=== PATIENT | female | born 1945 | race African-American/Black ===

== ENCOUNTER 2016-08-23 12:12 | Inpatient (IN) | payer MEDICARE, MEDICAID ==
[2016-08-23] MEDS ORDERED: IPRATROPIUM/ALBUTEROL 0.5-2.5 MG/3 ML AMPUL NEB ONE ×2 (12:30)
--- NOTE | 2016-08-23 13:07 | ER Document Report ---
ED General - General Stated Complaint: BACK PAIN Mode of Arrival: Medic Information source: Patient, Relative Notes: 71-year-old female who was recently discharged from nursing facility with a history of diabetes and asthma presents with complaints of back pain shortness breath difficulty breathing and high blood sugar. Patient has not been taking her diabetes medication since she's been unable to obtain it. Was found to be satting 75% on room air. Patient is not on oxygen at home. - HPI Onset: Last week Onset/Duration: Persistent Quality of pain: Achy Severity: Mild Pain Level: 1 Associated symptoms: Body/muscle aches, Nonproductive cough, Shortness of breath Exacerbated by: Denies Relieved by: Denies Similar symptoms previously: Yes Recently seen / treated by doctor: Yes - Related Data Allergies/Adverse Reactions: Penicillins Allergy (Verified 08/23/16 14:38) Sulfa (Sulfonamide Antibiotics) Allergy (Verified 08/23/16 14:38) Past Medical History - Social History Smoking Status: Never Smoker Cigarette use (# per day): No Chew tobacco use (# tins/day): No Smoking Education Provided: No Family History: Reviewed & Not Pertinent Review of Systems - Review of Systems Notes: REVIEW OF SYSTEMS: CONSTITUTIONAL : Denies fever, chills, or sweats. Denies recent illness. EENT: Denies eye, ear, throat, or mouth pain or symptoms. Denies nasal or sinus congestion or discharge. Denies throat, tongue, or mouth swelling or difficulty swallowing. CARDIOVASCULAR: Denies chest pain. Denies palpitations or racing or irregular heart beat. Denies ankle edema. RESPIRATORY: Admits shortness breath difficult to breathing GASTROINTESTINAL: Admits nausea GENITOURINARY: Denies difficulty urinating, painful urination, burning, frequency, blood in urine, or discharge. FEMALE GENITOURINARY: Denies vaginal bleeding, heavy or abnormal periods, irregular periods. Denies vaginal discharge or odor. MUSCULOSKELETAL: Denies back or neck pain or stiffness. Denies joint pain or swelling. SKIN: Denies rash, lesions or sores. HEMATOLOGIC : Denies easy bruising or bleeding. LYMPHATIC: Denies swollen, enlarged glands. NEUROLOGICAL: Denies confusion or altered mental status. Denies passing out or loss of consciousness. Denies dizziness or lightheadedness. Denies headache. Denies weakness or paralysis or loss of use of either side. Denies problems with gait or speech. Denies sensory loss, numbness, or tingling. Denies seizures. PSYCHIATRIC: Denies anxiety or stress. Denies depression, suicidal ideation, or homicidal ideation. ALL OTHER SYSTEMS REVIEWED AND NEGATIVE. Dictation was performed using [employer] voice recognition software PHYSICAL EXAMINATION: GENERAL: Chronically ill-appearing female no acute distress HEAD: Atraumatic, normocephalic. EYES: Pupils equal round and reactive to light, extraocular movements intact, conjunctiva are normal. ENT: Nares patent, oropharynx clear without exudates. Moist mucous membranes. NECK: Normal range of motion, supple without lymphadenopathy LUNGS: Intermittent wheezing inspiratory and expiratory with coarse rhonchi. Patient is currently on 4 L nasal cannula satting 100% HEART: Regular rate and rhythm without murmurs ABDOMEN: Soft, nontender, nondistended abdomen. No guarding, no rebound. No masses appreciated. Female : deferred Musculoskeletal: Bilateral AKA NEUROLOGICAL: Cranial nerves grossly intact. Normal speech, normal gait. Normal sensory, motor exams PSYCH: Normal mood, normal affect. SKIN: Warm, Dry, normal turgor, no rashes or lesions noted. Course - Re-evaluation Re-evalutation: 08/23/16 13:06 Patient immediately given 3 duo nebs dyspnea workup ordered 08/23/16 13:06 08/23/16 15:17 X-ray presentations consistent with pneumonia, patient does have an elevated white count. A CT has been ordered given the patient has history of bilateral AKA's, I will place in antecubital IV guided ultrasound for this test. Patient is noted to be hyperglycemic insulin fluids have been ordered as well - Laboratory Result Diagrams: 08/23/16 13:25 08/23/16 13:25 Laboratory results interpreted by me: 08/23/16 08/23/16 13:25 13:25 MCHC 31.6 L RDW 17.1 H Sodium 133.3 L Potassium 5.2 H Chloride 89 L BUN 64 H Creatinine 1.55 H Est GFR ( Amer) 40 L Est GFR (Non-Af Amer) 33 L Glucose 550 H* Total Bilirubin 1.4 H Direct Bilirubin 0.6 H Alkaline Phosphatase 128 H - Diagnostic Test Radiology reviewed: Image reviewed, Reports reviewed Discharge - Discharge Clinical Impression: Hyperglycemia, Hypoxemia Pneumonia Qualifiers: Pneumonia type: due to unspecified organism Laterality: left Lung location: lower lobe of lung Qualified Code(s): J18.1 - Lobar pneumonia, unspecified organism Condition: Stable Disposition: ADMITTED INPATIENT Admitting Provider: Hospitalist Unit Admitted: Telemetry
--- NOTE | 2016-08-23 13:15 | EKG REPORT ---
SEVERITY:- ABNORMAL ECG - SINUS TACHYCARDIA INFERIOR INFARCT, OLD CONSIDER POSTERIOR WALL INVOLVEMENT : Confirmed by: Gretel Ames MD 23-Aug-2016 13:14:20
[2016-08-23 13:49] LABS: ABSOLUTE BASOPHILS # (AUTO) 0.1 10^3/uL (0.0-0.2); ABSOLUTE EOSINOPHILS # (AUTO) 0.1 10^3/uL (0.0-0.6); ABSOLUTE LYMPHOCYTES (AUTO) 3.2 10^3/uL (0.5-4.7); ABSOLUTE NEUT (AUTO) 5.7 10^3/uL (1.7-8.2); BASOPHILS % (AUTO) 0.9 % (0-2); EOSINOPHILS % (AUTO) 0.6 % (0-6); HEMATOCRIT 38.8 % (36.0-47.0); HEMOGLOBIN 12.3 g/dL (12.0-15.5); HGB HCT DIFFERENCE -1.9; LYMPHOCYTES % (AUTO) 31.9 % (13-45); MEAN CORPUSCULAR HEMOGLOBIN 27.9 pg (27.0-33.4); MEAN CORPUSCULAR HGB CONC 31.6 g/dL (32.0-36.0); MEAN CORPUSCULAR VOLUME 88 fl (80-97); RED BLOOD COUNT 4.39 10^6/uL (3.72-5.28); RED CELL DISTRIBUTION WIDTH 17.1 % (11.5-14.0); SEGMENTED NEUTROPHILS % (AUTO) 56.6 % (42-78); WHITE BLOOD COUNT 10.1 10^3/uL (4.0-10.5)
[2016-08-23 13:50] LABS: VENOUS BLOOD BASE EXCESS 2.6 mmol/L; VENOUS BLOOD HCO3 29.9 mmol/L (20-32); VENOUS BLOOD PCO2 59.6 mmHg (35-63); VENOUS BLOOD PH 7.32 (7.30-7.42)
[2016-08-23 13:55] LABS: PROTHROMBIN TIME 13.8 SEC (11.4-15.4)
[2016-08-23 14:05] LABS: ALANINE AMINOTRANSFERASE 27 U/L (9-52); ALBUMIN 3.6 g/dL (3.5-5.0); ALKALINE PHOSPHATASE 128 U/L (38-126); ANION GAP 16 (5-19); ASPARTATE AMINO TRANSFERASE 20 U/L (14-36); BILIRUBIN,DIRECT 0.6 mg/dL (0.0-0.4); BILIRUBIN,TOTAL 1.4 mg/dL (0.2-1.3); BLOOD UREA NITROGEN 64 mg/dL (7-20); CALCIUM 9.5 mg/dL (8.4-10.2); CARBON DIOXIDE 28 mmol/L (22-30); CHLORIDE 89 mmol/L (98-107); CREATININE RESULT 1.55 mg/dL (0.52-1.25); POTASSIUM 5.2 mmol/L (3.6-5.0); SODIUM 133.3 mmol/L (137-145); TOTAL PROTEIN 7.3 g/dL (6.3-8.2)
[2016-08-23 14:28] LABS: GLUCOSE 550 mg/dL (75-110)
[2016-08-23] MEDS ORDERED: INSULIN REG, HUMAN 100 UNIT/ML 3 ML VIAL (PYX) IV ONE (14:32)
[2016-08-23] MEDS ORDERED: NORMAL SALINE 1000 ML 1,000 ML IV ONE (14:32)
[2016-08-23] MEDS ORDERED: LEVOFLOXACIN 750 MG/D5W RTU 150 ML IV ONE (15:07)
[2016-08-23] MEDS ORDERED: RINGERS SOLUTION,LACTATED 1,000 ML IV PRN (16:01)
[2016-08-23] MEDS ORDERED: GLUCAGON,HUMAN RECOMB 1 MG INJ IM PRN (16:07)
[2016-08-23] MEDS ORDERED: DEXTROSE 50%-WATER 25 GM/50 ML DISP.SYRIN IV PRN ×2 (16:07)
[2016-08-23] MEDS ORDERED: DEXTROSE 40% GEL 15 GM TUBE PO PRN ×2 (16:07)
[2016-08-23 16:15] LABS: APPEARANCE,URINE SLIGHTLY-CLOUDY; BILIRUBIN,URINE NEGATIVE (NEGATIVE); GLUCOSE, URINE >=500 mg/dL (NEGATIVE); KETONES,URINE NEGATIVE (NEGATIVE); LEUKOCYTE ESTERASE,URINE NEGATIVE (NEGATIVE); NITRITE,URINE NEGATIVE (NEGATIVE); PROTEIN,URINE NEGATIVE (NEGATIVE); URINE SPECIFIC GRAVITY 1.008; UROBILINOGEN,URINE NEGATIVE mg/dL (<2.0)
[2016-08-23] MEDS ORDERED: VANCOMYCIN HCL 0 MG in DEXTROSE 5%-WATER 250 ML IV NR (16:15)
--- NOTE | 2016-08-23 18:15 | PDOC H&P ---
History of Present Illness Admission Date/PCP: 08/23/16 16:50 AYAN FONG DO Patient complains of: Generalized weakness and pain History of Present Illness: DANYELL ABBASI is a 71 year old -[place] female presents to the emergency department from home with generalized weakness and pain throughout all muscles and joints. The patient is chronically ill, previously treated with primary care and hospital admissions in [place]. She and the family relate annual admissions for pneumonia, frequently admitted to ICU but never intubated on mechanical ventilation for her pneumonia. She has underlying O2 dependent COPD and is relatively immunocompromised due to advanced diabetes resulting in severe peripheral neuropathy and nonhealing wounds and ultimately bilateral [id number] amputations, adrenal hemorrhage resulting in insufficiency requiring cortisone therapy. She also reports a history of MRSA in her sputum on previous admission in [facility]. She reports feeling more short of breath, easily fatigued, cough with green phlegm and subjective fevers. Evaluation in emergency departments suggest right lower lobe pneumonia given her multiple comorbidities we were asked to admit for further treatment and evaluation. According to ER physician she was hypoxic on room air at presentation 75%. Past Medical History Cardiac Medical History: Reports: Hyperlipidema, Hypertension Denies: Congestive Heart Failure, Myocardial Infarction Pulmonary Medical History: Reports: Chronic Obstructive Pulmonary Disease (COPD ) - O2 dependent but no nebulizer Endocrine Medical History: Reports: Diabetes Mellitus Type 2 - Insulin-dependent Renal/ Medical History: Reports: Chronic Kidney Disease - Unknown stage Past Surgical History Past Surgical History: Reports: Cholecystectomy, Orthopedic Surgery - Bilateral AKA Social History Information Source: Patient Lives with: Family - Lives with son now, just moved from [place] Smoking Status: Current Every Day Smoker Cigarettes Packs Per Day: 1 Frequency of Alcohol Use: None Hx Recreational Drug Use: No Hx Prescription Drug Abuse: No - Advance Directive Resuscitation Status: Full Code Family History Family History: Reviewed & Not Pertinent, DM Parental Family History Reviewed: Yes Children Family History Reviewed: Yes Sibling(s) Family History Reviewed.: Yes Medication/Allergy Allergies/Adverse Reactions: Penicillins Allergy (Verified 08/23/16 14:38) Sulfa (Sulfonamide Antibiotics) Allergy (Verified 08/23/16 14:38) Review of Systems Constitutional: PRESENT: chills, fever(s), weakness. ABSENT: headache(s), weight gain, weight loss Eyes: ABSENT: visual disturbances Ears: ABSENT: hearing changes Cardiovascular: PRESENT: dyspnea on exertion. ABSENT: chest pain, edema, orthropnea, palpitations Respiratory: PRESENT: cough, sputum. ABSENT: hemoptysis Gastrointestinal: ABSENT: abdominal pain, constipation, diarrhea, hematemesis, hematochezia, nausea, vomiting Genitourinary: ABSENT: dysuria, hematuria Musculoskeletal: PRESENT: back pain, muscle weakness. ABSENT: joint swelling Integumentary: ABSENT: rash, wounds Neurological: ABSENT: abnormal gait, abnormal speech, confusion, dizziness, focal weakness, syncope Psychiatric: ABSENT: anxiety, depression Endocrine: ABSENT: cold intolerance, heat intolerance, polydipsia, polyuria Hematologic/Lymphatic: ABSENT: easy bleeding, easy bruising Physical Exam Vital Signs: Intake & Output 08/22/16 08/23/16 08/24/16 06:59 06:59 06:59 Weight 61.235 kg PHYSICAL EXAM GENERAL: NAD; well developed, well nourished; moderate obese; alert and oriented to person, place, time, situation HEENT: normocephalic, atraumatic; EOMI, PERRLA, no conjunctival injection, no scleral icterus; oral mucosa moist; neck supple, no LAD, normal ROM RESPIRATORY: no accessory muscle use, no increased WOB, good air entry bilaterally; no wheezes, rales, rhonchi; bibasilar right greater than left inspiratory crackles CARDIO: no JVD; RRR; no systolic murmur; no tachycardia VASCULAR: no carotid bruit; no abdominal bruit; no pallor; 2+ radial; normal capillary refill GI: soft; nondistended; diminished bowel sounds; no rebound, rigidity, guarding; diffuse lower abdominal tenderness to palpation : normal external genitalia; rectal deferred NEURO: normal motor function; no dysarthria; no nystagmus; tongue protrudes midline; normal finger to nose; able to cross midline with finger to ear MSK: 4/5 strength; normal ROM hips; tenderness to palpation of both stumps right greater than left EXTREMITIES: no clubbing, cyanosis, no edema of the stumps or hands PSYCH: normal affect, normal mood SKIN: warm; moist; no petechiae; no telengectasias; no jaundice; no rash Results Laboratory Results: Labs reviewed, CBC shows normal leukocytes at 10,000 with a normal differential ; chemistries show sodium 133, potassium of 5.2 chloride of 89, carbon dioxide 28, BUN is 64, creatinine 1.55; blood sugars 550, lactic acid 1.4, LFTs were relatively unremarkable though bilirubin is mildly elevated 1.4. Impressions: Chest X-Ray 08/23/16 12:30 IMPRESSION: COPD. Atelectasis versus early pneumonia or aspiration right lower lobe. Status: Image reviewed by me - Agree with radiology Assessment & Plan - Diagnosis (1) Pneumonia Qualifiers: Pneumonia type: due to unspecified organism Laterality: unspecified laterality Lung location: lower lobe of lung Qualified Code(s): J18.1 - Lobar pneumonia, unspecified organism Is this a current diagnosis for this admission?: YesPlan: Poorly controlled. Admit for IV antibiotics covering with Levaquin and vancomycin. Follow up on blood and sputum cultures and narrow antibiotics accordingly. (2) Acute on chronic respiratory failure with hypoxia Is this a current diagnosis for this admission?: YesPlan: Secondary to the pneumonia. Stable on 4 L. Continue supplemental O2, aggressive pulmonary toilet. (3) Diabetes Qualifiers: Diabetes mellitus type: type 2 Diabetes mellitus complication status: with circulatory complication Diabetes mellitus complication detail: with other circulatory complications Diabetes mellitus senior care insulin use: with senior care use Qualified Code(s): E11.59 - Type 2 diabetes mellitus with other circulatory complications; Z79.4 - jail (current) use of insulin Is this a current diagnosis for this admission?: YesPlan: He did clarify her home medicines. Will start basal bolus regimen and titrate to effect. Will likely worsen with steroid use and due to the infection. (4) History of MRSA infection Is this a current diagnosis for this admission?: YesPlan: History of MRSA in her sputum so we will cover with vancomycin until cultures are available. (5) COPD (chronic obstructive pulmonary disease) Qualifiers: COPD type: unspecified COPD Qualified Code(s): J44.9 - Chronic obstructive pulmonary disease, unspecified Is this a current diagnosis for this admission?: YesPlan: Poorly controlled. Cover with steroids, supplemental oxygen, scheduled nebulizers for the first 48 hours and as needed nebulizers. (6) Full code status Is this a current diagnosis for this admission?: YesPlan: Patient reports she would wish to be resuscitated but "only once" and then allow her family to decide how to proceed from there. (7) Adrenal insufficiency Is this a current diagnosis for this admission?: YesPlan: Need to clarify her current hydrocortisone dose, in the meantime will cover with Solu-Medrol 40 mg IV twice a day to prevent hemodynamic collapse in the face of stress from acute infection. - Time Time Spent: 50 to 70 Minutes Medications reviewed and adjusted accordingly: Yes Anticipated discharge: Home with Homehealth - Uses [facility] Care - Inpatient Certification Based on my medical assessment, after consideration of the patient's comorbidities, presenting symptoms, or acuity I expect that the services needed warrant INPATIENT care.: Yes I certify that my determination is in accordance with my understanding of Medicare's requirements for reasonable and necessary INPATIENT services [42 CFR 412.3e].: Yes Medical Necessity: Significant Comorbidiites Make Outpatient Treatment Too Risky , Need For IV Fluids, Need for IV Antibiotics, Risk of Complication if Not Cared For in Hospital
[2016-08-23] MEDS: ACETAMINOPHEN 325 MG TABLET PO PRN (19:16)
[2016-08-23] MEDS: METHYLPREDNISOLONE INJ 40 MG/1 ML SDV IV SCH (19:16)
[2016-08-23] MEDS ORDERED: VANCOMYCIN HCL 1,250 MG in DEXTROSE 5%-WATER 250 ML IV ONE (20:00)
[2016-08-23] MEDS: IPRATROPIUM/ALBUTEROL 0.5-2.5 MG/3 ML AMPUL NEB SCH (21:46)
[2016-08-23] MEDS ORDERED: FAMOTIDINE 20 MG TABLET PO SCH (22:00)
[2016-08-23] MEDS ORDERED: INSULIN GLARGINE,HUM.REC.ANLOG 300 UNIT/3 ML INSULN.PEN SUBCUT SCH (22:00)
[2016-08-23] MEDS: FAMOTIDINE 20 MG TABLET PO SCH (22:35)
[2016-08-23] MEDS: INSULIN LISPRO 100 UNIT/ML 3 ML VIAL SUBCUT PRN (22:40)
[2016-08-24] MEDS: ACETAMINOPHEN 325 MG TABLET PO PRN (00:15)
--- NOTE | 2016-08-24 04:03 | OPERATIVE REPORT E ---
Operative Report NAME: DANYELL ABBASI : 1945 AGE: 71Y DATE OF SURGERY: 08/23/2016 ROOM: 406 PREOPERATIVE DIAGNOSES: 1. Poor veins for IV access. 2. Pneumonia. POSTOPERATIVE DIAGNOSES: 1. Poor veins for IV access. 2. Pneumonia. OPERATION: Placement of left internal jugular vein triple-lumen catheter. SURGEON: GILBERT GRACE M.D. ANESTHESIA: Local. INDICATION: This is a 71-year-old female just admitted for pneumonia and needed IV access for medications and fluids. She just has a very small IV in her left thumb with a small gauge needle. DESCRIPTION OF PROCEDURE: The patient was placed in slight Trendelenburg position and the left neck prepped and draped in usual sterile fashion. Local anesthesia infiltrated at the left neck within the clavicular and sternocleidomastoid muscle. A small needle was first used to puncture the vein, and this was followed by a larger needle. The vein was then punctured and a guidewire passed through the larger needle into the superior vena cava. The puncture site was then enlarged with a #11 blade, and subsequently dilated through the guidewire. Next, a triple-lumen catheter was then placed through the guidewire into the area of superior vena cava up to about 15 cm. Following this, all the port sites were then irrigated with saline solution. Blood could easily be aspirated and easily injected with saline. Next, the catheter was anchored to the skin with 3-0 nylon. A BioPatch was then placed at the puncture site, and a sterile transparent dressing was then placed over the catheter and puncture site areas. The patient tolerated the procedure well. Chest x-ray will be done for placement to make sure there is no evidence of pneumothorax. DICTATING PHYSICIAN: GILBERT GRACE M.D. [id number] PHY#: [id number] ID: [id number] JOB#: [id number] ACCT: [id number] cc:GILBERT GRACE M.D. >
[2016-08-24] MEDS: METHYLPREDNISOLONE INJ 40 MG/1 ML SDV IV SCH ×2 (05:10→18:23)
[2016-08-24 06:15] LABS: ABSOLUTE LYMPHOCYTES (AUTO) 1.6 10^3/uL (0.5-4.7); ABSOLUTE MONOCYTES (AUTO) 0.2 10^3/uL (0.1-1.4); ABSOLUTE NEUT (AUTO) 5.9 10^3/uL (1.7-8.2); BASOPHILS % (AUTO) 0.4 % (0-2); HEMATOCRIT 36.2 % (36.0-47.0); HEMOGLOBIN 11.4 g/dL (12.0-15.5); LYMPHOCYTES % (AUTO) 20.3 % (13-45); MEAN CORPUSCULAR HEMOGLOBIN 27.5 pg (27.0-33.4); MEAN CORPUSCULAR HGB CONC 31.5 g/dL (32.0-36.0); MEAN CORPUSCULAR VOLUME 87 fl (80-97); RED BLOOD COUNT 4.15 10^6/uL (3.72-5.28); RED CELL DISTRIBUTION WIDTH 17.1 % (11.5-14.0); SEGMENTED NEUTROPHILS % (AUTO) 77.3 % (42-78); WHITE BLOOD COUNT 7.7 10^3/uL (4.0-10.5)
[2016-08-24 06:25] LABS: ANION GAP 15 (5-19); BLOOD UREA NITROGEN 68 mg/dL (7-20); CARBON DIOXIDE 26 mmol/L (22-30); CHLORIDE 93 mmol/L (98-107); CREATININE RESULT 2.12 mg/dL (0.52-1.25); POTASSIUM 5.6 mmol/L (3.6-5.0); SODIUM 134.4 mmol/L (137-145)
[2016-08-24 06:34] LABS: GLUCOSE 414 mg/dL (75-110)
[2016-08-24] MEDS ORDERED: INSULIN REG, HUMAN 100 UNIT/ML 3 ML VIAL (PYX) IV ONE (07:27)
[2016-08-24] MEDS ORDERED: RINGERS SOLUTION,LACTATED 1,000 ML IV PRN (07:28)
[2016-08-24] MEDS ORDERED: NORMAL SALINE 1000 ML 1,000 ML IV PRN (07:51)
[2016-08-24] MEDS ORDERED: ENOXAPARIN SODIUM INJ 30 MG/0.3 ML DISP.SYRIN SUBCUT SCH (08:00)
[2016-08-24] MEDS: IPRATROPIUM/ALBUTEROL 0.5-2.5 MG/3 ML AMPUL NEB SCH ×3 (08:38→20:46)
[2016-08-24] MEDS ORDERED: LEVOFLOXACIN 500 MG/D5W RTU 100 ML IV SCH (10:00)
[2016-08-24] MEDS: LEVOFLOXACIN 250 MG/D5W RTU 250 MG/50 ML RTUPB IV SCH (10:54)
[2016-08-24] MEDS: FAMOTIDINE 20 MG TABLET PO SCH ×2 (10:54→22:23)
[2016-08-24] MEDS ORDERED: INSULIN LISPRO 100 UNIT/ML 3 ML VIAL SUBCUT ONE (13:30)
--- NOTE | 2016-08-24 14:07 | PDOC PROGRESS REPORT ---
Subjective Progress Note for:: 08/24/16 Subjective:: Reason for follow-up visit: Pneumonia, acute on chronic respiratory failure, diabetes, COPD, adrenal insufficiency Hospital course: DANYELL ABBASI is a 71 year old -[place] female presents to the emergency department from home with generalized weakness and pain throughout all muscles and joints. The patient is chronically ill, previously treated with primary care and hospital admissions in [place]. She and the family relate annual admissions for pneumonia, frequently admitted to ICU but never intubated on mechanical ventilation for her pneumonia. She has underlying O2 dependent COPD and is relatively immunocompromised due to advanced diabetes resulting in severe peripheral neuropathy and nonhealing wounds and ultimately bilateral [id number] amputations, adrenal hemorrhage resulting in insufficiency requiring cortisone therapy. She also reports a history of MRSA in her sputum on previous admission in [facility]. She reports feeling more short of breath, easily fatigued, cough with green phlegm and subjective fevers. Evaluation in emergency departments suggest right lower lobe pneumonia given her multiple comorbidities we were asked to admit for further treatment and evaluation. According to ER physician she was hypoxic on room air at presentation 75%. She reports feeling some better this morning with less work of breathing, less productive sputum changing from green to frothy white. She denies chest pain, palpitations, nausea or vomiting. ROS: per HPI plus a total of 10 systems reviewed, pertinent positives and negatives noted above, remaining systems negative. Physical Exam Vital Signs: Temp Pulse Resp BP Pulse Ox 97.6 F 105 H 18 105/64 100 08/24/16 12:33 08/24/16 12:33 08/24/16 12:33 08/24/16 12:33 08/24/16 12:33 Intake & Output 08/23/16 08/24/16 08/25/16 06:59 06:59 06:59 Intake Total 1300 Output Total 300 Balance 1000 Weight 73.7 kg PHYSICAL EXAM GENERAL: NAD; well developed, well nourished; moderate obese; alert and oriented to person, place, time, situation HEENT: normocephalic, atraumatic; no conjunctival injection, no scleral icterus ; oral mucosa moist; neck supple, no LAD, normal ROM RESPIRATORY: no accessory muscle use, no increased WOB, good air entry bilaterally; no wheezes, rales, rhonchi; bibasilar right greater than left inspiratory crackles CARDIO: no JVD; RRR; no systolic murmur;mild tachycardia VASCULAR: no carotid bruit; no abdominal bruit; no pallor; 2+ radial; normal capillary refill GI: soft; nondistended; diminished bowel sounds; no rebound, rigidity, guarding; nontender NEURO: normal motor function; no dysarthria; no nystagmus; tongue protrudes midline MSK: 4/5 strength; normal ROM hips; no more tenderness to palpation of both stumps right greater than left EXTREMITIES: no clubbing, cyanosis, no edema of the stumps or hands PSYCH: normal affect, normal mood SKIN: warm; moist; no petechiae; no telengectasias; no jaundice; no rash Results Laboratory Results: 08/24/16 06:00 08/24/16 06:00 08/24/16 08/24/16 06:00 06:00 WBC 7.7 RBC 4.15 Hgb 11.4 L Hct 36.2 MCV 87 MCH 27.5 MCHC 31.5 L RDW 17.1 H Plt Count 178 Seg Neutrophils % 77.3 Lymphocytes % 20.3 Monocytes % 2.0 L Eosinophils % 0.0 Basophils % 0.4 Absolute Neutrophils 5.9 Absolute Lymphocytes 1.6 Absolute Monocytes 0.2 Absolute Eosinophils 0.0 Absolute Basophils 0.0 Sodium 134.4 L Potassium 5.6 H Chloride 93 L Carbon Dioxide 26 Anion Gap 15 BUN 68 H Creatinine 2.12 H Est GFR ( Amer) 28 L Est GFR (Non-Af Amer) 23 L Glucose 414 H* Calcium 9.0 Impressions: Chest X-Ray 08/23/16 23:24 IMPRESSION: Venous access catheter via right IJ approach. Tip at the cavoatrial junction. No pneumothorax. Stable appearance of the chest. Status: Image reviewed by me Shine Manley to use central line Assessment & Plan - Diagnosis (1) Pneumonia Qualifiers: Pneumonia type: due to unspecified organism Laterality: unspecified laterality Lung location: lower lobe of lung Qualified Code(s): J18.1 - Lobar pneumonia, unspecified organism Is this a current diagnosis for this admission?: YesPlan: Slightly improved but not back to baseline. Continue IV antibiotics covering with Levaquin and vancomycin. Follow up on blood and sputum cultures and narrow antibiotics accordingly. (2) Acute on chronic respiratory failure with hypoxia Is this a current diagnosis for this admission?: YesPlan: Unchanged. He has Secondary to the pneumonia. Stable on 4 L. Continue supplemental O2, aggressive pulmonary toilet. (3) Diabetes Qualifiers: Diabetes mellitus type: type 2 Diabetes mellitus complication status: with circulatory complication Diabetes mellitus complication detail: with other circulatory complications Diabetes mellitus usp insulin use: with terminal makeup operator use Qualified Code(s): E11.59 - Type 2 diabetes mellitus with other circulatory complications Is this a current diagnosis for this admission?: Yes (4) History of MRSA infection Is this a current diagnosis for this admission?: Yes (5) COPD (chronic obstructive pulmonary disease) Qualifiers: COPD type: unspecified COPD Qualified Code(s): J44.9 - Chronic obstructive pulmonary disease, unspecified Is this a current diagnosis for this admission?: Yes (6) Full code status Is this a current diagnosis for this admission?: Yes (7) Adrenal insufficiency Is this a current diagnosis for this admission?: YesPlan: Need to clarify her current hydrocortisone dose, in the meantime will cover with Solu-Medrol 40 mg IV twice a day to prevent hemodynamic collapse in the face of stress from acute infection. (8) Acute kidney injury Is this a current diagnosis for this admission?: YesPlan: Worse. Unclear etiology, but blood pressures have been on the low side so possibly a component of ATN in the setting of chronic kidney disease. Increase IV fluids. No prior labs for baseline. Try to get records from [place] where she received all of her care previously. Consult Dr. Simmons, nephrology for his input, she will likely need continued outpatient nephrology follow-up as well. - Time Time Spent with patient: 25-34 minutes Medications reviewed and adjusted accordingly: Yes Anticipated discharge: Home with Homehealth Within: within 72 hours - Plan Summary Plan Summary: Prognosis guarded due to worsening renal insufficiency and persistent pneumonia.
[2016-08-24] MEDS: NORMAL SALINE INJ/PF 0.9% 10 ML SDV IV PRN (18:24)
[2016-08-24] MEDS: INSULIN LISPRO 100 UNIT/ML 3 ML VIAL SUBCUT PRN ×2 (18:24→22:23)
--- NOTE | 2016-08-24 22:04 | EKG REPORT ---
SEVERITY:- ABNORMAL ECG - SINUS TACHYCARDIA NONSPECIFIC T ABNORMALITIES, LATERAL LEADS : Confirmed by: Gretel Ames MD 24-Aug-2016 22:03:40
[2016-08-24] MEDS: VANCOMYCIN HCL 500 MG in DEXTROSE 5%-WATER 100 ML IV SCH (22:23)
[2016-08-24] MEDS: INSULIN GLARGINE,HUM.REC.ANLOG 300 UNIT/3 ML INSULN.PEN SUBCUT SCH (22:23)
[2016-08-25] MEDS: METHYLPREDNISOLONE INJ 40 MG/1 ML SDV IV SCH (06:26)
[2016-08-25 06:31] LABS: ABSOLUTE LYMPHOCYTES (AUTO) 0.6 10^3/uL (0.5-4.7); ABSOLUTE MONOCYTES (AUTO) 0.6 10^3/uL (0.1-1.4); ABSOLUTE NEUT (AUTO) 7.4 10^3/uL (1.7-8.2); BASOPHILS % (AUTO) 0.1 % (0-2); HEMATOCRIT 32.5 % (36.0-47.0); HEMOGLOBIN 10.3 g/dL (12.0-15.5); HGB HCT DIFFERENCE -1.6; LYMPHOCYTES % (AUTO) 6.5 % (13-45); MEAN CORPUSCULAR HEMOGLOBIN 27.7 pg (27.0-33.4); MEAN CORPUSCULAR HGB CONC 31.7 g/dL (32.0-36.0); MEAN CORPUSCULAR VOLUME 87 fl (80-97); MONOCYTES % (AUTO) 7.3 % (3-13); RED BLOOD COUNT 3.73 10^6/uL (3.72-5.28); RED CELL DISTRIBUTION WIDTH 16.7 % (11.5-14.0); SEGMENTED NEUTROPHILS % (AUTO) 86.1 % (42-78); WHITE BLOOD COUNT 8.6 10^3/uL (4.0-10.5)
[2016-08-25 06:42] LABS: ANION GAP 11 (5-19); BLOOD UREA NITROGEN 60 mg/dL (7-20); CALCIUM 8.5 mg/dL (8.4-10.2); CARBON DIOXIDE 24 mmol/L (22-30); CHLORIDE 100 mmol/L (98-107); CREATININE RESULT 1.37 mg/dL (0.52-1.25); GLUCOSE 344 mg/dL (75-110); SODIUM 134.6 mmol/L (137-145)
[2016-08-25 06:58] LABS: MAGNESIUM 1.2 mg/dL (1.6-2.3)
[2016-08-25] MEDS: MAGNESIUM SULFATE/D5W 100 ML IV SCH ×5 (08:32→13:19)
[2016-08-25] MEDS: IPRATROPIUM/ALBUTEROL 0.5-2.5 MG/3 ML AMPUL NEB SCH ×2 (09:02→14:14)
[2016-08-25] MEDS ORDERED: NORMAL SALINE 1000 ML 1,000 ML IV PRN (09:28)
[2016-08-25] MEDS: FAMOTIDINE 20 MG TABLET PO SCH ×2 (10:12→22:41)
[2016-08-25] MEDS: LEVOFLOXACIN 250 MG/D5W RTU 250 MG/50 ML RTUPB IV SCH (10:13)
[2016-08-25] MEDS: GABAPENTIN 300 MG CAPSULE PO SCH ×2 (10:13→22:41)
[2016-08-25] MEDS: NORMAL SALINE INJ/PF 0.9% 10 ML SDV IV PRN (13:20)
[2016-08-25] MEDS: INSULIN LISPRO 100 UNIT/ML 3 ML VIAL SUBCUT PRN ×3 (13:21→22:42)
--- NOTE | 2016-08-25 15:32 | PDOC PROGRESS REPORT ---
Subjective Progress Note for:: 08/25/16 Subjective:: Reason for follow-up visit: Pneumonia, acute on chronic respiratory failure, diabetes, COPD, adrenal insufficiency Hospital course: DANYELL ABBASI is a 71 year old -[place] female presents to the emergency department from home with generalized weakness and pain throughout all muscles and joints. The patient is chronically ill, previously treated with primary care and hospital admissions in [place]. She and the family relate annual admissions for pneumonia, frequently admitted to ICU but never intubated on mechanical ventilation for her pneumonia. She has underlying O2 dependent COPD and is relatively immunocompromised due to advanced diabetes resulting in severe peripheral neuropathy and nonhealing wounds and ultimately bilateral [id number] amputations, adrenal hemorrhage resulting in insufficiency requiring cortisone therapy. She also reports a history of MRSA in her sputum on previous admission in [facility]. She reports feeling more short of breath, easily fatigued, cough with green phlegm and subjective fevers. Evaluation in emergency departments suggest right lower lobe pneumonia given her multiple comorbidities we were asked to admit for further treatment and evaluation. According to ER physician she was hypoxic on room air at presentation 75%. She reports feeling some better with less work of breathing, less productive sputum changing from green to frothy white. She denies chest pain, palpitations , nausea or vomiting. still very weak. ROS: per HPI plus a total of 10 systems reviewed, pertinent positives and negatives noted above, remaining systems negative. Physical Exam Vital Signs: Temp Pulse Resp BP Pulse Ox 97.7 F 101 H 16 140/71 H 95 08/25/16 13:26 08/25/16 14:14 08/25/16 14:14 08/25/16 13:26 08/25/16 13:26 Intake & Output 08/24/16 08/25/16 08/26/16 06:59 06:59 06:59 Intake Total 1300 6172 Output Total 300 1100 Balance 1000 5072 Weight 73.7 kg 74.1 kg PHYSICAL EXAM GENERAL: NAD; well developed, well nourished; moderate obese; alert and oriented to person, place, time, situation HEENT: normocephalic, atraumatic; no conjunctival injection, no scleral icterus ; oral mucosa moist; neck supple, no LAD, normal ROM RESPIRATORY: no accessory muscle use, no increased WOB, good air entry bilaterally; no wheezes, rhonchi; bibasilar right greater than left inspiratory crackles with rales Rt base CARDIO: no JVD; RRR; no systolic murmur; mild tachycardia VASCULAR: no carotid bruit; no abdominal bruit; no pallor; 2+ radial; normal capillary refill GI: soft; nondistended; diminished bowel sounds; no rebound, rigidity, guarding; nontender NEURO: normal motor function; no dysarthria; no nystagmus; tongue protrudes midline MSK: 4/5 strength; normal ROM hips; no more tenderness to palpation of both stumps EXTREMITIES: no clubbing, cyanosis, no edema of the stumps or hands PSYCH: normal affect, normal mood SKIN: warm; moist; no petechiae; no telengectasias; no jaundice; no rash Results Laboratory Results: 08/25/16 06:15 08/25/16 06:15 08/25/16 08/25/16 06:15 06:15 WBC 8.6 RBC 3.73 Hgb 10.3 L Hct 32.5 L MCV 87 MCH 27.7 MCHC 31.7 L RDW 16.7 H Plt Count 143 L Seg Neutrophils % 86.1 H Lymphocytes % 6.5 L Monocytes % 7.3 Eosinophils % 0.0 Basophils % 0.1 Absolute Neutrophils 7.4 Absolute Lymphocytes 0.6 Absolute Monocytes 0.6 Absolute Eosinophils 0.0 Absolute Basophils 0.0 Sodium 134.6 L Potassium 5.0 Chloride 100 Carbon Dioxide 24 Anion Gap 11 BUN 60 H Creatinine 1.37 H Est GFR ( Amer) 46 L Est GFR (Non-Af Amer) 38 L Glucose 344 H Calcium 8.5 Magnesium 1.2 L* 08/24/16 07:35 Nasophary (Mrsa Only) MRSA Surveillance Culture - Final MRSA RECOVERED Assessment & Plan - Diagnosis (1) Pneumonia Qualifiers: Pneumonia type: due to unspecified organism Laterality: unspecified laterality Lung location: lower lobe of lung Qualified Code(s): J18.1 - Lobar pneumonia, unspecified organism Is this a current diagnosis for this admission?: YesPlan: Slightly improved but still not back to baseline. Continue IV antibiotics with Levaquin and vancomycin. Follow up on blood and sputum cultures and narrow antibiotics accordingly, so far unhelpful. (2) Acute on chronic respiratory failure with hypoxia Is this a current diagnosis for this admission?: YesPlan: improved requiring less supplemental O2. secondary to the pneumonia. Continue aggressive pulmonary toilet. (3) Diabetes Qualifiers: Diabetes mellitus type: type 2 Diabetes mellitus complication status: with circulatory complication Diabetes mellitus complication detail: with other circulatory complications Diabetes mellitus detention insulin use: with intermodal dispatcher use Qualified Code(s): E11.59 - Type 2 diabetes mellitus with other circulatory complications Is this a current diagnosis for this admission?: Yes (4) History of MRSA infection Is this a current diagnosis for this admission?: Yes (5) COPD (chronic obstructive pulmonary disease) Qualifiers: COPD type: unspecified COPD Qualified Code(s): J44.9 - Chronic obstructive pulmonary disease, unspecified Is this a current diagnosis for this admission?: Yes (6) Full code status Is this a current diagnosis for this admission?: Yes (7) Adrenal insufficiency Is this a current diagnosis for this admission?: YesPlan: transition from solumedrol to hydrocortisone home dose. (8) Acute kidney injury Is this a current diagnosis for this admission?: YesPlan: improved. Unclear etiology, but blood pressures were on the low side for a time so possibly a component of ATN in the setting of chronic kidney disease. decrease IV fluids. No prior labs for baseline. Still waiting on records from [place] where she received all of her care previously. Consult Dr. Simmons, nephrology for his input, she will likely need continued outpatient nephrology follow-up as well. (9) Hypomagnesemia Is this a current diagnosis for this admission?: YesPlan: severe, likely contributing to some of her weakness; replace and monitor closely - Time Time Spent with patient: 25-34 minutes Medications reviewed and adjusted accordingly: Yes
[2016-08-25] MEDS: LACTOBACILLUS ACIDOPHILUS 250 MG TAB PO SCH (17:57)
[2016-08-25] MEDS: HYDROCORTISONE 10 MG TABLET PO SCH (17:57)
[2016-08-25] MEDS: ATORVASTATIN CALCIUM 20 MG TABLET PO SCH (22:41)
[2016-08-25] MEDS: VANCOMYCIN HCL 500 MG in DEXTROSE 5%-WATER 100 ML IV SCH (22:41)
[2016-08-25] MEDS: AMITRIPTYLINE HCL 25 MG TABLET PO SCH (22:41)
[2016-08-25] MEDS: INSULIN GLARGINE,HUM.REC.ANLOG 300 UNIT/3 ML INSULN.PEN SUBCUT SCH (22:42)
[2016-08-25] MEDS: OXYCODONE HCL IR 5 MG TABLET PO PRN (22:49)
[2016-08-26] MEDS: OXYCODONE HCL IR 5 MG TABLET PO PRN ×2 (05:26→22:47)
[2016-08-26 05:45] LABS: ABSOLUTE LYMPHOCYTES (AUTO) 0.5 10^3/uL (0.5-4.7); ABSOLUTE MONOCYTES (AUTO) 1.2 10^3/uL (0.1-1.4); ABSOLUTE NEUT (AUTO) 6.1 10^3/uL (1.7-8.2); HEMATOCRIT 34.3 % (36.0-47.0); HGB HCT DIFFERENCE -1.3; LYMPHOCYTES % (AUTO) 6.4 % (13-45); MEAN CORPUSCULAR HEMOGLOBIN 27.5 pg (27.0-33.4); MEAN CORPUSCULAR HGB CONC 32.2 g/dL (32.0-36.0); MEAN CORPUSCULAR VOLUME 85 fl (80-97); MONOCYTES % (AUTO) 15.8 % (3-13); RED BLOOD COUNT 4.01 10^6/uL (3.72-5.28); RED CELL DISTRIBUTION WIDTH 16.9 % (11.5-14.0); SEGMENTED NEUTROPHILS % (AUTO) 77.8 % (42-78); WHITE BLOOD COUNT 7.8 10^3/uL (4.0-10.5)
[2016-08-26 06:01] LABS: ANION GAP 10 (5-19); BLOOD UREA NITROGEN 48 mg/dL (7-20); CALCIUM 8.9 mg/dL (8.4-10.2); CARBON DIOXIDE 27 mmol/L (22-30); CHLORIDE 103 mmol/L (98-107); CREATININE RESULT 1.18 mg/dL (0.52-1.25); GLUCOSE 128 mg/dL (75-110); MAGNESIUM 2.1 mg/dL (1.6-2.3); PHOSPHORUS 1.5 mg/dL (2.5-4.5); POTASSIUM 4.5 mmol/L (3.6-5.0); SODIUM 140.2 mmol/L (137-145)
[2016-08-26] MEDS ORDERED: CARVEDILOL 3.125 MG TABLET PO SCH (08:00)
[2016-08-26] MEDS: FAMOTIDINE 20 MG TABLET PO SCH ×2 (09:28→22:29)
[2016-08-26] MEDS: LACTOBACILLUS ACIDOPHILUS 250 MG TAB PO SCH ×2 (09:29→17:51)
[2016-08-26] MEDS: HYDROCORTISONE 10 MG TABLET PO SCH ×2 (09:29→17:51)
[2016-08-26] MEDS: LEVOFLOXACIN 250 MG/D5W RTU 250 MG/50 ML RTUPB IV SCH (09:30)
[2016-08-26] MEDS: GABAPENTIN 300 MG CAPSULE PO SCH ×2 (09:30→22:29)
[2016-08-26] MEDS ORDERED: SCOPOLAMINE HYDROBROMIDE 1.5 MG PATCH.TD72 TD SCH (10:00)
[2016-08-26] MEDS ORDERED: SODIUM PHOS,M-BASIC-D-BASIC 15 MMOL in NORMAL SALINE 250 ML IV ONE (11:00)
[2016-08-26] MEDS ORDERED: NORMAL SALINE 1000 ML 500 ML IV ONE (11:55)
[2016-08-26] MEDS: ALBUTEROL SULFATE 0.083% NEB 2.5 MG/3 ML AMPUL NEB PRN (12:36)
--- NOTE | 2016-08-26 15:43 | PDOC PROGRESS REPORT ---
Subjective Progress Note for:: 08/26/16 Subjective:: Reason for follow-up visit: Pneumonia, acute on chronic respiratory failure, diabetes, COPD, adrenal insufficiency Hospital course: DANYELL ABBASI is a 71 year old -[place] female presents to the emergency department from home with generalized weakness and pain throughout all muscles and joints. The patient is chronically ill, previously treated with primary care and hospital admissions in [place]. She and the family relate annual admissions for pneumonia, frequently admitted to ICU but never intubated on mechanical ventilation for her pneumonia. 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 She also reports a history of MRSA in her sputum on previous admission in [facility]. She reports feeling more short of breath, easily fatigued, cough with green phlegm and subjective fevers. Evaluation in emergency departments suggest right lower lobe pneumonia given her multiple comorbidities we were asked to admit for further treatment and evaluation. According to ER physician she was hypoxic on room air at presentation 75%. She is more lethargic and fatigued, c/o increased secretions and congestion, difficult for her to clear at times. She denies chest pain, palpitations, nausea or vomiting. seems weaker. review of old records from [facility]: -hospitalized 05/19/16 for hyperkalemia and respiratory distress 2/2 MRSA Pna treated with zyvox; echo at that time shows EF mod-sv depressed at 25-30% and mod pulm HTN, d/c Scr 1.06 down from 1.78. it seems they only used levemir 10U at night to control her BSs. ROS: per HPI plus a total of 10 systems reviewed, pertinent positives and negatives noted above, remaining systems negative. Physical Exam Vital Signs: Temp Pulse Resp BP Pulse Ox 99.1 F 60 20 115/62 94 08/26/16 08:15 08/26/16 08:15 08/26/16 08:15 08/26/16 08:15 08/26/16 08:15 Intake & Output 08/25/16 08/26/16 08/27/16 06:59 06:59 06:59 Intake Total 6172 1520 Output Total 1100 1400 Balance 5072 120 Weight 74.1 kg 83.2 kg PHYSICAL EXAM GENERAL: NAD; well developed, well nourished; moderate obese; lethargic, falls asleep easily but orients to person, place and time HEENT: normocephalic, atraumatic; no conjunctival injection, no scleral icterus ; oral mucosa moist; neck supple, thick heavy secretions but no stridor RESPIRATORY: no accessory muscle use, no increased WOB, good air entry bilaterally; no wheezes, rhonchi; bibasilar right greater than left rales CARDIO: no JVD; RRR; no systolic murmur; VASCULAR: no carotid bruit; no abdominal bruit; no pallor; 2+ radial; normal capillary refill GI: soft; nondistended; diminished bowel sounds; no rebound, rigidity, guarding; nontender NEURO: normal motor function; no dysarthria; no nystagmus; MSK: 4/5 strength; normal ROM hips; no more tenderness to palpation of both stumps EXTREMITIES: no clubbing, cyanosis, no edema of the stumps or hands PSYCH: normal affect, normal mood SKIN: warm; moist; no petechiae; no telengectasias; no jaundice; no rash Results Laboratory Results: 08/26/16 05:30 08/26/16 05:30 08/26/16 08/26/16 05:30 05:30 WBC 7.8 RBC 4.01 Hgb 11.0 L Hct 34.3 L MCV 85 MCH 27.5 MCHC 32.2 RDW 16.9 H Plt Count 162 Seg Neutrophils % 77.8 Lymphocytes % 6.4 L Monocytes % 15.8 H Eosinophils % 0.0 Basophils % 0.0 Absolute Neutrophils 6.1 Absolute Lymphocytes 0.5 Absolute Monocytes 1.2 Absolute Eosinophils 0.0 Absolute Basophils 0.0 Sodium 140.2 Potassium 4.5 Chloride 103 Carbon Dioxide 27 Anion Gap 10 BUN 48 H Creatinine 1.18 Est GFR ( Amer) 55 L Est GFR (Non-Af Amer) 45 L Glucose 128 H Calcium 8.9 Phosphorus 1.5 L Magnesium 2.1 08/24/16 07:35 Nasophary (Mrsa Only) MRSA Surveillance Culture - Final MRSA RECOVERED Impressions: Chest X-Ray 08/23/16 23:24 IMPRESSION: Venous access catheter via right IJ approach. Tip at the cavoatrial junction. No pneumothorax. Stable appearance of the chest. Assessment & Plan - Diagnosis (1) Pneumonia Qualifiers: Pneumonia type: due to unspecified organism Laterality: unspecified laterality Lung location: lower lobe of lung Qualified Code(s): J18.1 - Lobar pneumonia, unspecified organism Is this a current diagnosis for this admission?: YesPlan: Slightly improved but still not back to baseline and in fact suffering worsening secretions. Continue IV antibiotics with Levaquin and vancomycin and add scope patch. blood and sputum cultures so far unhelpful . (2) Acute on chronic respiratory failure with hypoxia Is this a current diagnosis for this admission?: Yes (3) Diabetes Qualifiers: Diabetes mellitus type: type 2 Diabetes mellitus complication status: with circulatory complication Diabetes mellitus complication detail: with other circulatory complications Diabetes mellitus intermodal customer service insulin use: with halfway use Qualified Code(s): E11.59 - Type 2 diabetes mellitus with other circulatory complications Is this a current diagnosis for this admission?: Yes (4) History of MRSA infection Is this a current diagnosis for this admission?: Yes (5) COPD (chronic obstructive pulmonary disease) Qualifiers: COPD type: unspecified COPD Qualified Code(s): J44.9 - Chronic obstructive pulmonary disease, unspecified Is this a current diagnosis for this admission?: Yes (6) Full code status Is this a current diagnosis for this admission?: Yes (7) Adrenal insufficiency Is this a current diagnosis for this admission?: Yes (8) Acute kidney injury Is this a current diagnosis for this admission?: Yes (9) Hypomagnesemia Is this a current diagnosis for this admission?: YesPlan: improved with replacement but severe and likely contributing to some of her weakness; replace and monitor closely (10) Hypophosphatemia Is this a current diagnosis for this admission?: YesPlan: worse. replace and monitor - Time Time Spent with patient: 25-34 minutes Medications reviewed and adjusted accordingly: Yes Anticipated discharge: Home with Homehealth Within: Other - Not sure how long it would take for her to clear
[2016-08-26] MEDS: INSULIN LISPRO 100 UNIT/ML 3 ML VIAL SUBCUT PRN ×2 (17:52→22:44)
[2016-08-26] MEDS: VANCOMYCIN HCL 500 MG in DEXTROSE 5%-WATER 100 ML IV SCH (22:28)
[2016-08-26] MEDS: ATORVASTATIN CALCIUM 20 MG TABLET PO SCH (22:29)
[2016-08-26] MEDS: AMITRIPTYLINE HCL 25 MG TABLET PO SCH (22:30)
[2016-08-26] MEDS: INSULIN GLARGINE,HUM.REC.ANLOG 300 UNIT/3 ML INSULN.PEN SUBCUT SCH (22:38)
[2016-08-26] MEDS: MORPHINE SULFATE 10 MG/ML INJ IV PRN (23:47)
[2016-08-27 07:03] LABS: ANION GAP 6 (5-19); BLOOD UREA NITROGEN 33 mg/dL (7-20); CARBON DIOXIDE 21 mmol/L (22-30); CHLORIDE 115 mmol/L (98-107); GLUCOSE 84 mg/dL (75-110); MAGNESIUM 1.4 mg/dL (1.6-2.3); PHOSPHORUS 2.5 mg/dL (2.5-4.5); POTASSIUM 3.4 mmol/L (3.6-5.0); SODIUM 142.3 mmol/L (137-145)
[2016-08-27 07:13] LABS: CALCIUM 6.6 mg/dL (8.4-10.2)
[2016-08-27 07:22] LABS: ABSOLUTE EOSINOPHILS # (AUTO) 0.1 10^3/uL (0.0-0.6); ABSOLUTE LYMPHOCYTES (AUTO) 1.7 10^3/uL (0.5-4.7); ABSOLUTE MONOCYTES (AUTO) 1.2 10^3/uL (0.1-1.4); ABSOLUTE NEUT (AUTO) 8.5 10^3/uL (1.7-8.2); BASOPHILS % (AUTO) 0.1 % (0-2); EOSINOPHILS % (AUTO) 0.5 % (0-6); HEMATOCRIT 32.2 % (36.0-47.0); HEMOGLOBIN 10.1 g/dL (12.0-15.5); HGB HCT DIFFERENCE -1.9; LYMPHOCYTES % (AUTO) 14.7 % (13-45); MEAN CORPUSCULAR HEMOGLOBIN 27.3 pg (27.0-33.4); MEAN CORPUSCULAR HGB CONC 31.4 g/dL (32.0-36.0); MEAN CORPUSCULAR VOLUME 87 fl (80-97); MONOCYTES % (AUTO) 10.8 % (3-13); RED BLOOD COUNT 3.71 10^6/uL (3.72-5.28); RED CELL DISTRIBUTION WIDTH 16.8 % (11.5-14.0); SEGMENTED NEUTROPHILS % (AUTO) 73.9 % (42-78); WHITE BLOOD COUNT 11.5 10^3/uL (4.0-10.5)
[2016-08-27] MEDS ORDERED: CALCIUM GLUCONATE 1,000 MG in DEXTROSE 5%-WATER 50 ML IV ONE (07:43)
[2016-08-27] MEDS: HYDROCORTISONE 10 MG TABLET PO SCH ×2 (09:09→18:14)
[2016-08-27] MEDS ORDERED: CALCIUM GLUCONATE 1000 MG/10 ML INJ IV ONE (09:30)
[2016-08-27] MEDS: FAMOTIDINE 20 MG TABLET PO SCH ×2 (10:42→22:36)
[2016-08-27] MEDS: MAGNESIUM SULFATE/D5W 1 GM/100 ML RTUPB IV SCH ×2 (10:42→13:38)
[2016-08-27] MEDS: LACTOBACILLUS ACIDOPHILUS 250 MG TAB PO SCH ×2 (10:43→18:14)
[2016-08-27] MEDS: GABAPENTIN 300 MG CAPSULE PO SCH ×2 (10:43→22:35)
[2016-08-27] MEDS: LEVOFLOXACIN 250 MG/D5W RTU 250 MG/50 ML RTUPB IV SCH (11:58)
[2016-08-27] MEDS: NORMAL SALINE INJ/PF 0.9% 10 ML SDV IV PRN (13:40)
[2016-08-27] MEDS: ALBUTEROL SULFATE 0.083% NEB 2.5 MG/3 ML AMPUL NEB PRN (14:55)
[2016-08-27] MEDS ORDERED: MAGNESIUM SULFATE/D5W 1 GM/100 ML RTUPB IV ONE (16:00)
--- NOTE | 2016-08-27 16:28 | PDOC PROGRESS REPORT ---
Subjective Progress Note for:: 08/27/16 Subjective:: Reason for follow-up visit: Pneumonia, acute on chronic respiratory failure, diabetes, COPD, adrenal insufficiency Hospital course: DANYELL ABBASI is a 71 year old -[place] female presents to the emergency department from home with generalized weakness and pain throughout all muscles and joints. The patient is chronically ill, previously treated with primary care and hospital admissions in [place]. She and the family relate annual admissions for pneumonia, frequently admitted to ICU but never intubated on mechanical ventilation for her pneumonia. 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 She also reports a history of MRSA in her sputum on previous admission in [facility]. Evaluation in emergency departments suggest right lower lobe pneumonia given her multiple comorbidities we were asked to admit for further treatment and evaluation. According to ER physician she was hypoxic on room air at presentation 75%. review of old records from [facility]: -hospitalized 05/19/16 for hyperkalemia and respiratory distress 2/2 MRSA Pna treated with zyvox; echo at that time shows EF mod-sv depressed at 25-30% and mod pulm HTN, d/c Scr 1.06 down from 1.78. it seems they only used levemir 10U at night to control her BSs. Scopalamine patch applied 08/26 for increased secretions, which have dried up, but no c/o food and pills sticking in her throat due to dry mouth/mucosa. o/w she has no complaints to me this morning. still wheezing and still tired and weak. ROS: per HPI plus a total of 10 systems reviewed, pertinent positives and negatives noted above, remaining systems negative. Physical Exam Vital Signs: Temp Pulse Resp BP Pulse Ox 98.0 F 101 H 18 112/63 94 08/27/16 12:51 08/27/16 14:55 08/27/16 14:55 08/27/16 12:51 08/27/16 14:55 Intake & Output 08/26/16 08/27/16 08/28/16 06:59 06:59 06:59 Intake Total 1520 1360 Output Total 1400 1300 Balance 120 60 Weight 83.2 kg 83.4 kg PHYSICAL EXAM GENERAL: NAD; well developed, well nourished; moderate obese; more awake and interactive today HEENT: normocephalic, atraumatic; no conjunctival injection, no scleral icterus ; oral mucosa dry; neck supple, thick heavy secretions resolved RESPIRATORY: no accessory muscle use, no increased WOB, good air entry bilaterally; no wheezes, rhonchi; bibasilar right greater than left rales persist CARDIO: no JVD; RRR; no systolic murmur; VASCULAR: no carotid bruit; no abdominal bruit; no pallor; 2+ radial; normal capillary refill GI: soft; nondistended; diminished bowel sounds; no rebound, rigidity, guarding; nontender NEURO: normal motor function; no dysarthria; no nystagmus; MSK: 4/5 strength; normal ROM hips; no more tenderness to palpation of both stumps EXTREMITIES: no clubbing, cyanosis, no edema of the stumps or hands PSYCH: normal affect, normal mood SKIN: warm; moist; no petechiae; no telengectasias; no jaundice; no rash Results Laboratory Results: 08/27/16 06:45 08/27/16 06:24 08/27/16 08/27/16 06:24 06:45 WBC 11.5 H RBC 3.71 L Hgb 10.1 L Hct 32.2 L MCV 87 MCH 27.3 MCHC 31.4 L RDW 16.8 H Plt Count 153 Seg Neutrophils % 73.9 Lymphocytes % 14.7 Monocytes % 10.8 Eosinophils % 0.5 Basophils % 0.1 Absolute Neutrophils 8.5 H Absolute Lymphocytes 1.7 Absolute Monocytes 1.2 Absolute Eosinophils 0.1 Absolute Basophils 0.0 Sodium 142.3 Potassium 3.4 L Chloride 115 H Carbon Dioxide 21 L Anion Gap 6 BUN 33 H Creatinine 0.80 Est GFR ( Amer) > 60 Est GFR (Non-Af Amer) > 60 Glucose 84 Calcium 6.6 L* Phosphorus 2.5 Magnesium 1.4 L 08/27/16 06:24 NT-Pro-B Natriuret Pep 29768 H Assessment & Plan - Diagnosis (1) Pneumonia Qualifiers: Pneumonia type: due to unspecified organism Laterality: unspecified laterality Lung location: lower lobe of lung Qualified Code(s): J18.1 - Lobar pneumonia, unspecified organism Is this a current diagnosis for this admission?: YesPlan: Slightly improved but still not back to baseline and in fact very slow to recover. Continue IV antibiotics with Levaquin and vancomycin. blood and sputum cultures so far unhelpful. (2) Acute on chronic respiratory failure with hypoxia Is this a current diagnosis for this admission?: Yes (3) Diabetes Qualifiers: Diabetes mellitus type: type 2 Diabetes mellitus complication status: with circulatory complication Diabetes mellitus complication detail: with other circulatory complications Diabetes mellitus intermediate manager insulin use: with detention use Qualified Code(s): E11.59 - Type 2 diabetes mellitus with other circulatory complications Is this a current diagnosis for this admission?: Yes (4) History of MRSA infection Is this a current diagnosis for this admission?: Yes (5) COPD (chronic obstructive pulmonary disease) Qualifiers: COPD type: unspecified COPD Qualified Code(s): J44.9 - Chronic obstructive pulmonary disease, unspecified Is this a current diagnosis for this admission?: Yes (6) Full code status Is this a current diagnosis for this admission?: Yes (7) Adrenal insufficiency Is this a current diagnosis for this admission?: Yes (8) Acute kidney injury Is this a current diagnosis for this admission?: Yes (9) Hypomagnesemia Is this a current diagnosis for this admission?: Yes (10) Hypophosphatemia Is this a current diagnosis for this admission?: Yes - Time Time Spent with patient: 35 or more minutes Medications reviewed and adjusted accordingly: Yes
[2016-08-27] MEDS: INSULIN LISPRO 100 UNIT/ML 3 ML VIAL SUBCUT PRN ×2 (18:15→23:45)
[2016-08-27] MEDS: ATORVASTATIN CALCIUM 20 MG TABLET PO SCH (22:35)
[2016-08-27] MEDS: OXYCODONE HCL IR 5 MG TABLET PO PRN (22:36)
[2016-08-27] MEDS: AMITRIPTYLINE HCL 25 MG TABLET PO SCH (22:37)
[2016-08-27] MEDS: INSULIN GLARGINE,HUM.REC.ANLOG 300 UNIT/3 ML INSULN.PEN SUBCUT SCH (22:38)
[2016-08-28] MEDS: VANCOMYCIN HCL 500 MG in DEXTROSE 5%-WATER 100 ML IV SCH (00:13)
[2016-08-28 06:26] LABS: ABSOLUTE EOSINOPHILS # (AUTO) 0.1 10^3/uL (0.0-0.6); ABSOLUTE LYMPHOCYTES (AUTO) 1.8 10^3/uL (0.5-4.7); ABSOLUTE MONOCYTES (AUTO) 1.4 10^3/uL (0.1-1.4); ABSOLUTE NEUT (AUTO) 9.5 10^3/uL (1.7-8.2); BASOPHILS % (AUTO) 0.1 % (0-2); EOSINOPHILS % (AUTO) 0.7 % (0-6); HEMATOCRIT 30.9 % (36.0-47.0); HEMOGLOBIN 9.8 g/dL (12.0-15.5); HGB HCT DIFFERENCE -1.5; LYMPHOCYTES % (AUTO) 13.7 % (13-45); MEAN CORPUSCULAR HEMOGLOBIN 27.5 pg (27.0-33.4); MEAN CORPUSCULAR HGB CONC 31.7 g/dL (32.0-36.0); MEAN CORPUSCULAR VOLUME 87 fl (80-97); MONOCYTES % (AUTO) 10.8 % (3-13); RED BLOOD COUNT 3.57 10^6/uL (3.72-5.28); RED CELL DISTRIBUTION WIDTH 16.8 % (11.5-14.0); SEGMENTED NEUTROPHILS % (AUTO) 74.7 % (42-78); WHITE BLOOD COUNT 12.7 10^3/uL (4.0-10.5)
[2016-08-28 06:45] LABS: ALANINE AMINOTRANSFERASE 23 U/L (9-52); ALBUMIN 2.4 g/dL (3.5-5.0); ALKALINE PHOSPHATASE 68 U/L (38-126); ANION GAP 8 (5-19); ASPARTATE AMINO TRANSFERASE 9 U/L (14-36); BILIRUBIN,DIRECT 0.2 mg/dL (0.0-0.4); BILIRUBIN,TOTAL 0.4 mg/dL (0.2-1.3); BLOOD UREA NITROGEN 28 mg/dL (7-20); CALCIUM 8.2 mg/dL (8.4-10.2); CARBON DIOXIDE 26 mmol/L (22-30); CHLORIDE 103 mmol/L (98-107); CREATININE RESULT 0.93 mg/dL (0.52-1.25); GLUCOSE 151 mg/dL (75-110); MAGNESIUM 1.9 mg/dL (1.6-2.3); PHOSPHORUS 2.9 mg/dL (2.5-4.5); SODIUM 136.5 mmol/L (137-145); TOTAL PROTEIN 5.2 g/dL (6.3-8.2)
[2016-08-28 07:16] LABS: POTASSIUM 4.5 mmol/L (3.6-5.0)
[2016-08-28] MEDS: FAMOTIDINE 20 MG TABLET PO SCH ×2 (09:01→22:14)
[2016-08-28] MEDS: HYDROCORTISONE 10 MG TABLET PO SCH ×2 (09:01→17:53)
[2016-08-28] MEDS: LACTOBACILLUS ACIDOPHILUS 250 MG TAB PO SCH ×2 (09:01→17:53)
[2016-08-28] MEDS: GABAPENTIN 300 MG CAPSULE PO SCH ×2 (09:01→22:13)
[2016-08-28] MEDS: LEVOFLOXACIN 250 MG/D5W RTU 250 MG/50 ML RTUPB IV SCH (09:01)
[2016-08-28] MEDS: VANCOMYCIN HCL 1,000 MG in DEXTROSE 5%-WATER 250 ML IV SCH (13:49)
[2016-08-28] MEDS: INSULIN LISPRO 100 UNIT/ML 3 ML VIAL SUBCUT PRN ×3 (13:50→22:16)
--- NOTE | 2016-08-28 14:12 | PDOC PROGRESS REPORT ---
Subjective Progress Note for:: 08/28/16 Subjective:: Reason for follow-up visit: Pneumonia, acute on chronic respiratory failure, diabetes, COPD, adrenal insufficiency Hospital course: DANYELL ABBASI is a 71 year old -[place]aur[place] female presents to the emergency department from home with generalized weakness and pain throughout all muscles and joints. The patient is chronically ill, previously treated with primary care and hospital admissions in [place]. She and the family relate annual admissions for pneumonia, frequently admitted to ICU but never intubated on mechanical ventilation for her pneumonia. 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 She also reports a history of MRSA in her sputum on previous admission in [facility]. Evaluation in emergency departments suggest right lower lobe pneumonia given her multiple comorbidities we were asked to admit for further treatment and evaluation. According to ER physician she was hypoxic on room air at presentation 75%. review of old records from [facility]: -hospitalized 05/19/16 for hyperkalemia and respiratory distress 2/2 MRSA Pna treated with zyvox; echo at that time shows EF mod-sv depressed at 25-30% and mod pulm HTN, d/c Scr 1.06 down from 1.78. it seems they only used levemir 10U at night to control her BSs. ROS: overall feels better today, more alert and talkative and able to manage her secretions better on her own. still not quite back to her normal. per HPI plus a total of 10 systems reviewed, pertinent positives and negatives noted above, remaining systems negative. Physical Exam Vital Signs: Temp Pulse Resp BP Pulse Ox 98.4 F 103 H 18 111/70 100 08/28/16 12:00 08/28/16 12:00 08/28/16 12:00 08/28/16 12:00 08/28/16 12:00 Intake & Output 08/27/16 08/28/16 08/29/16 06:59 06:59 06:59 Intake Total 1360 858 Output Total 1300 800 Balance 60 58 Weight 83.4 kg 87.8 kg 83.718 kg PHYSICAL EXAM GENERAL: NAD; well developed, well nourished; moderate obese;A&Ox3 HEENT: normocephalic, atraumatic; no conjunctival injection, no scleral icterus ; oral mucosa dry; neck supple, thick heavy secretions resolved RESPIRATORY: no accessory muscle use, no increased WOB, good air entry bilaterally; no wheezes, rhonchi; bibasilar right greater than left rales persist CARDIO: no JVD; RRR; no systolic murmur; VASCULAR: no carotid bruit; no abdominal bruit; no pallor; 2+ radial; normal capillary refill GI: soft; nondistended; diminished bowel sounds; no rebound, rigidity, guarding; nontender NEURO: normal motor function; no dysarthria; no nystagmus; MSK: 4/5 strength; normal ROM hips; no more tenderness to palpation of both stumps EXTREMITIES: no clubbing, cyanosis, no edema of the stumps or hands PSYCH: normal affect, normal mood SKIN: warm; moist; no petechiae; no telengectasias; no jaundice; no rash Results Laboratory Results: 08/28/16 06:01 08/28/16 06:01 08/28/16 08/28/16 06:01 06:01 WBC 12.7 H RBC 3.57 L Hgb 9.8 L Hct 30.9 L MCV 87 MCH 27.5 MCHC 31.7 L RDW 16.8 H Plt Count 174 Seg Neutrophils % 74.7 Lymphocytes % 13.7 Monocytes % 10.8 Eosinophils % 0.7 Basophils % 0.1 Absolute Neutrophils 9.5 H Absolute Lymphocytes 1.8 Absolute Monocytes 1.4 Absolute Eosinophils 0.1 Absolute Basophils 0.0 Sodium 136.5 L Potassium 4.5 D Chloride 103 Carbon Dioxide 26 Anion Gap 8 BUN 28 H Creatinine 0.93 Est GFR ( Amer) > 60 Est GFR (Non-Af Amer) > 60 Glucose 151 H Calcium 8.2 L Phosphorus 2.9 Magnesium 1.9 Total Bilirubin 0.4 AST 9 L ALT 23 Alkaline Phosphatase 68 Total Protein 5.2 L Albumin 2.4 L 08/27/16 06:24 NT-Pro-B Natriuret Pep 08007 H Impressions: Chest X-Ray 08/26/16 11:59 IMPRESSION: Diffuse pulmonary vascular congestion with Darrius lines at both bases worrisome for fluid overload or congestive failure Increasing bibasilar airspace disease atelectasis versus pneumonia Assessment & Plan - Diagnosis (1) Pneumonia Qualifiers: Pneumonia type: due to unspecified organism Laterality: unspecified laterality Lung location: lower lobe of lung Qualified Code(s): J18.1 - Lobar pneumonia, unspecified organism Is this a current diagnosis for this admission?: YesPlan: Slightly improved but still not back to baseline and in fact very slow to recover. Continue IV antibiotics with Levaquin and vancomycin. blood and sputum cultures so far unhelpful. (2) Acute on chronic respiratory failure with hypoxia Is this a current diagnosis for this admission?: Yes (3) Diabetes Qualifiers: Diabetes mellitus type: type 2 Diabetes mellitus complication status: with circulatory complication Diabetes mellitus complication detail: with other circulatory complications Diabetes mellitus alf insulin use: with continuous churn buttermaker use Qualified Code(s): E11.59 - Type 2 diabetes mellitus with other circulatory complications Is this a current diagnosis for this admission?: YesPlan: Blood sugars have improved, we'll scale back basal insulin dose. She reports episodic hypoglycemia with encephalopathy during previous admissions in [place]. (4) History of MRSA infection Is this a current diagnosis for this admission?: Yes (5) COPD (chronic obstructive pulmonary disease) Qualifiers: COPD type: unspecified COPD Qualified Code(s): J44.9 - Chronic obstructive pulmonary disease, unspecified Is this a current diagnosis for this admission?: Yes (6) Full code status Is this a current diagnosis for this admission?: Yes (7) Adrenal insufficiency Is this a current diagnosis for this admission?: Yes (8) Acute kidney injury Is this a current diagnosis for this admission?: Yes (9) Hypomagnesemia Is this a current diagnosis for this admission?: Yes (10) Hypophosphatemia Is this a current diagnosis for this admission?: Yes - Time Time Spent with patient: 25-34 minutes Medications reviewed and adjusted accordingly: Yes Anticipated discharge: Home with Homehealth Within: within 48 hours
[2016-08-28] MEDS: ALBUTEROL SULFATE 0.083% NEB 2.5 MG/3 ML AMPUL NEB PRN (14:34)
[2016-08-28] MEDS: OXYCODONE HCL IR 5 MG TABLET PO PRN (22:14)
[2016-08-28] MEDS: AMITRIPTYLINE HCL 25 MG TABLET PO SCH (22:14)
[2016-08-28] MEDS: ATORVASTATIN CALCIUM 20 MG TABLET PO SCH (22:14)
[2016-08-28] MEDS: INSULIN GLARGINE,HUM.REC.ANLOG 300 UNIT/3 ML INSULN.PEN SUBCUT SCH (22:15)
[2016-08-29] MEDS: MORPHINE SULFATE 10 MG/ML INJ IV PRN (00:04)
[2016-08-29] MEDS: HYDROCORTISONE 10 MG TABLET PO SCH ×2 (08:46→17:24)
[2016-08-29] MEDS: FAMOTIDINE 20 MG TABLET PO SCH ×2 (09:35→23:01)
[2016-08-29] MEDS: LEVOFLOXACIN 250 MG/D5W RTU 250 MG/50 ML RTUPB IV SCH (09:35)
[2016-08-29] MEDS: LACTOBACILLUS ACIDOPHILUS 250 MG TAB PO SCH ×2 (09:36→17:24)
[2016-08-29] MEDS: GABAPENTIN 300 MG CAPSULE PO SCH ×2 (09:36→23:01)
[2016-08-29] MEDS ORDERED: CEFEPIME 2 GM/D5W RTU 50 ML IV SCH (11:15)
[2016-08-29] MEDS ORDERED: CEFEPIME HCL 2 GM in DEXTROSE 5%-WATER 50 ML IV SCH (12:00)
[2016-08-29] MEDS: CEFEPIME HCL 2 GM in DEXTROSE 5%-WATER 100 ML IV SCH ×2 (13:01→23:39)
[2016-08-29] MEDS: INSULIN LISPRO 100 UNIT/ML 3 ML VIAL SUBCUT PRN ×3 (13:12→23:38)
--- NOTE | 2016-08-29 14:59 | PDOC PROGRESS REPORT ---
Subjective Progress Note for:: 08/29/16 Subjective:: Reason for follow-up visit: Pneumonia, acute on chronic respiratory failure, diabetes, COPD, adrenal insufficiency Hospital course: DANYELL ABBASI is a 71 year old -H[place] female presents to the emergency department from home with generalized weakness and pain throughout all muscles and joints. The patient is chronically ill, previously treated with primary care and hospital admissions in [place]. She and the family relate annual admissions for pneumonia, frequently admitted to ICU but never intubated on mechanical ventilation for her pneumonia. She has underlying O2 dependent COPD and is relatively immunocompromised due to advanced diabetes resulting in severe peripheral neuropathy and nonhealing wounds and ultimately bilateral [id number] amputations, adrenal hemorrhage resulting in insufficiency requiring cortisone therapy. She also reports a history of MRSA in her sputum on previous admission in [facility]. Evaluation in emergency departments suggest right lower lobe pneumonia given her multiple comorbidities we were asked to admit for further treatment and evaluation. According to ER physician she was hypoxic on room air at presentation 75%. review of old records from [facility]: -hospitalized 05/19/16 for hyperkalemia and respiratory distress 2/2 MRSA Pna treated with zyvox; echo at that time shows EF mod-sv depressed at 25-30% and mod pulm HTN, d/c Scr 1.06 down from 1.78. it seems they only used levemir 10U at night to control her BSs. She was admitted and started on broad-spectrum antibiotics including Levaquin and vancomycin and while she initially showed some improvement she is clearly plateaued over the course of the last 24-36 hours and I cannot seem to get her over the hump. Her cultures are not helpful. CT of the chest today shows dense bibasilar airspace disease right greater than left. Cefepime added to her regimen today. ROS: overall feels better but cannot get her back to her baseline, more alert and talkative and able to manage her secretions better on her own. per HPI plus a total of 10 systems reviewed, pertinent positives and negatives noted above, remaining systems negative. Physical Exam Vital Signs: Temp Pulse Resp BP Pulse Ox 98.5 F 94 18 114/74 96 08/29/16 11:48 08/29/16 14:11 08/29/16 14:11 08/29/16 11:48 08/29/16 14:11 Intake & Output 08/28/16 08/29/16 08/30/16 06:59 06:59 06:59 Intake Total 858 1010 Output Total 800 1700 Balance 58 -690 Weight 87.8 kg 87.4 kg PHYSICAL EXAM GENERAL: NAD; well developed, well nourished; moderate obese;A&Ox3 HEENT: normocephalic, atraumatic; no conjunctival injection, no scleral icterus ; oral mucosa dry; neck supple, thick heavy secretions resolved RESPIRATORY: no accessory muscle use, no increased WOB, good air entry bilaterally; no wheezes, rhonchi; bibasilar right greater than left rales unchanged CARDIO: no JVD; RRR; no systolic murmur; VASCULAR: no carotid bruit; no abdominal bruit; no pallor; 2+ radial; normal capillary refill GI: soft; nondistended; diminished bowel sounds; no rebound, rigidity, guarding; nontender NEURO: normal motor function; no dysarthria; no nystagmus; MSK: 4/5 strength; normal ROM hips; no more tenderness to palpation of both stumps EXTREMITIES: no clubbing, cyanosis, no edema of the stumps or hands PSYCH: normal affect, normal mood SKIN: warm; moist; no petechiae; no telengectasias; no jaundice; no rash Results Laboratory Results: 08/28/16 06:01 08/28/16 06:01 08/27/16 06:24 NT-Pro-B Natriuret Pep 00612 H Impressions: Chest CT 08/29/16 00:00 IMPRESSION: Obstructive lung disease Multifocal bronchiectasis with dense consolidation at both bases right greater than left. No pleural effusions. Mild mediastinal adenopathy as above Assessment & Plan - Diagnosis (1) Pneumonia Qualifiers: Pneumonia type: due to unspecified organism Laterality: unspecified laterality Lung location: lower lobe of lung Qualified Code(s): J18.1 - Lobar pneumonia, unspecified organism Is this a current diagnosis for this admission?: YesPlan: Slightly improved but still not back to baseline and in fact very slow to recover. Continue IV antibiotics with Levaquin and vancomycin and add cefepime. blood and sputum cultures so far unhelpful. Continue pulmonary toilet. (2) Acute on chronic respiratory failure with hypoxia Is this a current diagnosis for this admission?: YesPlan: improved requiring less supplemental O2. secondary to the pneumonia. Continue aggressive pulmonary toilet. (3) Diabetes Qualifiers: Diabetes mellitus type: type 2 Diabetes mellitus complication status: with circulatory complication Diabetes mellitus complication detail: with other circulatory complications Diabetes mellitus prison insulin use: with bed bug exterminator use Qualified Code(s): E11.59 - Type 2 diabetes mellitus with other circulatory complications Is this a current diagnosis for this admission?: YesPlan: Blood sugars have improved overall but remained very labile, continue basal/ bolus insulin dose. She reports episodic hypoglycemia with encephalopathy during previous admissions in [place]. (4) History of MRSA infection Is this a current diagnosis for this admission?: Yes (5) COPD (chronic obstructive pulmonary disease) Qualifiers: COPD type: unspecified COPD Qualified Code(s): J44.9 - Chronic obstructive pulmonary disease, unspecified Is this a current diagnosis for this admission?: Yes (6) Full code status Is this a current diagnosis for this admission?: Yes (7) Adrenal insufficiency Is this a current diagnosis for this admission?: YesPlan: stable. continue hydrocortisone home dose. (8) Acute kidney injury Is this a current diagnosis for this admission?: YesPlan: resolved. Unclear etiology, but blood pressures were on the low side for a time so possibly a component of ATN in the setting of chronic kidney disease. decrease IV fluids. No prior labs for baseline. Still waiting on records from [place] where she received all of her care previously. Consult Dr. Simmons, nephrology for his input, she will likely need continued outpatient nephrology follow-up as well. (9) Hypomagnesemia Is this a current diagnosis for this admission?: Yes (10) Hypophosphatemia Is this a current diagnosis for this admission?: Yes - Time Time Spent with patient: 25-34 minutes Medications reviewed and adjusted accordingly: Yes Anticipated discharge: Home with Homehealth Within: within 72 hours - Plan Summary Plan Summary: Family intends to take her home with home health and durable medical equipment in their home. We'll make the change in her antibiotics hoping to see some improvement in the next 48 hours anticipating discharge by at best
[2016-08-29] MEDS: VANCOMYCIN HCL 1,000 MG in DEXTROSE 5%-WATER 250 ML IV SCH (17:05)
[2016-08-29] MEDS: ATORVASTATIN CALCIUM 20 MG TABLET PO SCH (23:02)
[2016-08-29] MEDS: AMITRIPTYLINE HCL 25 MG TABLET PO SCH (23:02)
[2016-08-29] MEDS: INSULIN GLARGINE,HUM.REC.ANLOG 300 UNIT/3 ML INSULN.PEN SUBCUT SCH (23:38)
[2016-08-30 06:45] LABS: ABSOLUTE EOSINOPHILS # (AUTO) 0.1 10^3/uL (0.0-0.6); ABSOLUTE LYMPHOCYTES (AUTO) 2.4 10^3/uL (0.5-4.7); ABSOLUTE NEUT (AUTO) 7.7 10^3/uL (1.7-8.2); BASOPHILS % (AUTO) 0.3 % (0-2); EOSINOPHILS % (AUTO) 0.9 % (0-6); HEMATOCRIT 31.1 % (36.0-47.0); HGB HCT DIFFERENCE -1.1; MEAN CORPUSCULAR HEMOGLOBIN 27.6 pg (27.0-33.4); MEAN CORPUSCULAR VOLUME 86 fl (80-97); MONOCYTES % (AUTO) 16.2 % (3-13); RED BLOOD COUNT 3.61 10^6/uL (3.72-5.28); RED CELL DISTRIBUTION WIDTH 16.9 % (11.5-14.0); SEGMENTED NEUTROPHILS % (AUTO) 62.6 % (42-78); WHITE BLOOD COUNT 12.2 10^3/uL (4.0-10.5)
[2016-08-30 06:58] LABS: ANION GAP 8 (5-19); BLOOD UREA NITROGEN 21 mg/dL (7-20); CALCIUM 8.5 mg/dL (8.4-10.2); CARBON DIOXIDE 26 mmol/L (22-30); CHLORIDE 104 mmol/L (98-107); CREATININE RESULT 0.79 mg/dL (0.52-1.25); GLUCOSE 217 mg/dL (75-110); POTASSIUM 4.7 mmol/L (3.6-5.0); SODIUM 138.4 mmol/L (137-145)
[2016-08-30] MEDS: LACTOBACILLUS ACIDOPHILUS 250 MG TAB PO SCH ×2 (09:22→17:18)
[2016-08-30] MEDS: FAMOTIDINE 20 MG TABLET PO SCH ×2 (09:29→23:03)
[2016-08-30] MEDS: INSULIN LISPRO 100 UNIT/ML 3 ML VIAL SUBCUT PRN ×2 (09:29→23:04)
[2016-08-30] MEDS: GABAPENTIN 300 MG CAPSULE PO SCH ×2 (09:29→23:02)
[2016-08-30] MEDS: HYDROCORTISONE 10 MG TABLET PO SCH ×2 (09:29→17:19)
[2016-08-30] MEDS: CEFEPIME HCL 2 GM in DEXTROSE 5%-WATER 100 ML IV SCH ×2 (13:21→23:17)
[2016-08-30] MEDS ORDERED: FUROSEMIDE INJ/PF 20 MG/2 ML SDV IV ONE (13:30)
[2016-08-30] MEDS ORDERED: BUDESONIDE NEB 0.5 MG/2 ML AMPUL NEB ONE (14:00)
--- NOTE | 2016-08-30 16:58 | PDOC PROGRESS REPORT ---
Subjective Progress Note for:: 08/30/16 Subjective:: Patient is still quite dyspneic She has no chest pain ; on the monitor she has ventricular bigeminy She is alert awake answering questions appropriately Physical Exam Vital Signs: Temp Pulse Resp BP Pulse Ox 99.0 F 110 H 16 119/62 93 08/30/16 15:11 08/30/16 15:11 08/30/16 15:11 08/30/16 15:11 08/30/16 15:11 Intake & Output 08/29/16 08/30/16 08/31/16 00:59 00:59 00:59 Intake Total 1010 1502 980 Output Total 1700 1900 500 Balance -690 -398 480 Weight 83.718 kg 87.4 kg 86.8 kg General appearance: PRESENT: no acute distress, well-developed, well-nourished Head exam: PRESENT: atraumatic, normocephalic Eye exam: PRESENT: conjunctiva pink, EOMI, PERRLA. ABSENT: scleral icterus Neck exam: ABSENT: carotid bruit, JVD, lymphadenopathy, thyromegaly Respiratory exam: PRESENT: decreased breath sounds, wheezes Cardiovascular exam: PRESENT: RRR, tachycardia. ABSENT: diastolic murmur, rubs Pulses: PRESENT: normal dorsalis pedis pul GI/Abdominal exam: PRESENT: normal bowel sounds, soft. ABSENT: distended, guarding, mass, organolmegaly, rebound, tenderness Extremities exam: PRESENT: full ROM. ABSENT: calf tenderness, clubbing, pedal edema Neurological exam: PRESENT: alert, awake, oriented to person, oriented to place , oriented to time, oriented to situation, CN II-XII grossly intact. ABSENT: motor sensory deficit Results Laboratory Results: 08/30/16 06:35 08/30/16 06:35 08/30/16 08/30/16 06:35 06:35 WBC 12.2 H RBC 3.61 L Hgb 10.0 L Hct 31.1 L MCV 86 MCH 27.6 MCHC 32.0 RDW 16.9 H Plt Count 282 Seg Neutrophils % 62.6 Lymphocytes % 20.0 Monocytes % 16.2 H Eosinophils % 0.9 Basophils % 0.3 Absolute Neutrophils 7.7 Absolute Lymphocytes 2.4 Absolute Monocytes 2.0 H Absolute Eosinophils 0.1 Absolute Basophils 0.0 Sodium 138.4 Potassium 4.7 Chloride 104 Carbon Dioxide 26 Anion Gap 8 BUN 21 H Creatinine 0.79 Est GFR ( Amer) > 60 Est GFR (Non-Af Amer) > 60 Glucose 217 H Calcium 8.5 08/27/16 08/30/16 06:24 06:35 NT-Pro-B Natriuret Pep 38683 H 6680 H EKG Comments: SINUS TACHYCARDIA [VBIG] . VENTRICULAR BIGEMINY Impressions: Chest X-Ray 08/26/16 11:59 IMPRESSION: Diffuse pulmonary vascular congestion with Darrius lines at both bases worrisome for fluid overload or congestive failure Increasing bibasilar airspace disease atelectasis versus pneumonia Chest CT 08/29/16 00:00 IMPRESSION: Obstructive lung disease Multifocal bronchiectasis with dense consolidation at both bases right greater than left. No pleural effusions. Mild mediastinal adenopathy as above Assessment & Plan - Diagnosis (1) Ventricular bigeminy Is this a current diagnosis for this admission?: YesPlan: We will check magnesium; initiate metoprolol 25 mg by mouth twice a day Schedule echocardiogram to evaluate left ventricular function (2) Elevated brain natriuretic peptide (BNP) level Is this a current diagnosis for this admission?: YesPlan: Review chest x-rays showed pulmonary venous congestion Initiate Lasix 20 mg IV every 12 Echo pending (3) Acute on chronic respiratory failure with hypoxia Is this a current diagnosis for this admission?: Yes (4) COPD (chronic obstructive pulmonary disease) Qualifiers: COPD type: unspecified COPD Qualified Code(s): J44.9 - Chronic obstructive pulmonary disease, unspecified Is this a current diagnosis for this admission?: Yes (5) Diabetes Qualifiers: Diabetes mellitus type: type 2 Diabetes mellitus complication status: with circulatory complication Diabetes mellitus complication detail: with other circulatory complications Diabetes mellitus jail insulin use: with assistant terminal manager use Qualified Code(s): E11.59 - Type 2 diabetes mellitus with other circulatory complications Is this a current diagnosis for this admission?: Yes (6) Full code status Is this a current diagnosis for this admission?: Yes - Time Time Spent with patient: 25-34 minutes
[2016-08-30] MEDS: METOPROLOL TARTRATE 25 MG TABLET PO SCH (17:18)
--- NOTE | 2016-08-30 17:22 | EKG REPORT ---
SEVERITY:- ABNORMAL ECG - SINUS TACHYCARDIA VENTRICULAR BIGEMINY : Confirmed by: Esau Avila MD 30-Aug-2016 17:22:24
[2016-08-30] MEDS: BUDESONIDE NEB 0.5 MG/2 ML AMPUL NEB SCH (20:15)
[2016-08-30] MEDS ORDERED: INSULIN GLARGINE,HUM.REC.ANLOG 1,000 UNIT/10 ML UNIT SUBCUT ONE (22:53)
[2016-08-30] MEDS: ATORVASTATIN CALCIUM 20 MG TABLET PO SCH (23:03)
[2016-08-30] MEDS: AMITRIPTYLINE HCL 25 MG TABLET PO SCH (23:04)
[2016-08-30] MEDS: FUROSEMIDE INJ/PF 20 MG/2 ML SDV IV SCH (23:04)
[2016-08-30] MEDS: INSULIN GLARGINE,HUM.REC.ANLOG 300 UNIT/3 ML INSULN.PEN SUBCUT SCH (23:17)
[2016-08-31] MEDS: MAGNESIUM SULFATE/D5W 1 GM/100 ML RTUPB IV SCH ×2 (04:25→06:00)
[2016-08-31] MEDS: METOPROLOL TARTRATE 25 MG TABLET PO SCH ×2 (06:00→18:50)
[2016-08-31] MEDS ORDERED: BUPIVACAINE HCL 0.5 % INJ/PF 30 ML SDV ONE (07:47)
[2016-08-31] MEDS ORDERED: LIDOCAINE 1%/EPINEPHRINE INJ 20 ML VIAL ONE (07:47)
[2016-08-31] MEDS: ALBUTEROL SULFATE 0.083% NEB 2.5 MG/3 ML AMPUL NEB PRN ×2 (08:08→20:43)
[2016-08-31] MEDS: BUDESONIDE NEB 0.5 MG/2 ML AMPUL NEB SCH ×2 (08:08→20:43)
[2016-08-31] MEDS: LACTOBACILLUS ACIDOPHILUS 250 MG TAB PO SCH ×2 (11:22→18:49)
[2016-08-31] MEDS: HYDROCORTISONE 10 MG TABLET PO SCH ×2 (11:22→18:48)
[2016-08-31] MEDS: FUROSEMIDE INJ/PF 20 MG/2 ML SDV IV SCH ×2 (11:22→22:03)
[2016-08-31] MEDS: FAMOTIDINE 20 MG TABLET PO SCH ×2 (11:23→22:03)
[2016-08-31] MEDS: LEVOFLOXACIN 500 MG TABLET PO SCH (11:23)
[2016-08-31] MEDS: GABAPENTIN 300 MG CAPSULE PO SCH ×2 (11:23→22:03)
[2016-08-31] MEDS: INSULIN LISPRO 100 UNIT/ML 3 ML VIAL SUBCUT PRN ×3 (11:24→22:04)
--- NOTE | 2016-08-31 14:40 | PDOC PROGRESS REPORT ---
Subjective Progress Note for:: 08/31/16 Subjective:: Patient's breathing is much better She has no shortness of breath no chest pain She does have palpitations at times On the monitor she is in a sinus tachycardia these multiple VPCs, bigeminy at times, and had short run of V. tach She was asymptomatic Echocardiogram was performed this morning results are pending We have increased her metoprolol to 50 mg twice a day Physical Exam Vital Signs: Temp Pulse Resp BP Pulse Ox 98.1 F 97 16 120/61 95 08/31/16 10:00 08/31/16 10:00 08/31/16 10:00 08/31/16 10:00 08/31/16 10:00 Intake & Output 08/30/16 08/31/16 09/01/16 00:59 00:59 00:59 Intake Total 1502 1705 400 Output Total 1900 3600 Balance -398 -1895 400 Weight 87.4 kg 86.8 kg 86.8 kg General appearance: PRESENT: no acute distress, well-developed, well-nourished Head exam: PRESENT: atraumatic, normocephalic Eye exam: PRESENT: conjunctiva pink, EOMI, PERRLA. ABSENT: scleral icterus Ear exam: PRESENT: normal external ear exam Mouth exam: PRESENT: moist, tongue midline Neck exam: ABSENT: carotid bruit, JVD, lymphadenopathy, thyromegaly Respiratory exam: PRESENT: clear to auscultation jo-ann. ABSENT: rales, rhonchi, wheezes Cardiovascular exam: PRESENT: irregular rhythm, tachycardia. ABSENT: diastolic murmur, rubs, systolic murmur Pulses: PRESENT: normal dorsalis pedis pul Vascular exam: PRESENT: normal capillary refill GI/Abdominal exam: PRESENT: normal bowel sounds, soft. ABSENT: distended, guarding, mass, organolmegaly, rebound, tenderness Rectal exam: PRESENT: deferred Extremities exam: PRESENT: full ROM, other - Bilateral AKA. ABSENT: calf tenderness, clubbing, pedal edema Neurological exam: PRESENT: alert, awake, oriented to person, oriented to place , oriented to time, oriented to situation, CN II-XII grossly intact. ABSENT: motor sensory deficit Psychiatric exam: PRESENT: appropriate affect, normal mood. ABSENT: homicidal ideation, suicidal ideation Skin exam: PRESENT: dry, intact, warm. ABSENT: cyanosis, rash Results Laboratory Results: 08/30/16 06:35 08/30/16 06:35 08/30/16 06:35 Magnesium 1.5 L 08/27/16 08/30/16 06:24 06:35 NT-Pro-B Natriuret Pep 07897 H 6680 H Impressions: Chest X-Ray 08/26/16 11:59 IMPRESSION: Diffuse pulmonary vascular congestion with Darrius lines at both bases worrisome for fluid overload or congestive failure Increasing bibasilar airspace disease atelectasis versus pneumonia Chest CT 08/29/16 00:00 IMPRESSION: Obstructive lung disease Multifocal bronchiectasis with dense consolidation at both bases right greater than left. No pleural effusions. Mild mediastinal adenopathy as above Assessment & Plan - Diagnosis (1) Ventricular bigeminy Is this a current diagnosis for this admission?: Yes (2) Elevated brain natriuretic peptide (BNP) level Is this a current diagnosis for this admission?: Yes (3) Acute on chronic respiratory failure with hypoxia Is this a current diagnosis for this admission?: Yes (4) COPD (chronic obstructive pulmonary disease) Qualifiers: COPD type: unspecified COPD Qualified Code(s): J44.9 - Chronic obstructive pulmonary disease, unspecified Is this a current diagnosis for this admission?: Yes (5) Diabetes Qualifiers: Diabetes mellitus type: type 2 Diabetes mellitus complication status: with circulatory complication Diabetes mellitus complication detail: with other circulatory complications Diabetes mellitus intermediate project manager insulin use: with intermediate project manager use Qualified Code(s): E11.59 - Type 2 diabetes mellitus with other circulatory complications Is this a current diagnosis for this admission?: Yes (6) Full code status Is this a current diagnosis for this admission?: Yes - Time Time Spent with patient: Continue the same management Increase metoprolol Await results of the echocardiogram Reason we'll discuss the case with cardiology if needed Time Spent with patient: 25-34 minutes
[2016-08-31 15:33] LABS: ANION GAP 13 (5-19); BLOOD UREA NITROGEN 25 mg/dL (7-20); CALCIUM 8.9 mg/dL (8.4-10.2); CARBON DIOXIDE 28 mmol/L (22-30); CHLORIDE 95 mmol/L (98-107); GLUCOSE 220 mg/dL (75-110); MAGNESIUM 1.6 mg/dL (1.6-2.3); POTASSIUM 4.5 mmol/L (3.6-5.0); SODIUM 135.8 mmol/L (137-145)
--- NOTE | 2016-08-31 18:48 | XCELERA REPORT ---
[address] [address] Transthoracic Echocardiogram Report Name: DANYELL ABBASI Age: 71 yrs Gender: Female : 1945 Patient Status: Inpatient Patient Location: [id number]\A Study Date: 08/31/2016 09:21 AM Height: 49 in Weight: 191 lb BSA: 1.6 m2 Procedure: A two-dimensional transthoracic echocardiogram with color flow and Doppler was performed. Study Quality: Technically suboptimal. Poor endocardial defenition and poor doppler interogation. Reason For Study: CHF History: CHF. Ordering Physician: KENDY MCGOVERN Performed By: Christi Phillips Interpretation Summary The left ventricle is mildly dilated. There is normal left ventricular wall thickness. LV EF is 20% Left ventricular systolic function is severely reduced. Doppler measurements suggest impaired left ventricular relaxation, which is associated with grade I/IV or mild diastolic dysfunction There is severe global hypokinesis of the left ventricle. The left atrial size is normal. There is no evidence of mitral valve prolapse. There is no mitral valve stenosis. There is a mild amount of mitral regurgitation Aortic Sclerosis without Stenosis. There is no LVOT obstruction. There is a mild amount of aortic regurgitation There is no tricuspid stenosis. There is a mild amount of tricuspid regurgitation There is mild pulmonary hypertension by echo RVSP is 41 to 46 mm of Hg , with RA mean of 5 to 10. There is no pericardial effusion. MMode/2D Measurements \T\ Calculations RVDd: 2.8 cm LVIDd: 4.4 cm FS: 12.4 % Ao root diam: 2.3 cm IVSd: 1.0 cm LVIDs: 3.8 cm EDV(Teich): 87.5 ml LVPWd: 1.0 cm ESV(Teich): 63.9 ml Ao root area: 4.1 cm2 EF(Teich): 27.0 % LA dimension: 3.3 cm Doppler Measurements \T\ Calculations MV E max liliam: MV P1/2t max liliam: Ao V2 max: AI max liliam: 74.6 cm/sec 74.6 cm/sec 136.4 cm/sec 428.3 cm/sec MV A max liliam: MV P1/2t: 66.9 msec Ao max PG: AI max P.0 cm/sec 7.4 mmHg 73.4 mmHg MV E/A: 0.51 MVA(P1/2t): 3.3 cm2 AI dec slope: MV dec slope: 326.3 cm/sec2 352.1 cm/sec2 MV dec time: AI P1/2t: 0.22 sec 356.3 msec LV V1 max PG: PA V2 max: PI end-d liliam: TR max liliam: 3.5 mmHg 71.6 cm/sec 129.0 cm/sec 297.5 cm/sec LV V1 max: PA max P.0 mmHg TR max P.2 cm/sec 35.4 mmHg Left Ventricle The left ventricle is mildly dilated. There is normal left ventricular wall thickness. LV EF is 20%. Left ventricular systolic function is severely reduced. Doppler measurements suggest impaired left ventricular relaxation, which is associated with grade I/IV or mild diastolic dysfunction. There is severe global hypokinesis of the left ventricle. There is no thrombus. Right Ventricle The right ventricle is not well visualized secondary to technical limitations. Atria The right atrium is normal in size. The left atrial size is normal. Mitral Valve There is mild mitral annular calcification. There is no evidence of mitral valve prolapse. There is no vegetation seen on the mitral valve. There is no mitral valve stenosis. There is a mild amount of mitral regurgitation. Aortic Valve There is no aortic valvular vegetation. Aortic Sclerosis without Stenosis. There is no LVOT obstruction. There is a mild amount of aortic regurgitation. Tricuspid Valve There is no tricuspid stenosis. There is a mild amount of tricuspid regurgitation. There is mild pulmonary hypertension by echo. RVSP is 41 to 46 mm of Hg , with RA mean of 5 to 10. Pulmonic Valve The pulmonic valve is not well visualized. There is no pulmonic valvular stenosis. There is a trace amount of pulmonic regurgitation. Great Vessels The aortic root is normal size. Effusions There is no pericardial effusion. : KENDY MCGOVERN > Gretel Ames
[2016-08-31] MEDS: CEFEPIME HCL 2 GM in DEXTROSE 5%-WATER 100 ML IV SCH (18:49)
[2016-08-31] MEDS: NORMAL SALINE INJ/PF 0.9% 10 ML SDV IV PRN (18:50)
--- NOTE | 2016-08-31 19:03 | EKG REPORT ---
SEVERITY:- ABNORMAL ECG - SINUS TACHYCARDIA MULTIPLE VENTRICULAR PREMATURE COMPLEXES BORDERLINE LEFT AXIS DEVIATION NONSPECIFIC ST-T CHANGES LATERAL LEADS : Confirmed by: Esau Avila MD 31-Aug-2016 19:02:31
--- NOTE | 2016-08-31 19:06 | Progress Note ---
Provider Note Provider Note: Echo shows EF 20 % will start lisinopril, lipitor Asa , continue metoprolol and lasix transfer in am to [facility] for cardiac cath
[2016-08-31] MEDS ORDERED: LISINOPRIL 5 MG TABLET PO ONE (19:45)
[2016-08-31] MEDS ORDERED: ASPIRIN 81 MG TABLET, ENT COATED PO ONE (20:00)
[2016-08-31] MEDS: ATORVASTATIN CALCIUM 20 MG TABLET PO SCH (22:03)
[2016-08-31] MEDS: AMITRIPTYLINE HCL 25 MG TABLET PO SCH (22:03)
[2016-08-31] MEDS: INSULIN GLARGINE,HUM.REC.ANLOG 300 UNIT/3 ML INSULN.PEN SUBCUT SCH (22:04)
[2016-09-01] MEDS: CEFEPIME HCL 2 GM in DEXTROSE 5%-WATER 100 ML IV SCH ×2 (01:06→14:23)
[2016-09-01] MEDS: METOPROLOL TARTRATE 25 MG TABLET PO SCH ×2 (05:34→17:24)
[2016-09-01] MEDS: ALBUTEROL SULFATE 0.083% NEB 2.5 MG/3 ML AMPUL NEB PRN (08:21)
[2016-09-01] MEDS: BUDESONIDE NEB 0.5 MG/2 ML AMPUL NEB SCH ×2 (08:21→20:13)
[2016-09-01] MEDS: HYDROCORTISONE 10 MG TABLET PO SCH ×2 (09:51→17:24)
[2016-09-01] MEDS: GABAPENTIN 300 MG CAPSULE PO SCH ×2 (09:51→21:12)
[2016-09-01] MEDS: LEVOFLOXACIN 500 MG TABLET PO SCH (09:51)
[2016-09-01] MEDS: LISINOPRIL 5 MG TABLET PO SCH (09:51)
[2016-09-01] MEDS: ASPIRIN 81 MG TABLET, ENT COATED PO SCH (09:51)
[2016-09-01] MEDS: LACTOBACILLUS ACIDOPHILUS 250 MG TAB PO SCH ×2 (09:52→17:24)
[2016-09-01] MEDS: FAMOTIDINE 20 MG TABLET PO SCH ×2 (09:53→21:12)
[2016-09-01] MEDS: FUROSEMIDE INJ/PF 20 MG/2 ML SDV IV SCH ×2 (09:53→21:13)
[2016-09-01] MEDS: INSULIN LISPRO 100 UNIT/ML 3 ML VIAL SUBCUT PRN ×2 (17:24→21:13)
--- NOTE | 2016-09-01 20:13 | PDOC PROGRESS REPORT ---
Subjective Progress Note for:: 09/01/16 Subjective:: Patient's breathing is very much better She was treated with Lasix metoprolol lisinopril She is oxygenating adequately on room air Physical Exam Vital Signs: Temp Pulse Resp BP Pulse Ox 98.2 F 96 18 108/61 100 09/01/16 15:32 09/01/16 19:00 09/01/16 15:32 09/01/16 15:32 09/01/16 15:32 Intake & Output 08/31/16 09/01/16 09/02/16 00:59 00:59 00:59 Intake Total 1705 1000 1820 Output Total 3600 1100 2400 Balance -1895 -100 -580 Weight 86.8 kg 86.8 kg General appearance: PRESENT: no acute distress, well-developed, well-nourished Head exam: PRESENT: atraumatic, normocephalic Eye exam: PRESENT: conjunctiva pink, EOMI, PERRLA. ABSENT: scleral icterus Ear exam: PRESENT: normal external ear exam Mouth exam: PRESENT: moist, tongue midline Neck exam: ABSENT: carotid bruit, JVD, lymphadenopathy, thyromegaly Respiratory exam: PRESENT: clear to auscultation jo-ann. ABSENT: rales, rhonchi, wheezes Cardiovascular exam: PRESENT: RRR. ABSENT: diastolic murmur, rubs, systolic murmur Pulses: PRESENT: normal dorsalis pedis pul Vascular exam: PRESENT: normal capillary refill GI/Abdominal exam: PRESENT: normal bowel sounds, soft. ABSENT: distended, guarding, mass, organolmegaly, rebound, tenderness Rectal exam: PRESENT: deferred Extremities exam: PRESENT: full ROM. ABSENT: calf tenderness, clubbing, pedal edema Neurological exam: PRESENT: alert, awake, oriented to person, oriented to place , oriented to time, oriented to situation, CN II-XII grossly intact. ABSENT: motor sensory deficit Psychiatric exam: PRESENT: appropriate affect, normal mood. ABSENT: homicidal ideation, suicidal ideation Skin exam: PRESENT: dry, intact, warm. ABSENT: cyanosis, rash Results Laboratory Results: 08/30/16 06:35 08/31/16 14:16 08/27/16 08/30/16 08/31/16 06:24 06:35 14:16 Troponin I < 0.012 NT-Pro-B Natriuret Pep 05955 H 6680 H 08/31/16 09/01/16 20:16 02:19 Troponin I < 0.012 < 0.012 NT-Pro-B Natriuret Pep Impressions: Chest X-Ray 08/26/16 11:59 IMPRESSION: Diffuse pulmonary vascular congestion with Darrius lines at both bases worrisome for fluid overload or congestive failure Increasing bibasilar airspace disease atelectasis versus pneumonia Chest CT 08/29/16 00:00 IMPRESSION: Obstructive lung disease Multifocal bronchiectasis with dense consolidation at both bases right greater than left. No pleural effusions. Mild mediastinal adenopathy as above Assessment & Plan - Diagnosis (1) Ventricular bigeminy Is this a current diagnosis for this admission?: Yes (2) Elevated brain natriuretic peptide (BNP) level Is this a current diagnosis for this admission?: Yes (3) Acute on chronic respiratory failure with hypoxia Is this a current diagnosis for this admission?: Yes (4) COPD (chronic obstructive pulmonary disease) Qualifiers: COPD type: unspecified COPD Qualified Code(s): J44.9 - Chronic obstructive pulmonary disease, unspecified Is this a current diagnosis for this admission?: Yes (5) Diabetes Qualifiers: Diabetes mellitus type: type 2 Diabetes mellitus complication status: with circulatory complication Diabetes mellitus complication detail: with other circulatory complications Diabetes mellitus terminal superintendent insulin use: with terminal superintendent use Qualified Code(s): E11.59 - Type 2 diabetes mellitus with other circulatory complications Is this a current diagnosis for this admission?: Yes (6) Full code status Is this a current diagnosis for this admission?: Yes (7) Acute on chronic systolic CHF (congestive heart failure) Is this a current diagnosis for this admission?: YesPlan: We discussed the case with cardiology at [facility] Dr. De Los Santos Patient has a known systolic CHF Last echocardiogram a few months ago showed an EF of 30% She had a normal cardiac catheterization at that time Dr. De Los Santos suggests that patient is followed in the the heart failure clinic at [facility] next week We will discharge patient in a.m. to follow up with him at the clinic Patient may be a candidate for defibrillator in 3 months as per their evaluation - Time Time Spent with patient: We will reevaluate patient for discharge in a.m. Time Spent with patient: 25-34 minutes
[2016-09-01] MEDS: ATORVASTATIN CALCIUM 20 MG TABLET PO SCH (21:12)
[2016-09-01] MEDS: AMITRIPTYLINE HCL 25 MG TABLET PO SCH (21:12)
[2016-09-01] MEDS: INSULIN GLARGINE,HUM.REC.ANLOG 300 UNIT/3 ML INSULN.PEN SUBCUT SCH (21:13)
[2016-09-01 23:14] LABS: APPEARANCE,URINE TURBID; BILIRUBIN,URINE NEGATIVE (NEGATIVE); GLUCOSE, URINE NEGATIVE (NEGATIVE); KETONES,URINE NEGATIVE (NEGATIVE); LEUKOCYTE ESTERASE,URINE LARGE (NEGATIVE); NITRITE,URINE NEGATIVE (NEGATIVE); PROTEIN,URINE 30 mg/dL (NEGATIVE); URINE SPECIFIC GRAVITY 1.004; UROBILINOGEN,URINE NEGATIVE mg/dL (<2.0)
[2016-09-02] MEDS: CEFEPIME HCL 2 GM in DEXTROSE 5%-WATER 100 ML IV SCH ×2 (01:14→11:04)
[2016-09-02] MEDS: METOPROLOL TARTRATE 25 MG TABLET PO SCH ×2 (05:32→17:10)
[2016-09-02] MEDS: HYDROCORTISONE 10 MG TABLET PO SCH ×2 (07:49→16:44)
[2016-09-02] MEDS: INSULIN LISPRO 100 UNIT/ML 3 ML VIAL SUBCUT PRN ×3 (07:51→16:46)
[2016-09-02] MEDS: BUDESONIDE NEB 0.5 MG/2 ML AMPUL NEB SCH (08:09)
[2016-09-02] MEDS: ALBUTEROL SULFATE 0.083% NEB 2.5 MG/3 ML AMPUL NEB PRN (08:09)
[2016-09-02] MEDS: LEVOFLOXACIN 500 MG TABLET PO SCH (09:32)
[2016-09-02] MEDS: ASPIRIN 81 MG TABLET, ENT COATED PO SCH (09:32)
[2016-09-02] MEDS: FAMOTIDINE 20 MG TABLET PO SCH (09:32)
[2016-09-02] MEDS: FUROSEMIDE INJ/PF 20 MG/2 ML SDV IV SCH (09:32)
[2016-09-02] MEDS: LACTOBACILLUS ACIDOPHILUS 250 MG TAB PO SCH ×2 (09:32→17:11)
[2016-09-02] MEDS: GABAPENTIN 300 MG CAPSULE PO SCH (09:32)
[2016-09-02] MEDS: LISINOPRIL 5 MG TABLET PO SCH (09:33)
--- NOTE | 2016-09-02 12:52 | PDOC DISCHARGE SUMMARY ---
General - Admit/Disc Date/PCP Admission Date/Primary Care Provider: 08/23/16 15:58 AYAN FONG, CARDIOLOGY DR YANEZ [facility] Discharge Date: 09/02/16 - Discharge Diagnosis (1) Ventricular bigeminy Is this a current diagnosis for this admission?: YesSummary: Patient did have bigeminy and 4-5 beats the of V. tach on the monitor She was asymptomatic Arrhythmia improved with metoprolol Electrolytes were normal Arrhythmia secondary to severe systolic dysfunction with an EF of 20% (2) Acute on chronic respiratory failure with hypoxia Is this a current diagnosis for this admission?: YesSummary: 08/23/16 13:25 VBG pH 7.32 VBG pCO2 59.6 VBG HCO3 29.9 Was secondary to COPD exacerbation pneumonia and acute on chronic systolic CHF improved greatly At discharge patient's O2 sat is 95% on room air (3) COPD (chronic obstructive pulmonary disease) Is this a current diagnosis for this admission?: YesSummary: Patient improved with nebs, steroids, antibiotics (4) Diabetes Is this a current diagnosis for this admission?: YesSummary: Uncontrolled Patient was treated with Lantus and we increased her dose to 45 units at night Lispro before meals also was given Her blood sugars ranged between 203 and 300 Insulin doses should be reevaluated as an outpatient for optimal management (5) Full code status Is this a current diagnosis for this admission?: Yes (6) Acute on chronic systolic CHF (congestive heart failure) Is this a current diagnosis for this admission?: YesSummary: Echocardiogram was performed showed an EF of 20% with global hypokinesis According to Dr. Yanez from [facility] 6 months ago patient's EF was 30% Cardiac catheterization at that time showed normal coronaries Dr. Yanez felt that patient should be on medical management at this time and she should be reevaluated at [facility] Later for defibrillator Patient is to be seen at the CHF clinic next week During her stay patient's was treated with metoprolol Lasix and lisinopril aspirin and Lipitor She diuresed and improved clinically At discharge O2 sat is 95% on room air and she has no dyspnea (7) Hematuria Is this a current diagnosis for this admission?: YesSummary: Patient did have blood in the urine at home day prior to discharge Was likely secondary to trauma Urine culture was negative - Additional Information Resuscitation Status: Full Code Discharge Diet: Cardiac Home Medications: Atorvastatin Calcium [Lipitor 20 mg Tablet] 20 mg PO QHS 08/24/16 Furosemide [Lasix] 40 mg PO DAILY 08/24/16 Gabapentin [Neurontin 300 mg Capsule] 300 mg PO DAILY 08/24/16 Gabapentin [Neurontin 300 mg Capsule] 600 mg PO QHS 08/24/16 Hydrocortisone [Cortef 10 mg Tablet] 10 mg PO WSUPPER 08/24/16 Omeprazole 20 mg PO QAM 08/24/16 Amitriptyline HCl 25 mg PO QHS 08/25/16 Albuterol Sulfate [Ventolin 0.083% Neb 2.5 mg/3 mL Ampul] 2.5 mg NEB RTQ3HP PRN #30 vial.neb 09/02/16 Aspirin [Ecotrin 81 mg EC Tablet] 81 mg PO DAILY #30 tabec 09/02/16 Hydrocortisone [Cortef 10 mg Tablet] 15 mg PO WBRKFST #60 tablet 09/02/16 Insulin Aspart [Novolog Flexpen] 6 unit SQ AC #1 pe 09/02/16 Insulin Glargine,Hum.rec.anlog [Lantus Insulin Inj 300 Unit/3 ml Pen] 45 unit SUBCUT QHS #1 pen 09/02/16 Insulin Lispro [Humalog Insulin (Lispro) 100 unit/mL] 0 - 12 unit SUBCUT ACHSP PRN unit 09/02/16 Levofloxacin [Levaquin 500 mg Tablet] 500 mg PO DAILY #7 tablet 09/02/16 Lisinopril [Prinivil 5 mg Tablet] 5 mg PO DAILY #30 tablet 09/02/16 Metoprolol Tartrate [Lopressor 25 mg Tablet] 25 mg PO Q12A #60 tablet 09/02/16 History of Present Illness Patient complains of: Shortness of breath History of Present Illness: DANYELL ABBASI is a 71 year old female female presents to the emergency department from home with generalized weakness and pain throughout all muscles and joints. The patient is chronically ill, previously treated with primary care and hospital admissions in [place]. She and the family relate annual admissions for pneumonia, frequently admitted to ICU but never intubated on mechanical ventilation for her pneumonia. She has underlying O2 dependent COPD and is relatively immunocompromised due to advanced diabetes resulting in severe peripheral neuropathy and nonhealing wounds and ultimately bilateral [id number] amputations, adrenal hemorrhage resulting in insufficiency requiring cortisone therapy. She also reports a history of MRSA in her sputum on previous admission in [facility]. She reports feeling more short of breath, easily fatigued, cough with green phlegm Hospital Course Hospital Course: See above Physical Exam Vital Signs: Temp Pulse Resp BP Pulse Ox 98.3 F 100 18 112/62 96 09/02/16 11:34 09/02/16 11:34 09/02/16 11:34 09/02/16 11:34 09/02/16 11:34 Intake & Output 09/01/16 09/02/16 09/03/16 00:59 00:59 00:59 Intake Total 1000 2397 200 Output Total 1100 3325 Balance -100 -928 200 Weight 86.8 kg 86.8 kg General appearance: PRESENT: cooperative, well-nourished Head exam: PRESENT: atraumatic, normocephalic Eye exam: PRESENT: conjunctiva pink, EOMI, PERRLA. ABSENT: scleral icterus Neck exam: ABSENT: carotid bruit, JVD, lymphadenopathy, thyromegaly Respiratory exam: PRESENT: clear to auscultation jo-ann. ABSENT: rales, rhonchi, wheezes GI/Abdominal exam: PRESENT: normal bowel sounds, soft. ABSENT: distended, guarding, mass, organolmegaly, rebound, tenderness Extremities exam: PRESENT: other - Bilateral AKA Neurological exam: PRESENT: alert, awake, oriented to person, oriented to place , oriented to time, oriented to situation, CN II-XII grossly intact. ABSENT: motor sensory deficit Results Laboratory Results: 08/30/16 06:35 08/31/16 14:16 09/01/16 22:45 Urine Color YELLOW Urine Appearance TURBID Urine pH 5.0 Ur Specific [place] 1.004 Urine Protein 30 H Urine Glucose (UA) NEGATIVE Urine Ketones NEGATIVE Urine Blood LARGE H Urine Nitrite NEGATIVE Ur Leukocyte Esterase LARGE H Urine WBC (Auto) >182 Urine RBC (Auto) >182 08/27/16 08/30/16 08/31/16 06:24 06:35 14:16 Troponin I < 0.012 NT-Pro-B Natriuret Pep 90592 H 6680 H 08/31/16 09/01/16 20:16 02:19 Troponin I < 0.012 < 0.012 NT-Pro-B Natriuret Pep 08/30/16 06:35 08/31/16 14:16 MCV 86 fl (80-97) 08/30/16 06:35 MCH 27.6 pg (27.0-33.4) 08/30/16 06:35 MCHC 32.0 g/dL (32.0-36.0) 08/30/16 06:35 RDW 16.9 % (11.5-14.0) H 08/30/16 06:35 Seg Neutrophils % 62.6 % (42-78) 08/30/16 06:35 Lymphocytes % 20.0 % (13-45) 08/30/16 06:35 Monocytes % 16.2 % (3-13) H 08/30/16 06:35 Eosinophils % 0.9 % (0-6) 08/30/16 06:35 Basophils % 0.3 % (0-2) 08/30/16 06:35 Absolute Neutrophils 7.7 10^3/uL (1.7-8.2) 08/30/16 06:35 Absolute Lymphocytes 2.4 10^3/uL (0.5-4.7) 08/30/16 06:35 Absolute Monocytes 2.0 10^3/uL (0.1-1.4) H 08/30/16 06:35 Absolute Eosinophils 0.1 10^3/uL (0.0-0.6) 08/30/16 06:35 Absolute Basophils 0.0 10^3/uL (0.0-0.2) 08/30/16 06:35 VBG pH 7.32 (7.30-7.42) 08/23/16 13:25 VBG pCO2 59.6 mmHg (35-63) 08/23/16 13:25 VBG HCO3 29.9 mmol/L (20-32) 08/23/16 13:25 VBG Base Excess 2.6 mmol/L 08/23/16 13:25 Chloride 95 mmol/L (98-107) L 08/31/16 14:16 Carbon Dioxide 28 mmol/L (22-30) 08/31/16 14:16 Anion Gap 13 (5-19) 08/31/16 14:16 Est GFR ( Amer) > 60 (>60) 08/31/16 14:16 Est GFR (Non-Af Amer) > 60 (>60) 08/31/16 14:16 Glucose 220 mg/dL (75-110) H 08/31/16 14:16 Lactic Acid 1.4 mmol/L (0.7-2.1) 08/23/16 13:25 Calcium 8.9 mg/dL (8.4-10.2) 08/31/16 14:16 Phosphorus 2.9 mg/dL (2.5-4.5) 08/28/16 06:01 Magnesium 1.6 mg/dL (1.6-2.3) 08/31/16 14:16 Total Bilirubin 0.4 mg/dL (0.2-1.3) 08/28/16 06:01 AST 9 U/L (14-36) L 08/28/16 06:01 ALT 23 U/L (9-52) 08/28/16 06:01 Alkaline Phosphatase 68 U/L (38-126) 08/28/16 06:01 Total Protein 5.2 g/dL (6.3-8.2) L 08/28/16 06:01 Albumin 2.4 g/dL (3.5-5.0) L 08/28/16 06:01 Urine Color YELLOW 09/01/16 22:45 Urine Appearance TURBID 09/01/16 22:45 Urine pH 5.0 (5.0-9.0) 09/01/16 22:45 Ur Specific [place] 1.004 09/01/16 22:45 Urine Protein 30 mg/dL (NEGATIVE) H 09/01/16 22:45 Urine Glucose (UA) NEGATIVE mg/dL (NEGATIVE) 09/01/16 22:45 Urine Ketones NEGATIVE mg/dL (NEGATIVE) 09/01/16 22:45 Urine Blood LARGE (NEGATIVE) H 09/01/16 22:45 Urine Nitrite NEGATIVE (NEGATIVE) 09/01/16 22:45 Ur Leukocyte Esterase LARGE (NEGATIVE) H 09/01/16 22:45 Urine WBC (Auto) >182 /HPF 09/01/16 22:45 Urine RBC (Auto) >182 /HPF 09/01/16 22:45 08/27/16 08/30/16 08/31/16 06:24 06:35 14:16 Troponin I < 0.012 NT-Pro-B Natriuret Pep 78121 H 6680 H 08/31/16 09/01/16 20:16 02:19 Troponin I < 0.012 < 0.012 NT-Pro-B Natriuret Pep Labs- Last Values WBC 12.2 10^3/uL (4.0-10.5) H 08/30/16 06:35 RBC 3.61 10^6/uL (3.72-5.28) L 08/30/16 06:35 Hgb 10.0 g/dL (12.0-15.5) L 08/30/16 06:35 Hct 31.1 % (36.0-47.0) L 08/30/16 06:35 MCV 86 fl (80-97) 08/30/16 06:35 MCH 27.6 pg (27.0-33.4) 08/30/16 06:35 MCHC 32.0 g/dL (32.0-36.0) 08/30/16 06:35 RDW 16.9 % (11.5-14.0) H 08/30/16 06:35 Plt Count 282 10^3/uL (150-450) 08/30/16 06:35 Seg Neutrophils % 62.6 % (42-78) 08/30/16 06:35 Lymphocytes % 20.0 % (13-45) 08/30/16 06:35 Monocytes % 16.2 % (3-13) H 08/30/16 06:35 Eosinophils % 0.9 % (0-6) 08/30/16 06:35 Basophils % 0.3 % (0-2) 08/30/16 06:35 Absolute Neutrophils 7.7 10^3/uL (1.7-8.2) 08/30/16 06:35 Absolute Lymphocytes 2.4 10^3/uL (0.5-4.7) 08/30/16 06:35 Absolute Monocytes 2.0 10^3/uL (0.1-1.4) H 08/30/16 06:35 Absolute Eosinophils 0.1 10^3/uL (0.0-0.6) 08/30/16 06:35 Absolute Basophils 0.0 10^3/uL (0.0-0.2) 08/30/16 06:35 PT 13.8 SEC (11.4-15.4) 08/23/16 13:25 INR 1.03 08/23/16 13:25 VBG pH 7.32 (7.30-7.42) 08/23/16 13:25 VBG pCO2 59.6 mmHg (35-63) 08/23/16 13:25 VBG HCO3 29.9 mmol/L (20-32) 08/23/16 13:25 VBG Base Excess 2.6 mmol/L 08/23/16 13:25 Sodium 135.8 mmol/L (137-145) L 08/31/16 14:16 Potassium 4.5 mmol/L (3.6-5.0) 08/31/16 14:16 Chloride 95 mmol/L (98-107) L 08/31/16 14:16 Carbon Dioxide 28 mmol/L (22-30) 08/31/16 14:16 Anion Gap 13 (5-19) 08/31/16 14:16 BUN 25 mg/dL (7-20) H 08/31/16 14:16 Creatinine 0.90 mg/dL (0.52-1.25) 08/31/16 14:16 Est GFR ( Amer) > 60 (>60) 08/31/16 14:16 Est GFR (Non-Af Amer) > 60 (>60) 08/31/16 14:16 Glucose 220 mg/dL (75-110) H 08/31/16 14:16 POC Glucose 306 mg/dL (70-110) H 09/02/16 11:06 Hemoglobin A1c % 11.4 % (4.7-6.0) H 08/24/16 06:00 Lactic Acid 1.4 mmol/L (0.7-2.1) 08/23/16 13:25 Calcium 8.9 mg/dL (8.4-10.2) 08/31/16 14:16 Phosphorus 2.9 mg/dL (2.5-4.5) 08/28/16 06:01 Magnesium 1.6 mg/dL (1.6-2.3) 08/31/16 14:16 Total Bilirubin 0.4 mg/dL (0.2-1.3) 08/28/16 06:01 Direct Bilirubin 0.2 mg/dL (0.0-0.4) 08/28/16 06:01 Indirect Bilirubin Not Reportable 08/28/16 06:01 Neonat Total Bilirubin Not Reportable 08/28/16 06:01 AST 9 U/L (14-36) L 08/28/16 06:01 ALT 23 U/L (9-52) 08/28/16 06:01 Alkaline Phosphatase 68 U/L (38-126) 08/28/16 06:01 Troponin I < 0.012 ng/mL 09/01/16 02:19 NT-Pro-B Natriuret Pep 6680 pg/mL (5-900) H 08/30/16 06:35 Total Protein 5.2 g/dL (6.3-8.2) L 08/28/16 06:01 Albumin 2.4 g/dL (3.5-5.0) L 08/28/16 06:01 Urine Color YELLOW 09/01/16 22:45 Urine Appearance TURBID 09/01/16 22:45 Urine pH 5.0 (5.0-9.0) 09/01/16 22:45 Ur Specific [place] 1.004 09/01/16 22:45 Urine Protein 30 mg/dL (NEGATIVE) H 09/01/16 22:45 Urine Glucose (UA) NEGATIVE mg/dL (NEGATIVE) 09/01/16 22:45 Urine Ketones NEGATIVE mg/dL (NEGATIVE) 09/01/16 22:45 Urine Blood LARGE (NEGATIVE) H 09/01/16 22:45 Urine Nitrite NEGATIVE (NEGATIVE) 09/01/16 22:45 Urine Bilirubin NEGATIVE (NEGATIVE) 09/01/16 22:45 Urine Urobilinogen NEGATIVE mg/dL (<2.0) 09/01/16 22:45 Ur Leukocyte Esterase LARGE (NEGATIVE) H 09/01/16 22:45 Urine WBC (Auto) >182 /HPF 09/01/16 22:45 Urine RBC (Auto) >182 /HPF 09/01/16 22:45 U Hyaline Cast (Auto) 5 /LPF 08/23/16 15:20 Urine Bacteria (Auto) 2+ /HPF 09/01/16 22:45 Urine WBC Clumps MANY /HPF 09/01/16 22:45 Squamous Epi Cells Auto 2 /HPF 08/23/16 15:20 Urine Mucus (Auto) RARE /LPF 09/01/16 22:45 Ur Yeast w Hyphae PRESENT /HPF 09/01/16 22:45 Urine Yeast (Budding) PRESENT /HPF 09/01/16 22:45 Urine Ascorbic Acid NEGATIVE (NEGATIVE) 09/01/16 22:45 Time Trough Drawn 1416 08/31/16 14:16 Vancomycin Trough 7.9 ug/mL (5.0-20.0) 08/31/16 14:16 EKG Comments: SINUS TACHYCARDIA [MVPC] . MULTIPLE VENTRICULAR PREMATURE COMPLEXES [UZAIR] . BORDERLINE LEFT AXIS DEVIATION - STMT - * NONSPECIFIC ST-T CHANGES LATERAL LEADS Impressions: Chest X-Ray 08/26/16 11:59 IMPRESSION: Diffuse pulmonary vascular congestion with Darrius lines at both bases worrisome for fluid overload or congestive failure Increasing bibasilar airspace disease atelectasis versus pneumonia Chest CT 08/29/16 00:00 IMPRESSION: Obstructive lung disease Multifocal bronchiectasis with dense consolidation at both bases right greater than left. No pleural effusions. Mild mediastinal adenopathy as above Plan Discharge Plan: Discharged home with home health Time Spent: Greater than 30 Minutes
[2016-09-02 13:28] VITALS: BP 120/74
== END 2016-09-02 18:18 | disposition home health service (06) | DRG 190 ==
LOC: ER 12:12 → EH 15:58 → UNDOADMIN 16:50 → 4N 20:47
PROVIDERS: ADMIT Internal Medicine; ATTEND Internal Medicine
PROC: 02HV33Z Insertion of Infusion Device into Superior Vena Cava, Percutaneous Approach (ICD-10-PCS; principal; 2016-08-23)
PROC: 3E0F73Z Introduction of Anti-inflammatory into Respiratory Tract, Via Natural or Artificial Opening (ICD-10-PCS; 2016-08-23)
DX: J44.0 Chronic obstructive pulmonary disease with (acute) lower respiratory infection (principal); J18.1 Lobar pneumonia, unspecified organism; J96.21 Acute and chronic respiratory failure with hypoxia; I50.23 Acute on chronic systolic (congestive) heart failure; E27.40 Unspecified adrenocortical insufficiency; N17.9 Acute kidney failure, unspecified; I47.0 Re-entry ventricular arrhythmia; I13.0 Hypertensive heart and chronic kidney disease with heart failure and stage 1 through stage 4 chronic kidney disease, or unspecified chronic kidney disease; J44.1 Chronic obstructive pulmonary disease with (acute) exacerbation; I87.2 Venous insufficiency (chronic) (peripheral); E11.42 Type 2 diabetes mellitus with diabetic polyneuropathy; E83.42 Hypomagnesemia; E66.9 Obesity, unspecified; E83.39 Other disorders of phosphorus metabolism; N18.9 Chronic kidney disease, unspecified; E11.65 Type 2 diabetes mellitus with hyperglycemia; E11.22 Type 2 diabetes mellitus with diabetic chronic kidney disease; E78.5 Hyperlipidemia, unspecified; Z89.512 Acquired absence of left leg below knee; Z89.511 Acquired absence of right leg below knee; F17.210 Nicotine dependence, cigarettes, uncomplicated; Z88.0 Allergy status to penicillin; Z88.2 Allergy status to sulfonamides; Z86.14 Personal history of Methicillin resistant Staphylococcus aureus infection; Z79.4 Long term (current) use of insulin; Z99.81 Dependence on supplemental oxygen; Z92.25 Personal history of immunosuppression therapy; Z90.49 Acquired absence of other specified parts of digestive tract; Z87.01 Personal history of pneumonia (recurrent)
CPT/HCPCS: 36415; 51702; 71010; 71250; 80048; 80053; 80202; 81001; 82803; 82962; 83036; 83605; 83735; 83880; 84100; 84484; 85025; 85610; 87040; 87086; 93005; 93010; 93306; 94640; 94667; 94799; 99285; C1751; G8978-GP; G8979-GP; J0610; J0692; J1642; J1815; J1940; J1956; J2270; J2920; J3370; J3475; J3490; J7030; J7050; J7060; J7620

== ENCOUNTER 2016-09-28 07:28 | Inpatient (IN) | payer MEDICARE, MEDICAID ==
[2016-09-28] MEDS ORDERED: DEXTROSE 50%-WATER 25 GM/50 ML DISP.SYRIN IV ONE (07:38)
--- NOTE | 2016-09-28 07:40 | ER Document Report ---
ED General - General Stated Complaint: BLOOD SUGAR CONCERNS Time Seen by Provider: 09/28/16 07:33 Mode of Arrival: Medic Information source: Patient Notes: 71-year-old female history of extensive medical problems presents by EMS for concerns of low blood sugar. Patient notes she took her insulin last night blood sugar this morning was 51, she was given 2 doses of oral glucose and IM glucose and on recheck her blood sugar is 47. Patient also noted to be satting 73% on room air placed on nonrebreather. Heart rate 141 TRAVEL OUTSIDE OF THE [place] IN LAST 30 DAYS: No - HPI Onset: Just prior to arrival Onset/Duration: Sudden Quality of pain: No pain Severity: Moderate Pain Level: Denies Associated symptoms: Shortness of breath, Weakness Exacerbated by: Denies Relieved by: Denies Similar symptoms previously: Yes Recently seen / treated by doctor: Yes - Related Data Allergies/Adverse Reactions: Penicillins Allergy (Verified 09/28/16 08:08) Sulfa (Sulfonamide Antibiotics) Allergy (Verified 09/28/16 08:08) Past Medical History - Social History Smoking Status: Never Smoker Cigarette use (# per day): No Chew tobacco use (# tins/day): No Smoking Education Provided: No Family History: Reviewed & Not Pertinent, DM - Past Medical History Cardiac Medical History: Reports: Hx Hypercholesterolemia, Hx Hypertension Denies: Hx Congestive Heart Failure, Hx Heart Attack Pulmonary Medical History: Reports: Hx COPD - O2 dependent but no nebulizer Endocrine Medical History: Reports: Hx Diabetes Mellitus Type 2 - Insulin- dependent Past Surgical History: Reports: Hx Cholecystectomy, Hx Orthopedic Surgery - Bilateral AKA - Immunizations Hx Diphtheria, Pertussis, Tetanus Vaccination: Yes Review of Systems - Review of Systems Notes: PHYSICAL EXAMINATION: GENERAL: Well-appearing, well-nourished and in no acute distress. HEAD: Atraumatic, normocephalic. EYES: Pupils equal round and reactive to light, extraocular movements intact, conjunctiva are normal. ENT: Nares patent, oropharynx clear without exudates. Moist mucous membranes. NECK: Normal range of motion, supple without lymphadenopathy LUNGS: Coarse rhonchi bilateral HEART: Tachycardic ABDOMEN: Soft, nontender, nondistended abdomen. No guarding, no rebound. No masses appreciated. Female : deferred Musculoskeletal: Bilateral AKA NEUROLOGICAL: Cranial nerves grossly intact. Normal speech, normal gait. Normal sensory, motor exams PSYCH: Normal mood, normal affect. SKIN: Warm, Dry, normal turgor, no rashes or lesions noted. Physical Exam - Vital signs Vitals: Temp Resp 98.4 F 25 H 09/28/16 07:36 09/28/16 07:36 Course - Re-evaluation Re-evalutation: 09/28/16 07:39 Currently awaiting IV access will give further dextrose septic workup pending 09/28/16 08:09 Blood sugar is now 91, she is placed on nasal cannula, 09/28/16 11:55 Patient has been given IV fluids, her blood sugars improved significantly. Chest x-rays consistent with pneumonia antibiotics and Solu-Cortef have been ordered, it is noted patient has adrenal insufficiency as well she'll be admitted to hospital service to the [facility] - Vital Signs Vital signs: Temp Pulse Resp BP Pulse Ox 98.4 F 19 90/55 L 97 09/28/16 07:36 09/28/16 11:11 09/28/16 11:11 09/28/16 11:10 - Laboratory Result Diagrams: 09/28/16 08:38 09/28/16 08:38 Laboratory results interpreted by me: 09/28/16 09/28/16 09/28/16 08:38 08:38 09:34 WBC 12.7 H MCHC 31.6 L RDW 18.1 H Absolute Neutrophils 9.6 H Sodium 130.8 L Potassium 5.6 H Chloride 87 L Carbon Dioxide 33 H BUN 55 H Creatinine 1.52 H Est GFR ( Amer) 41 L Est GFR (Non-Af Amer) 34 L Glucose 224 H Direct Bilirubin 0.5 H Albumin 3.4 L Urine Glucose (UA) 50 H Ur Leukocyte Esterase SMALL H - Diagnostic Test Radiology reviewed: Image reviewed, Reports reviewed - EKG Interpretation by Me EKG shows normal: Sinus rhythm, [place], Intervals, QRS Complexes Rate: Tachycardia Discharge - Discharge Clinical Impression: Acute kidney injury, Acute on chronic respiratory failure with hypoxia, Adrenal insufficiency COPD (chronic obstructive pulmonary disease) Qualifiers: COPD type: unspecified COPD Qualified Code(s): J44.9 - Chronic obstructive pulmonary disease, unspecified Hypotension Qualifiers: Hypotension type: unspecified hypotension type Qualified Code(s): I95.9 - Hypotension, unspecified Pneumonia Qualifiers: Pneumonia type: due to unspecified organism Laterality: right Lung location: lower lobe of lung Qualified Code(s): J18.1 - Lobar pneumonia, unspecified organism Condition: Fair Disposition: ADMITTED INPATIENT Admitting Provider: Hospitalist Unit Admitted: IMCU Referrals: AYAN FONG DO [Primary Care Provider] - Follow up as needed
[2016-09-28 08:47] LABS: ABSOLUTE BASOPHILS # (AUTO) 0.1 10^3/uL (0.0-0.2); ABSOLUTE EOSINOPHILS # (AUTO) 0.1 10^3/uL (0.0-0.6); ABSOLUTE LYMPHOCYTES (AUTO) 2.2 10^3/uL (0.5-4.7); ABSOLUTE MONOCYTES (AUTO) 0.8 10^3/uL (0.1-1.4); ABSOLUTE NEUT (AUTO) 9.6 10^3/uL (1.7-8.2); BASOPHILS % (AUTO) 0.4 % (0-2); EOSINOPHILS % (AUTO) 0.6 % (0-6); HEMATOCRIT 41.3 % (36.0-47.0); HEMOGLOBIN 13.1 g/dL (12.0-15.5); MEAN CORPUSCULAR HEMOGLOBIN 27.1 pg (27.0-33.4); MEAN CORPUSCULAR HGB CONC 31.6 g/dL (32.0-36.0); MEAN CORPUSCULAR VOLUME 86 fl (80-97); MONOCYTES % (AUTO) 6.4 % (3-13); RED BLOOD COUNT 4.83 10^6/uL (3.72-5.28); RED CELL DISTRIBUTION WIDTH 18.1 % (11.5-14.0); SEGMENTED NEUTROPHILS % (AUTO) 75.6 % (42-78); WHITE BLOOD COUNT 12.7 10^3/uL (4.0-10.5)
[2016-09-28 08:55] LABS: PROTHROMBIN TIME 13.9 SEC (11.4-15.4)
[2016-09-28 09:05] LABS: ALANINE AMINOTRANSFERASE 26 U/L (9-52); ALBUMIN 3.4 g/dL (3.5-5.0); ALKALINE PHOSPHATASE 120 U/L (38-126); ANION GAP 11 (5-19); ASPARTATE AMINO TRANSFERASE 25 U/L (14-36); BILIRUBIN,DIRECT 0.5 mg/dL (0.0-0.4); BILIRUBIN,TOTAL 0.7 mg/dL (0.2-1.3); BLOOD UREA NITROGEN 55 mg/dL (7-20); CALCIUM 8.7 mg/dL (8.4-10.2); CARBON DIOXIDE 33 mmol/L (22-30); CHLORIDE 87 mmol/L (98-107); CREATININE RESULT 1.52 mg/dL (0.52-1.25); GLUCOSE 224 mg/dL (75-110); POTASSIUM 5.6 mmol/L (3.6-5.0); SODIUM 130.8 mmol/L (137-145); TOTAL PROTEIN 7.4 g/dL (6.3-8.2)
[2016-09-28 10:03] LABS: APPEARANCE,URINE SLIGHTLY-CLOUDY; BILIRUBIN,URINE NEGATIVE (NEGATIVE); GLUCOSE, URINE 50 mg/dL (NEGATIVE); KETONES,URINE NEGATIVE (NEGATIVE); LEUKOCYTE ESTERASE,URINE SMALL (NEGATIVE); NITRITE,URINE NEGATIVE (NEGATIVE); PROTEIN,URINE NEGATIVE (NEGATIVE); URINE SPECIFIC GRAVITY 1.013; UROBILINOGEN,URINE NEGATIVE mg/dL (<2.0)
[2016-09-28] MEDS ORDERED: LEVOFLOXACIN 750 MG/D5W RTU 150 ML IV ONE (11:47)
[2016-09-28] MEDS ORDERED: NORMAL SALINE 1000 ML 1,000 ML IV PRN (11:52)
[2016-09-28] MEDS ORDERED: HYDROCORTISONE SOD SUCCINATE INJ/PF 250 MG/2 ML SDV IV ONE (11:53)
[2016-09-28 12:11] LABS: VENOUS BLOOD BASE EXCESS 7.6 mmol/L; VENOUS BLOOD HCO3 35.1 mmol/L (20-32); VENOUS BLOOD PH 7.36 (7.30-7.42)
[2016-09-28] MEDS ORDERED: ACETAMINOPHEN 325 MG TABLET PO PRN (13:24)
--- NOTE | 2016-09-28 13:38 | EKG REPORT ---
SEVERITY:- ABNORMAL ECG - SINUS TACHYCARDIA ABNORMAL T, NONSPECIFIC, LATERAL LEADS : Confirmed by: Arthur Baker 28-Sep-2016 13:37:26
[2016-09-28] MEDS ORDERED: VANCOMYCIN HCL 0 MG in DEXTROSE 5%-WATER 250 ML IV NR (13:45)
--- NOTE | 2016-09-28 13:59 | PDOC H&P ---
History of Present Illness Admission Date/PCP: 09/28/16 12:11 AYAN FONG DO History of Present Illness: DANYELL ABBASI is a 71 year old oxygen diabetes and renal insufficiency who presents to the service with shortness of breath and low blood sugar. 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 After a couple of hours they noted that her blood sugar was 59. They called EMS and recheck showed her blood sugar to be 41. She was given 2 A of dextrose which did not change her blood sugar. She was brought into the emergency room where she was given another 2 A. Her blood sugar had increased to the 90s. Biochemistry her blood sugars had increased to 230. She was noted to have an oxygen saturation of 79% on room air and to be hypotensive with a systolic blood pressure down to 80. She was given IV fluids which brought her blood pressure back up to the low 100s. She was also started on Levaquin for pneumonia found on chest x-ray. She was placed on a nonrebreather mask which brought her sats up to the mid 90s. Of note, she was recently admitted and discharged last month for a bout of pneumonia. According to her and her niece and nephew who are in the room, she did improve after discharge. She followed up with her primary care physician twice since that time. I was called by the ED physician but unfortunately by the time I got to see the patient her blood pressure dropped again down to the 80s. When given a dose of Solu-Cortef as per our conversation. When we met she was still on nonrebreather mask. She was changed over to nasal cannula and dropped her sats almost immediately down to 89%. In my conversation with the patient she tells me she feels better now than what she did earlier. She currently denies any palpitations. She also denies any chest pain. According to her knee she had one episode of vomiting earlier in the morning. In the ER her temperature was recorded at 103 rectally. Past Medical History Cardiac Medical History: Reports: Atrial Fibrillation, Hyperlipidema, Hypertension Denies: Congestive Heart Failure, Myocardial Infarction Pulmonary Medical History: Reports: Chronic Obstructive Pulmonary Disease (COPD ) - The patient is prescribed oxygen. She does not use it., Respiratory Failure Endocrine Medical History: Reports: Diabetes Mellitus Type 2 - Insulin-dependent Endocrine History Note: Chronic pancreatitis. GI Medical History: Reports: Gastroesophageal Reflux Disease Musculoskeltal Medical History: Reports: Arthritis Past Surgical History Past Surgical History: Reports: Cholecystectomy, Orthopedic Surgery - Bilateral AKA, Other - Some sort of intervention for pseudocyst. Social History Smoking Status: Smoker,Current Status Unk Cigarettes Packs Per Day: 1 Number of Years Smokin Frequency of Alcohol Use: None - Patient quit drinking alcohol 1983 Hx Recreational Drug Use: No Hx Prescription Drug Abuse: No - Advance Directive Resuscitation Status: Full Code - The patient only wants one round of efforts for resuscitation. Family History Family History: CAD, DM Parental Family History Reviewed: Yes Children Family History Reviewed: Yes Sibling(s) Family History Reviewed.: Yes Medication/Allergy Home Medications: Amitriptyline HCl [Elavil 25 mg Tablet] 25 mg PO QHS 09/28/16 Ascorbic Acid [Vitamin C 500 mg Tablet] 500 mg PO DAILY 09/28/16 Atorvastatin Calcium [Lipitor 20 mg Tablet] 20 mg PO QHS 09/28/16 Carvedilol [Coreg 3.125 mg Tablet] 3.125 mg PO BID 09/28/16 Furosemide [Lasix] 40 mg PO DAILY 09/28/16 Gabapentin [Neurontin 300 mg Capsule] 300 mg PO QAM 09/28/16 Gabapentin [Neurontin 300 mg Capsule] 600 mg PO QHS 09/28/16 Hydrocortisone [Cortef 10 mg Tablet] 15 mg PO [id number] 09/28/16 Insulin Aspart [Novolog Flexpen] 6 units SQ WBRKFST 09/28/16 Insulin Aspart [Novolog Flexpen] 6 units SQ WLUNCH 09/28/16 Insulin Detemir [Levemir Flextouch] 30 units SQ QHS 09/28/16 Ipratropium Hematite [Atrovent Hfa Inhalation Aerosol 12.9 gm Mdi] 1 puff IH Q8H 09/28/16 Ipratropium/Albuterol Sulfate [Duoneb 3 ml Ampul] 1 vial NEB Q4HP PRN 09/28/16 Magnesium Oxide [Mag-Ox 400 mg Tablet] 800 mg PO DAILY 09/28/16 Omeprazole 20 mg PO QAM 09/28/16 Oxycodone HCl/Acetaminophen [Oxycodone-Acetaminophen 5-325] 1 tab PO Q4HP PRN Sodium Chloride [[place]inda Nasal [place] 44 ml Bottle] 2 spray NASL QID 09/28/16 Allergies/Adverse Reactions: Penicillins Allergy (Verified 09/28/16 08:08) Sulfa (Sulfonamide Antibiotics) Allergy (Verified 09/28/16 08:08) Review of Systems Review of Systems: Review of systems is positive as already listed in the history of present illness in addition to this the patient also admits intermittent abdominal pain in the epigastric area related to her chronic pancreatitis, occasional dizziness , arthritic pains that come and go and cough. She denies nausea diarrhea constipation chest pain weight loss or unexplained weight gain Physical Exam Vital Signs: Temp Pulse Resp BP Pulse Ox 98.4 F 23 H 95/64 L 88 L 09/28/16 07:36 09/28/16 13:01 09/28/16 13:00 09/28/16 13:01 Intake & Output 09/27/16 09/28/16 09/29/16 06:59 06:59 06:59 Intake Total 1999 Balance 1999 Physical exam: Gen.: This a well-developed overweight -Stateless female resting in bed on nonrebreather mask. HEENT: Normocephalic H manic trachea is midline sclera anicteric. No lymphadenopathy. No teeth. Dry mucous membranes. Heart: Tachycardic at the bedside. No obvious murmurs rubs or gallops. Lungs: Coarse breath sounds throughout. Congestion they heard from across the room. This seems to go away with coughing. She was switched to nasal cannula while was at the bedside and dropped her sats to 88%. Abdomen: Soft nontender nondistended. Active bowel sounds. Extremities: Bilateral BKA. No tenderness to palpation of her stumps. 2+ radial pulses. Strength in the upper extremities is 5 out of 5. Neuro: Awake alert oriented cranial nerves II through XII are specifically intact. Skin: Warm dry and intact. Sacral decub. Results Impressions: Chest X-Ray 09/28/16 09:43 IMPRESSION: Persisting consolidation in the medial right and left lung bases atelectasis versus pneumonia. Assessment & Plan - Diagnosis (1) Acute hypoxemic respiratory failure Plan: Continue nasal cannula to keep sats 80% or greater. Patient is currently a smoker and has underlying COPD. She should be on oxygen at home but she does not wear it because she is afraid that it might cause an explosion. Her story failure is likely multifactorial not only from her COPD but also from underlying sepsis and pneumonia. (2) Severe sepsis with septic shock Plan: Sepsis is likely secondary to underlying pneumonia. We have placed her on vancomycin and meropenem. Blood cultures have been sent. Urine cultures have also been sent. Urinalysis does not look infected. She is gotten boluses already. Continue to bolus the patient is amenable to pressor support if needed. Give Tylenol for fever. Patient is tachycardic likely in response to underlying sepsis. Continue IV fluids. (3) Hypoglycemia Plan: The patient had her insulin along with eating. It may be that she is did not have enough by mouth intake or she is receiving too much insulin. It took 4 A of dextrose to get her blood sugars up. We will continue to monitor with blood sugar checks. (4) Hyponatremia Plan: Hyponatremia likely secondary to underlying sepsis. Continue to monitor. (6) Adrenal insufficiency Plan: In addition to the patient's hypotension from sepsis she certainly could be undergoing an adrenal crisis. I have asked that she receive a dose of Solu- Cortef which she has. We will continue to monitor. (7) Pneumonia Qualifiers: Pneumonia type: due to unspecified organism Laterality: unspecified laterality Lung location: lower lobe of lung Qualified Code(s): J18.1 - Lobar pneumonia, unspecified organism Plan: Continue above planned antibiotics. Repeat chest x-ray in the morning. This is either a new pneumonia likely with hospital-acquired organisms versus continuation of her previously diagnosed pneumonia. - Time Time Spent: 50 to 70 Minutes Anticipated discharge: Home with Homehealth - Inpatient Certification Medical Necessity: Need Close Monitoring Due to Risk of Patient Decompensation, Need For IV Fluids, Need for IV Antibiotics
[2016-09-28] MEDS ORDERED: AZTREONAM 1 GM in DEXTROSE 5%-WATER 50 ML IV SCH (14:00)
[2016-09-28] MEDS ORDERED: OXYCODONE-ACETAMINOPHEN 5-325 MG TABLET PO PRN (14:01)
[2016-09-28] MEDS ORDERED: DEXTROSE 50%-WATER 25 GM/50 ML DISP.SYRIN IV PRN ×2 (14:33)
[2016-09-28] MEDS ORDERED: GLUCAGON,HUMAN RECOMB 1 MG INJ IM PRN (14:33)
[2016-09-28] MEDS ORDERED: DEXTROSE 40% GEL 15 GM TUBE PO PRN ×2 (14:33)
[2016-09-28] MEDS: INSULIN LISPRO 100 UNIT/ML 3 ML VIAL SUBCUT PRN ×2 (15:41→23:01)
[2016-09-28] MEDS ORDERED: VANCOMYCIN HCL 1,000 MG in DEXTROSE 5%-WATER 250 ML IV SCH (16:00)
[2016-09-28] MEDS: LEVALBUTEROL HCL NEB 0.63 MG/3 ML AMPUL NEB SCH ×2 (16:50→20:55)
[2016-09-28] MEDS ORDERED: IMIPENEM/CILASTATIN SODIUM 1,000 MG in NORMAL SALINE 250 ML IV SCH (18:00)
[2016-09-28] MEDS: IMIPENEM/CILASTATIN SODIUM 500 MG in NORMAL SALINE 100 ML IV SCH (20:35)
[2016-09-28] MEDS: SODIUM CHLORIDE NASAL SPRAY 44 ML NASL SCH ×2 (20:40→23:02)
[2016-09-28] MEDS: GABAPENTIN 300 MG CAPSULE PO SCH (23:00)
[2016-09-28] MEDS: AMITRIPTYLINE HCL 25 MG TABLET PO SCH (23:01)
[2016-09-28] MEDS: ATORVASTATIN CALCIUM 20 MG TABLET PO SCH (23:01)
[2016-09-28] MEDS: VANCOMYCIN HCL 1,000 MG in DEXTROSE 5%-WATER 250 ML IV SCH (23:01)
[2016-09-28] MEDS: METHYLPREDNISOLONE INJ 40 MG/1 ML SDV IV SCH (23:01)
[2016-09-29] MEDS: LEVALBUTEROL HCL NEB 0.63 MG/3 ML AMPUL NEB SCH ×7 (00:01→23:59)
[2016-09-29] MEDS: IMIPENEM/CILASTATIN SODIUM 500 MG in NORMAL SALINE 100 ML IV SCH ×4 (02:09→17:02)
[2016-09-29] MEDS: METHYLPREDNISOLONE INJ 40 MG/1 ML SDV IV SCH ×3 (06:45→22:35)
[2016-09-29 08:01] LABS: ANION GAP 14 (5-19); BLOOD UREA NITROGEN 58 mg/dL (7-20); CALCIUM 8.4 mg/dL (8.4-10.2); CARBON DIOXIDE 26 mmol/L (22-30); CHLORIDE 96 mmol/L (98-107); GLUCOSE 309 mg/dL (75-110); POTASSIUM 5.4 mmol/L (3.6-5.0); SODIUM 136.2 mmol/L (137-145)
[2016-09-29 08:02] LABS: EOSINOPHILS % (AUTO) 0.1 % (0-6)
[2016-09-29 08:28] LABS: MAGNESIUM 1.2 mg/dL (1.6-2.3)
[2016-09-29 08:29] LABS: ABSOLUTE LYMPHOCYTES (AUTO) 1.7 10^3/uL (0.5-4.7); ABSOLUTE MONOCYTES (AUTO) 0.2 10^3/uL (0.1-1.4); BASOPHILS % (AUTO) 0.1 % (0-2); HEMATOCRIT 35.2 % (36.0-47.0); HGB HCT DIFFERENCE -2.8; LYMPHOCYTES % (AUTO) 11.2 % (13-45); MEAN CORPUSCULAR HEMOGLOBIN 26.7 pg (27.0-33.4); MEAN CORPUSCULAR HGB CONC 30.7 g/dL (32.0-36.0); MEAN CORPUSCULAR VOLUME 87 fl (80-97); MONOCYTES % (AUTO) 1.1 % (3-13); RED BLOOD COUNT 4.04 10^6/uL (3.72-5.28); SEGMENTED NEUTROPHILS % (AUTO) 87.5 % (42-78); WHITE BLOOD COUNT 14.9 10^3/uL (4.0-10.5)
[2016-09-29 08:33] LABS: HEMOGLOBIN 10.8 g/dL (12.0-15.5)
[2016-09-29] MEDS: GABAPENTIN 300 MG CAPSULE PO SCH ×2 (08:40→22:35)
[2016-09-29] MEDS: INSULIN LISPRO 100 UNIT/ML 3 ML VIAL SUBCUT PRN ×4 (08:40→22:34)
[2016-09-29] MEDS: LANSOPRAZOLE 15 MG TAB.RAP.DR PO SCH (08:40)
[2016-09-29] MEDS: ASCORBIC ACID 500 MG TABLET PO SCH (10:11)
[2016-09-29] MEDS: MAGNESIUM OXIDE 400 MG TABLET PO SCH (10:11)
[2016-09-29] MEDS: MAGNESIUM SULFATE 1 GM/D5W 100 ML IV SCH ×2 (10:12→11:55)
[2016-09-29] MEDS: SODIUM CHLORIDE NASAL SPRAY 44 ML NASL SCH ×4 (10:13→22:35)
--- NOTE | 2016-09-29 14:34 | PDOC PROGRESS REPORT ---
Subjective Progress Note for:: 09/29/16 Subjective:: Patient was seen today at the bedside. She has no complaints. She had a decent night. She is currently off of nonrebreather mask. She denies any chest pain or worsening shortness of breath. Physical Exam Vital Signs: Temp Pulse Resp BP Pulse Ox 97.8 F 106 H 18 99/59 L 98 09/29/16 11:05 09/29/16 11:05 09/29/16 11:05 09/29/16 11:05 09/29/16 12:18 Intake & Output 09/28/16 09/29/16 09/30/16 06:59 06:59 06:59 Intake Total 1030 480 Balance 1030 480 Weight 77.7 kg Physical exam: Gen.: This a well-developed overweight -[place]ian female resting in bed in no acute distress. Heart: Regular rate and rhythm at the bedside. No obvious murmurs rubs or gallops. Lungs: Diminished breath sounds bilaterally. Equal rise and fall of chest. Abdomen: Soft nontender nondistended. Active bowel sounds. Extremities: Bilateral BKA. Her right hand is swollen. The previous IV has been removed. Neuro: Awake alert oriented cranial nerves II through XII are grossly intact. Skin: Warm dry and intact. Sacral decub. Results Laboratory Results: 09/29/16 07:29 09/29/16 07:29 09/29/16 09/29/16 07:29 07:29 WBC 14.9 H RBC 4.04 Hgb 10.8 L D Hct 35.2 L MCV 87 MCH 26.7 L MCHC 30.7 L RDW 18.0 H Plt Count 230 Seg Neutrophils % 87.5 H Lymphocytes % 11.2 L Monocytes % 1.1 L Eosinophils % 0.1 Basophils % 0.1 Absolute Neutrophils 13.0 H Absolute Lymphocytes 1.7 Absolute Monocytes 0.2 Absolute Eosinophils 0.0 Absolute Basophils 0.0 Sodium 136.2 L Potassium 5.4 H Chloride 96 L Carbon Dioxide 26 Anion Gap 14 BUN 58 H Creatinine 1.40 H Est GFR ( Amer) 45 L Est GFR (Non-Af Amer) 37 L Glucose 309 H Calcium 8.4 Magnesium 1.2 L* Impressions: Chest X-Ray 09/29/16 08:00 IMPRESSION: Persistent volume loss and consolidation in the right middle lobe may be related to chronic bronchiectasis rather than acute pneumonia. There is still some airspace disease at the right lung base atelectasis versus pneumonia. CT chest for followup with comparison to CT exam 08/29/2016 may be useful Assessment & Plan - Diagnosis (1) Acute hypoxemic respiratory failure Plan: Continue nasal cannula to keep sats 88% or greater. Patient is currently a smoker and has underlying COPD. She should be on oxygen at home but she does not wear it because she is afraid that it might cause an explosion. Respiratory failure is likely multifactorial not only from her COPD but also from underlying sepsis and pneumonia. (2) Severe sepsis with septic shock Plan: Sepsis is likely secondary to underlying pneumonia. Shock has resolved. We have placed her on vancomycin and meropenem. Blood cultures have been sent. Urine cultures show greater than 100,000 Streptococcus. (3) Hypoglycemia Plan: Resolved. (4) Hyponatremia Plan: Resolved. (5) Hyperkalemia Plan: Still elevated at 5.4. We'll continue to follow. (6) Adrenal insufficiency Plan: Continue Solu-Cortef for now.. (7) Pneumonia Qualifiers: Pneumonia type: due to unspecified organism Laterality: unspecified laterality Lung location: lower lobe of lung Qualified Code(s): J18.1 - Lobar pneumonia, unspecified organism Plan: Continue above planned antibiotics. Repeat chest x-ray shows pneumonia. As well as bronchiectasis. Sputum sample was ordered. Continue antibiotics.. (8) UTI (urinary tract infection) Plan: Await susceptibilities for urine culture. Continue same medications for now. - Time Time Spent with patient: 25-34 minutes Anticipated discharge: Home with Homehealth - Inpatient Certification Medical Necessity: Need Close Monitoring Due to Risk of Patient Decompensation, Need for IV Antibiotics
[2016-09-29] MEDS: VANCOMYCIN HCL 1,000 MG in DEXTROSE 5%-WATER 250 ML IV SCH (21:37)
[2016-09-29] MEDS: AMITRIPTYLINE HCL 25 MG TABLET PO SCH (22:35)
[2016-09-29] MEDS: ATORVASTATIN CALCIUM 20 MG TABLET PO SCH (22:35)
[2016-09-30] MEDS: IMIPENEM/CILASTATIN SODIUM 500 MG in NORMAL SALINE 100 ML IV SCH ×4 (00:22→17:28)
[2016-09-30] MEDS: LEVALBUTEROL HCL NEB 0.63 MG/3 ML AMPUL NEB SCH ×5 (04:21→21:06)
[2016-09-30 05:51] LABS: ABSOLUTE LYMPHOCYTES (AUTO) 1.1 10^3/uL (0.5-4.7); ABSOLUTE MONOCYTES (AUTO) 0.4 10^3/uL (0.1-1.4); ABSOLUTE NEUT (AUTO) 15.4 10^3/uL (1.7-8.2); BASOPHILS % (AUTO) 0.2 % (0-2); HEMATOCRIT 32.8 % (36.0-47.0); HEMOGLOBIN 10.3 g/dL (12.0-15.5); HGB HCT DIFFERENCE -1.9; LYMPHOCYTES % (AUTO) 6.5 % (13-45); MEAN CORPUSCULAR HGB CONC 31.4 g/dL (32.0-36.0); MEAN CORPUSCULAR VOLUME 86 fl (80-97); MONOCYTES % (AUTO) 2.6 % (3-13); RED BLOOD COUNT 3.81 10^6/uL (3.72-5.28); RED CELL DISTRIBUTION WIDTH 17.9 % (11.5-14.0); SEGMENTED NEUTROPHILS % (AUTO) 90.7 % (42-78); WHITE BLOOD COUNT 16.9 10^3/uL (4.0-10.5)
[2016-09-30 06:12] LABS: ANION GAP 9 (5-19); BLOOD UREA NITROGEN 55 mg/dL (7-20); CALCIUM 8.9 mg/dL (8.4-10.2); CARBON DIOXIDE 28 mmol/L (22-30); CHLORIDE 97 mmol/L (98-107); MAGNESIUM 1.9 mg/dL (1.6-2.3); POTASSIUM 5.2 mmol/L (3.6-5.0); SODIUM 133.7 mmol/L (137-145)
[2016-09-30 06:26] LABS: GLUCOSE 442 mg/dL (75-110)
[2016-09-30] MEDS: METHYLPREDNISOLONE INJ 40 MG/1 ML SDV IV SCH ×2 (06:52→22:47)
[2016-09-30] MEDS: INSULIN LISPRO 100 UNIT/ML 3 ML VIAL SUBCUT PRN ×4 (06:52→22:47)
[2016-09-30] MEDS: GABAPENTIN 300 MG CAPSULE PO SCH ×2 (08:27→22:45)
[2016-09-30] MEDS: LANSOPRAZOLE 15 MG TAB.RAP.DR PO SCH (08:27)
[2016-09-30] MEDS: SODIUM CHLORIDE NASAL SPRAY 44 ML NASL SCH ×4 (09:26→22:47)
[2016-09-30] MEDS: MAGNESIUM OXIDE 400 MG TABLET PO SCH (09:26)
[2016-09-30] MEDS: ASCORBIC ACID 500 MG TABLET PO SCH (09:26)
[2016-09-30] MEDS: INSULIN LISPRO 100 UNIT/ML 3 ML VIAL SUBCUT SCH (11:55)
[2016-09-30] MEDS ORDERED: CARVEDILOL 3.125 MG TABLET PO ONE (12:00)
[2016-09-30] MEDS ORDERED: INSULIN ASPART 6 UNIT SQ SCH (12:00)
[2016-09-30] MEDS ORDERED: CARVEDILOL 3.125 MG TABLET PO SCH (12:00)
[2016-09-30] MEDS: NORMAL SALINE 1000 ML 1,000 ML IV PRN (12:05)
--- NOTE | 2016-09-30 14:29 | PDOC PROGRESS REPORT ---
Subjective Progress Note for:: 09/30/16 Subjective:: Patient was seen today at the bedside. She has no complaints. She had a decent night. She is currently off of nonrebreather mask. She denies any chest pain or worsening shortness of breath. Her blood sugars have been running in the 400s. Physical Exam Vital Signs: Temp Pulse Resp BP Pulse Ox 97.7 F 120 H 18 117/72 100 09/30/16 11:34 09/30/16 12:48 09/30/16 12:48 09/30/16 11:34 09/30/16 11:34 Intake & Output 09/29/16 09/30/16 10/01/16 06:59 06:59 06:59 Intake Total 1030 3058 358 Balance 1030 3058 358 Weight 77.7 kg 84.2 kg Physical exam: Gen.: This a well-developed overweight -[place] female resting in bed in no acute distress. Heart: Regular rate and rhythm at the bedside. No obvious murmurs rubs or gallops. Lungs: Diminished breath sounds bilaterally. Equal rise and fall of chest. Abdomen: Soft nontender nondistended. Active bowel sounds. Extremities: Bilateral BKA. Her right hand is swollen. Neuro: Awake alert oriented cranial nerves II through XII are grossly intact. Results Laboratory Results: 09/30/16 05:18 09/30/16 05:18 09/30/16 09/30/16 05:18 05:18 WBC 16.9 H RBC 3.81 Hgb 10.3 L Hct 32.8 L MCV 86 MCH 27.0 MCHC 31.4 L RDW 17.9 H Plt Count 245 Seg Neutrophils % 90.7 H Lymphocytes % 6.5 L Monocytes % 2.6 L Eosinophils % 0.0 Basophils % 0.2 Absolute Neutrophils 15.4 H Absolute Lymphocytes 1.1 Absolute Monocytes 0.4 Absolute Eosinophils 0.0 Absolute Basophils 0.0 Sodium 133.7 L Potassium 5.2 H Chloride 97 L Carbon Dioxide 28 Anion Gap 9 BUN 55 H Creatinine 1.40 H Est GFR ( Amer) 45 L Est GFR (Non-Af Amer) 37 L Glucose 442 H* Calcium 8.9 Magnesium 1.9 Impressions: Chest X-Ray 09/29/16 08:00 IMPRESSION: Persistent volume loss and consolidation in the right middle lobe may be related to chronic bronchiectasis rather than acute pneumonia. There is still some airspace disease at the right lung base atelectasis versus pneumonia. CT chest for followup with comparison to CT exam 08/29/2016 may be useful Assessment & Plan - Diagnosis (1) Acute hypoxemic respiratory failure Plan: Continue nasal cannula to keep sats 88% or greater. Patient is currently a smoker and has underlying COPD. She should be on oxygen at home but she does not wear it because she is afraid that it might cause an explosion. Respiratory failure is likely multifactorial not only from her COPD but also from underlying sepsis and pneumonia. (2) Severe sepsis with septic shock Plan: Sepsis is likely secondary to underlying pneumonia. Shock has resolved. We have placed her on vancomycin and meropenem. Blood cultures have been sent. Urine cultures show greater than 100,000 Streptococcus. (3) Hypoglycemia Plan: Resolved. (4) Hyponatremia Plan: Resolved. (5) Hyperkalemia Plan: Still elevated at 5.4. We'll continue to follow. (6) Adrenal insufficiency Plan: Decreased frequency to twice a day. (7) Pneumonia Qualifiers: Pneumonia type: due to unspecified organism Laterality: unspecified laterality Lung location: lower lobe of lung Qualified Code(s): J18.1 - Lobar pneumonia, unspecified organism Plan: Continue above planned antibiotics. Repeat chest x-ray shows pneumonia. As well as bronchiectasis. Sputum sample was ordered. Continue antibiotics.. (8) UTI (urinary tract infection) Plan: Await susceptibilities for urine culture. Continue same medications for now. (9) Diabetes Qualifiers: Diabetes mellitus type: type 2 Diabetes mellitus complication status: with circulatory complication Diabetes mellitus complication detail: with other circulatory complications Diabetes mellitus retirement insulin use: with retirement use Qualified Code(s): E11.59 - Type 2 diabetes mellitus with other circulatory complications Plan: Patient's blood sugars were initially low. They are now quite elevated. We'll decrease steroids. Resume L time insulin. To use sliding scale insulin. Half dose of Levemir for this evening. - Time Time Spent with patient: 25-34 minutes - Inpatient Certification Medical Necessity: Need Close Monitoring Due to Risk of Patient Decompensation, Need for IV Antibiotics
[2016-09-30] MEDS: VANCOMYCIN HCL 1,000 MG in DEXTROSE 5%-WATER 250 ML IV SCH (21:42)
[2016-09-30] MEDS: CARVEDILOL 3.125 MG TABLET PO SCH (22:45)
[2016-09-30] MEDS: AMITRIPTYLINE HCL 25 MG TABLET PO SCH (22:47)
[2016-09-30] MEDS: ATORVASTATIN CALCIUM 20 MG TABLET PO SCH (22:47)
[2016-09-30] MEDS: INSULIN DETEMIR 100 UNIT/ML 3 ML PEN SUBCUT SCH (22:47)
[2016-10-01] MEDS: IMIPENEM/CILASTATIN SODIUM 500 MG in NORMAL SALINE 100 ML IV SCH ×4 (00:10→17:59)
[2016-10-01] MEDS: LEVALBUTEROL HCL NEB 0.63 MG/3 ML AMPUL NEB SCH ×7 (00:15→23:53)
[2016-10-01] MEDS: NORMAL SALINE 1000 ML 1,000 ML IV PRN ×2 (04:37→17:59)
[2016-10-01 04:49] LABS: ABSOLUTE LYMPHOCYTES (AUTO) 0.7 10^3/uL (0.5-4.7); ABSOLUTE MONOCYTES (AUTO) 0.4 10^3/uL (0.1-1.4); BASOPHILS % (AUTO) 0.1 % (0-2); HEMATOCRIT 32.1 % (36.0-47.0); HEMOGLOBIN 9.9 g/dL (12.0-15.5); HGB HCT DIFFERENCE -2.4; LYMPHOCYTES % (AUTO) 4.9 % (13-45); MEAN CORPUSCULAR HEMOGLOBIN 26.7 pg (27.0-33.4); MEAN CORPUSCULAR HGB CONC 30.8 g/dL (32.0-36.0); MEAN CORPUSCULAR VOLUME 87 fl (80-97); MONOCYTES % (AUTO) 2.5 % (3-13); RED CELL DISTRIBUTION WIDTH 17.9 % (11.5-14.0); SEGMENTED NEUTROPHILS % (AUTO) 92.5 % (42-78); WHITE BLOOD COUNT 15.2 10^3/uL (4.0-10.5)
[2016-10-01 05:38] LABS: ANION GAP 9 (5-19); BLOOD UREA NITROGEN 51 mg/dL (7-20); CALCIUM 8.8 mg/dL (8.4-10.2); CARBON DIOXIDE 27 mmol/L (22-30); CHLORIDE 102 mmol/L (98-107); CREATININE RESULT 1.17 mg/dL (0.52-1.25); GLUCOSE 356 mg/dL (75-110); MAGNESIUM 1.7 mg/dL (1.6-2.3); POTASSIUM 4.9 mmol/L (3.6-5.0); SODIUM 137.5 mmol/L (137-145)
[2016-10-01] MEDS ORDERED: INSULIN ASPART 6 UNIT SQ SCH (08:00)
[2016-10-01] MEDS: LANSOPRAZOLE 15 MG TAB.RAP.DR PO SCH (08:09)
[2016-10-01] MEDS: INSULIN LISPRO 100 UNIT/ML 3 ML VIAL SUBCUT SCH ×2 (08:09→13:03)
[2016-10-01] MEDS: INSULIN LISPRO 100 UNIT/ML 3 ML VIAL SUBCUT PRN ×4 (08:09→21:32)
[2016-10-01] MEDS: GABAPENTIN 300 MG CAPSULE PO SCH ×2 (08:09→21:24)
[2016-10-01] MEDS: SODIUM CHLORIDE NASAL SPRAY 44 ML NASL SCH ×4 (10:57→21:26)
[2016-10-01] MEDS: CARVEDILOL 3.125 MG TABLET PO SCH ×2 (10:57→21:25)
[2016-10-01] MEDS: MAGNESIUM OXIDE 400 MG TABLET PO SCH (10:57)
[2016-10-01] MEDS: METHYLPREDNISOLONE INJ 40 MG/1 ML SDV IV SCH (10:57)
[2016-10-01] MEDS: ASCORBIC ACID 500 MG TABLET PO SCH (10:57)
--- NOTE | 2016-10-01 13:20 | PDOC PROGRESS REPORT ---
Subjective Progress Note for:: 10/01/16 Subjective:: Patient was seen today at the bedside. She has no complaints. She had a decent night. Physical Exam Vital Signs: Temp Pulse Resp BP Pulse Ox 97.5 F 93 16 138/83 H 100 10/01/16 12:06 10/01/16 12:48 10/01/16 12:48 10/01/16 12:06 10/01/16 12:06 Intake & Output 09/30/16 10/01/16 10/02/16 06:59 06:59 06:59 Intake Total 3058 3796 460 Balance 3058 3796 460 Weight 84.2 kg 85.6 kg Physical exam: Gen.: This a well-developed overweight -L[place]ian female resting in bed in no acute distress. Heart: Regular rate and rhythm at the bedside. No obvious murmurs rubs or gallops. Lungs: Diminished breath sounds at the bases otherwise clear bilaterally. Equal rise and fall of chest. Abdomen: Soft nontender nondistended. Active bowel sounds. Extremities: Bilateral BKA. Her right hand looks better today. Neuro: Awake alert oriented cranial nerves II through XII are grossly intact. Results Laboratory Results: 10/01/16 04:28 10/01/16 04:28 10/01/16 10/01/16 04:28 04:28 WBC 15.2 H RBC 3.70 L Hgb 9.9 L Hct 32.1 L MCV 87 MCH 26.7 L MCHC 30.8 L RDW 17.9 H Plt Count 215 Seg Neutrophils % 92.5 H Lymphocytes % 4.9 L Monocytes % 2.5 L Eosinophils % 0.0 Basophils % 0.1 Absolute Neutrophils 14.0 H Absolute Lymphocytes 0.7 Absolute Monocytes 0.4 Absolute Eosinophils 0.0 Absolute Basophils 0.0 Sodium 137.5 Potassium 4.9 Chloride 102 Carbon Dioxide 27 Anion Gap 9 BUN 51 H Creatinine 1.17 Est GFR ( Amer) 55 L Est GFR (Non-Af Amer) 46 L Glucose 356 H Calcium 8.8 Magnesium 1.7 Impressions: Chest X-Ray 09/29/16 08:00 IMPRESSION: Persistent volume loss and consolidation in the right middle lobe may be related to chronic bronchiectasis rather than acute pneumonia. There is still some airspace disease at the right lung base atelectasis versus pneumonia. CT chest for followup with comparison to CT exam 08/29/2016 may be useful Assessment & Plan - Diagnosis (1) Acute hypoxemic respiratory failure Plan: Continue nasal cannula to keep sats 88% or greater. Patient is currently a smoker and has underlying COPD. She should be on oxygen at home but she does not wear it because she is afraid that it might cause an explosion. Respiratory failure is likely multifactorial not only from her COPD but also from underlying sepsis and pneumonia. Overall the patient is much improved. (2) Severe sepsis with septic shock Plan: Sepsis is likely secondary to underlying pneumonia. Sputum is growing out gram- negative rods. Shock has resolved. We have placed her on vancomycin and meropenem. Blood cultures have been sent. Urine cultures show greater than 100 ,000 gram-positive cocci (3) Hypoglycemia Plan: Resolved. (4) Hyponatremia Plan: Resolved. (5) Hyperkalemia Plan: Still elevated at 5.4. We'll continue to follow. (6) Adrenal insufficiency Plan: Decreased frequency to once a day (7) Pneumonia Qualifiers: Pneumonia type: due to unspecified organism Laterality: unspecified laterality Lung location: lower lobe of lung Qualified Code(s): J18.1 - Lobar pneumonia, unspecified organism Plan: Continue above planned antibiotics. Repeat chest x-ray shows pneumonia. As well as bronchiectasis. Sputum sample was ordered and shows gram-negative rods. Continue antibiotics.. (8) UTI (urinary tract infection) Plan: Await susceptibilities for urine culture. Continue same medications for now. (9) Diabetes Qualifiers: Diabetes mellitus type: type 2 Diabetes mellitus complication status: with circulatory complication Diabetes mellitus complication detail: with other circulatory complications Diabetes mellitus half-way insulin use: with termite exterminator use Qualified Code(s): E11.59 - Type 2 diabetes mellitus with other circulatory complications Plan: Patient's blood sugars were initially low. They are now quite elevated. We'll decrease steroids again. Continue sliding scale insulin N 30 units subcutaneous Levemir - Time Time Spent with patient: 15-24 minutes - Inpatient Certification Medical Necessity: Need Close Monitoring Due to Risk of Patient Decompensation
[2016-10-01] MEDS ORDERED: POLYETHYLENE GLYCOL 3350 POWDER 17 GM/1 PACKET PO PRN (16:15)
[2016-10-01] MEDS: DOCUSATE SODIUM 100 MG CAPSULE PO SCH (17:59)
[2016-10-01] MEDS ORDERED: DAPTOMYCIN INJ 500 MG VIAL IV PRN (18:13)
[2016-10-01] MEDS ORDERED: DAPTOMYCIN 500 MG in NORMAL SALINE 50 ML IV ONE (19:00)
[2016-10-01] MEDS ORDERED: DAPTOMYCIN INJ 500 MG VIAL ONE (20:50)
[2016-10-01] MEDS: INSULIN DETEMIR 100 UNIT/ML 3 ML PEN SUBCUT SCH (21:24)
[2016-10-01] MEDS: ATORVASTATIN CALCIUM 20 MG TABLET PO SCH (21:25)
[2016-10-01] MEDS: AMITRIPTYLINE HCL 25 MG TABLET PO SCH (21:25)
[2016-10-02] MEDS: IMIPENEM/CILASTATIN SODIUM 500 MG in NORMAL SALINE 100 ML IV SCH ×2 (00:33→05:27)
[2016-10-02] MEDS: LEVALBUTEROL HCL NEB 0.63 MG/3 ML AMPUL NEB SCH ×6 (04:26→20:36)
[2016-10-02 06:01] LABS: ABSOLUTE LYMPHOCYTES (AUTO) 1.4 10^3/uL (0.5-4.7); ABSOLUTE NEUT (AUTO) 10.1 10^3/uL (1.7-8.2); BASOPHILS % (AUTO) 0.2 % (0-2); EOSINOPHILS % (AUTO) 0.2 % (0-6); HEMATOCRIT 31.5 % (36.0-47.0); HEMOGLOBIN 9.8 g/dL (12.0-15.5); HGB HCT DIFFERENCE -2.1; LYMPHOCYTES % (AUTO) 11.4 % (13-45); MEAN CORPUSCULAR HGB CONC 31.1 g/dL (32.0-36.0); MEAN CORPUSCULAR VOLUME 87 fl (80-97); MONOCYTES % (AUTO) 8.1 % (3-13); RED BLOOD COUNT 3.63 10^6/uL (3.72-5.28); RED CELL DISTRIBUTION WIDTH 17.6 % (11.5-14.0); SEGMENTED NEUTROPHILS % (AUTO) 80.1 % (42-78); WHITE BLOOD COUNT 12.6 10^3/uL (4.0-10.5)
[2016-10-02 06:23] LABS: ANION GAP 7 (5-19); BLOOD UREA NITROGEN 50 mg/dL (7-20); CALCIUM 8.8 mg/dL (8.4-10.2); CARBON DIOXIDE 25 mmol/L (22-30); CHLORIDE 106 mmol/L (98-107); GLUCOSE 181 mg/dL (75-110); MAGNESIUM 1.5 mg/dL (1.6-2.3); POTASSIUM 4.6 mmol/L (3.6-5.0); SODIUM 138.3 mmol/L (137-145)
[2016-10-02] MEDS: INSULIN LISPRO 100 UNIT/ML 3 ML VIAL SUBCUT PRN ×3 (07:36→21:37)
[2016-10-02] MEDS: INSULIN LISPRO 100 UNIT/ML 3 ML VIAL SUBCUT SCH ×2 (07:37→13:06)
[2016-10-02] MEDS: GABAPENTIN 300 MG CAPSULE PO SCH ×2 (07:39→21:36)
[2016-10-02] MEDS: LANSOPRAZOLE 15 MG TAB.RAP.DR PO SCH (07:40)
[2016-10-02] MEDS: METHYLPREDNISOLONE INJ 40 MG/1 ML SDV IV SCH (11:07)
[2016-10-02] MEDS: ASCORBIC ACID 500 MG TABLET PO SCH (11:08)
[2016-10-02] MEDS: CARVEDILOL 3.125 MG TABLET PO SCH ×2 (11:08→21:36)
[2016-10-02] MEDS: MAGNESIUM OXIDE 400 MG TABLET PO SCH (11:08)
[2016-10-02] MEDS: DOCUSATE SODIUM 100 MG CAPSULE PO SCH ×2 (11:10→18:12)
[2016-10-02] MEDS: SODIUM CHLORIDE NASAL SPRAY 44 ML NASL SCH ×4 (11:10→21:37)
--- NOTE | 2016-10-02 11:36 | EKG REPORT ---
SEVERITY:- BORDERLINE ECG - SINUS RHYTHM BORDERLINE T ABNORMALITIES, ANT-LAT LEADS : Confirmed by: Arthur Baker 02-Oct-2016 11:35:09
--- NOTE | 2016-10-02 14:31 | PDOC PROGRESS REPORT ---
Subjective Progress Note for:: 10/02/16 Subjective:: Patient was seen today at the bedside. She has no complaints. She had a decent night's sleep Physical Exam Vital Signs: Temp Pulse Resp BP Pulse Ox 98.3 F 96 16 148/78 H 100 10/02/16 11:38 10/02/16 12:18 10/02/16 12:18 10/02/16 11:38 10/02/16 11:38 Intake & Output 10/01/16 10/02/16 10/03/16 06:59 06:59 06:59 Intake Total 3796 2565 358 Balance 3796 2565 358 Weight 85.6 kg 88.2 kg Physical exam: Gen.: This a well-developed overweight -Turkmen female resting in bed in no acute distress. Heart: Regular rate and rhythm at the bedside. No obvious murmurs rubs or gallops. Lungs: Diminished breath sounds at the bases otherwise clear bilaterally. Equal rise and fall of chest. Abdomen: Soft nontender nondistended. Active bowel sounds. Extremities: Bilateral BKA. Right hand swelling resolved. Neuro: Awake alert oriented cranial nerves II through XII are grossly intact. Results Laboratory Results: 10/02/16 05:43 10/02/16 05:43 10/02/16 10/02/16 05:43 05:43 WBC 12.6 H RBC 3.63 L Hgb 9.8 L Hct 31.5 L MCV 87 MCH 27.0 MCHC 31.1 L RDW 17.6 H Plt Count 203 Seg Neutrophils % 80.1 H Lymphocytes % 11.4 L Monocytes % 8.1 Eosinophils % 0.2 Basophils % 0.2 Absolute Neutrophils 10.1 H Absolute Lymphocytes 1.4 Absolute Monocytes 1.0 Absolute Eosinophils 0.0 Absolute Basophils 0.0 Sodium 138.3 Potassium 4.6 Chloride 106 Carbon Dioxide 25 Anion Gap 7 BUN 50 H Creatinine 1.00 Est GFR ( Amer) > 60 Est GFR (Non-Af Amer) 55 L Glucose 181 H Calcium 8.8 Magnesium 1.5 L Impressions: Chest X-Ray 09/29/16 08:00 IMPRESSION: Persistent volume loss and consolidation in the right middle lobe may be related to chronic bronchiectasis rather than acute pneumonia. There is still some airspace disease at the right lung base atelectasis versus pneumonia. CT chest for followup with comparison to CT exam 08/29/2016 may be [address] Chest CT 10/02/16 00:00 IMPRESSION: The previously described extensive chronic appearing changes are again identified and appears stable. There is airspace consolidation in the right lower lobe as noted above which could represent an acute process superimposed on the chronic underlying changes. This could represent atelectatic changes or pneumonic consolidation. Other findings as noted above Assessment & Plan - Diagnosis (1) Acute hypoxemic respiratory failure Plan: Continue nasal cannula to keep sats 88% or greater. Patient is currently a smoker and has underlying COPD. She should be on oxygen at home but she does not wear it because she is afraid that it might cause an explosion. Respiratory failure is likely multifactorial not only from her COPD but also from underlying sepsis and pneumonia. Overall the patient is much improved. (2) Severe sepsis with septic shock Plan: Sepsis is likely secondary to underlying pneumonia and VRE. Sputum is growing out gram-negative rods. Shock has resolved. We have placed her on vancomycin and meropenem. As of today each of these antibiotics are discontinued. A shunt has been switched to daptomycin. Blood cultures have been sent and are negative to date. (3) Hypoglycemia Plan: Resolved. (4) Hyponatremia Plan: Resolved. (5) Hyperkalemia Plan: Resolved. We'll continue to follow. (6) Adrenal insufficiency Plan: Decreased frequency to once a day. (7) Pneumonia Qualifiers: Pneumonia type: due to unspecified organism Laterality: unspecified laterality Lung location: lower lobe of lung Qualified Code(s): J18.1 - Lobar pneumonia, unspecified organism Plan: Continue above planned antibiotics. Repeat chest x-ray shows pneumonia. As well as bronchiectasis. Sputum sample was ordered and shows gram-negative rods. Continue antibiotics.. (8) UTI (urinary tract infection) Plan: ER E is present. Patient is now on daptomycin. And will need treatment for 7- 10 days. (9) Diabetes Qualifiers: Diabetes mellitus type: type 2 Diabetes mellitus complication status: with circulatory complication Diabetes mellitus complication detail: with other circulatory complications Diabetes mellitus exterminator helper insulin use: with usp use Qualified Code(s): E11.59 - Type 2 diabetes mellitus with other circulatory complications Plan: Patient's blood sugars were initially low. They are now quite elevated due to steroids.. Continue sliding scale insulin N 30 units subcutaneous Levemir - Time Time Spent with patient: 15-24 minutes - Inpatient Certification Medical Necessity: Significant Comorbidiites Make Outpatient Treatment Too Risky , Need Close Monitoring Due to Risk of Patient Decompensation, Need for IV Antibiotics
[2016-10-02] MEDS ORDERED: HYDRALAZINE HCL INJ/PF 20 MG/1 ML SDV IV PRN (15:26)
[2016-10-02] MEDS ORDERED: FUROSEMIDE 40 MG TABLET PO ONE (16:30)
[2016-10-02] MEDS ORDERED: ENOXAPARIN SODIUM INJ 40 MG/0.4 ML DISP.SYRIN SUBCUT ONE (16:30)
[2016-10-02] MEDS: DAPTOMYCIN 500 MG in NORMAL SALINE 50 ML IV SCH (18:11)
[2016-10-02] MEDS: ATORVASTATIN CALCIUM 20 MG TABLET PO SCH (21:36)
[2016-10-02] MEDS: AMITRIPTYLINE HCL 25 MG TABLET PO SCH (21:37)
[2016-10-02] MEDS: INSULIN DETEMIR 100 UNIT/ML 3 ML PEN SUBCUT SCH (21:37)
[2016-10-03] MEDS: LEVALBUTEROL HCL NEB 0.63 MG/3 ML AMPUL NEB SCH ×6 (00:01→20:32)
[2016-10-03 06:02] LABS: ABSOLUTE BASOPHILS # (AUTO) 0.1 10^3/uL (0.0-0.2); ABSOLUTE LYMPHOCYTES (AUTO) 2.1 10^3/uL (0.5-4.7); ABSOLUTE MONOCYTES (AUTO) 0.9 10^3/uL (0.1-1.4); ABSOLUTE NEUT (AUTO) 7.6 10^3/uL (1.7-8.2); BASOPHILS % (AUTO) 0.8 % (0-2); EOSINOPHILS % (AUTO) 0.5 % (0-6); HEMATOCRIT 34.7 % (36.0-47.0); HEMOGLOBIN 10.9 g/dL (12.0-15.5); LYMPHOCYTES % (AUTO) 19.4 % (13-45); MEAN CORPUSCULAR HEMOGLOBIN 26.7 pg (27.0-33.4); MEAN CORPUSCULAR HGB CONC 31.4 g/dL (32.0-36.0); MEAN CORPUSCULAR VOLUME 85 fl (80-97); MONOCYTES % (AUTO) 8.2 % (3-13); RED BLOOD COUNT 4.09 10^6/uL (3.72-5.28); RED CELL DISTRIBUTION WIDTH 17.1 % (11.5-14.0); SEGMENTED NEUTROPHILS % (AUTO) 71.1 % (42-78); WHITE BLOOD COUNT 10.7 10^3/uL (4.0-10.5)
[2016-10-03 06:19] LABS: ANION GAP 8 (5-19); BLOOD UREA NITROGEN 48 mg/dL (7-20); CALCIUM 8.7 mg/dL (8.4-10.2); CARBON DIOXIDE 27 mmol/L (22-30); CHLORIDE 102 mmol/L (98-107); CREATININE RESULT 0.91 mg/dL (0.52-1.25); GLUCOSE 199 mg/dL (75-110); MAGNESIUM 1.3 mg/dL (1.6-2.3); POTASSIUM 5.1 mmol/L (3.6-5.0); SODIUM 136.6 mmol/L (137-145)
[2016-10-03] MEDS: LANSOPRAZOLE 15 MG TAB.RAP.DR PO SCH (08:00)
[2016-10-03] MEDS: GABAPENTIN 300 MG CAPSULE PO SCH ×2 (08:00→21:57)
[2016-10-03] MEDS: ENOXAPARIN SODIUM INJ 40 MG/0.4 ML DISP.SYRIN SUBCUT SCH (08:00)
[2016-10-03] MEDS: INSULIN LISPRO 100 UNIT/ML 3 ML VIAL SUBCUT SCH ×2 (08:01→12:03)
[2016-10-03] MEDS: INSULIN LISPRO 100 UNIT/ML 3 ML VIAL SUBCUT PRN ×3 (08:01→21:57)
[2016-10-03] MEDS: METHYLPREDNISOLONE INJ 40 MG/1 ML SDV IV SCH (09:40)
[2016-10-03] MEDS: ASCORBIC ACID 500 MG TABLET PO SCH (09:40)
[2016-10-03] MEDS: FUROSEMIDE 40 MG TABLET PO SCH (09:41)
[2016-10-03] MEDS: MAGNESIUM OXIDE 400 MG TABLET PO SCH (09:41)
[2016-10-03] MEDS: CARVEDILOL 3.125 MG TABLET PO SCH ×2 (09:41→21:57)
[2016-10-03] MEDS: DOCUSATE SODIUM 100 MG CAPSULE PO SCH ×2 (09:42→17:37)
[2016-10-03] MEDS: SODIUM CHLORIDE NASAL SPRAY 44 ML NASL SCH ×4 (09:42→21:59)
--- NOTE | 2016-10-03 15:00 | PDOC PROGRESS REPORT ---
Subjective Progress Note for:: 10/03/16 Subjective:: Patient was seen today at the bedside. She has no complaints. No chest pain or shortness of breath. Physical Exam Vital Signs: Temp Pulse Resp BP Pulse Ox 98.8 F 92 16 135/79 H 100 10/03/16 11:10 10/03/16 14:00 10/03/16 12:09 10/03/16 11:10 10/03/16 11:10 Intake & Output 10/02/16 10/03/16 10/04/16 06:59 06:59 06:59 Intake Total 2565 1116 Output Total 1 Balance 2565 1115 Weight 88.2 kg 85.8 kg Physical exam: Gen.: This a well-developed overweight -Gibralt[place] female resting in bed in no acute distress. Heart: Regular rate and rhythm at the bedside. No obvious murmurs rubs or gallops. Lungs: Diminished breath sounds at the bases otherwise clear bilaterally. Equal rise and fall of chest. Abdomen: Soft nontender nondistended. Active bowel sounds. Extremities: Bilateral BKA. Right hand swelling resolved. Neuro: Awake alert oriented cranial nerves II through XII are grossly intact. Results Laboratory Results: 10/03/16 05:39 10/03/16 05:39 10/03/16 10/03/16 05:39 05:39 WBC 10.7 H RBC 4.09 Hgb 10.9 L Hct 34.7 L MCV 85 MCH 26.7 L MCHC 31.4 L RDW 17.1 H Plt Count 218 Seg Neutrophils % 71.1 Lymphocytes % 19.4 Monocytes % 8.2 Eosinophils % 0.5 Basophils % 0.8 Absolute Neutrophils 7.6 Absolute Lymphocytes 2.1 Absolute Monocytes 0.9 Absolute Eosinophils 0.0 Absolute Basophils 0.1 Sodium 136.6 L Potassium 5.1 H Chloride 102 Carbon Dioxide 27 Anion Gap 8 BUN 48 H Creatinine 0.91 Est GFR ( Amer) > 60 Est GFR (Non-Af Amer) > 60 Glucose 199 H Calcium 8.7 Magnesium 1.3 L Impressions: Chest X-Ray 09/29/16 08:00 IMPRESSION: Persistent volume loss and consolidation in the right middle lobe may be related to chronic bronchiectasis rather than acute pneumonia. There is still some airspace disease at the right lung base atelectasis versus pneumonia. CT chest for followup with comparison to CT exam 08/29/[address] may [address] CT 10/02/16 00:00 IMPRESSION: The previously described extensive chronic appearing changes are again identified and appears stable. There is airspace consolidation in the right lower lobe as noted above which could represent an acute process superimposed on the chronic underlying changes. This could represent atelectatic changes or pneumonic consolidation. Other findings as noted above Assessment & Plan - Diagnosis (1) Acute hypoxemic respiratory failure Plan: Resolved. Continue nasal cannula to keep sats 88% or greater. Patient is currently a smoker and has underlying COPD. She should be on oxygen at home but she does not wear it because she is afraid that it might cause an explosion. Respiratory failure is likely multifactorial not only from her COPD but also from underlying sepsis and pneumonia. Overall the patient is much improved. (2) Severe sepsis with septic shock Plan: Sepsis is likely secondary to underlying pneumonia and VRE. Sputum is growing out gram-negative rods. Shock has resolved. The patient was initially on vancomycin and meropenem. She was switched to daptomycin and is now on day 2. Blood cultures have been sent and are negative to date. She will need at least 7 days of IV daptomycin. Of note, linezolid may also be used as an outpatient. Not sure how well it worked to clear the urinary tract infection. I spoke with the clinical pharmacist uncertain as well. Based on the literature she is able to access there is no indication not to use it. Nitrofurantoin is also an option on her age is contraindicated. Penicillins would also be an option except the patient is allergic to it. We will need to identify her allergic reaction specifically. As the patient will be ready for discharge soon organism in her sputum is identified and we could determine the best course of action to treat her underlying urinary infection -i.e. continuing with IV daptomycin as an inpatient versus a trial of linezolid as an outpatient. (3) Hypoglycemia Plan: Resolved. (4) Hyponatremia Plan: Resolved. (5) Hyperkalemia Plan: Resolved. We'll continue to follow. (6) Adrenal insufficiency Plan: Last dose of Solu-Medrol today. Discontinue and resume home dose of hydrocortisone. (7) Pneumonia Qualifiers: Pneumonia type: due to unspecified organism Laterality: unspecified laterality Lung location: lower lobe of lung Qualified Code(s): J18.1 - Lobar pneumonia, unspecified organism Plan: Continue above planned antibiotics. Repeat chest x-ray shows pneumonia As well as bronchiectasis. Sputum sample was ordered and shows gram-negative rods. Still awaiting identification and susceptibility for this. Continue antibiotics.. (8) UTI (urinary tract infection) Plan: VRE UTI. Patient is now on daptomycin. And will need treatment for 7-10 days. (9) Diabetes Qualifiers: Diabetes mellitus type: type 2 Diabetes mellitus complication status: with circulatory complication Diabetes mellitus complication detail: with other circulatory complications Diabetes mellitus penitentiary insulin use: with penitentiary use Qualified Code(s): E11.59 - Type 2 diabetes mellitus with other circulatory complications Plan: Patient's blood sugars were initially low. They are now quite elevated due to steroids.. Continue sliding scale insulin N 30 units subcutaneous Levemir
[2016-10-03] MEDS: DAPTOMYCIN 500 MG in NORMAL SALINE 50 ML IV SCH (17:37)
[2016-10-03] MEDS: ATORVASTATIN CALCIUM 20 MG TABLET PO SCH (21:57)
[2016-10-03] MEDS: AMITRIPTYLINE HCL 25 MG TABLET PO SCH (21:57)
[2016-10-03] MEDS: INSULIN DETEMIR 100 UNIT/ML 3 ML PEN SUBCUT SCH (21:58)
[2016-10-04] MEDS: LEVALBUTEROL HCL NEB 0.63 MG/3 ML AMPUL NEB SCH ×7 (00:12→23:36)
[2016-10-04 07:09] LABS: ABSOLUTE BASOPHILS # (AUTO) 0.1 10^3/uL (0.0-0.2); ABSOLUTE EOSINOPHILS # (AUTO) 0.1 10^3/uL (0.0-0.6); ABSOLUTE LYMPHOCYTES (AUTO) 3.2 10^3/uL (0.5-4.7); ABSOLUTE MONOCYTES (AUTO) 1.1 10^3/uL (0.1-1.4); ABSOLUTE NEUT (AUTO) 7.7 10^3/uL (1.7-8.2); BASOPHILS % (AUTO) 0.6 % (0-2); EOSINOPHILS % (AUTO) 0.9 % (0-6); HEMATOCRIT 35.9 % (36.0-47.0); HEMOGLOBIN 11.2 g/dL (12.0-15.5); HGB HCT DIFFERENCE -2.3; LYMPHOCYTES % (AUTO) 26.4 % (13-45); MEAN CORPUSCULAR HEMOGLOBIN 26.3 pg (27.0-33.4); MEAN CORPUSCULAR HGB CONC 31.3 g/dL (32.0-36.0); MEAN CORPUSCULAR VOLUME 84 fl (80-97); MONOCYTES % (AUTO) 8.9 % (3-13); RED BLOOD COUNT 4.26 10^6/uL (3.72-5.28); RED CELL DISTRIBUTION WIDTH 17.5 % (11.5-14.0); SEGMENTED NEUTROPHILS % (AUTO) 63.2 % (42-78); WHITE BLOOD COUNT 12.2 10^3/uL (4.0-10.5)
[2016-10-04 07:32] LABS: ANION GAP 8 (5-19); BLOOD UREA NITROGEN 53 mg/dL (7-20); CARBON DIOXIDE 31 mmol/L (22-30); CHLORIDE 99 mmol/L (98-107); CREATININE RESULT 0.99 mg/dL (0.52-1.25); GLUCOSE 91 mg/dL (75-110); MAGNESIUM 1.4 mg/dL (1.6-2.3); POTASSIUM 4.5 mmol/L (3.6-5.0); SODIUM 138.2 mmol/L (137-145)
[2016-10-04] MEDS: ENOXAPARIN SODIUM INJ 40 MG/0.4 ML DISP.SYRIN SUBCUT SCH (08:12)
[2016-10-04] MEDS: HYDROCORTISONE 10 MG TABLET PO SCH (08:17)
[2016-10-04] MEDS: LANSOPRAZOLE 15 MG TAB.RAP.DR PO SCH (08:17)
[2016-10-04] MEDS: GABAPENTIN 300 MG CAPSULE PO SCH ×2 (08:18→22:10)
[2016-10-04] MEDS: FUROSEMIDE 40 MG TABLET PO SCH (11:15)
[2016-10-04] MEDS: MAGNESIUM OXIDE 400 MG TABLET PO SCH (11:15)
[2016-10-04] MEDS: FLUCONAZOLE 100 MG TABLET PO SCH (11:16)
[2016-10-04] MEDS: DOCUSATE SODIUM 100 MG CAPSULE PO SCH ×2 (11:17→17:13)
[2016-10-04] MEDS: CARVEDILOL 3.125 MG TABLET PO SCH ×2 (11:17→22:08)
[2016-10-04] MEDS: ASCORBIC ACID 500 MG TABLET PO SCH (11:17)
[2016-10-04] MEDS: SODIUM CHLORIDE NASAL SPRAY 44 ML NASL SCH ×4 (11:19→22:20)
[2016-10-04] MEDS: INSULIN LISPRO 100 UNIT/ML 3 ML VIAL SUBCUT SCH ×2 (11:19→14:15)
[2016-10-04] MEDS: INSULIN LISPRO 100 UNIT/ML 3 ML VIAL SUBCUT PRN ×3 (14:15→22:11)
[2016-10-04] MEDS: LEVOFLOXACIN 500 MG TABLET PO SCH (14:15)
--- NOTE | 2016-10-04 14:54 | PDOC PROGRESS REPORT ---
Subjective Progress Note for:: 10/04/16 Subjective:: Reason for visit: Follow-up pneumonia, VRE UTI, acute hypoxic respiratory failure, severe sepsis with shock. Hospital course: Per other providers, "DANYELL ABBASI is a 71 year old oxygen diabetes and renal insufficiency who presents to the service with shortness of breath and low blood sugar. The patient was at home with her narrative writer and took her insulin as usual. After a couple of hours they noted that her blood sugar was 59. They called EMS and recheck showed her blood sugar to be 41. She was given 2 A of dextrose which did not change her blood sugar. She was brought into the emergency room where she was given another 2 A. Her blood sugar had increased to the 90s. Biochemistry her blood sugars had increased to 230. She was noted to have an oxygen saturation of 79% on room air and to be hypotensive with a systolic blood pressure down to 80. She was given IV fluids which brought her blood pressure back up to the low 100s. She was also started on Levaquin for pneumonia found on chest x-ray. She was placed on a nonrebreather mask which brought her sats up to the mid 90s. Of note, she was recently admitted and discharged last month for a bout of pneumonia. According to her and her niece and nephew who are in the room, she did improve after discharge. She followed up with her primary care physician twice since that time. I was called by the ED physician but unfortunately by the time I got to see the patient her blood pressure dropped again down to the 80s. When given a dose of Solu-Cortef as per our conversation. When we met she was still on nonrebreather mask. She was changed over to nasal cannula and dropped her sats almost immediately down to 89%. In my conversation with the patient she tells me she feels better now than what she did earlier. She currently denies any palpitations. She also denies any chest pain. According to her knee she had one episode of vomiting earlier in the morning. In the ER her temperature was recorded at 103 rectally. Sepsis is likely secondary to underlying pneumonia and VRE. Sputum is growing out gram-negative rods. Shock has resolved. The patient was initially on vancomycin and meropenem. She was switched to daptomycin and is now on day 2. Blood cultures have been sent and are negative to date. She will need at least 7 days of IV daptomycin. Of note, linezolid may also be used as an outpatient. Not sure how well it worked to clear the urinary tract infection. I spoke with the clinical pharmacist uncertain as well. Based on the literature she is able to access there is no indication not to use it. Nitrofurantoin is also an option on her age is contraindicated. Penicillins would also be an option except the patient is allergic to it. We will need to identify her allergic reaction specifically. As the patient will be ready for discharge soon organism in her sputum is identified and we could determine the best course of action to treat her underlying urinary infection -i.e. continuing with IV daptomycin as an inpatient versus a trial of linezolid as an outpatient." I inherited her care Monday and she is without complaint to me this morning, denies chest pain, SOA, palpitations, N/V/D or abdominal pain. ROS: Total 10 systems are reviewed, positives and negatives are noted above, the remaining systems are negative. Physical Exam Vital Signs: Temp Pulse Resp BP Pulse Ox 97.8 F 114 H 20 138/81 H 95 10/04/16 11:45 10/04/16 12:30 10/04/16 12:30 10/04/16 11:45 10/04/16 12:30 Intake & Output 10/03/16 10/04/16 10/05/16 06:59 06:59 06:59 Intake Total 1116 704 591 Output Total 1 2 Balance 1115 702 591 Weight 85.8 kg 83.9 kg EXAM GENERAL: NAD; well developed, well nourished; mod obese; alert and oriented to person, place, time, situation HEENT: normocephalic, atraumatic; no conjunctival injection, no scleral icterus ; oral mucosa moist; RESPIRATORY: no accessory muscle use, no increased WOB, good air entry bilaterally; no wheezes, rales, rhonchi; bilat inspiratory crackles CARDIO: no JVD; RRR; no systolic murmur; mild tachycardia GI: soft; nondistended; normal bowel sounds; no rebound, rigidity, guarding VASCULAR: 2+ radial; EXTREMITIES: bilat AKA, stumps c/d/i PSYCH: normal affect, normal mood SKIN: warm; moist; no petechiae; no telengectasias; no jaundice; no rash Results Laboratory Results: 10/04/16 06:13 10/04/16 06:13 10/04/16 10/04/16 06:13 06:13 WBC 12.2 H RBC 4.26 Hgb 11.2 L Hct 35.9 L MCV 84 MCH 26.3 L MCHC 31.3 L RDW 17.5 H Plt Count 245 Seg Neutrophils % 63.2 Lymphocytes % 26.4 Monocytes % 8.9 Eosinophils % 0.9 Basophils % 0.6 Absolute Neutrophils 7.7 Absolute Lymphocytes 3.2 Absolute Monocytes 1.1 Absolute Eosinophils 0.1 Absolute Basophils 0.1 Sodium 138.2 Potassium 4.5 Chloride 99 Carbon Dioxide 31 H Anion Gap 8 BUN 53 H Creatinine 0.99 Est GFR ( Amer) > 60 Est GFR (Non-Af Amer) 56 L Glucose 91 Calcium 9.0 Magnesium 1.4 L 09/29/16 20:39 Sputum Gram Stain - Final 09/29/16 20:39 Sputum Sputum Culture - Final Stenotrophomonas Maltophilia Yeast, Not Brea Albicans Reduced Normal Joselin Impressions: Chest CT 10/02/16 00:00 IMPRESSION: The previously described extensive chronic appearing changes are again identified and appears stable. There is airspace consolidation in the right lower lobe as noted above which could represent an acute process superimposed on the chronic underlying changes. This could represent atelectatic changes or pneumonic consolidation. Other findings as noted above Status: Image reviewed by me - Agree with radiology Assessment & Plan - Diagnosis (1) UTI (urinary tract infection) Is this a current diagnosis for this admission?: YesPlan: Secondary to VRE. A review of up-[email or web address].com indicates linezolid is excreted into the urine 30% unaffected and a reasonable oral alternative regimen. (2) Pneumonia Qualifiers: Pneumonia type: due to unspecified organism Laterality: unspecified laterality Lung location: lower lobe of lung Qualified Code(s): J18.1 - Lobar pneumonia, unspecified organism Is this a current diagnosis for this admission?: YesPlan: Improved. Sputum growing stenotrophomonas susceptible to current antibiotics and also quinolones and sulfa. (3) Acute on chronic respiratory failure with hypoxia Is this a current diagnosis for this admission?: YesPlan: Resolved. Stable on room air (4) Severe sepsis with septic shock Is this a current diagnosis for this admission?: YesPlan: Resolved. - Time Time Spent with patient: 25-34 minutes Anticipated discharge: Home with Homehealth Within: within 24 hours - Plan Summary Plan Summary: Continue current regimen. Consult physical therapy for strength training, bed mobility, transfers. Anticipate discharge home tomorrow, considering change to oral regimen including Levaquin and linezolid.
[2016-10-04] MEDS: DAPTOMYCIN 500 MG in NORMAL SALINE 50 ML IV SCH (17:13)
[2016-10-04] MEDS: ATORVASTATIN CALCIUM 20 MG TABLET PO SCH (22:09)
[2016-10-04] MEDS: AMITRIPTYLINE HCL 25 MG TABLET PO SCH (22:09)
[2016-10-04] MEDS: INSULIN DETEMIR 100 UNIT/ML 3 ML PEN SUBCUT SCH (22:11)
[2016-10-05] MEDS: LEVALBUTEROL HCL NEB 0.63 MG/3 ML AMPUL NEB SCH ×5 (03:27→20:31)
[2016-10-05] MEDS: HYDROCORTISONE 10 MG TABLET PO SCH (08:00)
[2016-10-05] MEDS: ENOXAPARIN SODIUM INJ 40 MG/0.4 ML DISP.SYRIN SUBCUT SCH (08:00)
[2016-10-05] MEDS: INSULIN LISPRO 100 UNIT/ML 3 ML VIAL SUBCUT SCH ×2 (08:00→12:00)
[2016-10-05] MEDS: LANSOPRAZOLE 15 MG TAB.RAP.DR PO SCH (08:00)
[2016-10-05] MEDS: GABAPENTIN 300 MG CAPSULE PO SCH ×2 (08:00→23:20)
[2016-10-05] MEDS: DOCUSATE SODIUM 100 MG CAPSULE PO SCH ×2 (10:00→21:43)
[2016-10-05] MEDS: ASCORBIC ACID 500 MG TABLET PO SCH (10:00)
[2016-10-05] MEDS: FLUCONAZOLE 100 MG TABLET PO SCH (10:00)
[2016-10-05] MEDS: MAGNESIUM OXIDE 400 MG TABLET PO SCH (10:00)
[2016-10-05] MEDS: CARVEDILOL 3.125 MG TABLET PO SCH ×2 (10:00→23:21)
[2016-10-05] MEDS: FUROSEMIDE 40 MG TABLET PO SCH (10:00)
[2016-10-05] MEDS: SODIUM CHLORIDE NASAL SPRAY 44 ML NASL SCH ×4 (10:10→23:23)
[2016-10-05] MEDS: LEVOFLOXACIN 500 MG TABLET PO SCH (12:00)
[2016-10-05] MEDS ORDERED: METHYLPREDNISOLONE INJ 125 MG/2 ML SDV ONE (13:16)
--- NOTE | 2016-10-05 16:37 | PROGRESS NOTE E ---
Progress Note NAME: DANYELL ABBASI : 1945 AGE: 71Y DATE: 10/05/2016 ROOM: 333 SUBJECTIVE: The patient reports more congestion and cough today with increased wheezing. In general, she just does not feel as well. She denies fevers, chills, chest pain, palpitations, headache, dizziness, nausea, vomiting, or diarrhea. OBJECTIVE: VITAL SIGNS: Nurses notes are reviewed, vital signs are stable, and she is still not requiring supplemental O2. LUNGS: The lungs do sound a little worse to me today. She has coarse rales throughout the right with expiratory wheezes and rhonchi there. She has mild expiratory rhonchi on the left, particularly at the base anteriorly. ABDOMEN: Obese, soft, nontender, nondistended. EXTREMITIES: Her lower extremities show bilateral [id number] amputations and the stumps show no edema, no erythema, no swelling or pain on palpation. She is alert and oriented to person, place, and time. She moves her arms and follows commands without difficulty. ASSESSMENT: 1. STENOTROPHOMONAS MALTOPHILIA PNEUMONIA. 2. VRE UTI. 3. COPD WITH ACUTE EXACERBATION SECONDARY TO THE ABOVE. PLAN: 1. Will go ahead and adjust her antibiotics as discussed previously, discontinuing the daptomycin and utilizing the linezolid, continue the Levaquin and Diflucan therapy for now. 2. Will add a single high dose of Solu-Medrol 125 mg x1 and schedule albuterol nebs for the next 24 hours to see if we can break the bronchospasm. 3. Hopefully these efforts will return her closer to baseline and she can be discharged tomorrow. DICTATING PHYSICIAN: CAMMY CRENSHAW M.D. [id number] PHY#: [id number] ID: [id number] JOB#: [id number] ACCT: [id number] cc: >
[2016-10-05] MEDS: DAPTOMYCIN 500 MG in NORMAL SALINE 50 ML IV SCH (18:00)
[2016-10-05] MEDS: AMITRIPTYLINE HCL 25 MG TABLET PO SCH (23:20)
[2016-10-05] MEDS: ATORVASTATIN CALCIUM 20 MG TABLET PO SCH (23:20)
[2016-10-05] MEDS: INSULIN DETEMIR 100 UNIT/ML 3 ML PEN SUBCUT SCH (23:54)
[2016-10-05] MEDS: INSULIN LISPRO 100 UNIT/ML 3 ML VIAL SUBCUT PRN (23:54)
[2016-10-06] MEDS ORDERED: ALBUTEROL SULFATE 0.083% NEB 2.5 MG/3 ML AMPUL NEB PRN (00:04)
[2016-10-06] MEDS: LANSOPRAZOLE 15 MG TAB.RAP.DR PO SCH (07:52)
[2016-10-06] MEDS: ENOXAPARIN SODIUM INJ 40 MG/0.4 ML DISP.SYRIN SUBCUT SCH (07:53)
[2016-10-06] MEDS: HYDROCORTISONE 10 MG TABLET PO SCH (07:53)
[2016-10-06] MEDS: GABAPENTIN 300 MG CAPSULE PO SCH (07:53)
[2016-10-06 07:58] LABS: HEMATOCRIT 35.1 % (36.0-47.0); HGB HCT DIFFERENCE -2.1; MEAN CORPUSCULAR HEMOGLOBIN 26.5 pg (27.0-33.4); MEAN CORPUSCULAR HGB CONC 31.4 g/dL (32.0-36.0); MEAN CORPUSCULAR VOLUME 84 fl (80-97); RED BLOOD COUNT 4.16 10^6/uL (3.72-5.28); RED CELL DISTRIBUTION WIDTH 17.5 % (11.5-14.0); WHITE BLOOD COUNT 12.2 10^3/uL (4.0-10.5)
[2016-10-06] MEDS: INSULIN LISPRO 100 UNIT/ML 3 ML VIAL SUBCUT SCH ×2 (07:58→12:02)
[2016-10-06] MEDS: INSULIN LISPRO 100 UNIT/ML 3 ML VIAL SUBCUT PRN ×2 (07:59→12:03)
[2016-10-06] MEDS ORDERED: IPRATROPIUM/ALBUTEROL 0.5-2.5 MG/3 ML AMPUL NEB SCH (08:00)
[2016-10-06] MEDS ORDERED: LINEZOLID 600 MG TABLET PO SCH (10:00)
[2016-10-06] MEDS: ASCORBIC ACID 500 MG TABLET PO SCH (10:27)
[2016-10-06] MEDS: MAGNESIUM OXIDE 400 MG TABLET PO SCH (10:27)
[2016-10-06] MEDS: FLUCONAZOLE 100 MG TABLET PO SCH (10:27)
[2016-10-06] MEDS: CARVEDILOL 3.125 MG TABLET PO SCH (10:28)
[2016-10-06] MEDS: DOCUSATE SODIUM 100 MG CAPSULE PO SCH (10:28)
[2016-10-06] MEDS: FUROSEMIDE 40 MG TABLET PO SCH (10:28)
[2016-10-06] MEDS: SODIUM CHLORIDE NASAL SPRAY 44 ML NASL SCH ×2 (10:29→13:00)
[2016-10-06] MEDS: LEVOFLOXACIN 500 MG TABLET PO SCH (12:03)
[2016-10-06 12:53] VITALS: BP 136/71
--- NOTE | 2016-10-06 17:12 | PDOC DISCHARGE SUMMARY ---
General - Admit/Disc Date/PCP Admission Date/Primary Care Provider: 09/28/16 13:24 AYAN FONG, Discharge Date: 10/06/16 - Discharge Diagnosis (1) UTI (urinary tract infection) Is this a current diagnosis for this admission?: YesSummary: VRE; review of [place] indicates linezolid is excreted in urine in adequate quantities to be effective as an alternative to IV treatment so she should continue zyvox for another 10d giving her total 2 wks coverage. (2) Pneumonia Is this a current diagnosis for this admission?: YesSummary: stenotrophomonas maltiphilia isolated from her sputum, a rather opportunistic and difficult to eradicate organism. I recommend another 10d of levaquin treatment based on susceptibilities with close outpt f/u with her PCP and/or pulmonary if needed as she has recurrent bronchitis and pneumonia and may need penitentiary suppressive therapy or prolonged course of abx. consider ID consult if continues to recur. (3) Acute on chronic respiratory failure with hypoxia Is this a current diagnosis for this admission?: YesSummary: she is back to baseline and been on RA for the last 48hrs without decompnesating or distress and is stable for d/c home at this time. (4) Severe sepsis with septic shock Is this a current diagnosis for this admission?: YesSummary: resolved - Additional Information Resuscitation Status: Full Code - The patient only wants one round of efforts for resuscitation. Discharge Diet: As Tolerated Discharge Activity: Activity As Tolerated Home Medications: Amitriptyline HCl [Elavil 25 mg Tablet] 25 mg PO QHS 09/28/16 Ascorbic Acid [Vitamin C 500 mg Tablet] 500 mg PO DAILY 09/28/16 Atorvastatin Calcium [Lipitor 20 mg Tablet] 20 mg PO QHS 09/28/16 Carvedilol [Coreg 3.125 mg Tablet] 3.125 mg PO BID 09/28/16 Furosemide [Lasix] 40 mg PO DAILY 09/28/16 Gabapentin [Neurontin 300 mg Capsule] 300 mg PO QAM 09/28/16 Gabapentin [Neurontin 300 mg Capsule] 600 mg PO QHS 09/28/16 Hydrocortisone [Cortef 10 mg Tablet] 15 mg PO WBRKFST 09/28/16 Insulin Aspart [Novolog Flexpen] 6 units SQ WBRKFST 09/28/16 Insulin Aspart [Novolog Flexpen] 6 units SQ WLUNCH 09/28/16 Insulin Detemir [Levemir Flextouch] 30 units SQ QHS 09/28/16 Ipratropium [place] [Atrovent Hfa Inhalation Aerosol 12.9 gm Mdi] 1 puff IH Q8H 09/28/16 Ipratropium/Albuterol Sulfate [Duoneb 3 ml Ampul] 1 vial NEB Q4HP PRN 09/28/16 Magnesium Oxide [Mag-Ox 400 mg Tablet] 800 mg PO DAILY 09/28/16 Omeprazole 20 mg PO QAM 09/28/16 Oxycodone HCl/Acetaminophen [Oxycodone-Acetaminophen 5-325] 1 tab PO Q4HP PRN Sodium Chloride [[place] Nasal [place] 44 ml Bottle] 2 spray NASL QID 09/28/16 Fluconazole [Diflucan 100 mg Tablet] 100 mg PO DAILY #10 tablet 10/06/16 Levofloxacin [Levaquin 500 mg Tablet] 500 mg PO NOON #14 tablet 10/06/16 Linezolid [Zyvox 600 mg Tablet] 600 mg PO Q12 #20 tablet 10/06/16 History of Present Illness Patient complains of: SOA History of Present Illness: "DANYELL ABBASI is a 71 year old oxygen diabetes and renal insufficiency who presents to the service with shortness of breath and low blood sugar. The patient was at home with her transit mechanic and took her insulin as usual." Hospital Course Hospital Course: Per other providers, "DANYELL ABBASI is a 71 year old oxygen diabetes and renal insufficiency who presents to the service with shortness of breath and low blood sugar. The patient was at home with her transit mechanic and took her insulin as usual. After a couple of hours they noted that her blood sugar was 59. They called EMS and recheck showed her blood sugar to be 41. She was given 2 A of dextrose which did not change her blood sugar. She was brought into the emergency room where she was given another 2 A. Her blood sugar had increased to the 90s. Biochemistry her blood sugars had increased to 230. She was noted to have an oxygen saturation of 79% on room air and to be hypotensive with a systolic blood pressure down to 80. She was given IV fluids which brought her blood pressure back up to the low 100s. She was also started on Levaquin for pneumonia found on chest x-ray. She was placed on a nonrebreather mask which brought her sats up to the mid 90s. Of note, she was recently admitted and discharged last month for a bout of pneumonia. According to her and her niece and nephew who are in the room, she did improve after discharge. She followed up with her primary care physician twice since that time. I was called by the ED physician but unfortunately by the time I got to see the patient her blood pressure dropped again down to the 80s. When given a dose of Solu-Cortef as per our conversation. When we met she was still on nonrebreather mask. She was changed over to nasal cannula and dropped her sats almost immediately down to 89%. In my conversation with the patient she tells me she feels better now than what she did earlier. She currently denies any palpitations. She also denies any chest pain. According to her knee she had one episode of vomiting earlier in the morning. In the ER her temperature was recorded at 103 rectally. Sepsis is likely secondary to underlying pneumonia and VRE. Sputum is growing out gram-negative rods. Shock has resolved. The patient was initially on vancomycin and meropenem. She was switched to daptomycin and is now on day 2. Blood cultures have been sent and are negative to date. She will need at least 7 days of IV daptomycin. Of note, linezolid may also be used as an outpatient. Not sure how well it worked to clear the urinary tract infection. I spoke with the clinical pharmacist uncertain as well. Based on the literature she is able to access there is no indication not to use it. Nitrofurantoin is also an option on her age is contraindicated. Penicillins would also be an option except the patient is allergic to it. We will need to identify her allergic reaction specifically. As the patient will be ready for discharge soon organism in her sputum is identified and we could determine the best course of action to treat her underlying urinary infection -i.e. continuing with IV daptomycin as an inpatient versus a trial of linezolid as an outpatient." she was changed to zyvox and levaquin prior to d/c home without complicatoin or decompensation. her condition has markedly improved and she is stable and report ready for d/c home. she is to f/u with her PCP in one week and return to the ED for any worsening of her condition. Rx's provided for total 2 wks of abx including those received while here. Physical Exam Vital Signs: Temp Pulse Resp BP Pulse Ox 97.8 F 98 18 136/71 H 100 10/06/16 12:00 10/06/16 12:00 10/06/16 12:00 10/06/16 12:00 10/06/16 12:00 Intake & Output 10/05/16 10/06/16 10/07/16 06:59 06:59 06:59 Intake Total 1622 500 598 Balance 1622 500 598 Weight 81.1 kg General appearance: PRESENT: no acute distress, well-developed, well-nourished Eye exam: PRESENT: EOMI. ABSENT: scleral icterus Mouth exam: PRESENT: moist Respiratory exam: PRESENT: crackles - R>L, unlabored Cardiovascular exam: PRESENT: RRR. ABSENT: tachycardia GI/Abdominal exam: PRESENT: normal bowel sounds, soft. ABSENT: tenderness Extremities exam: PRESENT: other - bilat AKA Neurological exam: PRESENT: alert, awake, oriented to person, oriented to place , oriented to time, oriented to situation Psychiatric exam: PRESENT: appropriate affect, normal mood Skin exam: PRESENT: warm. ABSENT: dry Results Laboratory Results: 10/05/16 05:29 10/04/16 06:13 10/05/16 05:29 WBC 12.2 H RBC 4.16 Hgb 11.0 L Hct 35.1 L MCV 84 MCH 26.5 L MCHC 31.4 L RDW 17.5 H Plt Count 241 Impressions: Chest X-Ray 09/29/16 08:00 IMPRESSION: Persistent volume loss and consolidation in the right middle lobe may be related to chronic bronchiectasis rather than acute pneumonia. There is still some airspace disease at the right lung base atelectasis versus pneumonia. CT chest for followup with comparison to CT exam 08/29/2016 may be useful Chest CT 10/02/16 00:00 IMPRESSION: The previously described extensive chronic appearing changes are again identified and appears stable. There is airspace consolidation in the right lower lobe as noted above which could represent an acute process superimposed on the chronic underlying changes. This could represent atelectatic changes or pneumonic consolidation. Other findings as noted above Qualifiers PATEINT BEING DISCHARGED WITH ANY OF THE FOLLOWING DIAGNOSIS?: No VTE patient discharged on overlapping Therapy?: No Reason(s) for not prescribing Overlap Therapy:: Not indicated
== END 2016-10-06 13:12 | disposition home or self-care (01) | DRG 871 ==
LOC: ER 07:28 → UNDOADMIN 12:11 → EH 12:11 → 3S 16:31
PROVIDERS: ADMIT Internal Medicine; ATTEND Internal Medicine
PROC: 3E0F73Z Introduction of Anti-inflammatory into Respiratory Tract, Via Natural or Artificial Opening (ICD-10-PCS; principal; 2016-09-28)
DX: A41.9 Sepsis, unspecified organism (principal); J18.1 Lobar pneumonia, unspecified organism; R65.21 Severe sepsis with septic shock; J96.21 Acute and chronic respiratory failure with hypoxia; N39.0 Urinary tract infection, site not specified; J44.1 Chronic obstructive pulmonary disease with (acute) exacerbation; K86.1 Other chronic pancreatitis; E87.1 Hypo-osmolality and hyponatremia; E27.40 Unspecified adrenocortical insufficiency; N17.9 Acute kidney failure, unspecified; B95.2 Enterococcus as the cause of diseases classified elsewhere; I48.91 Unspecified atrial fibrillation; E78.5 Hyperlipidemia, unspecified; I10 Essential (primary) hypertension; K21.9 Gastro-esophageal reflux disease without esophagitis; M19.90 Unspecified osteoarthritis, unspecified site; F17.210 Nicotine dependence, cigarettes, uncomplicated; E11.649 Type 2 diabetes mellitus with hypoglycemia without coma; E87.5 Hyperkalemia; E11.59 Type 2 diabetes mellitus with other circulatory complications; E78.00 Pure hypercholesterolemia, unspecified; E66.3 Overweight; Z68.30 Body mass index [BMI] 30.0-30.9, adult; Z16.21 Resistance to vancomycin; Z79.899 Other long term (current) drug therapy; Z99.81 Dependence on supplemental oxygen; Z79.4 Long term (current) use of insulin; Z90.49 Acquired absence of other specified parts of digestive tract; Z88.2 Allergy status to sulfonamides; Z88.0 Allergy status to penicillin; Z89.512 Acquired absence of left leg below knee; Z89.511 Acquired absence of right leg below knee; Z91.19 Patient's noncompliance with other medical treatment and regimen; Z83.3 Family history of diabetes mellitus; Z82.49 Family history of ischemic heart disease and other diseases of the circulatory system
CPT/HCPCS: 36415; 51701; 71010; 71020; 71250; 80048; 80053; 81001; 82803; 82962; 83036; 83605; 83735; 85025; 85027; 85610; 87040; 87070; 87077; 87086; 87088; 87186; 87205; 93005; 93010; 96374; 99285; G8978-GP; G8979-GP; J0743; J0878; J1650; J1720; J1815; J1956; J2920; J2930; J3370; J3475; J3490; J7030; J7060; J7614; J7620

== ENCOUNTER 2016-10-29 04:27 | Inpatient (IN) | payer MEDICARE, MEDICAID ==
[2016-10-29] MEDS ORDERED: ONDANSETRON HCL INJ/PF 4 MG/2 ML SDV ONE (04:39)
[2016-10-29] MEDS ORDERED: NORMAL SALINE 1000 ML 1,000 ML IV ONE ×2 (04:48→07:33)
--- NOTE | 2016-10-29 05:09 | RADIOLOGY REPORT (SQ) ---
EXAM DESCRIPTION: CHEST SINGLE VIEW COMPLETED DATE/TIME: 10/29/2016 4:58 am REASON FOR STUDY: dyspnea COMPARISON: 09/29/2016. EXAM PARAMETERS: NUMBER OF VIEWS: One view. TECHNIQUE: Single frontal radiographic view of the chest acquired. RADIATION DOSE: NA LIMITATIONS: None. FINDINGS: LUNGS AND PLEURA: Moderate lung volume. Small -moderate right lower lobar opacity consist ent with prior exams from September 2016. [id number] interstitial markings. MEDIASTINUM AND HILAR STRUCTURES: No masses. Contour normal. HEART AND VASCULAR STRUCTURES: Heart normal in size. Atherosclerosis. BONES: No acute findings. HARDWARE: None in the chest. OTHER: No other significant finding. IMPRESSION: No significant interval change. TECHNICAL DOCUMENTATION: JOB ID: [id number]
[2016-10-29] MEDS ORDERED: DEXTROSE 5%-WATER 250 ML with NOREPINEPHRINE BITARTRATE 4 MG IV PRN ×4 (06:07→09:06)
[2016-10-29] MEDS ORDERED: NOREPINEPHRINE BITARTRATE INJ/PF 4 MG/4 ML SDV IV ONE (06:17)
--- NOTE | 2016-10-29 06:17 | ER Document Report ---
ED General - General Stated Complaint: POST ARREST Time Seen by Provider: 10/29/16 04:47 Notes: Patient is a 71-year-old female presents with complaint of vomiting and diarrhea all day. She is feeling unwell and started him vomiting diarrhea throughout the day. No blood in her stool. No blood in her emesis. She was also having some back pain. She therefore called in a month. Ends arrived she is unwell appearing. She quickly went into cardiac arrest shortly after a month arrived. They months did CPR for 2 minutes. She did receive Narcan. She did not receive epinephrine. Her pulses returned with CPR long. Patient has been awake and alert since then. Patient says that she was on an antibiotic for pneumonia recently. She does not remember the name of it. She currently denies chest pain. No headache. No neck pain. No other complaints at this time. She does have a history of abdominal surgeries including surgery for pancreatic pseudocyst removal as well as gallbladder removal. She also has a history of hernia repair surgery. TRAVEL OUTSIDE OF THE [place] IN LAST 30 DAYS: No - Related Data Allergies/Adverse Reactions: Penicillins Allergy (Verified 09/28/16 08:08) Sulfa (Sulfonamide Antibiotics) Allergy (Verified 09/28/16 08:08) Past Medical History - Social History Smoking Status: Unknown if Ever Smoked Frequency of alcohol use: former alcoholic Drug Abuse: None Family History: CAD, DM - Past Medical History Cardiac Medical History: Reports: Hx Atrial Fibrillation, Hx Hypercholesterolemia, Hx Hypertension Denies: Hx Congestive Heart Failure, Hx Heart Attack Pulmonary Medical History: Reports: Hx COPD - The patient is prescribed oxygen. She does not use it., Hx Respiratory Failure Endocrine Medical History: Reports: Hx Diabetes Mellitus Type 2 - Insulin- dependent Renal/ Medical History: Denies: Hx Peritoneal Dialysis GI Medical History: Reports: Hx Gastroesophageal Reflux Disease Musculoskeltal Medical History: Reports Hx Arthritis Psychiatric Medical History: Denies: Hx Depression Past Surgical History: Reports: Hx Cholecystectomy, Hx Orthopedic Surgery - Bilateral AKA, Other - Some sort of intervention for pseudocyst. - Immunizations Hx Diphtheria, Pertussis, Tetanus Vaccination: Yes Review of Systems - Review of Systems Notes: My Normal Review Basic REVIEW OF SYSTEMS: CONSTITUTIONAL : Denies fever, chills, or sweats. Denies recent illness. EENT: Denies eye, ear, throat, or mouth pain or symptoms. Denies nasal or sinus congestion. CARDIOVASCULAR: Cardiac arrest RESPIRATORY: Denies cough, cold, or chest congestion. Denies shortness of breath, difficulty breathing, or wheezing. GASTROINTESTINAL: Denies abdominal pain. Vomiting and diarrhea MUSCULOSKELETAL: Denies neck or back pain or joint pain or swelling. SKIN: Denies rash or skin lesions. NEUROLOGICAL: Denies altered mental status or loss of consciousness. Denies headache. Denies weakness or paralysis or loss of use of either side. Denies problems with gait or speech. Denies sensory or motor loss. ALL OTHER SYSTEMS REVIEWED AND NEGATIVE. Physical Exam - Vital signs Vitals: BP 95/77 L 10/29/16 04:27 - Notes Notes: General Appearance: Well nourished, alert, cooperative, no acute distress, moderate obvious discomfort. Vitals: reviewed, See vital signs table. Head: no swelling or tenderness to the head Eyes: PERRL, EOMI, Conjuctiva clear Mouth: No decreasd moisture Neck: Supple, no neck tenderness, No thyromegaly Lungs: No wheezing, No rales, No rhonci, No accessory muscle use, good air exchange bilaterally. Heart: Tachycardic rate, Regular rythm, No murmur, no rub Abdomen: Normal BS, soft, No rigidity, mild lower abdominal tenderness to palpation, No guarding, no rebound, no abdominal masses, no organomegaly Extremities: strength 5/5 in all extremities, good pulses in all extremities, no swelling or tenderness in the extremities, no edema. Skin: warm, dry, appropriate color, no rash Neuro: speech clear, oriented x 3, normal affect, responds appropriately to questions. Cranial nerves II through XII are intact. Patient does move all extremities on her own. Course - Re-evaluation Re-evalutation: 10/29/16 06:16 Patient's blood pressure initially responded to IV fluid bolus became 97 systolically. It then quickly started to drop again. I placed a central line in the right internal jugular. Patient will be started on Levophed. A bedside ultrasound patient has good central venous distention without signs of hypovolemia. - Vital Signs Vital signs: Temp Pulse Resp BP Pulse Ox 16 78/58 L 93 10/29/16 09:20 10/29/16 09:20 10/29/16 09:20 - Laboratory Result Diagrams: 10/29/16 06:10 10/29/16 06:10 Laboratory results interpreted by me: 10/29/16 10/29/16 10/29/16 04:47 05:44 06:10 WBC RBC Hgb Hct MCH MCHC RDW VBG pH VBG pCO2 VBG HCO3 Carbon Dioxide 21 L BUN 52 H Creatinine 2.04 H Est GFR ( Amer) 29 L Est GFR (Non-Af Amer) 24 L Glucose 126 H Lactic Acid 8.0 H Calcium 7.3 L Phosphorus Magnesium AST 111 H ALT 71 H Total Protein 5.6 L Albumin 2.7 L Urine Protein 30 H Urine Blood SMALL H Ur Leukocyte Esterase TRACE H 10/29/16 10/29/16 10/29/16 06:10 06:10 07:04 WBC 13.4 H RBC 3.50 L Hgb 9.3 L Hct 31.0 L MCH 26.6 L MCHC 30.0 L RDW 17.4 H VBG pH 7.06 L* VBG pCO2 69.6 H* VBG HCO3 19.3 L Carbon Dioxide BUN Creatinine Est GFR ( Amer) Est GFR (Non-Af Amer) Glucose Lactic Acid Calcium Phosphorus 5.5 H Magnesium 0.8 L* AST ALT Total Protein Albumin Urine Protein Urine Blood Ur Leukocyte Esterase - EKG Interpretation by Me Additional EKG results interpreted by me: 10/29/16 06:26 EKG is reviewed and interpreted by me. EKG shows sinus tachycardia with rate of 128 bpm. Occasional PVC. No ST segment elevation or depression. No ischemic T-wave inversions. WV interval, QRS duration, QTc intervals are within normal range. Old EKG for comparison not available at this time. - Transfer of Care Notes: 10/29/16 09:58 Patient appears to have C. difficile colitis which is causing her symptoms. She does have a lactic acid of 8. I suspect patient probably did not have full cardiac arrest most likely had severe hypotension which made her pulses difficult to feel. She is awake alert and doing well now. She has received IV fluids. She is on pressors. I did place a central line. CT scan was obtained and was read as normal. I did speak with the hospitalist who agrees to accept the patient. She was placed on Flagyl. Due to the high lactic acid I did speak with the surgeon, Dr. Lopez, who came and saw the patient and agrees to follow along. Dictation of this chart was performed using voice recognition software; therefore, there may be some unintended grammatical errors. Procedures - Central Line Right Internal jugular Consent obtained: Yes Central line pre-insertion: Chloraprep applied Central line lumen type: Triple Anesthetic type: 1% Lidocaine mL's of anesthesia: 3 Ultrasound guided: Yes CM at insertion site: 15 Line secured with sutures: Yes Central line post-insertion: Blood return from lumens, Biopatch applied, Sutured , Sterile dressing applied, Position confirmed w/ CXR Number of attempts: 1 Complications: No Critical Care Note - Critical Care Note Total time excluding time spent on procedures (mins): 65 Comments: Critical care time for this patient not including time spent on procedures is approximately 65 minutes due to frequent re-evaluations, management of hypotension, management and titration of pressors, and discussion with specialist Discharge - Discharge Clinical Impression: C. difficile colitis, Metabolic acidosis Admitting Provider: Hospitalist Unit Admitted: ICU Referrals: AYAN FONG DO [Primary Care Provider] - Follow up as needed
[2016-10-29 06:28] LABS: ABSOLUTE BASOPHILS # (AUTO) 0.1 10^3/uL (0.0-0.2); ABSOLUTE EOSINOPHILS # (AUTO) 0.1 10^3/uL (0.0-0.6); ABSOLUTE LYMPHOCYTES (AUTO) 4.4 10^3/uL (0.5-4.7); ABSOLUTE MONOCYTES (AUTO) 0.6 10^3/uL (0.1-1.4); ABSOLUTE NEUT (AUTO) 8.2 10^3/uL (1.7-8.2); BASOPHILS % (AUTO) 0.7 % (0-2); HEMOGLOBIN 9.3 g/dL (12.0-15.5); HGB HCT DIFFERENCE -3.1; LYMPHOCYTES % (AUTO) 32.8 % (13-45); MEAN CORPUSCULAR HEMOGLOBIN 26.6 pg (27.0-33.4); MONOCYTES % (AUTO) 4.5 % (3-13); RED CELL DISTRIBUTION WIDTH 17.4 % (11.5-14.0); WHITE BLOOD COUNT 13.4 10^3/uL (4.0-10.5)
[2016-10-29 06:43] LABS: ALANINE AMINOTRANSFERASE 71 U/L (9-52); ALBUMIN 2.7 g/dL (3.5-5.0); ALKALINE PHOSPHATASE 67 U/L (38-126); ANION GAP 13 (5-19); ASPARTATE AMINO TRANSFERASE 111 U/L (14-36); BILIRUBIN,DIRECT 0.3 mg/dL (0.0-0.4); BILIRUBIN,TOTAL 0.3 mg/dL (0.2-1.3); BLOOD UREA NITROGEN 52 mg/dL (7-20); CALCIUM 7.3 mg/dL (8.4-10.2); CARBON DIOXIDE 21 mmol/L (22-30); CHLORIDE 103 mmol/L (98-107); CREATINE KINASE 51 U/L (30-135); CREATININE RESULT 2.04 mg/dL (0.52-1.25); GLUCOSE 126 mg/dL (75-110); POTASSIUM 4.4 mmol/L (3.6-5.0); SODIUM 137.4 mmol/L (137-145); TOTAL PROTEIN 5.6 g/dL (6.3-8.2)
--- NOTE | 2016-10-29 06:49 | RADIOLOGY REPORT (SQ) ---
EXAM DESCRIPTION: CHEST SINGLE VIEW COMPLETED DATE/TIME: 10/29/2016 6:31 am REASON FOR STUDY: post line placement COMPARISON: 10/29/2016. EXAM PARAMETERS: NUMBER OF VIEWS: One view. TECHNIQUE: Single frontal radiographic view of the chest acquired. RADIATION DOSE: NA LIMITATIONS: None. FINDINGS: LUNGS AND PLEURA: Moderate interstitial markings, moderate bibasilar opacities, moderate l radha volumes. MEDIASTINUM AND HILAR STRUCTURES: No masses. Contour normal. HEART AND VASCULAR STRUCTURES: Mild enlargement of the cardiac silhouette. BONES: No acute findings. HARDWARE: Right IJ central line tip 6 cm from the cavoatrial junction. OTHER: No other significant finding. IMPRESSION: Bibasilar opacity and interstitial markings without significant interval change. Right IJ line. TECHNICAL DOCUMENTATION: JOB ID: [id number]
[2016-10-29 06:58] LABS: MEAN CORPUSCULAR VOLUME 89 fl (80-97)
[2016-10-29 07:07] LABS: CREATINE KINASE MB 3.93 ng/mL (<4.55)
[2016-10-29 07:12] LABS: TROPONIN I 0.89 ng/mL
[2016-10-29 07:24] LABS: VENOUS BLOOD BASE EXCESS -11.5 mmol/L; VENOUS BLOOD HCO3 19.3 mmol/L (20-32)
[2016-10-29 07:25] LABS: VENOUS BLOOD PH 7.06 (7.30-7.42)
[2016-10-29 07:26] LABS: VENOUS BLOOD PCO2 69.6 mmHg (35-63)
[2016-10-29] MEDS ORDERED: METRONIDAZOLE 500 MG/NS RTU 100 ML IV ONE (07:32)
[2016-10-29] MEDS ORDERED: HYDROCORTISONE SOD SUCCINATE INJ/PF 100 MG/2 ML SDV IV ONE (08:05)
[2016-10-29 08:27] LABS: APPEARANCE,URINE CLOUDY; BILIRUBIN,URINE NEGATIVE (NEGATIVE); GLUCOSE, URINE NEGATIVE (NEGATIVE); KETONES,URINE NEGATIVE (NEGATIVE); LEUKOCYTE ESTERASE,URINE TRACE (NEGATIVE); NITRITE,URINE NEGATIVE (NEGATIVE); PROTEIN,URINE 30 mg/dL (NEGATIVE); URINE SPECIFIC GRAVITY 1.011; UROBILINOGEN,URINE NEGATIVE mg/dL (<2.0)
--- NOTE | 2016-10-29 08:32 | RADIOLOGY REPORT (SQ) ---
EXAM DESCRIPTION: CT ABD/PELVIS NO ORAL OR IV COMPLETED DATE/TIME: 10/29/2016 8:08 am REASON FOR STUDY: abdominal pain, diarrhea COMPARISON: CT CHEST FROM 10/02/[address] ABDOMEN FROM 08/26/2010. TECHNIQUE: CT scan of the abdomen and pelvis performed without intravenous or oral contrast. Images reviewed with lung, soft tissue, and bone windows. Reconstructed coronal and sagittal MPR images revi ewed. All images stored on PACS. All CT scanners at this facility use dose modulation, iterative reconstruction, and/or weight based d osing when appropriate to reduce radiation dose to as low as reasonably achievable (ALARA). [facility]: Dose Right [facility]: CareDose [facility]: Dose Right [facility]: Teradose 4D [facility]: Rentabilities RADIATION DOSE: 20.40mGy. LIMITATIONS: None. FINDINGS: LOWER CHEST: Stable chronic lung changes without new airspace disease. NON-CONTRASTED LIVER, SPLEEN, ADRENALS: Evaluation limited by lack of IV contrast. No identified sign ificant masses. PANCREAS: No masses. No peripancreatic inflammatory changes. GALLBLADDER: Surgically absent. RIGHT KIDNEY AND URETER: Stable degree of atrophy with simple cyst lower pole. No suspicious masses. Assessment limited by lack of IV contrast. No significant calcifications. No hydronephrosis or h ydroureter. LEFT KIDNEY AND URETER: Multiple simple cysts with the largest measuring 4.7 cm. No suspicious jovany s. Assessment limited by lack of IV contrast. No significant calcifications. No hydronephrosis or hydroureter. AORTA AND RETROPERITONEUM: Dense atherosclerotic calcifications. No aneurysm. IVC filter visualized . No retroperitoneal masses or adenopathy. BOWEL AND PERITONEAL CAVITY: Scattered colonic diverticula. No obvious masses or inflammatory change s. No free fluid. APPENDIX: Normal. PELVIS, BLADDER, AND ABDOMINAL WALL:Stable postsurgical change involving the abdominal wall related t o hernia repair. No gross complication. No abnormal masses. No free fluid. Bladder normal. BONES: No significant findings. OTHER: No other significant finding. IMPRESSION: NO ACUTE FINDINGS WITHIN THE ABDOMEN OR PELVIS. CHRONIC CHANGES ABOVE. TECHNICAL DOCUMENTATION: JOB ID: [id number] Quality ID # [id number]: Final reports with documentation of one or more dose reduction techniques (e.g., Au tomated exposure control, adjustment of the mA and/or kV according to patient size, use of iterative reconstruction technique) 2010 [employer]- All Rights Reserved
[2016-10-29] MEDS ORDERED: ACETAMINOPHEN 325 MG TABLET PO PRN (08:52)
[2016-10-29] MEDS ORDERED: ACETAMINOPHEN 650 MG SUPP.RECT PR PRN (08:52)
[2016-10-29] MEDS ORDERED: ONDANSETRON HCL INJ/PF 4 MG/2 ML SDV IV PRN (08:52)
[2016-10-29] MEDS ORDERED: NORMAL SALINE 1000 ML 1,000 ML IV PRN ×2 (08:52→09:10)
[2016-10-29] MEDS ORDERED: METHYLPREDNISOLONE INJ 125 MG/2 ML SDV IV SCH (09:00)
[2016-10-29] MEDS ORDERED: IMIPENEM/CILASTATIN SODIUM 1,000 MG in NORMAL SALINE 250 ML IV SCH (09:15)
[2016-10-29 09:16] LABS: PHOSPHORUS 5.5 mg/dL (2.5-4.5)
[2016-10-29] MEDS ORDERED: IPRATROPIUM/ALBUTEROL 0.5-2.5 MG/3 ML AMPUL NEB ONE ×2 (09:24→09:45)
[2016-10-29 09:25] LABS: MAGNESIUM 0.8 mg/dL (1.6-2.3)
[2016-10-29] MEDS ORDERED: DEXTROSE 5%-WATER 250 ML with PHENYLEPHRINE HCL 40 MG IV PRN ×4 (09:27→12:05)
[2016-10-29] MEDS ORDERED: VANCOMYCIN HCL 0 MG in DEXTROSE 5%-WATER 250 ML IV NR (09:30)
[2016-10-29 09:34] LABS: URINE BARBITURATES SCREEN NEGATIVE; URINE METHADONE SCREEN NEGATIVE; URINE OPIATES LOW NEGATIVE; URINE PHENCYCLIDINE SCREEN NEGATIVE
[2016-10-29] MEDS ORDERED: FUROSEMIDE INJ/PF 20 MG/2 ML SDV IV ONE (09:45)
[2016-10-29] MEDS ORDERED: LINEZOLID 300 ML IV SCH (10:00)
[2016-10-29] MEDS ORDERED: IMIPENEM/CILASTATIN SODIUM 500 MG in NORMAL SALINE 100 ML IV SCH (10:00)
[2016-10-29] MEDS ORDERED: NORMAL SALINE 1000 ML 500 ML IV ONE (10:00)
[2016-10-29] MEDS ORDERED: SUCCINYLCHOLINE CHLORIDE INJ 200 MG/10 ML VIAL ONE (10:00)
[2016-10-29] MEDS ORDERED: LACTOBACILLUS ACIDOPHILUS 250 MG TAB PO SCH (10:00)
[2016-10-29] MEDS: MAGNESIUM SULFATE/D5W 100 ML IV SCH ×2 (10:05→11:30)
[2016-10-29 10:09] LABS: ARTERIAL BLOOD BASE EXCESS -5.6 mmol/L; ARTERIAL BLOOD O2 SATURATION 91.1 % (94-98)
[2016-10-29 10:37] LABS: CREATINE KINASE MB 6.41 ng/mL (<4.55)
[2016-10-29 10:41] LABS: TROPONIN I 2.14 ng/mL
[2016-10-29 11:53] LABS: ARTERIAL BLOOD BASE EXCESS -6.5 mmol/L; ARTERIAL BLOOD O2 SATURATION 90.5 % (94-98)
[2016-10-29] MEDS ORDERED: VANCOMYCIN HCL 750 MG in DEXTROSE 5%-WATER 250 ML IV SCH (12:00)
[2016-10-29] MEDS ORDERED: PHARMACY COMMUNICATION ORDER MC NR (12:00)
[2016-10-29] MEDS ORDERED: PROPOFOL 100 ML IV ONE (12:01)
[2016-10-29] MEDS ORDERED: MIDAZOLAM HCL 100 ML IV PRN (12:01)
[2016-10-29] MEDS ORDERED: VASOPRESSIN INJ 20 UNIT/1 ML VIAL ONE (12:02)
[2016-10-29] MEDS ORDERED: ACETAMINOPHEN SOLN 325 MG/10.15 ML UDCUP PO PRN (12:02)
[2016-10-29] MEDS ORDERED: ACETAMINOPHEN SOLN 325 MG/10.15 ML UDCUP NG PRN (12:03)
[2016-10-29] MEDS ORDERED: FENTANYL CITRATE INJ/PF 250 MCG/5 ML AMPULE IV ONE (12:10)
[2016-10-29] MEDS ORDERED: FENTANYL CITRATE INJ/PF 100 MCG/2 ML AMPUL IV PRN (12:10)
[2016-10-29] MEDS ORDERED: FENTANYL CITRATE/PF 600 MCG/60 ML BAG IV PRN (12:15)
--- NOTE | 2016-10-29 12:23 | PDOC CONSULTATION ---
Consultation Consult Date: 10/29/16 Attending physician:: LUNA FERREIRA Consult reason:: Abnormal troponin I elevation, hypotension History of Present Illness Admission Date/PCP: 10/29/16 08:52 AYAN FONG DO Patient complains of: Shortness of breath, generalized weakness, diarrhea History of Present Illness: DANYELL ABBASI is a 71 year female presents with complaint of vomiting and diarrhea all day. She is feeling unwell and started with vomiting diarrhea throughout the day. No blood in her stool. No blood in her emesis. She was also having some back pain. Patient arrived in the emergency room arrival unwell appearing. She quickly went into cardiac arrest shortly arrival. They did CPR for 2 minutes. She did receive Narcan. She did not receive epinephrine. Her pulses returned with CPR. This part of the history was obtained from chart review. Patient subsequently noted to have hypotension and was started on Levophed drip. Patient is somewhat lethargic and cannot give a good history now. Patient subsequently had more drop in blood pressure and needed additional vasopressor support with addition of Carlos-Synephrine and we are considering switch to vasopressin drip. Patient also noted to be in respiratory distress with low oxygenation. Patient is in the process of being intubated. Patient has bilateral lower extremity amputations. Past Medical History Cardiac Medical History: Reports: Atrial Fibrillation, Congestive Heart Failure , Hyperlipidema, Hypertension, Peripheral Vascular Disease Pulmonary Medical History: Reports: Chronic Obstructive Pulmonary Disease (COPD ) - The patient is prescribed oxygen. She does not use it., Respiratory Failure Endocrine Medical History: Reports: Diabetes Mellitus Type 2 - Insulin-dependent GI Medical History: Reports: Gastroesophageal Reflux Disease Musculoskeltal Medical History: Reports: Arthritis Psychiatric Medical History: Reports: None Past Surgical History Past Surgical History: Reports: Cardiac Catheterization, Cholecystectomy, Orthopedic Surgery - Bilateral AKA, Other - Some sort of intervention for pseudocyst. Social History Information Source: [facility] Records Smoking Status: Unknown if Ever Smoked Frequency of Alcohol Use: None - Patient quit drinking alcohol 1982 Hx Recreational Drug Use: No Drugs: None Hx Prescription Drug Abuse: No - Advance Directive Resuscitation Status: Full Code Family History Family History: CAD, DM Parental Family History Reviewed: No Children Family History Reviewed: No Sibling(s) Family History Reviewed.: No Medication/Allergy Home Medications: Albuterol Sulfate [Ventolin 0.083% Neb 2.5 mg/3 ml Ampul] 1 vial NEB RTQ3HP PRN 10/29/16 Amitriptyline HCl [Elavil 25 mg Tablet] 25 mg PO QHS 10/29/16 Aspirin [Aspirin EC] 81 mg PO DAILY 10/29/16 Atorvastatin Calcium [Lipitor 20 mg Tablet] 20 mg PO QHS 10/29/16 Carvedilol [Coreg 3.125 mg Tablet] 3.125 mg PO Q12 10/29/16 Furosemide [Lasix] 40 mg PO Q12 10/29/16 Gabapentin [Neurontin 300 mg Capsule] 300 mg PO DAILY 10/29/16 Gabapentin [Neurontin 300 mg Capsule] 600 mg PO QHS 10/29/16 Hydrocortisone [Cortef 10 Mg Tablet] 15 mg PO WBRKFST 10/29/16 Insulin Aspart [Novolog Flexpen] 6 unit SUBCUT AC 10/29/16 Insulin Glargine,Hum.rec.anlog [Lantus Solostar] 45 unit SQ QHS 10/29/16 Lisinopril [Prinivil 5 mg Tablet] 5 mg PO DAILY 10/29/16 Metoprolol Tartrate [Lopressor 25 mg Tablet] 25 mg PO Q12 10/29/16 Omeprazole 20 mg PO AC 10/29/16 Oxycodone HCl [Oxy-Ir 5 mg Tablet] 5 mg PO Q12 10/29/16 Tiotropium [place] [Spiriva Handihaler 18 mcg/dose (30 Dose)] 2 cap IH DAILY 03/07 Allergies/Adverse Reactions: Penicillins Allergy (Verified 09/28/16 08:08) Sulfa (Sulfonamide Antibiotics) Allergy (Verified 09/28/16 08:08) Review of Systems ROS unobtainable: Due to mental status Physical Exam Vital Signs: Temp Pulse Resp BP Pulse Ox 100.6 F H 112 H 17 87/45 L 92 10/29/16 11:59 10/29/16 11:59 10/29/16 11:59 10/29/16 11:59 10/29/16 11:59 Intake & Output 10/28/16 10/29/16 10/30/16 06:59 06:59 06:59 Output Total 20 Balance -20 Weight 80.85 kg Exam: GENERAL: well-nourished and in no acute distress. Patient is alert but very lethargic. HEAD: Atraumatic, normocephalic. EYES: Pupils equal round and reactive to light, extraocular movements intact, sclera anicteric, conjunctiva are normal. ENT: TMs normal, nares patent, oropharynx clear without exudates. Moist mucous membranes. No oral ulcerations or bleeding gums noted NECK: supple without lymphadenopathy or JVD. Trachea is central. No cervical or axillary lymphadenopathy noted. Carotids are 2+ LUNGS: Breath sounds bibasilar fine crackles at bases. No significant dullness noted. CHEST: Palpation of chest wall shows no significant chest wall tenderness. 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 ABDOMEN: Soft, no significant tenderness appreciated, normoactive bowel sounds. No guarding, no rebound. No rigidity noted . No masses appreciated. EXTREMITIES: Pedal pulses are 1-2+, no calf tenderness noted, Above knee lower extremity amputation on both sides. NEUROLOGICAL: Patient is alert but is not able to participate in neurological exam because of patient's current mental status and marked lethargy PSYCH: Patient cannot participate in a neurologic and psych exam because of the patient's marked lethargy. SKIN: No significant ecchymosis, rash, ulcerations or signs of pruritus noted. MUSCULOSKELETAL EXAM: No significant joint swelling noted. Results Laboratory Results: 10/29/16 10/29/16 10/29/16 09:54 09:54 11:30 Carbonic Acid 1.59 H 1.60 H HCO3/H2CO3 Ratio 13:1 13:1 ABG pH 7.24 L 7.22 L ABG pCO2 52.9 H 53.2 H ABG pO2 71.0 L 70.1 L ABG HCO3 21.9 21.4 ABG O2 Saturation 91.1 L 90.5 L ABG Base Excess -5.6 -6.5 FiO2 35% 35% Lactic Acid 2.7 H 10/29/16 10/29/16 09:54 09:54 Creatine Kinase 71 CK-MB (CK-2) 6.41 H Troponin I 2.140 EKG Comments: Initial EKG shows sinus tachycardia, inferior Q waves, minor nonspecific ST-T wave changes noted, PVCs noted. Subsequent EKGs show additional 0.[address] segment lateral chest lead, T-wave inversion V1 and aVL Impressions: Chest X-Ray 10/29/16 06:07 IMPRESSION: Bibasilar opacity and interstitial markings without significant interval change. Right IJ line. Abdomen/Pelvis CT 10/29/16 07:02 IMPRESSION: NO ACUTE FINDINGS WITHIN THE ABDOMEN OR PELVIS. CHRONIC CHANGES ABOVE. Assessment & Plan - Diagnosis (1) Septic shock Is this a current diagnosis for this admission?: Yes (2) Cardiogenic shock Is this a current diagnosis for this admission?: Yes (3) Non-STEMI (non-ST elevated myocardial infarction) Is this a current diagnosis for this admission?: Yes (4) Acute on chronic respiratory failure with hypoxia Is this a current diagnosis for this admission?: Yes (5) Adrenal insufficiency Is this a current diagnosis for this admission?: Yes (6) COPD (chronic obstructive pulmonary disease) Qualifiers: COPD type: unspecified COPD Qualified Code(s): J44.9 - Chronic obstructive pulmonary disease, unspecified Is this a current diagnosis for this admission?: Yes (7) Diabetes Qualifiers: Diabetes mellitus type: type 2 Diabetes mellitus complication status: with circulatory complication Diabetes mellitus complication detail: with other circulatory complications Diabetes mellitus senior living insulin use: with senior living use Qualified Code(s): E11.59 - Type 2 diabetes mellitus with other circulatory complications Is this a current diagnosis for this admission?: Yes (8) Hypotension Qualifiers: Hypotension type: unspecified hypotension type Qualified Code(s): I95.9 - Hypotension, unspecified Is this a current diagnosis for this admission?: Yes (9) Cardiomyopathy Qualifiers: Cardiomyopathy type: unspecified Qualified Code(s): I42.9 - Cardiomyopathy, unspecified Is this a current diagnosis for this admission?: Yes - Notes Notes: Patient is a 71-year-old woman who presents with nausea, vomiting, diarrhea, and is noted to have hypotension, history of severely depressed LVEF ( cardiomyopathy with EF of approximately 20% documented in August 2016 ) and now with positive troponin I and some EKG changes. Possible acute coronary syndrome with non-STEMI as a ongoing process in addition to multiple other processes including possible sepsis, septic shock etc. in fact patient may actually have acute coronary syndrome given the significant jump in troponin I and new EKG changes. It seems patient possibly in cardiogenic shock in addition to having septic shock. Patient has significant comorbid diagnosis and it is very likely that patient would end up needing additional cardiovascular support which cannot be provided here. 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 Patient would also need multiple other subspecialty involvement. Feel the best option would be to transfer to tertiary care under hospitalist service with cardiology following the patient. I did talk with hospitalist here about this. They are going to arrange the transfer. I did advise hospitalist regarding vasopressors therapy. Have recommended heparin weight-based protocol for myocardial infarction and acute coronary syndrome. Continue concomitant therapy for other ongoing processes such as sepsis, adrenal insufficiency, possible relative hypovolemia. Overall prognosis seems to be on the poor side. - Time Time Spent: 50 to 70 Minutes - More than 50% of the time spent coordinating care , discussing management plans with involved caregivers. Management plans discussed with involved personnels. Medical decision making was of moderate to high complexity, patient's has multiple comorbidities. Critical Time spent with patient: 15-25 minutes Medications reviewed and adjusted accordingly: Yes
--- NOTE | 2016-10-29 12:50 | RADIOLOGY REPORT (SQ) ---
EXAM DESCRIPTION: CHEST SINGLE VIEW COMPLETED DATE/TIME: 10/29/2016 12:32 pm REASON FOR STUDY: tube placement COMPARISON: 10/29/2016 EXAM PARAMETERS: NUMBER OF VIEWS: One view. TECHNIQUE: Single frontal radiographic view of the chest acquired. RADIATION DOSE: NA LIMITATIONS: None. FINDINGS: LUNGS AND PLEURA: No NEW opacities, masses or pneumothorax. No pleural effusion. MEDIASTINUM AND HILAR STRUCTURES: No masses. Contour normal. HEART AND VASCULAR STRUCTURES: Heart STABLE in size. Normal vasculature. BONES: No acute findings. HARDWARE: SATISFACTORY PLACEMENT ENDOTRACHEAL TUBE AND NASOGASTRIC TUBE. OTHER: No other significant finding. IMPRESSION: SATISFACTORY PLACEMENT ENDOTRACHEAL TUBE AND NASOGASTRIC TUBE. NO ACUTE CARDIOPULMONARY PROCESS IDENTIFIED. TECHNICAL DOCUMENTATION: JOB ID: [id number]
[2016-10-29 13:02] LABS: ARTERIAL BLOOD BASE EXCESS -7.5 mmol/L; ARTERIAL BLOOD O2 SATURATION 94.7 % (94-98)
[2016-10-29] MEDS ORDERED: DEXTROSE 5%-WATER 250 ML with VASOPRESSIN 100 UNIT IV PRN ×2 (13:08)
--- NOTE | 2016-10-29 13:26 | PDOC H&P/TRANSFER SUM ---
General Admission Date/PCP: 10/29/16 08:52 AYAN FONG DO Transfer Date: 10/29/16 Accepting Facility: [facility] Resuscitation Status: Full Code - Transfer Diagnosis (1) Severe sepsis with septic shock Current Visit: Yes (2) Cardiogenic shock Current Visit: Yes (3) C. difficile colitis Current Visit: Yes (4) Metabolic acidosis Current Visit: Yes (5) Acute hypoxemic respiratory failure Current Visit: Yes (6) Acute kidney injury Current Visit: Yes (7) Acute on chronic respiratory failure with hypoxia Current Visit: Yes (8) Acute on chronic systolic CHF (congestive heart failure) Current Visit: Yes (9) Adrenal insufficiency Current Visit: Yes (10) COPD (chronic obstructive pulmonary disease) Current Visit: Yes (11) Diabetes Current Visit: Yes (12) Pneumonia Current Visit: Yes (13) Elevated troponin I level Current Visit: Yes (14) Full code status Current Visit: Yes - Transfer Medications Home Medications: Albuterol Sulfate [Ventolin 0.083% Neb 2.5 mg/3 ml Ampul] 1 vial NEB RTQ3HP PRN 10/29/16 Amitriptyline HCl [Elavil 25 mg Tablet] 25 mg PO QHS 10/29/16 Aspirin [Aspirin EC] 81 mg PO DAILY 10/29/16 Atorvastatin Calcium [Lipitor 20 mg Tablet] 20 mg PO QHS 10/29/16 Carvedilol [Coreg 3.125 mg Tablet] 3.125 mg PO Q12 10/29/16 Furosemide [Lasix] 40 mg PO Q12 10/29/16 Gabapentin [Neurontin 300 mg Capsule] 300 mg PO DAILY 10/29/16 Gabapentin [Neurontin 300 mg Capsule] 600 mg PO QHS 10/29/16 Hydrocortisone [Cortef 10 Mg Tablet] 15 mg PO WBRKFST 10/29/16 Insulin Aspart [Novolog Flexpen] 6 unit SUBCUT AC 10/29/16 Insulin Glargine,Hum.rec.anlog [Lantus Solostar] 45 unit SQ QHS 10/29/16 Lisinopril [Prinivil 5 mg Tablet] 5 mg PO DAILY 10/29/16 Metoprolol Tartrate [Lopressor 25 mg Tablet] 25 mg PO Q12 10/29/16 Omeprazole 20 mg PO AC 10/29/16 Oxycodone HCl [Oxy-Ir 5 mg Tablet] 5 mg PO Q12 10/29/16 Tiotropium [place] [Spiriva Handihaler 18 mcg/dose (30 Dose)] 2 cap IH DAILY 03/07 Transfer Medications: Current Medications Acetaminophen (Tylenol 650 Mg Supp) 650 mg [place] Q4HP PRN PRN Reason: MILD PAIN OR FEVER Stop: 11/28/16 08:51 Acetaminophen (Tylenol Soln 325 Mg/10.15 Ml Udcup) 650 mg NG Q4HP PRN PRN Reason: MILD PAIN OR FEVER Stop: 11/28/16 12:01 Albuterol/Ipratropium (Duoneb 3 Ml Ampul) 3 ml NEB RTQ6 KALEE Stop: 11/28/16 13:59 Fentanyl Citrate (Sublimaze Inj/Pf 100 Mcg/2 Ml Ampule) 50 mcg IV Q4HP PRN Stop: 11/05/16 12:09 Heparin Sodium (Porcine) (Heparin Inj 5,000 Units/Ml 1 Ml Syringe) 5,000 unit SUBCUT Q8 KALEE Stop: 11/28/16 13:59 Metronidazole (Flagyl Rtu 500 Mg/Ns 100ml Premix) 100 mls @ 100 mls/hr IV Q6A [facility] Stop: 11/05/16 14:59 Levofloxacin/Dextrose (Levaquin Rtu 750 Mg/D5w 150 Ml Premix) 750 mg in 150 mls @ 100 mls/hr IV Q2D@2300 KALEE Stop: 11/05/16 22:59 Norepinephrine Bitartrate 4 mg (/ Dextrose) 254 mls @ 0 mls/hr IV CONTINUOUS PRN; Protocol; Titrate PRN Reason: THIS MED IS NOT "PRN" Stop: 11/28/16 09:05 Last Admin: 10/29/16 11:05 Dose: 4 mg Sodium Chloride (Nacl 0.9% 1000 Ml Iv Soln) 1,000 mls @ 100 mls/hr IV CONTINUOUS PRN PRN Reason: THIS MED IS NOT "PRN" Stop: 11/28/16 08:51 Last Admin: 10/29/16 10:07 Dose: 1,000 ml Hard Fat/Phenylephrine 40 mg/ (Dextrose) 254 mls @ 0 mls/hr IV CONTINUOUS PRN; Protocol; Titrate PRN Reason: THIS MED IS NOT "PRN" Stop: 11/28/16 09:26 Imipenem/Cilastatin Sodium 500 (mg/ Sodium Chloride) 100 mls @ 100 mls/hr IV Q12 KAELE Stop: 11/05/16 09:59 Last Admin: 10/29/16 10:18 Dose: 500 mg Vancomycin HCl 750 mg/ (Dextrose) 250 mls @ 166.667 mls/hr IV NOON [facility] Stop: 11/05/16 11:59 Midazolam HCl (Versed Rtu 50 Mg/100 Ml Premix Bag) 100 mls @ 0 mls/hr IV CONTINUOUS PRN; Protocol; Titrate PRN Reason: THIS MED IS NOT "PRN" Stop: 11/05/16 12:00 Fentanyl Citrate (Sublimaze Dietitian Assistant/Pf 600 Mcg/60 Ml Rtu Vial) 600 mcg in 60 mls @ 0 mls/hr IV ASDIR PRN; Per Protocol PRN Reason: Protocol Stop: 11/05/16 12:14 Lactobacillus Acidophilus (Bacid 250 Mg Tablet) 500 mg NG BID KALEE Stop: 11/28/16 17:59 Methylprednisolone Sodium Succinate (Solu-Medrol Inj/Pf 125 Mg/2 Ml Sdv) 125 mg IV Q6A KALEE Stop: 11/28/16 08:59 Last Admin: 10/29/16 10:05 Dose: 125 mg Ondansetron HCl (Zofran Inj/Pf 4 Mg/2 Ml Sdv) 4 mg IV Q4HP PRN PRN Reason: FOR NAUSEA/VOMITING Stop: 11/28/16 08:51 Pharmacy Profile Note (Medication Communication Order) 1 each .NOTICE NR Stop: 11/28/16 11:59 Sodium Chloride (Saline Flush 2.5 Ml Monoject Prefil Syrin) 2.5 ml IV Q8 KALEE Stop: 11/28/16 13:59 Vancomycin HCl (Vancocin Inj 500 Mg Vial) 250 mg NG Q6 KALEE Stop: 11/05/16 17:59 - Allergies Allergies/Adverse Reactions: Penicillins Allergy (Verified 09/28/16 08:08) Sulfa (Sulfonamide Antibiotics) Allergy (Verified 09/28/16 08:08) - Diet/Activity Discharge Diet: Other (Comments) Discharge Activity: Bedrest History of Present Illness Admission Date/PCP: 10/29/16 08:52 AYAN FONG DO History of Present Illness: History was primarily obtained from ED physician. Patient obtunded and no family present. DANYELL ABBASI is a 71 year female presents with complaint of vomiting and diarrhea all day. She is feeling unwell and started with vomiting diarrhea throughout the day. No blood in her stool. No blood in her emesis. She was also having some back pain. EMS arrived in the emergency room arrival unwell appearing. She quickly went into cardiac arrest shortly arrival. They did CPR for 2 minutes. She did receive Narcan. She did not receive epinephrine. Her pulses returned with CPR. Patient subsequently noted to have hypotension and was started on Levophed drip. Patient is somewhat lethargic and cannot give a good history now. Patient subsequently had more drop in blood pressure and needed additional vasopressor support with addition of Levophed. A central line was placed in the emergency department. Patient's blood pressure continued to decline and she was started on Vasopressin. Patient became tachypnic and was poorly oxygenating after fluid resuscitation. Patient did not respond to Bipap and was intubated. Cardiology, Dr. Baker, was consulted for elevated troponin I going from 0.890 to 2[address] segment depression. His recommendation was for transfer to a tertiary care institution. Dr. Montenegro of pulmonary medicine was consulted for ventilator management. [facility] was contacted and Dr. Mcmahan, anode builder, accepted her. Past Medical History Cardiac Medical History: Reports: Atrial Fibrillation, Congestive Heart Failure , Hyperlipidema, Hypertension, Peripheral Vascular Disease Denies: Myocardial Infarction Pulmonary Medical History: Reports: Chronic Obstructive Pulmonary Disease (COPD ) - The patient is prescribed oxygen. She does not use it., Respiratory Failure Endocrine Medical History: Reports: Diabetes Mellitus Type 2 - Insulin-dependent GI Medical History: Reports: Gastroesophageal Reflux Disease Musculoskeltal Medical History: Reports: Arthritis Psychiatric Medical History: Reports: None Denies: Depression Past Surgical History Past Surgical History: Reports: Cardiac Catheterization, Cholecystectomy, Orthopedic Surgery - Bilateral AKA, Other - Some sort of intervention for pseudocyst. Social History Smoking Status: Unknown if Ever Smoked Frequency of Alcohol Use: None - Patient quit drinking alcohol 1982 Hx Recreational Drug Use: No Drugs: None Hx Prescription Drug Abuse: No Family History Family History: CAD, DM Family History: from history Parental Family History Reviewed: No Children Family History Reviewed: No Sibling(s) Family History Reviewed.: No Review of Systems ROS unobtainable: Due to mental status Physical Exam Vital Signs: Temp Pulse Resp BP Pulse Ox 100.6 F H 112 H 17 87/45 L 95 10/29/16 11:59 10/29/16 11:59 10/29/16 11:59 10/29/16 11:59 10/29/16 12:22 Intake & Output 10/28/16 10/29/16 10/30/16 06:59 06:59 06:59 Output Total 20 Balance -20 Weight 80.85 kg General appearance: PRESENT: morbidly obese, severe distress Head exam: PRESENT: atraumatic, normocephalic Eye exam: PRESENT: EOMI, PERRLA. ABSENT: conjunctival injection, conjunctiva pink, scleral icterus Ear exam: PRESENT: normal external ear exam Mouth exam: PRESENT: dry mucosa Neck exam: ABSENT: JVD, lymphadenopathy, thyromegaly, tracheal deviation Respiratory exam: PRESENT: other - intubated, Cardiovascular exam: PRESENT: RRR, +S1, +S2, systolic murmur. ABSENT: diastolic murmur, gallop Pulses: PRESENT: normal carotid pulses. ABSENT: normal radial pulses, normal dorsalis pedis pul - no legs Vascular exam: PRESENT: normal capillary refill GI/Abdominal exam: PRESENT: diminished bowel sounds, distended, soft. ABSENT: ascites, firm, rebound, rigid, tenderness Rectal exam: PRESENT: deferred Extremities exam: PRESENT: other - BKA Neurological exam: PRESENT: other - intubated and sedated Skin exam: PRESENT: dry, intact, warm Results Laboratory Results: 10/29/16 10/29/16 10/29/16 09:54 09:54 11:30 Carbonic Acid 1.59 H 1.60 H HCO3/H2CO3 Ratio 13:1 13:1 ABG pH 7.24 L 7.22 L ABG pCO2 52.9 H 53.2 H ABG pO2 71.0 L 70.1 L ABG HCO3 21.9 21.4 ABG O2 Saturation 91.1 L 90.5 L ABG Base Excess -5.6 -6.5 FiO2 35% 35% Lactic Acid 2.7 H 10/29/16 10/29/16 09:54 09:54 Creatine Kinase 71 CK-MB (CK-2) 6.41 H Troponin I 2.140 10/29/16 10/29/16 10/29/16 04:47 05:44 05:44 WBC Hgb Hct Plt Count Sodium Potassium Chloride Carbon Dioxide Anion Gap BUN Creatinine Glucose Lactic Acid 8.0 H Magnesium Total Bilirubin Direct Bilirubin AST ALT Alkaline Phosphatase Creatine Kinase CK-MB (CK-2) Troponin I Total Protein Albumin Ur Specific [place] 1.011 Urine Protein 30 H Urine Blood SMALL H Ur Leukocyte Esterase TRACE H Urine WBC (Auto) 2 Urine Opiates Screen Urine Methadone Screen Ur Barbiturates Screen Ur Phencyclidine Scrn Ur Amphetamines Screen U Benzodiazepines Scrn Urine Cocaine Screen U Marijuana (THC) Screen C. difficile Tox (PCR) POSITIVE 10/29/16 10/29/16 10/29/16 05:44 06:10 06:10 WBC 13.4 H Hgb 9.3 L Hct 31.0 L Plt Count 205 Sodium 137.4 Potassium 4.4 Chloride 103 Carbon Dioxide 21 L Anion Gap 13 BUN 52 H Creatinine 2.04 H Glucose 126 H Lactic Acid Magnesium Total Bilirubin 0.3 Direct Bilirubin 0.3 AST 111 H ALT 71 H Alkaline Phosphatase 67 Creatine Kinase 51 CK-MB (CK-2) Troponin I Total Protein 5.6 L Albumin 2.7 L Ur Specific [place] Urine Protein Urine Blood Ur Leukocyte Esterase Urine WBC (Auto) Urine Opiates Screen NEGATIVE Urine Methadone Screen NEGATIVE Ur Barbiturates Screen NEGATIVE Ur Phencyclidine Scrn NEGATIVE Ur Amphetamines Screen NEGATIVE U Benzodiazepines Scrn NEGATIVE Urine Cocaine Screen NEGATIVE U Marijuana (THC) Screen NEGATIVE C. difficile Tox (PCR) 10/29/16 10/29/16 10/29/16 06:10 09:54 09:54 WBC Hgb Hct Plt Count Sodium Potassium Chloride Carbon Dioxide Anion Gap BUN Creatinine Glucose Lactic Acid 2.7 H Magnesium 0.8 L* Total Bilirubin Direct Bilirubin AST ALT Alkaline Phosphatase Creatine Kinase CK-MB (CK-2) 6.41 H Troponin I 2.140 Total Protein Albumin Ur Specific [place] Urine Protein Urine Blood Ur Leukocyte Esterase Urine WBC (Auto) Urine Opiates Screen Urine Methadone Screen Ur Barbiturates Screen Ur Phencyclidine Scrn Ur Amphetamines Screen U Benzodiazepines Scrn Urine Cocaine Screen U Marijuana (THC) Screen C. difficile Tox (PCR) Impressions: Chest X-Ray 10/29/16 06:07 IMPRESSION: Bibasilar opacity and interstitial markings without significant interval change. Right IJ line. Abdomen/Pelvis CT 10/29/16 07:02 IMPRESSION: NO ACUTE FINDINGS WITHIN THE ABDOMEN OR PELVIS. CHRONIC CHANGES ABOVE. Status: Imported from PACS Assessment & Plan - Time Time Spent with patient: total time spent with patient including admission, history, exam, transfer, and active management was 120 minutes. Time Spent: Greater than 70 Minutes Critical Time spent with patient: 35 or more minutes
[2016-10-29] MEDS ORDERED: HEPARIN SOD (PORCINE) 5,000 UNIT/ML 1 ML SYRINGE SUBCUT SCH (14:00)
[2016-10-29] MEDS ORDERED: IPRATROPIUM/ALBUTEROL 0.5-2.5 MG/3 ML AMPUL NEB SCH (14:00)
[2016-10-29] MEDS ORDERED: METRONIDAZOLE 500 MG/NS RTU 100 ML IV SCH (15:00)
--- NOTE | 2016-10-29 15:03 | OPERATIVE REPORT E ---
Operative Report NAME: DANYELL ABBASI : 1945 AGE: 71Y DATE OF SURGERY: 10/29/2016 ROOM: 609 PREOPERATIVE DIAGNOSIS: Malfunctioning triple lumen catheter, right internal jugular vein. POSTOPERATIVE DIAGNOSIS: Malfunctioning triple lumen catheter, right internal jugular vein. PROCEDURE: Placement of left femoral vein triple lumen catheter under ultrasound guidance. SURGEON: GILBERT GRACE M.D. ANESTHESIA: Local. INDICATION: This is a 71-year-old female Who had a triple lumen inserted in the emergency room for hypotension and C. diff infection with lactic acid of 8. Unfortunately, the triple lumen catheter in the ICU has not been functioning well. X-ray revealed catheter right at the tip of the right clavicle. The distal port can infuse but unable to aspirate blood and the 2 other ports were not functioning, unable to aspirate blood or infuse saline. Because of this, a new port is being placed. PROCEDURE: After adequate IV sedation with the patient intubated in the intensive care unit, the right femoral vein was identified by ultrasound though quite small. Several attempts were done after local anesthesia infiltrated but still unable to get the vein. Because of this, the procedure was then transferred to the opposite left femoral vein. This was done with ultrasound guidance. The left femoral vein was then punctured and guidewire passed through the needle into the area of the inferior vena cava. Next, the puncture site was then enlarged with an 11 blade and subsequently dilated with a dilator through the guidewire. Next, dilator was removed and a triple lumen catheter inserted through the guidewire up to about 16 cm. It was then anchored to the skin with 3-0 silk. A Biopatch was a placed and a sterile dressing placed over the Biopatch and the catheter. All the ports could easily aspirate blood and could easily flush with saline. Patient tolerated the procedure well. DICTATING PHYSICIAN: GILBERT GRACE M.D. [id number] PHY#: [id number] ID: [id number] JOB#: [id number] ACCT: [id number] cc:GILBERT GRACE M.D. >
[2016-10-29 15:39] VITALS: BP 133/67
[2016-10-29] MEDS ORDERED: LACTOBACILLUS ACIDOPHILUS 250 MG TAB NG SCH (18:00)
[2016-10-29] MEDS ORDERED: VANCOMYCIN HCL INJ 500 MG VIAL NG SCH (18:00)
[2016-10-29] MEDS ORDERED: LEVOFLOXACIN 750 MG/D5W RTU 750 MG/150 ML RTUPB IV SCH (23:00)
--- NOTE | 2016-10-31 09:23 | EKG REPORT ---
SEVERITY:- ABNORMAL ECG - SINUS TACHYCARDIA VENTRICULAR PREMATURE COMPLEX INFERIOR INFARCT, OLD LATERAL LEADS ARE ALSO INVOLVED : Confirmed by: Arthur Baker 31-Oct-2016 09:22:58
--- NOTE | 2016-10-31 09:24 | EKG REPORT ---
SEVERITY:- ABNORMAL ECG - SINUS TACHYCARDIA VENTRICULAR PREMATURE COMPLEX NONSPECIFIC T ABNORMALITIES, LATERAL LEADS : Confirmed by: Arthur Baker 31-Oct-2016 09:23:06
== END 2016-10-29 15:10 | disposition short-term general hospital (02) | DRG 871 ==
LOC: ER 04:27 → EH 08:52 → UNDOADMIN 08:52 → EH 10:01 → UNDOADMIN 10:01 → ICU 10:45
PROVIDERS: ADMIT Family Medicine; ATTEND Family Medicine
PROC: 0BH17EZ Insertion of Endotracheal Airway into Trachea, Via Natural or Artificial Opening (ICD-10-PCS; principal; 2016-10-29)
PROC: 06H033Z Insertion of Infusion Device into Inferior Vena Cava, Percutaneous Approach (ICD-10-PCS; 2016-10-29)
PROC: B549ZZA Ultrasonography of Inferior Vena Cava, Guidance (ICD-10-PCS; 2016-10-29)
PROC: 02HV33Z Insertion of Infusion Device into Superior Vena Cava, Percutaneous Approach (ICD-10-PCS; 2016-10-29)
PROC: 5A1935Z Respiratory Ventilation, Less than 24 Consecutive Hours (ICD-10-PCS; 2016-10-29)
PROC: 5A12012 Performance of Cardiac Output, Single, Manual (ICD-10-PCS; 2016-10-29)
DX: A41.9 Sepsis, unspecified organism (principal); J96.21 Acute and chronic respiratory failure with hypoxia; R65.21 Severe sepsis with septic shock; I21.4 Non-ST elevation (NSTEMI) myocardial infarction; I50.23 Acute on chronic systolic (congestive) heart failure; J18.9 Pneumonia, unspecified organism; T82.524A Displacement of infusion catheter, initial encounter; A04.7 Enterocolitis due to Clostridium difficile; N17.9 Acute kidney failure, unspecified; E87.2 Acidosis; E27.40 Unspecified adrenocortical insufficiency; I49.2 Junctional premature depolarization; I11.0 Hypertensive heart disease with heart failure; E11.59 Type 2 diabetes mellitus with other circulatory complications; M54.9 Dorsalgia, unspecified; J44.9 Chronic obstructive pulmonary disease, unspecified; I48.91 Unspecified atrial fibrillation; K21.9 Gastro-esophageal reflux disease without esophagitis; M19.90 Unspecified osteoarthritis, unspecified site; F10.21 Alcohol dependence, in remission; Z79.82 Long term (current) use of aspirin; Z79.4 Long term (current) use of insulin; Z79.899 Other long term (current) drug therapy; Z90.49 Acquired absence of other specified parts of digestive tract; Z88.2 Allergy status to sulfonamides; Z88.0 Allergy status to penicillin; Z82.49 Family history of ischemic heart disease and other diseases of the circulatory system; Z83.3 Family history of diabetes mellitus; Z89.612 Acquired absence of left leg above knee; Z89.611 Acquired absence of right leg above knee
CPT/HCPCS: 31500; 36415; 36600; 51702; 71010; 74176; 80053; 80307; 81001; 82550; 82553; 82803; 83605; 83735; 84100; 84484; 85025; 87040; 87045; 87070; 87077; 87086; 87186; 87205; 87493; 93005; 93010; 94002; 94660; 96365; 96366; 96375; 99291; C1751; C1752; J0330; J0743; J1720; J1940; J2250; J2370; J2405; J2930; J3370; J3475; J3490; J7030; J7060; J7620

== ENCOUNTER 2016-11-14 13:57 | Inpatient (IN) | payer MEDICARE, MEDICAID ==
[2016-11-14] MEDS ORDERED: IPRATROPIUM/ALBUTEROL 0.5-2.5 MG/3 ML AMPUL NEB ONE (14:37)
--- NOTE | 2016-11-14 14:41 | ER Document Report ---
ED General - General Chief Complaint: Rib Pain Stated Complaint: BACK PAIN Time Seen by Provider: 11/14/16 14:35 Notes: Patient is complaining of chest pain across the front of her chest. She is also having a cough which is congested and producing phlegm. Family says that when she has the symptoms, she usually has pneumonia. When EMS picked the patient up, they said her O2 sat was in the low 70%. Patient underwent a cardiac arrest on October 28 and was resuscitated 3 times during that day and had chest compressions on all 3 of those episodes. She has had this chest pain present ever since those compressions took place. She has a home nebulizer, but has not used it today. Does not have home O2. When the home health nurse visited last , her O2 sat was 94% on room air. Not aware of any fever. Patient has a history of COPD and congestive heart failure. Still smokes cigarettes. Heart disease, hypertension, and IDDM. TRAVEL OUTSIDE OF THE [place] IN LAST 30 DAYS: No - Related Data Allergies/Adverse Reactions: Penicillins Allergy (Verified 09/28/16 08:08) Sulfa (Sulfonamide Antibiotics) Allergy (Verified 09/28/16 08:08) Past Medical History - Social History Smoking Status: Current Every Day Smoker Cigarette use (# per day): Yes Family History: Reviewed & Not Pertinent, CAD, DM - Past Medical History Cardiac Medical History: Reports: Hx Atrial Fibrillation, Hx Congestive Heart Failure, Hx Hypercholesterolemia, Hx Hypertension, Hx Peripheral Vascular Disease Denies: Hx Heart Attack Pulmonary Medical History: Reports: Hx COPD - The patient is prescribed oxygen. She does not use it., Hx Respiratory Failure Endocrine Medical History: Reports: Hx Diabetes Mellitus Type 2 - Insulin- dependent GI Medical History: Reports: Hx Gastroesophageal Reflux Disease Musculoskeltal Medical History: Reports Hx Arthritis Psychiatric Medical History: Denies: Hx Depression Past Surgical History: Reports: Hx Cardiac Catheterization, Hx Cholecystectomy, Hx Orthopedic Surgery - Bilateral AKA, Other - Some sort of intervention for pseudocyst. - Immunizations Hx Diphtheria, Pertussis, Tetanus Vaccination: Yes Review of Systems - Review of Systems Notes: REVIEW OF SYSTEMS: CONSTITUTIONAL : Denies fever. EENT: Denies eye, ear, nose or mouth or throat pain or other symptoms. CARDIOVASCULAR: See HPI. RESPIRATORY: Has cough, chest congestion, or shortness of breath. GASTROINTESTINAL: Denies abdominal pain or nausea, vomiting, or diarrhea. GENITOURINARY: Denies difficulty or painful urinating, urinary frequency, blood in urine. MUSCULOSKELETAL: Denies neck pain. Some pain going around into her back. Denies joint pain or swelling. SKIN: Denies rash or skin lesions. NEUROLOGICAL: Denies LOC or altered mental status. Denies headache. Denies sensory loss or motor deficits. ALL OTHER SYSTEMS REVIEWED AND NEGATIVE. Physical Exam - Vital signs Interpretation: Hypoxic - Notes Notes: PHYSICAL EXAMINATION: GENERAL: Well-appearing, in no acute distress. Wheezes in the left side of the chest are audible to the examiner's ear. HEAD: Atraumatic, normocephalic. EYES: Pupils equal round and reactive to light, extraocular movements intact. ENT: oropharynx clear without exudates. Moist mucous membranes. NECK: Normal range of motion, supple. LUNGS: Breath sounds clear on the right side but diffuse expiratory wheezes on the left side. HEART: Regular rate and rhythm without murmurs. ABDOMEN: Soft, nontender. No guarding or rebound. BACK: No tenderness throughout entire back. EXTREMITIES: Bilateral AKA amputations. NEUROLOGICAL: Normal speech, normal gait. Normal sensory, motor, and reflex exams. Awake, alert, and oriented x3. Cranial nerves normal. PSYCH: Normal mood, normal affect. SKIN: Warm, dry, no rashes. Course - Re-evaluation Re-evalutation: 11/14/16 17:14 Patient's O2 sat on room air dropped into the 80%. Patient's family says her O2 sat was in the 70% at home when EMS picked her up. Spoke with Dr. Upton, hospitalist motion picture film examiner, and she will admit the patient. - Laboratory Result Diagrams: 11/14/16 16:18 11/14/16 16:10 Laboratory results interpreted by me: 11/14/16 11/14/16 16:10 16:18 WBC 11.9 H Hgb 11.1 L Hct 35.9 L MCH 26.9 L MCHC 30.9 L RDW 20.4 H Sodium 135.3 L Chloride 95 L BUN 34 H Creatinine 2.83 H Est GFR ( Amer) 20 L Est GFR (Non-Af Amer) 17 L Glucose 185 H Calcium 7.1 L Direct Bilirubin 0.5 H Albumin 3.4 L - Diagnostic Test Radiology results interpreted by me: 11/14/16 17:13 Chest x-ray shows increasing consolidation and collapse of the right lower lobe with pneumonia. Discharge - Discharge Clinical Impression: Right lower lobe pneumonia Qualifiers: Pneumonia type: due to unspecified organism Qualified Code(s): J18.1 - Lobar pneumonia, unspecified organism Condition: Poor Disposition: ADMITTED INPATIENT Admitting Provider: Hospitalist Unit Admitted: [facility], [place]
--- NOTE | 2016-11-14 16:00 | RADIOLOGY REPORT (SQ) ---
EXAM DESCRIPTION: CHEST SINGLE VIEW COMPLETED DATE/TIME: 11/14/2016 3:39 pm REASON FOR STUDY: AP portable, short of breath, wheezing COMPARISON: Chest films 09/28/2016, 10/29/2016, CT chest 10/02/2016 CT abdomen pelvis 10/29/2016 EXAM PARAMETERS: NUMBER OF VIEWS: One view. TECHNIQUE: Single frontal radiographic view of the chest acquired. RADIATION DOSE: NA LIMITATIONS: None. FINDINGS: LUNGS AND PLEURA: There is consolidation at the right lung base, atelectasis versus pneumo daina. This more prominent than on previous studies. Left lung well inflated and clear. No pleural effusions. No pneumothorax. MEDIASTINUM AND HILAR STRUCTURES: No masses. Contour normal. HEART AND VASCULAR STRUCTURES: Stable cardiomegaly BONES: No acute findings. HARDWARE: None in the chest. OTHER: No other significant finding. IMPRESSION: Collapse and consolidation in the right middle and lower lobe. Question atelectasis niya lee pneumonia. This is more prominent than on 10/29/2016. TECHNICAL DOCUMENTATION: JOB ID: [id number]
[2016-11-14 16:33] LABS: ABSOLUTE BASOPHILS # (AUTO) 0.1 10^3/uL (0.0-0.2); ABSOLUTE EOSINOPHILS # (AUTO) 0.1 10^3/uL (0.0-0.6); ABSOLUTE LYMPHOCYTES (AUTO) 4.3 10^3/uL (0.5-4.7); ABSOLUTE MONOCYTES (AUTO) 1.2 10^3/uL (0.1-1.4); ABSOLUTE NEUT (AUTO) 6.3 10^3/uL (1.7-8.2); BASOPHILS % (AUTO) 0.8 % (0-2); EOSINOPHILS % (AUTO) 0.9 % (0-6); HEMATOCRIT 35.9 % (36.0-47.0); HEMOGLOBIN 11.1 g/dL (12.0-15.5); HGB HCT DIFFERENCE -2.6; MEAN CORPUSCULAR HEMOGLOBIN 26.9 pg (27.0-33.4); MEAN CORPUSCULAR HGB CONC 30.9 g/dL (32.0-36.0); MEAN CORPUSCULAR VOLUME 87 fl (80-97); MONOCYTES % (AUTO) 9.9 % (3-13); RED BLOOD COUNT 4.12 10^6/uL (3.72-5.28); RED CELL DISTRIBUTION WIDTH 20.4 % (11.5-14.0); SEGMENTED NEUTROPHILS % (AUTO) 52.4 % (42-78); WHITE BLOOD COUNT 11.9 10^3/uL (4.0-10.5)
[2016-11-14 16:59] LABS: ALANINE AMINOTRANSFERASE 30 U/L (9-52); ALBUMIN 3.4 g/dL (3.5-5.0); ALKALINE PHOSPHATASE 94 U/L (38-126); ANION GAP 17 (5-19); ASPARTATE AMINO TRANSFERASE 30 U/L (14-36); BILIRUBIN,DIRECT 0.5 mg/dL (0.0-0.4); BILIRUBIN,TOTAL 0.6 mg/dL (0.2-1.3); BLOOD UREA NITROGEN 34 mg/dL (7-20); CALCIUM 7.1 mg/dL (8.4-10.2); CARBON DIOXIDE 23 mmol/L (22-30); CHLORIDE 95 mmol/L (98-107); CREATININE RESULT 2.83 mg/dL (0.52-1.25); GLUCOSE 185 mg/dL (75-110); POTASSIUM 4.9 mmol/L (3.6-5.0); SODIUM 135.3 mmol/L (137-145)
[2016-11-14 17:10] LABS: CREATINE KINASE MB 0.55 ng/mL (<4.55)
[2016-11-14] MEDS ORDERED: VANCOMYCIN HCL INJ 1000 MG VIAL IV ONE (17:16)
[2016-11-14 17:51] LABS: TROPONIN I 0.141 ng/mL
[2016-11-14] MEDS ORDERED: VANCOMYCIN HCL 0 MG in DEXTROSE 5%-WATER 250 ML IV NR (18:15)
[2016-11-14] MEDS ORDERED: METHYLPREDNISOLONE INJ 125 MG/2 ML SDV IV SCH (18:15)
[2016-11-14] MEDS ORDERED: DEXTROSE 40% GEL 15 GM TUBE PO PRN ×2 (18:18)
[2016-11-14] MEDS ORDERED: DEXTROSE 50%-WATER 25 GM/50 ML DISP.SYRIN IV PRN ×2 (18:18)
[2016-11-14] MEDS ORDERED: GLUCAGON,HUMAN RECOMB 1 MG INJ IM PRN (18:18)
[2016-11-14] MEDS ORDERED: LEVALBUTEROL HCL NEB 1.25 MG/3 ML AMPUL NEB PRN (18:23)
[2016-11-14] MEDS ORDERED: ACETAMINOPHEN 325 MG TABLET PO PRN (18:23)
--- NOTE | 2016-11-14 18:44 | EKG REPORT ---
SEVERITY:- ABNORMAL ECG - SINUS RHYTHM PROBABLE INFERIOR INFARCT, OLD NONSPECIFIC T ABNORMALITIES, ANT-LAT LEADS : Confirmed by: Arthur Baker 14-Nov-2016 18:43:53
[2016-11-14] MEDS ORDERED: MAGNESIUM SULFATE/D5W 100 ML IV SCH (19:00)
--- NOTE | 2016-11-14 19:21 | PDOC H&P ---
History of Present Illness Admission Date/PCP: 11/14/16 17:54 AYAN FONG DO History of Present Illness: DANYELL ABBASI is a 71 year old female with a medical history of congestive heart failure, COPD, tobacco abuse, atrial fibrillation, vascular disease, diabetes mellitus, who recently was transferred from the facilities [facility] after receiving 2 rounds of compressions after losing a pulse. Patient at that time was suffering from septic shock as well as from cardiogenic shock it was felt and transferred to that facility. Patient was discharged on 11/02/2016. Patient reports that since her most recent admission here she has had subsequent chest pain. Patient became more short of breath today. Her family reports she continues to smoke and will not use home oxygen. Patient reports a cough productive of sherman sputum. She is referred to the hospitalist service for sepsis and healthcare associated pneumonia. Past Medical History Cardiac Medical History: Reports: Atrial Fibrillation, Congestive Heart Failure , Coronary Artery Disease, Myocardial Infarction, Hyperlipidema, Hypertension, Peripheral Vascular Disease, Heart Murmur Pulmonary Medical History: Reports: Chronic Obstructive Pulmonary Disease (COPD ) - The patient is prescribed oxygen. She does not use it., Respiratory Failure Endocrine Medical History: Reports: Diabetes Mellitus Type 2 - Insulin-dependent GI Medical History: Reports: Gastroesophageal Reflux Disease Musculoskeltal Medical History: Reports: Arthritis Psychiatric Medical History: Denies: Depression Infectious Medical History: Reports: Clostridium Difficile Past Surgical History Past Surgical History: Reports: Cardiac Catheterization, Cholecystectomy, Orthopedic Surgery - Bilateral AKA, Other - Some sort of intervention for pseudocyst. IVC filter Social History Smoking Status: Current Every Day Smoker Frequency of Alcohol Use: None - Patient quit drinking alcohol 1982 Hx Recreational Drug Use: No Drugs: None Hx Prescription Drug Abuse: No - Advance Directive Resuscitation Status: Do Not Resuscitate Surrogate healthcare decision maker:: LEONA Michael Family History Family History: CAD, DM Parental Family History Reviewed: Yes Children Family History Reviewed: Yes Sibling(s) Family History Reviewed.: Yes Medication/Allergy Home Medications: Albuterol Sulfate [Ventolin 0.083% Neb 2.5 mg/3 ml Ampul] 1 vial NEB RTQ3HP PRN 11/14/16 Amitriptyline HCl [Elavil 25 mg Tablet] 25 mg PO QHS 11/14/16 Aspirin [Aspirin EC] 81 mg PO DAILY 11/14/16 Atorvastatin Calcium [Lipitor 20 mg Tablet] 20 mg PO QHS 11/14/16 Carvedilol [Coreg 3.125 mg Tablet] 3.125 mg PO Q12 11/14/16 Fluconazole [Diflucan 100 Mg Tablet] 100 mg PO DAILY 11/14/16 Furosemide [Lasix] 40 mg PO Q12 11/14/16 Gabapentin [Neurontin 300 mg Capsule] 300 mg PO QAM 11/14/16 Gabapentin [Neurontin 300 mg Capsule] 600 mg PO QHS 11/14/16 Hydrocortisone [Cortef 10 Mg Tablet] 15 mg PO QAM 11/14/16 Insulin Aspart [Novolog Flexpen] 6 unit SUBCUT AC 11/14/16 Insulin Glargine,Hum.rec.anlog [Lantus Solostar] 45 unit SQ QHS 11/14/16 Levofloxacin [Levaquin 500 mg Tablet] 500 mg PO DAILY@1200 11/14/16 Lisinopril [Prinivil 5 mg Tablet] 5 mg PO DAILY 11/14/16 Omeprazole 20 mg PO DAILY 11/14/16 Oxycodone HCl [Oxy-Ir 5 mg Tablet] 5 mg PO Q12HP PRN 11/14/16 Petrolatum,White [Balmex] 2 oz TP BID 11/14/16 Tiotropium [place] [Spiriva Handihaler 18 mcg/dose (30 Dose)] 1 cap IH DAILY Allergies/Adverse Reactions: Penicillins Allergy (Verified 09/28/16 08:08) Sulfa (Sulfonamide Antibiotics) Allergy (Verified 09/28/16 08:08) Review of Systems Constitutional: PRESENT: chills, fatigue, weakness, weight gain. ABSENT: fever( s), headache(s), weight loss Eyes: ABSENT: visual disturbances Ears: ABSENT: hearing changes Cardiovascular: ABSENT: chest pain, dyspnea on exertion, edema, orthropnea, palpitations Respiratory: PRESENT: cough, dyspnea, sputum. ABSENT: hemoptysis Gastrointestinal: ABSENT: abdominal pain, constipation, diarrhea, hematemesis, hematochezia, nausea, vomiting Genitourinary: ABSENT: dysuria, hematuria Musculoskeletal: ABSENT: joint swelling Integumentary: ABSENT: rash, wounds Neurological: ABSENT: abnormal gait, abnormal speech, confusion, dizziness, focal weakness, syncope Psychiatric: ABSENT: anxiety, depression, homidical ideation, suicidal ideation Endocrine: ABSENT: cold intolerance, heat intolerance, polydipsia, polyuria Hematologic/Lymphatic: ABSENT: easy bleeding, easy bruising Physical Exam General appearance: PRESENT: no acute distress, well-developed, well-nourished Head exam: PRESENT: atraumatic, normocephalic Eye exam: PRESENT: conjunctiva pink, EOMI, PERRLA, scleral icterus Ear exam: PRESENT: normal external ear exam Mouth exam: PRESENT: dry mucosa, tongue midline Neck exam: PRESENT: JVD. ABSENT: lymphadenopathy, thyromegaly, tracheal deviation Respiratory exam: PRESENT: accessory muscle use, chest wall tenderness, prolonged expiratory phas, rhonchi, symmetrical, tachypnea, wheezes. ABSENT: rales, unlabored Cardiovascular exam: PRESENT: irregular rhythm, +S1, +S2, systolic murmur. ABSENT: diastolic murmur, rubs Pulses: PRESENT: normal radial pulses Vascular exam: PRESENT: normal capillary refill GI/Abdominal exam: PRESENT: normal bowel sounds, soft. ABSENT: distended, guarding, mass, organolmegaly, rebound, tenderness Rectal exam: PRESENT: deferred Extremities exam: PRESENT: clubbing Musculoskeletal exam: PRESENT: deformity - ble amputation Neurological exam: PRESENT: alert, awake, oriented to person, oriented to place , oriented to time, oriented to situation, CN II-XII grossly intact. ABSENT: motor sensory deficit Psychiatric exam: PRESENT: flat affect, normal mood. ABSENT: homicidal ideation , suicidal ideation Skin exam: PRESENT: dry, intact, warm. ABSENT: cyanosis, rash Results Impressions: Chest X-Ray 11/14/16 14:36 IMPRESSION: Collapse and consolidation in the right middle and lower lobe. Question atelectasis versus pneumonia. This is more prominent than on 2016. Assessment & Plan - Diagnosis (1) Right lower lobe pneumonia Qualifiers: Pneumonia type: due to unspecified organism Qualified Code(s): J18.1 - Lobar pneumonia, unspecified organism Is this a current diagnosis for this admission?: YesPlan: Pt has a history of stenotrophomonas maltiphilia within the last two months. Place patient on Bipap. Initiate pt on Vancomycin, Levaquin, and Cefepime. Aggressive pulmonary tolieting. Scheduled nebulized treatments. (2) Acute on chronic respiratory failure with hypoxia Is this a current diagnosis for this admission?: YesPlan: Patient on BiPAP and obtain ABG (3) Acute on chronic systolic CHF (congestive heart failure) Is this a current diagnosis for this admission?: YesPlan: Patient had a recent cardiac event for which she was transferred. Will attempt to obtain outside records but in the meantime we will obtain a repeat echo. Continue to monitor her cardiac enzymes and EKGs. (4) Adrenal insufficiency Is this a current diagnosis for this admission?: YesPlan: Patient on stress dose steroids. (5) C. difficile colitis Is this a current diagnosis for this admission?: NoPlan: Patient had a diagnosis of C. difficile when she was here approximately 2 weeks ago and will empirically treat patient with Flagyl until C. difficile results. Report diarrhea. Place patient on enteric precautions. Place her on Bacid. (6) COPD (chronic obstructive pulmonary disease) Qualifiers: COPD type: COPD with acute exacerbation Qualified Code(s): J44.1 - Chronic obstructive pulmonary disease with (acute) exacerbation Is this a current diagnosis for this admission?: YesPlan: Patient on Solu-Medrol and scheduled nebulous treatments (7) Diabetes Qualifiers: Diabetes mellitus type: type 2 Diabetes mellitus complication status: with circulatory complication Diabetes mellitus complication detail: with other circulatory complications Diabetes mellitus ferry terminal agent insulin use: with alf use Qualified Code(s): E11.59 - Type 2 diabetes mellitus with other circulatory complications Is this a current diagnosis for this admission?: YesPlan: Resume patient's home insulin regimen and placed on cardiac carb controlled diet. (8) History of MRSA infection Is this a current diagnosis for this admission?: Yes (9) Hypomagnesemia Is this a current diagnosis for this admission?: YesPlan: Give patient 3 g of IV magnesium (10) DNR (do not resuscitate) Is this a current diagnosis for this admission?: Yes - Time Time Spent: 50 to 70 Minutes Medications reviewed and adjusted accordingly: Yes
--- NOTE | 2016-11-14 19:23 | RADIOLOGY REPORT (SQ) ---
EXAM DESCRIPTION: CHEST SINGLE VIEW COMPLETED DATE/TIME: 11/14/2016 7:12 pm REASON FOR STUDY: CL PLACEMENT COMPARISON: 11/14/2016. EXAM PARAMETERS: NUMBER OF VIEWS: One view. TECHNIQUE: Single frontal radiographic view of the chest acquired. RADIATION DOSE: NA LIMITATIONS: None. FINDINGS: LUNGS AND PLEURA: Progressive volume loss on the right. Left lung clear. No pneumothorax . MEDIASTINUM AND HILAR STRUCTURES: No masses. Contour normal. HEART AND VASCULAR STRUCTURES: Heart normal in size. Normal vasculature. BONES: No acute findings. HARDWARE: Central line with the tip at the level of the superior vena cava. Clips in the upper abdom en. OTHER: No other significant finding. IMPRESSION: PLACEMENT OF CENTRAL LINE DESCRIBED. NO PNEUMOTHORAX. PROGRESSIVE VOLUME LOSS ON TH E RIGHT. TECHNICAL DOCUMENTATION: JOB ID: [id number]
--- NOTE | 2016-11-14 19:29 | PDOC CONSULTATION ---
Consultation Consult Date: 11/14/16 Attending physician:: LUNA FERREIRA Consult reason:: Placement of triple-lumen central venous catheter History of Present Illness Admission Date/PCP: 11/14/16 17:54 AYAN FONG DO History of Present Illness: DANYELL ABBASI is a 71 year old female with a medical history of congestive heart failure, COPD, tobacco abuse, atrial fibrillation, vascular disease, diabetes mellitus, who recently was transferred from the [facility] after receiving 2 rounds of compressions after losing a pulse. Patient at that time was suffering from septic shock as well as from cardiogenic shock it was felt and transferred to that facility. Patient was discharged on 11/02/2016. Patient reports that since her most recent admission here she has had subsequent chest pain. Patient became more short of breath today. Her family reports she continues to smoke and will not use home oxygen. Patient reports a cough productive of sherman sputum. She is referred to the hospitalist service for sepsis and healthcare associated pneumonia. The patient only has 2 small bore peripheral IVs and the hospitalist was requesting placement of a central line for antibiotics IV fluids. Patient elicits a history of having a central line placed on her left side approximately 1 week ago when she had been transferred to [facility] following her cardiac arrest. She continues to have a productive cough. She also states that she has been having diarrhea with a known history of Clostridium difficile enterocolitis. Past Medical History Cardiac Medical History: Reports: Atrial Fibrillation, Congestive Heart Failure , Coronary Artery Disease, Myocardial Infarction, Hyperlipidema, Hypertension, Peripheral Vascular Disease, Heart Murmur Pulmonary Medical History: Reports: Chronic Obstructive Pulmonary Disease (COPD ) - The patient is prescribed oxygen. She does not use it., Respiratory Failure Endocrine Medical History: Reports: Diabetes Mellitus Type 2 - Insulin-dependent GI Medical History: Reports: Gastroesophageal Reflux Disease Musculoskeltal Medical History: Reports: Arthritis Psychiatric Medical History: Denies: Depression Infectious Medical History: Reports: Clostridium Difficile Past Surgical History Past Surgical History: Reports: Cardiac Catheterization, Cholecystectomy, Orthopedic Surgery - Bilateral AKA, Other - Some sort of intervention for pseudocyst. IVC filter Social History Smoking Status: Current Every Day Smoker Frequency of Alcohol Use: None - Patient quit drinking alcohol 1983 Hx Recreational Drug Use: No Drugs: None Hx Prescription Drug Abuse: No - Advance Directive Resuscitation Status: Do Not Resuscitate Family History Family History: CAD, DM Parental Family History Reviewed: No Children Family History Reviewed: No Sibling(s) Family History Reviewed.: No Medication/Allergy Home Medications: Albuterol Sulfate [Ventolin 0.083% Neb 2.5 mg/3 ml Ampul] 1 vial NEB RTQ3HP PRN 11/14/16 Amitriptyline HCl [Elavil 25 mg Tablet] 25 mg PO QHS 11/14/16 Aspirin [Aspirin EC] 81 mg PO DAILY 11/14/16 Atorvastatin Calcium [Lipitor 20 mg Tablet] 20 mg PO QHS 11/14/16 Carvedilol [Coreg 3.125 mg Tablet] 3.125 mg PO Q12 11/14/16 Fluconazole [Diflucan 100 Mg Tablet] 100 mg PO DAILY 11/14/16 Furosemide [Lasix] 40 mg PO Q12 11/14/16 Gabapentin [Neurontin 300 mg Capsule] 300 mg PO QAM 11/14/16 Gabapentin [Neurontin 300 mg Capsule] 600 mg PO QHS 11/14/16 Hydrocortisone [Cortef 10 Mg Tablet] 15 mg PO QAM 11/14/16 Insulin Aspart [Novolog Flexpen] 6 unit SUBCUT AC 11/14/16 Insulin Glargine,Hum.rec.anlog [Lantus Solostar] 45 unit SQ QHS 11/14/16 Levofloxacin [Levaquin 500 mg Tablet] 500 mg PO DAILY@1200 11/14/16 Lisinopril [Prinivil 5 mg Tablet] 5 mg PO DAILY 11/14/16 Omeprazole 20 mg PO DAILY 11/14/16 Oxycodone HCl [Oxy-Ir 5 mg Tablet] 5 mg PO Q12HP PRN 11/14/16 Petrolatum,White [Balmex] 2 oz TP BID 11/14/16 Tiotropium Galva [Spiriva Handihaler 18 mcg/dose (30 Dose)] 1 cap IH DAILY Allergies/Adverse Reactions: Penicillins Allergy (Verified 09/28/16 08:08) Sulfa (Sulfonamide Antibiotics) Allergy (Verified 09/28/16 08:08) Review of Systems ROS unobtainable: Due to mental status - Patient is having difficulty remaining awake subsequently the review of systems cannot be adequately obtained from the patient at this time. Physical Exam General appearance: PRESENT: mild distress, morbidly obese Head exam: PRESENT: atraumatic, normocephalic Eye exam: PRESENT: conjunctival injection, EOMI, PERRLA Ear exam: PRESENT: normal external ear exam Mouth exam: PRESENT: dry mucosa, neck supple - Patient is positive for healing cicatrix along the right and left neck above the clavicle at the level of the anterior and posterior sternocleidomastoid muscle, tongue midline Throat exam: ABSENT: post pharyngeal erythema, tonsillar erythema, tonsillar exudate, tonsillogmegaly, other Neck exam: PRESENT: other - Decreased range of motion both flexion and extension. Pain on extension right and left rotation along the cervical axis Respiratory exam: PRESENT: decreased breath sounds, rales, rhonchi - Open rhonchi noted upper lobes bilaterally. Decreased breath sounds in the left upper lobe., tachypnea Cardiovascular exam: PRESENT: RRR, +S1, +S2, systolic murmur, other - Active S3 Pulses: PRESENT: normal carotid pulses, normal radial pulses Vascular exam: PRESENT: other - He has bilateral efear-uvj-xrit amputations lower extremities GI/Abdominal exam: PRESENT: hyperactive bowel sounds, soft, tenderness Rectal exam: PRESENT: deferred Extremities exam: PRESENT: other - Dense bilateral sddpw-[id number]-nakt amputations of her extremities Musculoskeletal exam: PRESENT: other - Patient is nonambulatory Neurological exam: PRESENT: alert, altered, oriented to situation, CN II-XII grossly intact Psychiatric exam: PRESENT: anxious, flat affect Focused psych exam: PRESENT: restlessness Skin exam: PRESENT: dry, intact Results Impressions: Chest X-Ray 11/14/16 14:36 IMPRESSION: Collapse and consolidation in the right middle and lower lobe. Question atelectasis versus pneumonia. This is more prominent than on 2016. Assessment & Plan - Time Time Spent: 50 to 70 Minutes Medications reviewed and adjusted accordingly: No - Plan Summary Plan Summary: 1. Patient will undergo an of a internal jugular triple-lumen central venous catheter in the emergency room at the bedside. 2. The possible risks and complications of the procedure has been explained to the patient including bleeding, infection, thrombus, stroke, injury to the heart , injury to major veins or arteries, abscess, pneumothorax, . She understands except the possible risks and complications of the procedure.
[2016-11-14] MEDS ORDERED: METRONIDAZOLE 500 MG/NS RTU 100 ML IV ONE ×2 (19:30→23:30)
[2016-11-14] MEDS ORDERED: LIDOCAINE 5% (700 MG) TRANSDERMAL ADH..PATCH TP ONE ×2 (19:30→23:00)
--- NOTE | 2016-11-14 19:40 | Operative Report ---
Operative Report DATE OF SURGERY: 11/14/16 PREOPERATIVE DIAGNOSIS: Need for central venous access, left lower lobe pneumonia, peripheral vascular disease OPERATION: Placement of left internal jugular triple-lumen central venous catheter ANESTHESIA: Local TISSUE REMOVED OR ALTERED: None COMPLICATIONS: none ESTIMATED BLOOD LOSS: minimal PROCEDURE: The left neck was prepped with DuraPrep draped in sterile fashion. Gloves and gown and mask were donned during this procedure.. Patient was placed in the Trendelenburg position. Landmarks were identified treatment of the left internal jugular triple-lumen central venous catheter. Bajwa were then anesthetized utilizing 1% Xylocaine without epinephrine. The 27-gauge needle was directed toward the internal jugular vein on the left it was entered aspirated and the location was marked. A 16-gauge needle was then advanced into the vein without difficulty. Utilizing Seldinger technique a guidewire was advanced through the needle into the internal jugular vein and the needle was then removed. Small incision was made at the puncture site of the guidewire with a #11 scalpel blade. A dilator was advanced over the guidewire into the vessel and then removed. Previously prepared triple-lumen central venous catheter was then advanced over the guidewire to approximately 14 cm from the skin insertion site. And the guidewire was removed. Each of the 3 ports were then aspirated with saline solution good blood return and the saline solution was then injected through the catheters. Catheter was anchored in place utilizing a single 4-0 silk suture. Dressing was placed over the wound patient placed out the the Trendelenburg position allowed to lie supine. Chest x-ray was ordered and reviewed by this practitioner. Chest x-ray revealed no evidence of pneumothorax with the tip of the catheter in the superior vena cava at the caval right atrial interface. Tolerated procedure well. Gross pathology this 11-year-old -[place]ux[place] female presented with fever, sepsis, known left lower lobe pneumonia and C. difficile enterocolitis. Operative pathology none
[2016-11-14] MEDS: IPRATROPIUM/ALBUTEROL 0.5-2.5 MG/3 ML AMPUL NEB SCH (20:31)
[2016-11-14] MEDS ORDERED: VANCOMYCIN HCL 1,250 MG in DEXTROSE 5%-WATER 250 ML IV SCH (22:00)
[2016-11-14] MEDS ORDERED: LEVOFLOXACIN 750 MG/D5W RTU 750 MG/150 ML RTUPB IV ONE (22:00)
[2016-11-14] MEDS ORDERED: CEFEPIME 1 GM/D5W RTU 50 ML IV SCH (22:00)
[2016-11-14] MEDS ORDERED: CEFEPIME HCL 0.5 GM in DEXTROSE 5%-WATER 50 ML IV SCH (22:00)
[2016-11-14] MEDS: GUAIFENESIN 600 MG TABLET.SA PO SCH (23:08)
[2016-11-14] MEDS: GABAPENTIN 300 MG CAPSULE PO SCH (23:09)
[2016-11-14] MEDS: FAMOTIDINE 20 MG TABLET PO SCH (23:10)
[2016-11-14] MEDS: ATORVASTATIN CALCIUM 20 MG TABLET PO SCH (23:10)
[2016-11-14] MEDS: OXYCODONE HCL IR 5 MG TABLET PO PRN (23:11)
[2016-11-14] MEDS: CARVEDILOL 3.125 MG TABLET PO SCH (23:46)
[2016-11-15] MEDS: HEPARIN SOD (PORCINE) 5,000 UNIT/ML 1 ML SYRINGE SUBCUT SCH ×4 (00:24→22:04)
[2016-11-15] MEDS: METHYLPREDNISOLONE INJ 125 MG/2 ML SDV IV SCH ×5 (00:31→22:01)
[2016-11-15] MEDS: MAGNESIUM SULFATE/D5W 1 GM/100 ML RTUPB IV SCH ×3 (01:09→02:13)
[2016-11-15] MEDS: INSULIN GLARGINE,HUM.REC.ANLOG 300 UNIT/3 ML INSULN.PEN SUBCUT SCH ×2 (01:13→22:04)
[2016-11-15] MEDS ORDERED: LIDOCAINE 5% (700 MG) TRANSDERMAL ADH..PATCH ONE (02:47)
[2016-11-15] MEDS ORDERED: METRONIDAZOLE 500 MG/NS RTU 100 ML IV SCH (03:00)
[2016-11-15] MEDS: METRONIDAZOLE 500 MG/NS RTU 100 ML IV SCH ×3 (05:27→17:56)
[2016-11-15 06:11] LABS: ABSOLUTE LYMPHOCYTES (AUTO) 0.9 10^3/uL (0.5-4.7); ABSOLUTE MONOCYTES (AUTO) 0.2 10^3/uL (0.1-1.4); ABSOLUTE NEUT (AUTO) 12.2 10^3/uL (1.7-8.2); BASOPHILS % (AUTO) 0.1 % (0-2); EOSINOPHILS % (AUTO) 0.2 % (0-6); HEMATOCRIT 31.1 % (36.0-47.0); HEMOGLOBIN 9.6 g/dL (12.0-15.5); HGB HCT DIFFERENCE -2.3; LYMPHOCYTES % (AUTO) 6.7 % (13-45); MEAN CORPUSCULAR HEMOGLOBIN 27.3 pg (27.0-33.4); MEAN CORPUSCULAR VOLUME 88 fl (80-97); MONOCYTES % (AUTO) 1.8 % (3-13); RED BLOOD COUNT 3.53 10^6/uL (3.72-5.28); RED CELL DISTRIBUTION WIDTH 20.5 % (11.5-14.0); SEGMENTED NEUTROPHILS % (AUTO) 91.2 % (42-78); WHITE BLOOD COUNT 13.4 10^3/uL (4.0-10.5)
[2016-11-15 06:27] LABS: ANION GAP 12 (5-19); BLOOD UREA NITROGEN 32 mg/dL (7-20); CARBON DIOXIDE 25 mmol/L (22-30); CHLORIDE 95 mmol/L (98-107); CREATININE RESULT 1.82 mg/dL (0.52-1.25); GLUCOSE 274 mg/dL (75-110); POTASSIUM 4.7 mmol/L (3.6-5.0)
[2016-11-15 06:36] LABS: CALCIUM 6.6 mg/dL (8.4-10.2)
[2016-11-15] MEDS: IPRATROPIUM/ALBUTEROL 0.5-2.5 MG/3 ML AMPUL NEB SCH ×4 (07:54→20:23)
[2016-11-15] MEDS ORDERED: (PENDING PHARMACY ID) (Insulin Aspart [Novolog Flexpen] 6 UNIT) SUBCUT SCH (08:00)
[2016-11-15] MEDS ORDERED: CALCIUM GLUCONATE 1000 MG/10 ML INJ IV ONE (08:30)
[2016-11-15 08:49] LABS: ALBUMIN 3.1 g/dL (3.5-5.0); MAGNESIUM 1.6 mg/dL (1.6-2.3)
--- NOTE | 2016-11-15 08:52 | PDOC PROGRESS REPORT ---
Subjective Progress Note for:: 11/15/16 Subjective:: Patient seen this a.m. She is up in the bed eating her breakfast. She denies any pain at the internal jugular triple-lumen central venous catheter site. Nursing states the catheters worked without any difficulty since placement last evening. Physical Exam Vital Signs: Temp Pulse Resp BP Pulse Ox 98.3 F 97 19 116/68 93 11/15/16 08:30 11/15/16 08:30 11/15/16 08:30 11/15/16 08:30 11/15/16 08:30 Intake & Output 11/14/16 11/15/16 11/16/16 06:59 06:59 06:59 Intake Total 954 Balance 954 Weight 79 kg General appearance: PRESENT: no acute distress, cooperative, morbidly obese Neck exam: PRESENT: other - Evaluation of the left lateral neck reveals no evidence of edema, bleeding, erythema, or purulence at the central venous catheter site. There is minimal pain on palpation the area. There is a sterile dressing over the catheter proper. Respiratory exam: PRESENT: other - Decreased breath sounds in the left base with rhonchi in the left upper lobe.. Remaining lung boothe auscultation. Results Laboratory Results: 11/15/16 06:00 11/15/16 06:00 11/15/16 11/15/16 06:00 06:00 WBC 13.4 H RBC 3.53 L Hgb 9.6 L Hct 31.1 L MCV 88 MCH 27.3 MCHC 31.0 L RDW 20.5 H Plt Count 239 Seg Neutrophils % 91.2 H Lymphocytes % 6.7 L Monocytes % 1.8 L Eosinophils % 0.2 Basophils % 0.1 Absolute Neutrophils 12.2 H Absolute Lymphocytes 0.9 Absolute Monocytes 0.2 Absolute Eosinophils 0.0 Absolute Basophils 0.0 Sodium 132.0 L Potassium 4.7 Chloride 95 L Carbon Dioxide 25 Anion Gap 12 BUN 32 H Creatinine 1.82 H Est GFR ( Amer) 33 L Est GFR (Non-Af Amer) 28 L Glucose 274 H Calcium 6.6 L* 11/15/16 11/15/16 11/15/16 02:30 02:30 02:30 Creatine Kinase < 20 L CK-MB (CK-2) 0.40 Troponin I 0.211 NT-Pro-B Natriuret Pep 11/15/16 06:00 Creatine Kinase CK-MB (CK-2) Troponin I NT-Pro-B Natriuret Pep 8210 H Impressions: Chest X-Ray 11/14/16 14:36 IMPRESSION: Collapse and consolidation in the right middle and lower lobe. Question atelectasis versus pneumonia. This is more prominent than on 2016. Assessment & Plan - Diagnosis (1) Acute on chronic respiratory failure with hypoxia Is this a current diagnosis for this admission?: YesPlan: 1. At the central venous catheter is working without any difficulty will sign off of patient's case. Call if needed. - Time Time Spent with patient: Less than 15 minutes
[2016-11-15] MEDS: GABAPENTIN 300 MG CAPSULE PO SCH ×2 (08:56→22:03)
[2016-11-15] MEDS: INSULIN LISPRO 100 UNIT/ML 3 ML VIAL SUBCUT SCH ×3 (08:57→16:44)
[2016-11-15] MEDS: HYDROCORTISONE 10 MG TABLET PO SCH ×2 (08:57→22:02)
[2016-11-15] MEDS ORDERED: FUROSEMIDE 40 MG TABLET PO SCH (10:00)
--- NOTE | 2016-11-15 10:24 | EKG REPORT ---
SEVERITY:- ABNORMAL ECG - SINUS TACHYCARDIA LOW VOLTAGE IN FRONTAL LEADS ABNORMAL T, CONSIDER ISCHEMIA, LATERAL LEADS BORDERLINE PROLONGED QT INTERVAL : Confirmed by: Arthur Baker 15-Nov-2016 10:23:18
[2016-11-15] MEDS: ASPIRIN 81 MG TABLET, ENT COATED PO SCH (11:50)
[2016-11-15] MEDS: FLUCONAZOLE 100 MG TABLET PO SCH ×3 (11:50→20:59)
[2016-11-15] MEDS: GUAIFENESIN 600 MG TABLET.SA PO SCH ×2 (11:51→22:02)
[2016-11-15] MEDS: FAMOTIDINE 20 MG TABLET PO SCH ×2 (11:51→22:02)
[2016-11-15] MEDS: CARVEDILOL 3.125 MG TABLET PO SCH ×2 (11:52→22:03)
[2016-11-15] MEDS: NICOTINE 21 MG/24 HR PATCH.TD24 TD SCH (11:53)
--- NOTE | 2016-11-15 12:15 | XCELERA REPORT ---
[address] [address] Transthoracic Echocardiogram Report Name: DANYELL ABBASI Age: 71 yrs Gender: Female : 1945 Patient Status: Inpatient Patient Location: [id number]\316\[id number]\A Study Date: 11/15/2016 09:30 AM Height: 65 in Weight: 174 lb BSA: 1.9 m2 Procedure: A two-dimensional transthoracic echocardiogram with color flow and Doppler was performed. Study Quality: Technically suboptimal. Reason For Study: chf History: CHF. Ordering Physician: LUNA FERREIRA Performed By: Sophia Crystal Interpretation Summary The left ventricle is normal in size. There is normal left ventricular wall thickness. Left ventricular systolic function is mildly reduced. LV EF is 45% to 50% Doppler measurements suggest impaired left ventricular relaxation, which is associated with grade I/IV or mild diastolic dysfunction There is mild global hypokinesis of the left ventricle. There is no thrombus. The right ventricle is moderately dilated. cannot assess RVH, suspect reduced RV systolic function. The left atrial size is normal. There is no evidence of mitral valve prolapse. There is no mitral valve stenosis. There is no mitral regurgitation noted. There is no aortic valvular vegetation. There is Aortic Sclerosis without stenosis. No aortic regurgitation is present. There is no tricuspid stenosis. There is a moderate amount of tricuspid regurgitation There is servere pulmonary hypertension by echo RVSP is 73 to 78 mm of Hg , with RA mean of 5 to 10. Flattened septum is consistent with RV pressure overload There is no pericardial effusion. MMode/2D Measurements \T\ Calculations RVDd: 2.3 cm LVIDd: 4.4 cm FS: 19.3 % Ao root diam: 3.3 cm IVSd: 1.0 cm LVIDs: 3.5 cm EDV(Teich): 87.6 ml LVPWd: 1.0 cm ESV(Teich): 52.6 ml Ao root area: 8.3 cm2 EF(Teich): 40.0 % LA dimension: 3.5 cm LVOT diam: 1.9 cm LVOT area: 2.8 cm2 Doppler Measurements \T\ Calculations MV E max liliam: MV P1/2t max liliam: Ao V2 max: LV V1 max P.1 cm/sec 70.1 cm/sec 160.2 cm/sec 3.5 mmHg MV A max liliam: MV P1/2t: 37.9 msec Ao max PG: LV V1 max: 118.0 cm/sec MVA(P1/2t): 5.8 cm2 10.3 mmHg 94.1 cm/sec MV E/A: 0.58 MV dec slope: VIVIANA(V,D): 1.7 cm2 541.0 cm/sec2 PA V2 max: TR max liliam: 58.6 cm/sec 409.9 cm/sec PA max P.4 mmHgTR max P.2 mmHg Left Ventricle The left ventricle is normal in size. There is normal left ventricular wall thickness. Left ventricular systolic function is mildly reduced. LV EF is 45% to 50%. Doppler measurements suggest impaired left ventricular relaxation, which is associated with grade I/IV or mild diastolic dysfunction. There is mild global hypokinesis of the left ventricle. Flattened septum is consistent with RV pressure overload. There is no thrombus. Right Ventricle The right ventricle is moderately dilated. cannot assess RVH, suspect reduced RV systolic function. Atria The right atrium is mildly dilated. The left atrial size is normal. Mitral Valve There is mild mitral annular calcification. There is no evidence of mitral valve prolapse. There is no vegetation seen on the mitral valve. There is no mitral valve stenosis. There is no mitral regurgitation noted. Aortic Valve There is no aortic valvular vegetation. There is no LVOT obstruction. There is Aortic Sclerosis without stenosis. No aortic regurgitation is present. Tricuspid Valve There is no tricuspid stenosis. There is a moderate amount of tricuspid regurgitation. There is servere pulmonary hypertension by echo. RVSP is 73 to 78 mm of Hg , with RA mean of 5 to 10. Pulmonic Valve The pulmonic valve is not well visualized. Great Vessels The aortic root is not well visualized. Effusions There is no pericardial effusion. : LUNA FERREIRA > Gretel Ames
[2016-11-15] MEDS: INSULIN LISPRO 100 UNIT/ML 3 ML VIAL SUBCUT PRN ×3 (12:50→22:03)
--- NOTE | 2016-11-15 12:58 | RADIOLOGY REPORT (SQ) ---
EXAM DESCRIPTION: CHEST SINGLE VIEW COMPLETED DATE/TIME: 11/15/2016 12:48 pm REASON FOR STUDY: central line COMPARISON: CT chest 10/02/2016 Chest films 10/29/2016, 11/14/2016 EXAM PARAMETERS: NUMBER OF VIEWS: One view. TECHNIQUE: Single frontal radiographic view of the chest acquired. RADIATION DOSE: NA LIMITATIONS: None. FINDINGS: LUNGS AND PLEURA: Right-sided lower lobe collapse and consolidation, atelectasis versus pn eumonia. This is increased compared to 10/29/2016. Trace right pleural effusion may be present. Left lung well inflated and clear. No left pleural effusion. No right or left pneumothorax MEDIASTINUM AND HILAR STRUCTURES: No masses. Contour normal. HEART AND VASCULAR STRUCTURES: Stable of cardiomegaly BONES: No acute findings. HARDWARE: None in the chest. OTHER: No other significant finding. IMPRESSION: Right lower lobe airspace disease pneumonia versus atelectasis. Trace right pleural eff usion. Findings have progressed since 10/29/2016 TECHNICAL DOCUMENTATION: JOB ID: [id number]
[2016-11-15 13:39] LABS: ARTERIAL BLOOD BASE EXCESS 0.1 mmol/L; ARTERIAL BLOOD O2 SATURATION 93.6 % (94-98)
[2016-11-15] MEDS ORDERED: LIDOCAINE 1% INJ-PF (10 MG/ML) 30 ML SDV INJ ONE (14:30)
[2016-11-15] MEDS: BUMETANIDE INJ/PF 1 MG/4 ML SDV IV SCH ×2 (14:54→22:05)
[2016-11-15] MEDS: CEFEPIME 2 GM/D5W RTU 2 GM/50 ML RTUPB IV SCH (14:54)
[2016-11-15] MEDS ORDERED: LEVOFLOXACIN 750 MG TABLET PO ONE (15:00)
[2016-11-15] MEDS ORDERED: LIDOCAINE 1% INJ (10 MG/ML) 10 ML MDV INJ ONE (15:00)
--- NOTE | 2016-11-15 16:30 | PDOC PROGRESS REPORT ---
Subjective Progress Note for:: 11/15/16 Subjective:: Patient appears to be more lethargic than normal. Patient admits to chest pain, shortness of breath. Patient denies nausea, vomiting, fever, chills, diarrhea. Patient is having bleeding around her central line. Physical Exam Vital Signs: Temp Pulse Resp BP Pulse Ox 98.0 F 96 20 99/59 L 100 11/15/16 04:26 11/15/16 06:59 11/15/16 04:26 11/15/16 04:26 11/15/16 04:26 Intake & Output 11/14/16 11/15/16 11/16/16 06:59 06:59 06:59 Intake Total 954 Balance 954 Weight 79 kg Exam: General: mild respiratory distress HEENT: AT/NC, PERRL, EOMI, MMM, pink, no scleral icterus, no conjunctival injection Neck: + JVD, trachea midline Chest: Chest wall tenderness, Rhonchi Right lung, crackles left lung CV: Regular rate and rhythm, normal S1 and S2, no rub, or gallop; +SM Abdomen: Soft, nontender to palpation, active bowel sounds; no rebound, rigidity , or guarding Extremities: No cyanosis; + clubbing or 2+edema; bilateral BKA Neuro: CN grossly intact Psych: normal mood and affect Results Laboratory Results: 11/15/16 06:00 11/15/16 06:00 11/15/16 11/15/16 06:00 06:00 WBC 13.4 H RBC 3.53 L Hgb 9.6 L Hct 31.1 L MCV 88 MCH 27.3 MCHC 31.0 L RDW 20.5 H Plt Count 239 Seg Neutrophils % 91.2 H Lymphocytes % 6.7 L Monocytes % 1.8 L Eosinophils % 0.2 Basophils % 0.1 Absolute Neutrophils 12.2 H Absolute Lymphocytes 0.9 Absolute Monocytes 0.2 Absolute Eosinophils 0.0 Absolute Basophils 0.0 Sodium 132.0 L Potassium 4.7 Chloride 95 L Carbon Dioxide 25 Anion Gap 12 BUN 32 H Creatinine 1.82 H Est GFR ( Amer) 33 L Est GFR (Non-Af Amer) 28 L Glucose 274 H Calcium 6.6 L* 11/15/16 11/15/16 11/15/16 02:30 02:30 02:30 Creatine Kinase < 20 L CK-MB (CK-2) 0.40 Troponin I 0.211 NT-Pro-B Natriuret Pep 11/15/16 06:00 Creatine Kinase CK-MB (CK-2) Troponin I NT-Pro-B Natriuret Pep 8210 H Impressions: Chest X-Ray 11/14/16 14:36 IMPRESSION: Collapse and consolidation in the right middle and lower lobe. Question atelectasis versus pneumonia. This is more prominent than on 2016. Assessment & Plan - Diagnosis (1) Right lower lobe pneumonia Qualifiers: Pneumonia type: due to unspecified organism Qualified Code(s): J18.1 - Lobar pneumonia, unspecified organism Is this a current diagnosis for this admission?: YesPlan: Pt has a history of stenotrophomonas maltiphilia within the last two months. Place patient on Bipap. Pt on Vancomycin, Levaquin, and Cefepime. Aggressive pulmonary tolieting. Scheduled nebulized treatments. Sputum obtained and pending culture. (2) Acute on chronic respiratory failure with hypoxia Is this a current diagnosis for this admission?: YesPlan: Patient on BiPAP and repeat ABG (3) Acute on chronic systolic CHF (congestive heart failure) Is this a current diagnosis for this admission?: YesPlan: Patient had a recent cardiac event for which she was transferred. Will attempt to obtain outside records. Echo done today reveals an EF of 40%, grade 2 diastolic dysfunction, and severe pulmonary hypertension. (4) Adrenal insufficiency Is this a current diagnosis for this admission?: YesPlan: Resume patient's hydrocortisone and decrease her solu- Medrol (5) C. difficile colitis Is this a current diagnosis for this admission?: NoPlan: Patient had a diagnosis of C. difficile when she was here approximately 2 weeks ago and will empirically treat patient with Flagyl until C. difficile results. Report diarrhea. Place patient on enteric precautions. Place her on Bacid. (6) COPD (chronic obstructive pulmonary disease) Qualifiers: COPD type: COPD with acute exacerbation Qualified Code(s): J44.1 - Chronic obstructive pulmonary disease with (acute) exacerbation Is this a current diagnosis for this admission?: YesPlan: Decrease Solu-Medrol and scheduled breathing treatments (7) Diabetes Qualifiers: Diabetes mellitus type: type 2 Diabetes mellitus complication status: with circulatory complication Diabetes mellitus complication detail: with other circulatory complications Diabetes mellitus exterminator insulin use: with exterminator use Qualified Code(s): E11.59 - Type 2 diabetes mellitus with other circulatory complications Is this a current diagnosis for this admission?: YesPlan: Resume patient's home insulin regimen and placed on cardiac carb controlled diet. (8) History of MRSA infection Is this a current diagnosis for this admission?: Yes (9) Hypomagnesemia Is this a current diagnosis for this admission?: YesPlan: Replete and recheck (10) DNR (do not resuscitate) Is this a current diagnosis for this admission?: Yes (11) Tobacco abuse Is this a current diagnosis for this admission?: YesPlan: Nicotine patch prn (12) Medical non-compliance Is this a current diagnosis for this admission?: YesPlan: Medically noncompliant. She continues to smoke and to eat fried foods and add table salt according to family. Cameron Ley is her surrogate decision maker. And the 3 of us had a jamal and candidate discussion about her behavior and I will consult palliative care. - Time Time Spent with patient: 65 Minutes was spent with this patient and her family including physical examination, coordination of care, development of this plan, and patient education Time Spent with patient: 35 or more minutes Medications reviewed and adjusted accordingly: Yes Anticipated discharge: Hospice
[2016-11-15] MEDS ORDERED: VANCOMYCIN HCL 750 MG in DEXTROSE 5%-WATER 250 ML IV SCH (22:00)
[2016-11-15] MEDS: ATORVASTATIN CALCIUM 20 MG TABLET PO SCH (22:03)
[2016-11-15] MEDS: LIDOCAINE 5% (700 MG) TRANSDERMAL ADH..PATCH TP SCH (22:05)
[2016-11-16] MEDS: METRONIDAZOLE 500 MG/NS RTU 100 ML IV SCH ×4 (00:27→18:09)
[2016-11-16] MEDS: METHYLPREDNISOLONE INJ 125 MG/2 ML SDV IV SCH ×2 (02:08→08:42)
[2016-11-16] MEDS: OXYCODONE HCL IR 5 MG TABLET PO PRN ×3 (02:34→18:17)
[2016-11-16] MEDS: HEPARIN SOD (PORCINE) 5,000 UNIT/ML 1 ML SYRINGE SUBCUT SCH ×3 (05:10→21:49)
[2016-11-16] MEDS: BUMETANIDE INJ/PF 1 MG/4 ML SDV IV SCH ×2 (05:10→18:09)
[2016-11-16 06:37] LABS: ABSOLUTE LYMPHOCYTES (AUTO) 0.9 10^3/uL (0.5-4.7); ABSOLUTE MONOCYTES (AUTO) 0.3 10^3/uL (0.1-1.4); ABSOLUTE NEUT (AUTO) 8.1 10^3/uL (1.7-8.2); BASOPHILS % (AUTO) 0.2 % (0-2); HEMATOCRIT 27.5 % (36.0-47.0); HEMOGLOBIN 8.5 g/dL (12.0-15.5); LYMPHOCYTES % (AUTO) 9.6 % (13-45); MEAN CORPUSCULAR HEMOGLOBIN 27.2 pg (27.0-33.4); MEAN CORPUSCULAR VOLUME 88 fl (80-97); RED BLOOD COUNT 3.14 10^6/uL (3.72-5.28); SEGMENTED NEUTROPHILS % (AUTO) 87.2 % (42-78); WHITE BLOOD COUNT 9.3 10^3/uL (4.0-10.5)
[2016-11-16 07:07] LABS: ANION GAP 13 (5-19); BLOOD UREA NITROGEN 40 mg/dL (7-20); CALCIUM 7.5 mg/dL (8.4-10.2); CARBON DIOXIDE 25 mmol/L (22-30); CHLORIDE 94 mmol/L (98-107); CREATININE RESULT 2.21 mg/dL (0.52-1.25); GLUCOSE 363 mg/dL (75-110); POTASSIUM 5.2 mmol/L (3.6-5.0); SODIUM 131.9 mmol/L (137-145)
[2016-11-16] MEDS: IPRATROPIUM/ALBUTEROL 0.5-2.5 MG/3 ML AMPUL NEB SCH ×4 (07:58→20:30)
[2016-11-16] MEDS: INSULIN LISPRO 100 UNIT/ML 3 ML VIAL SUBCUT SCH ×3 (08:41→16:43)
[2016-11-16] MEDS: HYDROCORTISONE 10 MG TABLET PO SCH ×2 (08:41→21:51)
[2016-11-16] MEDS: INSULIN LISPRO 100 UNIT/ML 3 ML VIAL SUBCUT PRN ×3 (08:41→21:49)
[2016-11-16] MEDS: GABAPENTIN 300 MG CAPSULE PO SCH ×2 (08:42→21:50)
[2016-11-16] MEDS: NICOTINE 21 MG/24 HR PATCH.TD24 TD SCH (10:29)
[2016-11-16] MEDS: CARVEDILOL 3.125 MG TABLET PO SCH ×2 (10:36→21:51)
[2016-11-16] MEDS: ASPIRIN 81 MG TABLET, ENT COATED PO SCH (10:36)
[2016-11-16] MEDS: FAMOTIDINE 20 MG TABLET PO SCH ×2 (10:36→21:51)
[2016-11-16] MEDS: CEFEPIME 2 GM/D5W RTU 2 GM/50 ML RTUPB IV SCH (10:36)
[2016-11-16] MEDS: GUAIFENESIN 600 MG TABLET.SA PO SCH ×2 (10:36→21:51)
[2016-11-16] MEDS ORDERED: LACTOBACILLUS ACIDOPHILUS 250 MG TAB PO ONE (11:30)
--- NOTE | 2016-11-16 13:03 | PDOC PROGRESS REPORT ---
Subjective Progress Note for:: 11/16/16 Subjective:: Patient is feeling better. Shortness of breath is better. Still with cough but little phlegm. No chills or fever. Diarrhea resolved. Chest pain is more on the right side and hurts on coughing and inspiration. Physical Exam Vital Signs: Temp Pulse Resp BP Pulse Ox 98.4 F 91 18 96/56 L 96 11/16/16 11:35 11/16/16 11:35 11/16/16 11:35 11/16/16 11:35 11/16/16 11:35 Intake & Output 11/15/16 11/16/16 11/17/16 06:59 06:59 06:59 Intake Total 954 1706 318 Balance 954 1706 318 Weight 79 kg 79.5 kg General appearance: PRESENT: no acute distress, cooperative, obese Head exam: PRESENT: normocephalic Eye exam: PRESENT: EOMI Mouth exam: PRESENT: moist, neck supple Neck exam: ABSENT: JVD Respiratory exam: PRESENT: clear to auscultation jo-ann, decreased breath sounds - Right lower lung field, unlabored Cardiovascular exam: PRESENT: RRR. ABSENT: gallop GI/Abdominal exam: PRESENT: hypoactive bowel sounds, soft. ABSENT: distended Extremities exam: PRESENT: other - Above-knee amputation bilateral Neurological exam: PRESENT: alert, awake, oriented to situation Skin exam: PRESENT: dry, warm. ABSENT: cyanosis Results Laboratory Results: 11/16/16 06:00 11/16/16 06:00 11/15/16 11/16/16 11/16/16 13:00 06:00 06:00 WBC 9.3 RBC 3.14 L Hgb 8.5 L Hct 27.5 L MCV 88 MCH 27.2 MCHC 31.0 L RDW 20.0 H Plt Count 220 Seg Neutrophils % 87.2 H Lymphocytes % 9.6 L Monocytes % 3.0 Eosinophils % 0.0 Basophils % 0.2 Absolute Neutrophils 8.1 Absolute Lymphocytes 0.9 Absolute Monocytes 0.3 Absolute Eosinophils 0.0 Absolute Basophils 0.0 Carbonic Acid 1.53 H HCO3/H2CO3 Ratio 17:1 ABG pH 7.33 L ABG pCO2 50.9 H ABG pO2 73.4 L ABG HCO3 26.4 H ABG O2 Saturation 93.6 L ABG Base Excess 0.1 FiO2 2L Sodium 131.9 L Potassium 5.2 H Chloride 94 L Carbon Dioxide 25 Anion Gap 13 BUN 40 H Creatinine 2.21 H Est GFR ( Amer) 27 L Est GFR (Non-Af Amer) 22 L Glucose 363 H Calcium 7.5 L 11/15/16 11/15/16 11/15/16 02:30 02:30 02:30 Creatine Kinase < 20 L CK-MB (CK-2) 0.40 Troponin I 0.211 NT-Pro-B Natriuret Pep 11/15/16 11/15/16 11/15/16 06:00 08:30 18:15 Creatine Kinase CK-MB (CK-2) Troponin I 0.085 0.047 NT-Pro-B Natriuret Pep 8210 H Impressions: Chest X-Ray 11/15/16 00:00 IMPRESSION: Right lower lobe airspace disease pneumonia versus atelectasis. Trace right pleural effusion. Findings have progressed since 10/29/2016 Assessment & Plan - Diagnosis (1) Right lower lobe pneumonia Qualifiers: Pneumonia type: due to unspecified organism Qualified Code(s): J18.1 - Lobar pneumonia, unspecified organism Is this a current diagnosis for this admission?: Yes (2) Acute on chronic respiratory failure with hypoxia Is this a current diagnosis for this admission?: Yes (3) Acute on chronic systolic CHF (congestive heart failure) Is this a current diagnosis for this admission?: Yes (4) Adrenal insufficiency Is this a current diagnosis for this admission?: Yes (5) C. difficile colitis Is this a current diagnosis for this admission?: No (6) COPD (chronic obstructive pulmonary disease) Qualifiers: COPD type: COPD with acute exacerbation Qualified Code(s): J44.1 - Chronic obstructive pulmonary disease with (acute) exacerbation Is this a current diagnosis for this admission?: Yes (7) Diabetes Qualifiers: Diabetes mellitus type: type 2 Diabetes mellitus complication status: with circulatory complication Diabetes mellitus complication detail: with other circulatory complications Diabetes mellitus penitentiary insulin use: with ocean transportation intermediary use Qualified Code(s): E11.59 - Type 2 diabetes mellitus with other circulatory complications Is this a current diagnosis for this admission?: Yes (10) Hyperlipidemia Qualifiers: Hyperlipidemia type: unspecified Qualified Code(s): E78.5 - Hyperlipidemia, unspecified Is this a current diagnosis for this admission?: Yes (11) Peripheral vascular disease Is this a current diagnosis for this admission?: Yes (12) GERD (gastroesophageal reflux disease) Qualifiers: Esophagitis presence: without esophagitis Qualified Code(s): K21.9 - Gastro-esophageal reflux disease without esophagitis Is this a current diagnosis for this admission?: Yes - Time Time Spent with patient: 25-34 minutes - Plan Summary Plan Summary: Continue current antibiotics for now. We are going to continue the diuretics but decrease the dose. "Discontinue vancomycin. Obtain CT scan of the chest for atelectasis or pneumonia. We will monitor creatinine. Discontinue steroid as well.
--- NOTE | 2016-11-16 14:44 | RADIOLOGY REPORT (SQ) ---
EXAM DESCRIPTION: CT CHEST WITHOUT COMPLETED DATE/TIME: 11/16/2016 2:16 pm REASON FOR STUDY: Atelectasis, pneumonia COMPARISON: 10/02/2016 TECHNIQUE: CT scan performed of the chest without intravenous contrast. Images reviewed with lung, soft tissue and bone windows. Reconstructed coronal and sagittal MPR images reviewed. All images st ored on PACS. All CT scanners at this facility use dose modulation, iterative reconstruction, and/or weight based d osing when appropriate to reduce radiation dose to as low as reasonably achievable (ALARA). [facility]: Dose Right [facility]: CareDose [facility]: Dose Right [facility]: Teradose 4D [facility]: Smart DNA SEQ RADIATION DOSE: Up-to-date CT equipment and radiation dose reduction techniques were employed. CTDIv ol: 15.5 mGy. DLP: 532 mGy-cm. mGy. LIMITATIONS: No technical limitations. FINDINGS: LUNGS AND PLEURA: Extensive centrilobular and paraseptal the emphysematous changes are pre sent in the upper lobes particularly. Subsegmental atelectasis is seen in the lingula. Mild pleural /parenchymal scarring is seen in the lung bases. No acute pulmonary infiltrate is seen. There may b e a minimal right pleural effusion. HILAR AND MEDIASTINAL STRUCTURES: No identified masses or abnormal nodes. No obvious aneurysm. HEART AND VASCULAR STRUCTURES: Cardiomegaly with no aneurysm. There is no pericardial effusion. UPPER ABDOMEN: No significant findings. Limited exam. THYROID AND OTHER SOFT TISSUES: No masses. No adenopathy. BONES: No significant finding. HARDWARE: None in the chest. OTHER: No other significant findings. IMPRESSION: Cardiomegaly with chronic lung changes as described. There may be a small right pleural effusion. TECHNICAL DOCUMENTATION: JOB ID: [id number] Quality ID # [id number]: Final reports with documentation of one or more dose reduction techniques (e.g., Au tomated exposure control, adjustment of the mA and/or kV according to patient size, use of iterative reconstruction technique) 2010 [employer]- All Rights Reserved
[2016-11-16] MEDS ORDERED: LEVOFLOXACIN 750 MG/D5W RTU 750 MG/150 ML RTUPB IV SCH (18:00)
[2016-11-16] MEDS: LACTOBACILLUS ACIDOPHILUS 250 MG TAB PO SCH (18:09)
[2016-11-16] MEDS: INSULIN GLARGINE,HUM.REC.ANLOG 300 UNIT/3 ML INSULN.PEN SUBCUT SCH (21:49)
[2016-11-16] MEDS: LIDOCAINE 5% (700 MG) TRANSDERMAL ADH..PATCH TP SCH (21:50)
[2016-11-16] MEDS: ATORVASTATIN CALCIUM 20 MG TABLET PO SCH (21:52)
[2016-11-16] MEDS ORDERED: LEVOFLOXACIN 500 MG/D5W RTU 500 MG/100 ML RTUPB IV SCH (22:00)
[2016-11-17] MEDS: OXYCODONE HCL IR 5 MG TABLET PO PRN ×2 (00:11→06:28)
[2016-11-17] MEDS: METRONIDAZOLE 500 MG/NS RTU 100 ML IV SCH ×2 (00:12→06:28)
[2016-11-17] MEDS: HEPARIN SOD (PORCINE) 5,000 UNIT/ML 1 ML SYRINGE SUBCUT SCH ×3 (06:27→22:13)
[2016-11-17] MEDS: BUMETANIDE INJ/PF 1 MG/4 ML SDV IV SCH (06:28)
[2016-11-17 07:23] LABS: HEMATOCRIT 29.2 % (36.0-47.0); HEMOGLOBIN 8.9 g/dL (12.0-15.5); HGB HCT DIFFERENCE -2.5; MEAN CORPUSCULAR HEMOGLOBIN 26.8 pg (27.0-33.4); MEAN CORPUSCULAR HGB CONC 30.6 g/dL (32.0-36.0); MEAN CORPUSCULAR VOLUME 88 fl (80-97); RED BLOOD COUNT 3.34 10^6/uL (3.72-5.28); RED CELL DISTRIBUTION WIDTH 20.2 % (11.5-14.0); WHITE BLOOD COUNT 12.6 10^3/uL (4.0-10.5)
[2016-11-17 07:35] LABS: ANION GAP 12 (5-19); BLOOD UREA NITROGEN 54 mg/dL (7-20); CARBON DIOXIDE 25 mmol/L (22-30); CHLORIDE 93 mmol/L (98-107); CREATININE RESULT 2.09 mg/dL (0.52-1.25); GLUCOSE 210 mg/dL (75-110); POTASSIUM 5.4 mmol/L (3.6-5.0); SODIUM 130.3 mmol/L (137-145)
[2016-11-17 08:10] LABS: ANISOCYTOSIS 2+; BASOPHILS % (MANUAL) 0 % (0-2); BURR CELLS 1+; EOSINOPHILS % (MANUAL) 0 % (0-6); HYPOCHROMASIA 1+; LYMPHOCYTES % (MANUAL) 8 % (13-45); NUCLEATED RED BLOOD CELLS 1 /100 WBC (0); OVALOCYTES 1+; PLATELET CLUMPS PRESENT; POIKILOCYTOSIS 2+; POLYCHROMASIA 1+; SCHISTOCYTES SLIGHT; TARGET CELLS SLIGHT; TOTAL CELLS COUNTED 100; TOXIC GRANULATION 1+
[2016-11-17] MEDS: INSULIN LISPRO 100 UNIT/ML 3 ML VIAL SUBCUT SCH ×3 (08:19→16:31)
[2016-11-17] MEDS: INSULIN LISPRO 100 UNIT/ML 3 ML VIAL SUBCUT PRN ×4 (08:19→22:13)
[2016-11-17] MEDS: GABAPENTIN 300 MG CAPSULE PO SCH ×2 (08:23→22:12)
[2016-11-17] MEDS: HYDROCORTISONE 10 MG TABLET PO SCH ×2 (08:28→22:12)
[2016-11-17] MEDS: IPRATROPIUM/ALBUTEROL 0.5-2.5 MG/3 ML AMPUL NEB SCH ×4 (08:29→20:51)
[2016-11-17] MEDS ORDERED: SODIUM POLYSTYRENE SULFONATE 15 GM/60 ML PO ONE (09:36)
--- NOTE | 2016-11-17 09:48 | PDOC PROGRESS REPORT ---
Subjective Progress Note for:: 11/17/16 Subjective:: Patient continues to feel better. There is normal diarrhea. No nausea or vomiting. Tolerating oral intake. Pleurisy is less. No PND orthopnea. No reported temperature spikes, respiratory distress, diaphoresis, restlessness or agitation. Patient reports not being on oxygen at home. Physical Exam Vital Signs: Temp Pulse Resp BP Pulse Ox 97.4 F 97 18 109/60 96 11/17/16 07:35 11/17/16 08:33 11/17/16 08:33 11/17/16 07:35 11/17/16 08:33 Intake & Output 11/16/16 11/17/16 11/18/16 06:59 06:59 06:59 Intake Total 1706 1630 Output Total 0 Balance 1706 1630 Weight 79.5 kg 84.5 kg General appearance: PRESENT: no acute distress, obese Head exam: PRESENT: normocephalic Eye exam: PRESENT: EOMI Mouth exam: PRESENT: moist, neck supple Neck exam: ABSENT: JVD Respiratory exam: PRESENT: clear to auscultation jo-ann - Anteriorly. ABSENT: rhonchi, wheezes Cardiovascular exam: PRESENT: RRR, +S1, +S2. ABSENT: gallop GI/Abdominal exam: PRESENT: hypoactive bowel sounds, soft. ABSENT: distended, tenderness Extremities exam: PRESENT: other - Bilateral lower extremity amputation. Neurological exam: PRESENT: alert, awake, oriented to situation Skin exam: PRESENT: dry, warm. ABSENT: cyanosis Results Laboratory Results: 11/17/16 06:25 11/17/16 06:25 11/17/16 11/17/16 06:25 06:25 WBC 12.6 H RBC 3.34 L Hgb 8.9 L Hct 29.2 L MCV 88 MCH 26.8 L MCHC 30.6 L RDW 20.2 H Plt Count 261 Seg Neutrophils % Not Reportable Lymphocytes % Not Reportable Monocytes % Not Reportable Eosinophils % Not Reportable Basophils % Not Reportable Absolute Neutrophils Not Reportable Absolute Lymphocytes Not Reportable Absolute Monocytes Not Reportable Absolute Eosinophils Not Reportable Absolute Basophils Not Reportable Sodium 130.3 L Potassium 5.4 H Chloride 93 L Carbon Dioxide 25 Anion Gap 12 BUN 54 H Creatinine 2.09 H Est GFR ( Amer) 28 L Est GFR (Non-Af Amer) 23 L Glucose 210 H Calcium 8.0 L 06/27/17 06/27/17 06/27/17 02:30 02:30 02:30 Creatine Kinase < 20 L CK-MB (CK-2) 0.40 Troponin I 0.211 NT-Pro-B Natriuret Pep 11/15/16 11/15/16 11/15/16 06:00 08:30 18:15 Creatine Kinase CK-MB (CK-2) Troponin I 0.085 0.047 NT-Pro-B Natriuret Pep 8210 H Impressions: Chest X-Ray 11/15/16 00:00 IMPRESSION: Right lower lobe airspace disease pneumonia versus atelectasis. Trace right pleural effusion. Findings have progressed since 10/29/[address] 11/16/16 00:00 IMPRESSION: Cardiomegaly with chronic lung changes as described. There may be a small right pleural effusion. Assessment & Plan - Diagnosis (1) Right lower lobe pneumonia Qualifiers: Pneumonia type: due to unspecified organism Qualified Code(s): J18.1 - Lobar pneumonia, unspecified organism Is this a current diagnosis for this admission?: Yes (2) Acute on chronic respiratory failure with hypoxia Is this a current diagnosis for this admission?: Yes (3) Acute on chronic systolic CHF (congestive heart failure) Is this a current diagnosis for this admission?: Yes (4) Adrenal insufficiency Is this a current diagnosis for this admission?: Yes (5) C. difficile colitis Is this a current diagnosis for this admission?: No (6) COPD (chronic obstructive pulmonary disease) Qualifiers: COPD type: COPD with acute exacerbation Qualified Code(s): J44.1 - Chronic obstructive pulmonary disease with (acute) exacerbation Is this a current diagnosis for this admission?: Yes (7) Diabetes Qualifiers: Diabetes mellitus type: type 2 Diabetes mellitus complication status: with circulatory complication Diabetes mellitus complication detail: with other circulatory complications Diabetes mellitus assisted insulin use: with assisted use Qualified Code(s): E11.59 - Type 2 diabetes mellitus with other circulatory complications Is this a current diagnosis for this admission?: Yes (10) Hyperlipidemia Qualifiers: Hyperlipidemia type: unspecified Qualified Code(s): E78.5 - Hyperlipidemia, unspecified Is this a current diagnosis for this admission?: Yes (11) Peripheral vascular disease Is this a current diagnosis for this admission?: Yes (12) GERD (gastroesophageal reflux disease) Qualifiers: Esophagitis presence: without esophagitis Qualified Code(s): K21.9 - Gastro-esophageal reflux disease without esophagitis Is this a current diagnosis for this admission?: Yes - Time Time Spent with patient: 25-34 minutes - Plan Summary Plan Summary: CT scan of the chest did not reveal an infiltrate but minimal effusion. We will therefore discontinue cefepime and Levaquin. We will transition to oral metronidazole. Continue lactobacillus supplementation. We will give Kayexalate and recheck potassium level in the morning. We will wean oxygen drop. Physical therapy to evaluate patient.
[2016-11-17] MEDS ORDERED: LEVOFLOXACIN 750 MG TABLET PO SCH (10:00)
[2016-11-17] MEDS: FUROSEMIDE 40 MG TABLET PO SCH ×2 (11:14→17:27)
[2016-11-17] MEDS: LACTOBACILLUS ACIDOPHILUS 250 MG TAB PO SCH ×2 (11:14→17:27)
[2016-11-17] MEDS: FAMOTIDINE 20 MG TABLET PO SCH ×2 (11:15→22:12)
[2016-11-17] MEDS: ASPIRIN 81 MG TABLET, ENT COATED PO SCH (11:16)
[2016-11-17] MEDS: GUAIFENESIN 600 MG TABLET.SA PO SCH ×2 (11:16→22:12)
[2016-11-17] MEDS: CARVEDILOL 3.125 MG TABLET PO SCH ×2 (11:17→22:12)
[2016-11-17] MEDS: NICOTINE 21 MG/24 HR PATCH.TD24 TD SCH (11:24)
[2016-11-17] MEDS: METRONIDAZOLE 500 MG TABLET PO SCH ×2 (13:03→17:27)
--- NOTE | 2016-11-17 14:55 | Palliative Consultation Report ---
Consultation From:: CHERYLE CALLES Consult Reason: Palliaitve care - HPI Chief Complaint: Respiratory failure, pneumonia HPI: Appreciate Palliative care consult request. After multiple attempts to talk with patient or family, I finally found patient to be awake and oriented and able to talk with me. Consultation with Dr. Upton a couple of days ago revealed that patient is now DNR after Dr. Upton was able to have lengthy conversation with family. Ms. Ley reports feeling much better. She is alert and oriented, and eager to talk. She relates to me the story of her cardiac arrest and transport to [facility] in [place]. She doesnt remember this trip or the hospitalization but she says she still has soreness in her chest wall from the resuscitation. She tells me she has told her family that she wanted to have one attempt at CPR and if it worked, good, if not she felt she was ready to go. So she is appreciative of the life saving measures that were performed. At this time she says she probably will not be able to stop smoking after discharge because she cannot get the "patch" on her medical card. Eventho she has been without cigarettes for a long time, she knows her family will buy them for her at home, She says she thinks she is going home with hospice and is agreeable for this. Mrs. Ley has no complaints of pain at present. She says she occasionally feels nuasea but has not vomited. She is breathing easily with nasal cannula at this point and is not requiring Bipap. She reports that she doesn't use oxygen at home and hopes she wont have to have it when she is discharged. Onset: Last week Onset/Duration: Gradual Quality of Pain: Achy Severity: Mild Pain Level: 1 Associated Symptoms: Shortness of breath Exacerbated by: Movement Relieved by: Remaining still Past Medical History(Consults) - General Information Source: Patient, [facility] Records Home Medications: Albuterol Sulfate [Ventolin 0.083% Neb 2.5 mg/3 ml Ampul] 1 vial NEB RTQ3HP PRN 11/14/16 Amitriptyline HCl [Elavil 25 mg Tablet] 25 mg PO QHS 11/14/16 Aspirin [Aspirin EC] 81 mg PO DAILY 11/14/16 Atorvastatin Calcium [Lipitor 20 mg Tablet] 20 mg PO QHS 11/14/16 Carvedilol [Coreg 3.125 mg Tablet] 3.125 mg PO Q12 11/14/16 Fluconazole [Diflucan 100 Mg Tablet] 100 mg PO DAILY 11/14/16 Furosemide [Lasix] 40 mg PO Q12 11/14/16 Gabapentin [Neurontin 300 mg Capsule] 300 mg PO QAM 11/14/16 Gabapentin [Neurontin 300 mg Capsule] 600 mg PO QHS 11/14/16 Hydrocortisone [Cortef 10 Mg Tablet] 15 mg PO QAM 11/14/16 Insulin Aspart [Novolog Flexpen] 6 unit SUBCUT AC 11/14/16 Insulin Glargine,Hum.rec.anlog [Lantus Solostar] 45 unit SQ QHS 11/14/16 Levofloxacin [Levaquin 500 mg Tablet] 500 mg PO DAILY@1200 11/14/16 Lisinopril [Prinivil 5 mg Tablet] 5 mg PO DAILY 11/14/16 Omeprazole 20 mg PO DAILY 11/14/16 Oxycodone HCl [Oxy-Ir 5 mg Tablet] 5 mg PO Q12HP PRN 11/14/16 Petrolatum,White [Balmex] 2 oz TP BID 11/14/16 Tiotropium [place] [Spiriva Handihaler 18 mcg/dose (30 Dose)] 1 cap IH DAILY Allergies/Adverse Reactions: Penicillins Allergy (Verified 11/14/16 23:07) Sulfa (Sulfonamide Antibiotics) Allergy (Verified 11/14/16 23:07) - Social History Lives with: Family Family History: Reviewed & Not Pertinent, CAD, DM Parental Family History Reviewed: No Children Family History Reviewed: No Sibling(s) Family History Reviewed.: No Smoking Status: Current Every Day Smoker Cigarettes Packs Per Day: 0.5 Frequency of Alcohol Use: None - States she has not used alcohol since 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 Hx Recreational Drug Use: No Drugs: None Hx Prescription Drug Abuse: No - Past Medical History Cardiac Medical History: Reports: Hx Atrial Fibrillation, Hx Congestive Heart Failure, Hx Coronary Artery Disease, Hx Hypercholesterolemia, Hx Hypertension, Hx Peripheral Vascular Disease, Hx Heart Murmur Denies: Hx Heart Attack Pulmonary Medical History: Reports: Hx COPD - The patient is prescribed oxygen. She does not use it., Hx Pneumonia, Hx Respiratory Failure EENT Medical History: Reports: None Endocrine Medical History: Reports: Hx Diabetes Mellitus Type 2 - Insulin- dependent Renal/ Medical History: Denies: Hx Peritoneal Dialysis GI Medical History: Reports: Hx Gastroesophageal Reflux Disease Musculoskeltal Medical History: Reports Hx Arthritis Psychiatric Medical History: Denies: Hx Depression Infectious Medical History: Reports: Hx C-Diff - Surgical History Past Surgical History: Reports: Hx Cardiac Catheterization, Hx Cholecystectomy, Hx Orthopedic Surgery - Bilateral AKA, Other - Some sort of intervention for pseudocyst. Review of systems Constitutional: Weakness Respiratory: Cough, Short of breath Gastrointestinal: Diarrhea, Nausea Ojective:Exam Vital Signs: Temp Pulse Resp BP Pulse Ox 97.3 F 96 18 111/69 97 11/17/16 11:54 11/17/16 12:10 11/17/16 12:10 11/17/16 11:54 11/17/16 12:10 Intake & Output 11/16/16 11/17/16 11/18/16 06:59 06:59 06:59 Intake Total 1706 1630 611 Output Total 0 Balance 1706 1630 611 Weight 79.5 kg 84.5 kg - General General Appearance: Alert In distress: None Note:: Alert, oriented and talkative with nasal cannula and no noted conversational dyspnea - HEENT Head: Normocephalic Eyes: Normal Conjunctiva: Normal Pupils: PERRLA Mouth/Lips: Normal Mucous membrane: Moist - Neck Neck: Normal Neck Note: IV access right side neck, no pain - Respiratory Respiratory Status: No respiratory distress Breath sounds: Nonproductive cough - Cardiovascular Rhythm: Regular Pulses: Normal: Radial - Neurological Cognition: Normal Orientation: Alert, Oriented to person, Oriented to place, Oriented to time Speech: Normal - Psychological Associated symptoms: Normal affect, Normal mood Objective-Diagnostic Laboratory: 11/17/16 06:25 11/17/16 06:25 11/17/16 11/17/16 06:25 06:25 WBC 12.6 H RBC 3.34 L Hgb 8.9 L Hct 29.2 L MCV 88 MCH 26.8 L MCHC 30.6 L RDW 20.2 H Plt Count 261 Seg Neutrophils % Not Reportable Lymphocytes % Not Reportable Monocytes % Not Reportable Eosinophils % Not Reportable Basophils % Not Reportable Absolute Neutrophils Not Reportable Absolute Lymphocytes Not Reportable Absolute Monocytes Not Reportable Absolute Eosinophils Not Reportable Absolute Basophils Not Reportable Sodium 130.3 L Potassium 5.4 H Chloride 93 L Carbon Dioxide 25 Anion Gap 12 BUN 54 H Creatinine 2.09 H Est GFR ( Amer) 28 L Est GFR (Non-Af Amer) 23 L Glucose 210 H Calcium 8.0 L 11/15/16 11/15/16 11/15/16 02:30 02:30 02:30 Creatine Kinase < 20 L CK-MB (CK-2) 0.40 Troponin I 0.211 NT-Pro-B Natriuret Pep 11/15/16 11/15/16 11/15/16 06:00 08:30 18:15 Creatine Kinase CK-MB (CK-2) Troponin I 0.085 0.047 NT-Pro-B Natriuret Pep 8210 H Plan and Recommendation Plan and Recommendation: Patient has DNR ordered as she had told family she preferred. MOST form noted at desk with patients family contact name but no directions checked. Patient doing well. No complaints reported, eager to go home. WIll be happy to follow with palliative care after discharge if not accepted to hospice services at home. Appreciate opportunity to support this patient. - Time Spent with Patient Time spent with patient: 15 to 30 Minutes Time: 20 min with patient. 15 min in consultation with hospitalist
[2016-11-17] MEDS: ATORVASTATIN CALCIUM 20 MG TABLET PO SCH (22:12)
[2016-11-17] MEDS: INSULIN GLARGINE,HUM.REC.ANLOG 300 UNIT/3 ML INSULN.PEN SUBCUT SCH (22:13)
[2016-11-17] MEDS: LIDOCAINE 5% (700 MG) TRANSDERMAL ADH..PATCH TP SCH (22:13)
[2016-11-18] MEDS: METRONIDAZOLE 500 MG TABLET PO SCH ×4 (01:55→17:14)
[2016-11-18] MEDS: OXYCODONE HCL IR 5 MG TABLET PO PRN ×2 (03:34→14:03)
[2016-11-18] MEDS: HEPARIN SOD (PORCINE) 5,000 UNIT/ML 1 ML SYRINGE SUBCUT SCH ×3 (06:14→21:44)
[2016-11-18 07:39] LABS: ANION GAP 13 (5-19); BLOOD UREA NITROGEN 57 mg/dL (7-20); CALCIUM 7.4 mg/dL (8.4-10.2); CARBON DIOXIDE 28 mmol/L (22-30); CHLORIDE 95 mmol/L (98-107); CREATININE RESULT 1.71 mg/dL (0.52-1.25); GLUCOSE 100 mg/dL (75-110); SODIUM 136.1 mmol/L (137-145)
[2016-11-18 07:54] LABS: POTASSIUM 3.5 mmol/L (3.6-5.0)
[2016-11-18] MEDS: IPRATROPIUM/ALBUTEROL 0.5-2.5 MG/3 ML AMPUL NEB SCH ×4 (08:01→19:51)
--- NOTE | 2016-11-18 10:47 | PDOC PROGRESS REPORT ---
Subjective Progress Note for:: 11/18/16 Subjective:: Patient overall improved. No PND orthopnea. Shortness of breath is better. Minimal coughing. Patient still having a lot of discomfort from the chest compression she had from the last CPR administered on her. Denies any diarrhea anymore. No temperature spikes. Physical Exam Vital Signs: Temp Pulse Resp BP Pulse Ox 97.9 F 91 18 111/71 98 11/18/16 07:22 11/18/16 07:22 11/18/16 07:22 11/18/16 07:22 11/18/16 07:22 Intake & Output 11/17/16 11/18/16 11/19/16 06:59 06:59 06:59 Intake Total 1630 1231 Output Total 0 Balance 1630 1231 Weight 84.5 kg 84.3 kg General appearance: PRESENT: no acute distress, obese Head exam: PRESENT: normocephalic Eye exam: PRESENT: EOMI Mouth exam: PRESENT: moist, neck supple Neck exam: ABSENT: JVD Respiratory exam: PRESENT: clear to auscultation jo-ann. ABSENT: rhonchi, wheezes Cardiovascular exam: PRESENT: RRR. ABSENT: gallop GI/Abdominal exam: PRESENT: hypoactive bowel sounds, soft Rectal exam: PRESENT: other - Bilateral above-knee amputation Neurological exam: PRESENT: alert, awake, oriented to situation Skin exam: PRESENT: dry, warm. ABSENT: cyanosis Results Laboratory Results: 11/17/16 06:25 11/18/16 06:15 11/18/16 06:15 Sodium 136.1 L Potassium 3.5 L D Chloride 95 L Carbon Dioxide 28 Anion Gap 13 BUN 57 H Creatinine 1.71 H Est GFR ( Amer) 36 L Est GFR (Non-Af Amer) 30 L Glucose 100 Calcium 7.4 L 11/16/16 06:50 Blood AFB Smear Concentration - Final 11/15/16 11/15/16 11/15/16 02:30 02:30 02:30 Creatine Kinase < 20 L CK-MB (CK-2) 0.40 Troponin I 0.211 NT-Pro-B Natriuret Pep 11/15/16 11/15/16 11/15/16 06:00 08:30 18:15 Creatine Kinase CK-MB (CK-2) Troponin I 0.085 0.047 NT-Pro-B Natriuret Pep 8210 H Impressions: Chest X-Ray 11/15/16 00:00 IMPRESSION: Right lower lobe airspace disease pneumonia versus atelectasis. Trace right pleural effusion. Findings have progressed since 10/29/[address] 11/16/16 00:00 IMPRESSION: Cardiomegaly with chronic lung changes as described. There may be a small right pleural effusion. Assessment & Plan - Diagnosis (1) Right lower lobe pneumonia Qualifiers: Pneumonia type: due to unspecified organism Qualified Code(s): J18.1 - Lobar pneumonia, unspecified organism Is this a current diagnosis for this admission?: Yes (2) Acute on chronic respiratory failure with hypoxia Is this a current diagnosis for this admission?: Yes (3) Acute on chronic systolic CHF (congestive heart failure) Is this a current diagnosis for this admission?: Yes (4) Adrenal insufficiency Is this a current diagnosis for this admission?: Yes (5) C. difficile colitis Is this a current diagnosis for this admission?: No (6) COPD (chronic obstructive pulmonary disease) Qualifiers: COPD type: COPD with acute exacerbation Qualified Code(s): J44.1 - Chronic obstructive pulmonary disease with (acute) exacerbation Is this a current diagnosis for this admission?: Yes (7) Diabetes Qualifiers: Diabetes mellitus type: type 2 Diabetes mellitus complication status: with circulatory complication Diabetes mellitus complication detail: with other circulatory complications Diabetes mellitus manager long term care insulin use: with usp use Qualified Code(s): E11.59 - Type 2 diabetes mellitus with other circulatory complications Is this a current diagnosis for this admission?: Yes (10) Hyperlipidemia Qualifiers: Hyperlipidemia type: unspecified Qualified Code(s): E78.5 - Hyperlipidemia, unspecified Is this a current diagnosis for this admission?: Yes (11) Peripheral vascular disease Is this a current diagnosis for this admission?: Yes (12) GERD (gastroesophageal reflux disease) Qualifiers: Esophagitis presence: without esophagitis Qualified Code(s): K21.9 - Gastro-esophageal reflux disease without esophagitis Is this a current diagnosis for this admission?: Yes - Time Time Spent with patient: 15-24 minutes - Plan Summary Plan Summary: . Wean oxygen to off. Continue Flagyl orally. Patient remains afebrile and off antibiotics. MRSA of the sputum likely colonization. No signs of AFB at this time. We will discontinue AFB smears. We will resume her Diflucan. Appreciate palliative care evaluation. We will plan outpatient palliative care as well. Possible discharge home in the morning wh if not we will arrange for home oxygen en of oxygen.
[2016-11-18] MEDS: INSULIN LISPRO 100 UNIT/ML 3 ML VIAL SUBCUT SCH ×3 (10:50→17:14)
[2016-11-18] MEDS: NICOTINE 21 MG/24 HR PATCH.TD24 TD SCH (10:54)
[2016-11-18] MEDS: FUROSEMIDE 40 MG TABLET PO SCH ×2 (11:21→17:14)
[2016-11-18] MEDS: GABAPENTIN 300 MG CAPSULE PO SCH ×2 (11:21→21:44)
[2016-11-18] MEDS: CARVEDILOL 3.125 MG TABLET PO SCH ×2 (11:24→21:45)
[2016-11-18] MEDS: FAMOTIDINE 20 MG TABLET PO SCH ×2 (11:24→21:45)
[2016-11-18] MEDS: HYDROCORTISONE 10 MG TABLET PO SCH ×2 (11:31→21:45)
[2016-11-18] MEDS: LACTOBACILLUS ACIDOPHILUS 250 MG TAB PO SCH ×2 (11:31→17:14)
[2016-11-18] MEDS: GUAIFENESIN 600 MG TABLET.SA PO SCH ×2 (11:31→21:44)
[2016-11-18] MEDS: ASPIRIN 81 MG TABLET, ENT COATED PO SCH (11:31)
[2016-11-18] MEDS: INSULIN LISPRO 100 UNIT/ML 3 ML VIAL SUBCUT PRN ×2 (17:14→21:44)
[2016-11-18] MEDS ORDERED: INSULIN GLARGINE,HUM.REC.ANLOG 1,000 UNIT/10 ML UNIT SUBCUT ONE (21:44)
[2016-11-18] MEDS: LIDOCAINE 5% (700 MG) TRANSDERMAL ADH..PATCH TP SCH (21:45)
[2016-11-18] MEDS: ATORVASTATIN CALCIUM 20 MG TABLET PO SCH (21:45)
[2016-11-18] MEDS: INSULIN GLARGINE,HUM.REC.ANLOG 300 UNIT/3 ML INSULN.PEN SUBCUT SCH (21:46)
[2016-11-19] MEDS: OXYCODONE HCL IR 5 MG TABLET PO PRN (00:01)
[2016-11-19] MEDS: METRONIDAZOLE 500 MG TABLET PO SCH ×3 (00:02→11:31)
[2016-11-19 01:15] LABS: ABSOLUTE MONOCYTES (AUTO) 1.2 10^3/uL (0.1-1.4); ABSOLUTE NEUT (AUTO) 6.3 10^3/uL (1.7-8.2); BASOPHILS % (AUTO) 0.2 % (0-2); EOSINOPHILS % (AUTO) 0.3 % (0-6); HEMATOCRIT 27.9 % (36.0-47.0); HEMOGLOBIN 8.7 g/dL (12.0-15.5); HGB HCT DIFFERENCE -1.8; MEAN CORPUSCULAR HEMOGLOBIN 26.4 pg (27.0-33.4); MEAN CORPUSCULAR VOLUME 85 fl (80-97); MONOCYTES % (AUTO) 12.3 % (3-13); RED BLOOD COUNT 3.28 10^6/uL (3.72-5.28); SEGMENTED NEUTROPHILS % (AUTO) 66.2 % (42-78); WHITE BLOOD COUNT 9.5 10^3/uL (4.0-10.5)
[2016-11-19 01:33] LABS: ANION GAP 12 (5-19); BLOOD UREA NITROGEN 57 mg/dL (7-20); CALCIUM 7.5 mg/dL (8.4-10.2); CARBON DIOXIDE 30 mmol/L (22-30); CHLORIDE 94 mmol/L (98-107); CREATININE RESULT 1.47 mg/dL (0.52-1.25); GLUCOSE 103 mg/dL (75-110); POTASSIUM 3.1 mmol/L (3.6-5.0); SODIUM 135.5 mmol/L (137-145)
[2016-11-19] MEDS: MAGNESIUM SULFATE/D5W 100 ML IV SCH ×3 (01:56→04:10)
[2016-11-19] MEDS: POTASSIUM CHLORIDE 20 MEQ/15 ML UDCUP PO SCH ×3 (01:56→06:00)
[2016-11-19] MEDS: HEPARIN SOD (PORCINE) 5,000 UNIT/ML 1 ML SYRINGE SUBCUT SCH ×2 (06:00→13:14)
[2016-11-19 07:13] LABS: ANION GAP 10 (5-19); BLOOD UREA NITROGEN 54 mg/dL (7-20); CALCIUM 7.7 mg/dL (8.4-10.2); CARBON DIOXIDE 30 mmol/L (22-30); CHLORIDE 95 mmol/L (98-107); CREATININE RESULT 1.32 mg/dL (0.52-1.25); GLUCOSE 134 mg/dL (75-110); SODIUM 134.8 mmol/L (137-145)
[2016-11-19 07:44] LABS: POTASSIUM 4.3 mmol/L (3.6-5.0)
[2016-11-19] MEDS: IPRATROPIUM/ALBUTEROL 0.5-2.5 MG/3 ML AMPUL NEB SCH ×3 (08:20→16:19)
[2016-11-19] MEDS: INSULIN LISPRO 100 UNIT/ML 3 ML VIAL SUBCUT SCH ×2 (11:27→12:51)
[2016-11-19] MEDS: FAMOTIDINE 20 MG TABLET PO SCH (11:31)
[2016-11-19] MEDS: FLUCONAZOLE 100 MG TABLET PO SCH (11:31)
[2016-11-19] MEDS: HYDROCORTISONE 10 MG TABLET PO SCH (11:32)
[2016-11-19] MEDS: GABAPENTIN 300 MG CAPSULE PO SCH (11:32)
[2016-11-19] MEDS: FUROSEMIDE 40 MG TABLET PO SCH (11:33)
[2016-11-19] MEDS: ASPIRIN 81 MG TABLET, ENT COATED PO SCH (11:33)
[2016-11-19] MEDS: GUAIFENESIN 600 MG TABLET.SA PO SCH (11:34)
[2016-11-19] MEDS: LACTOBACILLUS ACIDOPHILUS 250 MG TAB PO SCH (11:34)
[2016-11-19] MEDS: CARVEDILOL 3.125 MG TABLET PO SCH (11:34)
[2016-11-19] MEDS: NICOTINE 21 MG/24 HR PATCH.TD24 TD SCH (11:44)
--- NOTE | 2016-11-19 13:38 | EKG REPORT ---
SEVERITY:- ABNORMAL ECG - SINUS TACHYCARDIA MULTIFORM VENTRICULAR and ATRIAL PREMATURE COMPLEXES PROBABLE INFERIOR INFARCT, AGE INDETERMINATE CONSIDER ANTERIOR INFARCT LATERAL LEADS ARE ALSO INVOLVED : Confirmed by: Arthur Baker 19-Nov-2016 13:37:27
--- NOTE | 2016-11-19 15:23 | PDOC DISCHARGE SUMMARY ---
General - Admit/Disc Date/PCP Admission Date/Primary Care Provider: 11/14/16 18:23 KARINA HETAL, Discharge Date: 11/19/16 - Discharge Diagnosis (1) Right lower lobe pneumonia Is this a current diagnosis for this admission?: Yes (2) Acute on chronic respiratory failure with hypoxia Is this a current diagnosis for this admission?: Yes (3) Acute on chronic systolic CHF (congestive heart failure) Is this a current diagnosis for this admission?: Yes (4) Adrenal insufficiency Is this a current diagnosis for this admission?: Yes (5) C. difficile colitis Is this a current diagnosis for this admission?: No (6) COPD (chronic obstructive pulmonary disease) Is this a current diagnosis for this admission?: Yes (7) Diabetes Is this a current diagnosis for this admission?: Yes (10) Hyperlipidemia Is this a current diagnosis for this admission?: Yes (11) Peripheral vascular disease Is this a current diagnosis for this admission?: Yes (12) GERD (gastroesophageal reflux disease) Is this a current diagnosis for this admission?: Yes - Additional Information Resuscitation Status: Do Not Resuscitate Discharge Diet: Cardiac - Low-fat low-salt, Diabetic - No concentrated sweets Discharge Activity: Activity As Tolerated, Balance Activity w/Rest, Weigh Daily Home Medications: Albuterol Sulfate [Ventolin 0.083% Neb 2.5 mg/3 mL Ampul] 1 vial NEB RTQ3HP PRN 11/14/16 Aspirin [Aspirin EC] 81 mg PO DAILY 11/14/16 Atorvastatin Calcium [Lipitor 20 mg Tablet] 20 mg PO QHS 11/14/16 Carvedilol [Coreg 3.125 mg Tablet] 3.125 mg PO Q12 11/14/16 Furosemide [Lasix] 40 mg PO Q12 11/14/16 Gabapentin [Neurontin 300 mg Capsule] 300 mg PO QAM 11/14/16 Gabapentin [Neurontin 300 mg Capsule] 600 mg PO QHS 11/14/16 Hydrocortisone [Cortef 10 mg Tablet] 15 mg PO QAM 11/14/16 Insulin Aspart [Novolog Flexpen] 6 unit SUBCUT AC 11/14/16 Insulin Glargine,Hum.rec.anlog [Lantus Solostar] 45 unit SQ QHS 11/14/16 Omeprazole 20 mg PO DAILY 11/14/16 Petrolatum,White [Balmex] 2 oz TP BID 11/14/16 Tiotropium Weldon [Spiriva Handihaler 18 mcg/dose (30 Dose)] 1 cap IH DAILY Fluconazole [Diflucan 100 mg Tablet] 100 mg PO DAILY #10 tablet 11/19/16 Guaifenesin [Mucinex Sr 600 mg Tablet.sa] 600 mg PO Q12 #60 tablet.sa 11/19/16 Hydrocortisone [Cortef 10 mg Tablet] 10 mg PO QHS tablet 11/19/16 Lidocaine [Lidoderm 5% (700 mg) Transdermal Patch] 1 patch TP QHS #30 adh..patch 11/19/16 Lisinopril [Prinivil 5 mg Tablet] 0.5 tab PO DAILY #0 11/19/16 Metronidazole [Flagyl 500 mg Tablet] 500 mg PO Q6 #32 tablet 11/19/16 Oxycodone HCl [Oxy-Ir 5 mg Tablet] 5 mg PO Q6H PRN #0 11/19/16 Additional Information: Incentive spirometer as needed History of Present Illness Patient complains of: Shortness of breath and chest pain History of Present Illness: DANYELL ABBASI is a 71 year old female with a medical history of congestive heart failure, COPD, tobacco abuse, atrial fibrillation, vascular disease, diabetes mellitus, who recently was transferred from the [facility] after receiving 2 rounds of compressions after losing a pulse. Patient at that time was suffering from septic shock as well as from cardiogenic shock it was felt and transferred to that facility. Patient was discharged on 11/02/2016. Patient reports that since her most recent admission here she has had subsequent chest pain. Patient became more short of breath today. Her family reports she continues to smoke and will not use home oxygen. Patient reports a cough productive of sherman sputum. She is referred to the hospitalist service for sepsis and healthcare associated pneumonia. Hospital Course Hospital Course: The patient was admitted to [facility]. The patient was placed on BiPAP for respiratory failure. Patient was begun on intravenous antibiotic for possible pneumonia. Patient recently treated for diarrhea secondary to Clostridium difficile colitis and therefore the patient was started on Flagyl. Patient had serial x-rays reporting questionable atelectases as well as volume loss or infiltrate. She was therefore maintained on antibiotics. Patient apparently was recently treated for sepsis were patient developed shock and possibly pulseless electrical activity requiring CPR. She was recently released from the hospital after treatment for septic shock where she presented to our hospital for chest pain and shortness of breath. The patient eventually improved and was weaned off the BiPAP and placed on nasal cannula oxygen. She continues to have chest pain from her chest compressions side where she was given lidocaine patches and as needed oxycodone. Patient eventually improved. A CT scan of the chest was therefore obtained to verify the presence of infiltrate versus atelectases and did reveal no infiltrate at all. There is some small effusion noted on the right side. Broad-spectrum antibiotics were therefore discontinued at this time. She was maintained on Flagyl for her recent Clostridium difficile colitis. Subsequently a follow-up Clostridium difficile toxin was negative and therefore the patient will complete treatment. The patient continues to improve she was referred to physical therapy and likewise wean from oxygen. Of note however at the beginning the patient was made DNR, and eventually was referred to palliative care. Subsequently hospice was considered but as the patient improves she rescinded the DNR. The patient continues to improve and was successfully weaned from oxygen. She was advised therefore to take deep breaths and likely the infiltrate on chest x-ray is from atelectases rather than recurrent pneumonia. The rest of the hospital stay is unremarkable. Physical Exam Vital Signs: Temp Pulse Resp BP Pulse Ox 97.4 F 100 16 119/67 100 11/19/16 11:55 11/19/16 14:00 11/19/16 11:55 11/19/16 11:55 11/19/16 11:55 Intake & Output 11/18/16 11/19/16 11/20/16 06:59 06:59 06:59 Intake Total 1231 2239 959 Balance 1231 2239 959 Weight 84.3 kg 86.6 kg General appearance: PRESENT: no acute distress, cooperative, obese Head exam: PRESENT: normocephalic Eye exam: PRESENT: EOMI Mouth exam: PRESENT: moist, neck supple Neck exam: ABSENT: JVD Respiratory exam: PRESENT: clear to auscultation jo-ann, unlabored. ABSENT: rhonchi, wheezes Cardiovascular exam: PRESENT: RRR. ABSENT: gallop GI/Abdominal exam: PRESENT: normal bowel sounds, soft. ABSENT: distended, tenderness Extremities exam: PRESENT: other - Bilateral above-knee amputation Neurological exam: PRESENT: alert, awake, oriented to person, oriented to place , oriented to time, oriented to situation Skin exam: PRESENT: dry, warm. ABSENT: cyanosis Results Laboratory Results: 11/19/16 00:35 11/19/16 06:10 11/19/16 11/19/16 11/19/16 00:35 00:35 00:35 WBC 9.5 RBC 3.28 L Hgb 8.7 L Hct 27.9 L MCV 85 MCH 26.4 L MCHC 31.0 L RDW 20.0 H Plt Count 279 Seg Neutrophils % 66.2 Lymphocytes % 21.0 Monocytes % 12.3 Eosinophils % 0.3 Basophils % 0.2 Absolute Neutrophils 6.3 Absolute Lymphocytes 2.0 Absolute Monocytes 1.2 Absolute Eosinophils 0.0 Absolute Basophils 0.0 Sodium 135.5 L Potassium 3.1 L Chloride 94 L Carbon Dioxide 30 Anion Gap 12 BUN 57 H Creatinine 1.47 H Est GFR ( Amer) 43 L Est GFR (Non-Af Amer) 35 L Glucose 103 Calcium 7.5 L Magnesium 1.0 L* TSH 0.64 11/19/16 06:10 WBC RBC Hgb Hct MCV MCH MCHC RDW Plt Count Seg Neutrophils % Lymphocytes % Monocytes % Eosinophils % Basophils % Absolute Neutrophils Absolute Lymphocytes Absolute Monocytes Absolute Eosinophils Absolute Basophils Sodium 134.8 L Potassium 4.3 D Chloride 95 L Carbon Dioxide 30 Anion Gap 10 BUN 54 H Creatinine 1.32 H Est GFR ( Amer) 48 L Est GFR (Non-Af Amer) 40 L Glucose 134 H Calcium 7.7 L Magnesium 2.0 D TSH 11/15/16 12:45 Sputum Gram Stain - Final 11/15/16 11/15/16 11/15/16 02:30 02:30 02:30 Creatine Kinase < 20 L CK-MB (CK-2) 0.40 Troponin I 0.211 NT-Pro-B Natriuret Pep 11/15/16 11/15/16 11/15/16 06:00 08:30 18:15 Creatine Kinase CK-MB (CK-2) Troponin I 0.085 0.047 NT-Pro-B Natriuret Pep 8210 H 11/19/16 00:35 Creatine Kinase CK-MB (CK-2) Troponin I 0.034 NT-Pro-B Natriuret Pep Impressions: Chest X-Ray 11/15/16 00:00 IMPRESSION: Right lower lobe airspace disease pneumonia versus atelectasis. Trace right pleural effusion. Findings have progressed since 10/29/[address] 11/16/16 00:00 IMPRESSION: Cardiomegaly with chronic lung changes as described. There may be a small right pleural effusion. Qualifiers PATEINT BEING DISCHARGED WITH ANY OF THE FOLLOWING DIAGNOSIS?: Heart Failure HF Pt being discharged on ACEI for LVEF less than 40%?: Yes HF Pt being discharged on ARBS for LVEF less than 40%?: No Reason(s) for not prescribing ARBS:: Not indicated - On ADRIENNE inhibitor HF Pt with Afib discharged with Warfarin?: No Reason(s) for not prescribing Warfarin:: Not indicated - No atrial fibrillation HF Pt discharged on evidence-based Beta Bella:: Yes Plan Discharge Plan: Follow-up with primary care physician in 1 week Time Spent: Less than 30 Minutes
[2016-11-19 15:32] VITALS: BP 115/65
== END 2016-11-19 17:03 | disposition home health service (06) | DRG 190 ==
LOC: ER 13:57 → EH 17:54 → UNDOADMIN 17:54 → EH 18:23 → 3W 21:53
PROVIDERS: ADMIT Family Medicine; ATTEND Family Medicine
PROC: 02HV33Z Insertion of Infusion Device into Superior Vena Cava, Percutaneous Approach (ICD-10-PCS; principal; 2016-11-14)
DX: J44.0 Chronic obstructive pulmonary disease with (acute) lower respiratory infection (principal); J18.1 Lobar pneumonia, unspecified organism; J96.21 Acute and chronic respiratory failure with hypoxia; I50.23 Acute on chronic systolic (congestive) heart failure; E27.40 Unspecified adrenocortical insufficiency; A04.7 Enterocolitis due to Clostridium difficile; Z66 Do not resuscitate; J44.1 Chronic obstructive pulmonary disease with (acute) exacerbation; I11.0 Hypertensive heart disease with heart failure; E11.59 Type 2 diabetes mellitus with other circulatory complications; E83.42 Hypomagnesemia; K21.9 Gastro-esophageal reflux disease without esophagitis; I48.2 Chronic atrial fibrillation; I27.2 Other secondary pulmonary hypertension; E78.5 Hyperlipidemia, unspecified; I73.9 Peripheral vascular disease, unspecified; F17.210 Nicotine dependence, cigarettes, uncomplicated; Z89.612 Acquired absence of left leg above knee; Z89.611 Acquired absence of right leg above knee; Z79.82 Long term (current) use of aspirin; Z79.4 Long term (current) use of insulin; Z79.2 Long term (current) use of antibiotics; Z79.51 Long term (current) use of inhaled steroids; Z79.899 Other long term (current) drug therapy; Z88.0 Allergy status to penicillin; Z88.2 Allergy status to sulfonamides; Z86.14 Personal history of Methicillin resistant Staphylococcus aureus infection; Z91.19 Patient's noncompliance with other medical treatment and regimen
CPT/HCPCS: 36415; 36600; 71010; 71250; 80048; 80053; 82040; 82550; 82553; 82803; 82962; 83735; 83880; 84443; 84484; 85025; 87015; 87040; 87070; 87077; 87116; 87186; 87205; 87206; 87493; 93005; 93010; 93306; 94640; 94660; 99285; C1751; G8978-GP; G8979-GP; G8980-GP; J0610; J0692; J1642; J1644; J1815; J1956; J2930; J3370; J3475; J3490; J7060; J7620

== ENCOUNTER 2016-11-28 22:35 | Inpatient (IN) | payer MEDICARE, MEDICAID ==
[2016-11-28] MEDS ORDERED: DEXTROSE 50%-WATER 25 GM/50 ML DISP.SYRIN IV ONE (23:00)
--- NOTE | 2016-11-28 23:13 | RADIOLOGY REPORT (SQ) ---
EXAM DESCRIPTION: CHEST SINGLE VIEW COMPLETED DATE/TIME: 11/28/2016 11:02 pm REASON FOR STUDY: SOB COMPARISON: 11/15/2016. CT dated 11/16/2016 EXAM PARAMETERS: NUMBER OF VIEWS: One view. TECHNIQUE: Single frontal radiographic view of the chest acquired. RADIATION DOSE: NA LIMITATIONS: None. FINDINGS: LUNGS AND PLEURA: Airspace opacity noted the right lung base. No pneumothorax. Left lung is clear. Chronic parenchymal changes noted at both bases. MEDIASTINUM AND HILAR STRUCTURES: No masses. Contour normal. HEART AND VASCULAR STRUCTURES: Heart normal in size. Normal vasculature. BONES: No acute findings. HARDWARE: None in the chest. OTHER: No other significant finding. IMPRESSION: Density noted in the right lung base which could represent small effusion with associate d atelectasis or infiltrate. Correlate clinically. Chronic parenchymal changes noted both bases. TECHNICAL DOCUMENTATION: JOB ID: [id number]
[2016-11-28] MEDS: NORMAL SALINE 1000 ML 1,000 ML IV PRN (23:41)
[2016-11-28 23:53] LABS: VENOUS BLOOD BASE EXCESS 2.3 mmol/L; VENOUS BLOOD HCO3 31.6 mmol/L (20-32); VENOUS BLOOD PH 7.23 (7.30-7.42)
[2016-11-28 23:54] LABS: VENOUS BLOOD PCO2 77.4 mmHg (35-63)
[2016-11-29 00:03] LABS: ABSOLUTE BASOPHILS # (AUTO) 0.1 10^3/uL (0.0-0.2); ABSOLUTE EOSINOPHILS # (AUTO) 0.1 10^3/uL (0.0-0.6); ABSOLUTE MONOCYTES (AUTO) 1.4 10^3/uL (0.1-1.4); ABSOLUTE NEUT (AUTO) 11.5 10^3/uL (1.7-8.2); BASOPHILS % (AUTO) 0.5 % (0-2); EOSINOPHILS % (AUTO) 0.5 % (0-6); HEMATOCRIT 38.3 % (36.0-47.0); HEMOGLOBIN 11.2 g/dL (12.0-15.5); HGB HCT DIFFERENCE -4.7; LYMPHOCYTES % (AUTO) 23.6 % (13-45); MEAN CORPUSCULAR HGB CONC 29.3 g/dL (32.0-36.0); MEAN CORPUSCULAR VOLUME 89 fl (80-97); MONOCYTES % (AUTO) 8.3 % (3-13); RED BLOOD COUNT 4.32 10^6/uL (3.72-5.28); RED CELL DISTRIBUTION WIDTH 21.5 % (11.5-14.0); SEGMENTED NEUTROPHILS % (AUTO) 67.1 % (42-78); WHITE BLOOD COUNT 17.1 10^3/uL (4.0-10.5)
[2016-11-29 00:07] LABS: ALANINE AMINOTRANSFERASE 25 U/L (9-52); ALBUMIN 3.5 g/dL (3.5-5.0); ALKALINE PHOSPHATASE 112 U/L (38-126); ANION GAP 16 (5-19); ASPARTATE AMINO TRANSFERASE 54 U/L (14-36); BILIRUBIN,DIRECT 0.6 mg/dL (0.0-0.4); BILIRUBIN,TOTAL 0.6 mg/dL (0.2-1.3); BLOOD UREA NITROGEN 43 mg/dL (7-20); CALCIUM 8.1 mg/dL (8.4-10.2); CARBON DIOXIDE 27 mmol/L (22-30); CHLORIDE 92 mmol/L (98-107); CREATINE KINASE 35 U/L (30-135); CREATININE RESULT 2.06 mg/dL (0.52-1.25); GLUCOSE 97 mg/dL (75-110); LIPASE 119.5 U/L (23-300); POTASSIUM 4.2 mmol/L (3.6-5.0); TOTAL PROTEIN 7.3 g/dL (6.3-8.2)
[2016-11-29] MEDS ORDERED: VANCOMYCIN HCL INJ 1000 MG VIAL IV ONE (00:08)
[2016-11-29] MEDS ORDERED: CEFEPIME 1 GM/D5W RTU 50 ML IV ONE (00:08)
[2016-11-29 00:22] LABS: APPEARANCE,URINE TURBID; BILIRUBIN,URINE NEGATIVE (NEGATIVE); GLUCOSE, URINE NEGATIVE (NEGATIVE); KETONES,URINE NEGATIVE (NEGATIVE); LEUKOCYTE ESTERASE,URINE LARGE (NEGATIVE); NITRITE,URINE NEGATIVE (NEGATIVE); PROTEIN,URINE 30 mg/dL (NEGATIVE); URINE SPECIFIC GRAVITY 1.015; UROBILINOGEN,URINE NEGATIVE mg/dL (<2.0)
[2016-11-29 00:22] LABS: TROPONIN I 0.098 ng/mL
--- NOTE | 2016-11-29 00:42 | ER Document Report ---
ED General - General Chief Complaint: Unresponsive Stated Complaint: UNRESPONSIVE Time Seen by Provider: 11/28/16 22:44 Notes: Patient is a 71-year-old female, past medical history congestive heart failure, COPD, tobacco abuse, atrial fibrillation, vascular disease, IDDM, presents from home after she was difficult to arouse by her cousin (Gorge Ley), who is the POA and takes care of her. When EMS arrived, her blood sugar was 12, which improved to 15 after IM glucagon due to difficult IV access. According to the cousin, the patient took her insulin, but did not eat today. The patient has been in and out of the hospital over the past few months after a cardiac arrest. The patient was made DNR and DNI last time, but she consents to central line and BiPAP. She was supposed to begin home hospice, but the cousin said that no one ever visited her to set it up. TRAVEL OUTSIDE OF THE [place] 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 She does not use it., Hx Pneumonia, Hx Respiratory Failure Endocrine Medical History: Reports: Hx Diabetes Mellitus Type 2 - Insulin- dependent Renal/ Medical History: Denies: Hx Peritoneal Dialysis GI Medical History: Reports: Hx Gastroesophageal Reflux Disease Musculoskeltal Medical History: Reports Hx Arthritis Psychiatric Medical History: Denies: Hx Depression Infectious Medical History: Reports: Hx C-Diff Past Surgical History: Reports: Hx Cardiac Catheterization, Hx Cholecystectomy, Hx Orthopedic Surgery - Bilateral AKA, Other - Some sort of intervention for pseudocyst. - Immunizations Hx Diphtheria, Pertussis, Tetanus Vaccination: Yes Review of Systems - Review of Systems -: Yes ROS unobtainable due to patient's medical condition Physical Exam - Vital signs Vitals: Temp Resp 95.8 F L 23 H 11/28/16 23:35 11/28/16 23:35 - Notes Notes: PHYSICAL EXAMINATION: GENERAL: Ill-appearing, responds to voice HEAD: Atraumatic, normocephalic. EYES: Pupils equal round and reactive to light, extraocular movements intact, sclera anicteric, conjunctiva are normal. ENT: nares patent, oropharynx clear without exudates. Moist mucous membranes. NECK: No lymphadenopathy LUNGS: Coarse breath sounds, crackles in RLL, tachypnea HEART: Tachycardia, regular rhythm ABDOMEN: Soft, nontender, normoactive bowel sounds. No guarding, no rebound. No masses appreciated. EXTREMITIES: B/L AKA's NEUROLOGICAL: Responds to voice, moves all 4 extremities during painful stimulation SKIN: Warm, Dry, normal turgor, no rashes or lesions noted. Course - Re-evaluation Re-evalutation: After 2 amps of D50, patient is responding and awake. Patient has evidence of a urinary tract infection and possible right lower lobe infiltrate. Because of patient's recent hospitalization, broad-spectrum antibiotics started. Vancomycin and Levaquin provided, but no cefepime in the hospital and patient has hives to penicillin. Despite fluids, patient's blood pressure would drop down to 69/50. Levophed started through left humeral IO, which was switched over to left femoral central line once placed. Patient's mental status improved and she confirmed that she is DNR and DNI. She consented verbally to the central line, which was witnessed by Angel Luis RN, and Manjinder, MALINAD. 11/29/16 04:[address] Londono and is recommending 100 mg hydrocortisone for possible adrenal insufficiency. Will admit patient to ICU. - Vital Signs Vital signs: Temp Pulse Resp BP Pulse Ox 101.1 F H 19 94/61 L 97 11/29/16 01:18 11/29/16 01:18 11/29/16 01:18 11/29/16 01:18 - Laboratory Result Diagrams: 11/28/16 23:43 11/28/16 23:43 Laboratory results interpreted by me: 11/28/16 11/28/16 11/28/16 23:14 23:43 23:43 WBC Hgb MCH MCHC RDW Absolute Neutrophils Carbonic Acid ABG pH ABG pCO2 ABG pO2 ABG HCO3 ABG Total CO2 ABG O2 Saturation VBG pH VBG pCO2 Sodium 135.0 L Chloride 92 L BUN 43 H Creatinine 2.06 H Est GFR ( Amer) 29 L Est GFR (Non-Af Amer) 24 L Calcium 8.1 L Direct Bilirubin 0.6 H AST 54 H NT-Pro-B Natriuret Pep 85613 H Urine Protein 30 H Urine Blood SMALL H Ur Leukocyte Esterase LARGE H 11/28/16 11/28/16 11/29/16 23:43 23:43 02:50 WBC 17.1 H Hgb 11.2 L MCH 26.0 L MCHC 29.3 L RDW 21.5 H Absolute Neutrophils 11.5 H Carbonic Acid 1.66 H ABG pH 7.32 L ABG pCO2 55.1 H ABG pO2 70.8 L ABG HCO3 27.9 H ABG Total CO2 29.6 H ABG O2 Saturation 92.7 L VBG pH 7.23 L VBG pCO2 77.4 H* Sodium Chloride BUN Creatinine Est GFR ( Amer) Est GFR (Non-Af Amer) Calcium Direct Bilirubin AST NT-Pro-B Natriuret Pep Urine Protein Urine Blood Ur Leukocyte Esterase - Diagnostic Test Radiology reviewed: Image reviewed, Reports reviewed Radiology results interpreted by me: CXR: possible RLL infiltrate CT A/P: NAD - EKG Interpretation by Me EKG shows normal: Sinus rhythm, [place], Intervals, QRS Complexes, ST-T Waves Rate: Normal When compared to previous EKG there are: No significant change Procedures - Central Line Left Femoral Time completed: 02:02 Consent obtained: Yes Central line pre-insertion: Sterile PPE donned, Chloraprep applied, Sterile drapes applied Central line lumen type: Triple Anesthetic type: 1% Lidocaine mL's of anesthesia: 5 Ultrasound guided: Yes CM at insertion site: 26 Line secured with sutures: Yes Central line post-insertion: Blood return from lumens, Biopatch applied, Sutured , Sterile dressing applied Number of attempts: 1 Complications: No Critical Care Note - Critical Care Note Total time excluding time spent on procedures (mins): 55 Discharge - Discharge Clinical Impression: Septic shock, Hypoglycemia UTI (urinary tract infection) Qualifiers: Urinary tract infection type: acute cystitis Hematuria presence: without hematuria Qualified Code(s): N30.00 - Acute cystitis without hematuria Hypercapnic respiratory failure Qualifiers: Chronicity: acute Qualified Code(s): J96.02 - Acute respiratory failure with hypercapnia Condition: Critical Disposition: ADMITTED INPATIENT Admitting Provider: [facility] Admitted: ICU
[2016-11-29] MEDS ORDERED: LEVOFLOXACIN 750 MG/D5W RTU 150 ML IV ONE (00:51)
[2016-11-29] MEDS ORDERED: NOREPINEPHRINE BITARTRATE INJ/PF 4 MG/4 ML SDV IV ONE ×2 (01:01→01:09)
[2016-11-29] MEDS ORDERED: DEXTROSE 5%-WATER 250 ML with NOREPINEPHRINE BITARTRATE 4 MG IV PRN ×6 (01:01→10:23)
[2016-11-29] MEDS ORDERED: ACETAMINOPHEN 325 MG TABLET PO ONE (02:04)
[2016-11-29 03:07] LABS: ARTERIAL BLOOD BASE EXCESS 1.1 mmol/L; ARTERIAL BLOOD O2 SATURATION 92.7 % (94-98)
--- NOTE | 2016-11-29 03:30 | RADIOLOGY REPORT (SQ) ---
EXAM DESCRIPTION: CT ABD/PELVIS NO ORAL OR IV COMPLETED DATE/TIME: 11/29/2016 3:04 am REASON FOR STUDY: REGINA, UTI, obstruction? COMPARISON: 10/29/2016. CT, chest, 11/16/2016, 10/02/2016 08/29/2016. TECHNIQUE: CT scan of the abdomen and pelvis performed without intravenous or oral contrast. Images reviewed with lung, soft tissue, and bone windows. Reconstructed coronal and sagittal MPR images revi ewed. All images stored on PACS. All CT scanners at this facility use dose modulation, iterative reconstruction, and/or weight based d osing when appropriate to reduce radiation dose to as low as reasonably achievable (ALARA). [facility]: Dose Right [facility]: CareDose [facility]: Dose Right [facility]: Teradose 4D [facility]: Smart Bacterioscan RADIATION DOSE: Up-to-date CT equipment and radiation dose reduction techniques were employed. CTDIv ol: 18.4 mGy. DLP: 996 mGy-cm.mGy. LIMITATIONS: None. FINDINGS: LOWER CHEST: Small consolidative opacity of the right lung base slightly improved compared with prior eggs CT from August 2016. Moderate centrilobular emphysema of the lung bases. Moderate c ardiac enlargement. NON-CONTRASTED LIVER, SPLEEN, ADRENALS: Evaluation limited by lack of IV contrast. No identified sign ificant masses. Chronic 1.0 cm likely right adrenal adenoma. Punctate calcified hepatic granuloma. PANCREAS: Moderate to severe atrophy. GALLBLADDER: No identified stones by CT criteria. No inflammatory changes to suggest cholecystitis. RIGHT KIDNEY AND URETER: No suspicious masses. Assessment limited by lack of IV contrast. No signif icant calcifications. No hydronephrosis or hydroureter. Small scar. Likely benign cystic lesions measuring up to 1.8 cm not definitively characterized. LEFT KIDNEY AND URETER: No suspicious masses. Assessment limited by lack of IV contrast. No signifi cant calcifications. No hydronephrosis or hydroureter. Likely benign cysts measuring up to 4.5 cm not definitively characterized. AORTA AND RETROPERITONEUM: No aneurysm. No retroperitoneal masses or adenopathy. IVC filter. The BOWEL AND PERITONEAL CAVITY: No obvious masses or inflammatory changes. No free fluid. Small sigmoid diverticulosis. APPENDIX: Normal. PELVIS, BLADDER, AND ABDOMINAL WALL:No abnormal masses. No free fluid. Bladder normal. Herniorrhaphy repair mesh of the anterior abdominal- pelvic wall. Likely [employer] shunt/other catheter tip in the left paracentral pelvis, partially imaged. BONES: No significant findings. OTHER: Mild soft tissue subcutaneous edema. Scattered subcutaneous injection granulomata. IMPRESSION: No acute findings. TECHNICAL DOCUMENTATION: JOB ID: [id number] Quality ID # [id number]: Final reports with documentation of one or more dose reduction techniques (e.g., Au tomated exposure control, adjustment of the mA and/or kV according to patient size, use of iterative reconstruction technique) 2010 [employer]- All Rights Reserved
[2016-11-29] MEDS ORDERED: HYDROCORTISONE SOD SUCCINATE INJ/PF 100 MG/2 ML SDV IV ONE (04:04)
[2016-11-29] MEDS ORDERED: ONDANSETRON HCL INJ/PF 4 MG/2 ML SDV IV PRN (04:09)
[2016-11-29] MEDS ORDERED: VANCOMYCIN HCL 0 MG in DEXTROSE 5%-WATER 250 ML IV NR (04:15)
[2016-11-29] MEDS ORDERED: DEXTROSE 50%-WATER 25 GM/50 ML DISP.SYRIN IV PRN ×2 (04:16)
[2016-11-29] MEDS ORDERED: GLUCAGON,HUMAN RECOMB 1 MG INJ IM PRN (04:16)
[2016-11-29] MEDS ORDERED: DEXTROSE 40% GEL 15 GM TUBE PO PRN ×2 (04:16)
[2016-11-29] MEDS ORDERED: CALCIUM GLUCONATE 1000 MG/10 ML INJ IV PRN (04:54)
[2016-11-29] MEDS ORDERED: CALCIUM GLUCONATE 2,222 MG in DEXTROSE 5%-WATER 100 ML IV ONE (05:00)
[2016-11-29] MEDS: NORMAL SALINE 1000 ML 1,000 ML IV PRN ×2 (05:01→05:51)
[2016-11-29] MEDS ORDERED: HYDROCORTISONE SOD SUCCINATE INJ/PF 100 MG/2 ML SDV IV SCH (06:00)
--- NOTE | 2016-11-29 06:04 | PDOC H&P ---
History of Present Illness Admission Date/PCP: 11/29/16 04:09 Patient complains of: Altered mental status and hypoglycemia History of Present Illness: DANYELL ABBASI is a 71 year old female with an extensive past medical history of congestive heart failure, COPD, tobacco dependence, atrial fibrillation, peripheral vascular disease diabetes and cardiac arrest. Patient has been referred to hospice pending coordination of care. Patient was found unarousable by power of family law attorney Cameron porter EMS arrived finding a blood sugar of 12 she received IM glucagon and dextrose patient had not been eating and unclear compliance with medication. She is unable to provide history in the emergency room she is severely hypotensive and short of breath started on BiPAP, levothyroid and empiric antibiotics for possible sepsis with UTI and referred to hospice for admission. Past Medical History Cardiac Medical History: Reports: Atrial Fibrillation, Congestive Heart Failure , Coronary Artery Disease, Hyperlipidema, Hypertension, Peripheral Vascular Disease, Heart Murmur Denies: Myocardial Infarction Pulmonary Medical History: Reports: Chronic Obstructive Pulmonary Disease (COPD ) - The patient is prescribed oxygen. She does not use it., Pneumonia, Respiratory Failure Endocrine Medical History: Reports: Diabetes Mellitus Type 2 - Insulin-dependent GI Medical History: Reports: Gastroesophageal Reflux Disease Musculoskeltal Medical History: Reports: Arthritis Psychiatric Medical History: Denies: Depression Infectious Medical History: Reports: Clostridium Difficile Past Surgical History Past Surgical History: Reports: Cardiac Catheterization, Cholecystectomy, Orthopedic Surgery - Bilateral AKA, Other - Some sort of intervention for pseudocyst. Social History Information Source: [facility] Records Smoking Status: Current Every Day Smoker Frequency of Alcohol Use: None - States she has not used alcohol since 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 Hx Recreational Drug Use: No Drugs: None Hx Prescription Drug Abuse: No - Advance Directive Resuscitation Status: Do Not Resuscitate Family History Family History: CAD, DM Parental Family History Reviewed: Yes Children Family History Reviewed: Yes Sibling(s) Family History Reviewed.: Yes Medication/Allergy Home Medications: Albuterol Sulfate [Ventolin 0.083% Neb 2.5 mg/3 mL Ampul] 1 vial NEB [id number] PRN 11/14/16 Aspirin [Aspirin EC] 81 mg PO DAILY 11/14/16 Atorvastatin Calcium [Lipitor 20 mg Tablet] 20 mg PO QHS 11/14/16 Carvedilol [Coreg 3.125 mg Tablet] 3.125 mg PO Q12 11/14/16 Furosemide [Lasix] 40 mg PO Q12 11/14/16 Gabapentin [Neurontin 300 mg Capsule] 300 mg PO QAM 11/14/16 Gabapentin [Neurontin 300 mg Capsule] 600 mg PO QHS 11/14/16 Hydrocortisone [Cortef 10 mg Tablet] 15 mg PO QAM 11/14/16 Insulin Aspart [Novolog Flexpen] 6 unit SUBCUT AC 11/14/16 Insulin Glargine,Hum.rec.anlog [Lantus Solostar] 45 unit SQ QHS 11/14/16 Omeprazole 20 mg PO DAILY 11/14/16 Petrolatum,White [Balmex] 2 oz TP BID 11/14/16 Tiotropium [place] [Spiriva Handihaler 18 mcg/dose (30 Dose)] 1 cap IH DAILY Fluconazole [Diflucan 100 mg Tablet] 100 mg PO DAILY #10 tablet 11/19/16 Guaifenesin [Mucinex Sr 600 mg Tablet.sa] 600 mg PO Q12 #60 tablet.sa 11/19/16 Hydrocortisone [Cortef 10 mg Tablet] 10 mg PO QHS tablet 11/19/16 Lidocaine [Lidoderm 5% (700 mg) Transdermal Patch] 1 patch TP QHS #30 adh..patch 11/19/16 Lisinopril [Prinivil 5 mg Tablet] 0.5 tab PO DAILY #0 11/19/16 Metronidazole [Flagyl 500 mg Tablet] 500 mg PO Q6 #32 tablet 11/19/16 Oxycodone HCl [Oxy-Ir 5 mg Tablet] 5 mg PO Q6H PRN #0 11/19/16 Allergies/Adverse Reactions: Penicillins Allergy (Verified 11/14/16 23:07) Sulfa (Sulfonamide Antibiotics) Allergy (Verified 11/14/16 23:07) Review of Systems ROS unobtainable: Due to mental status Physical Exam Vital Signs: Temp Pulse Resp BP Pulse Ox 101.1 F H 23 H 94/61 L 95 11/29/16 01:18 11/29/16 04:13 11/29/16 01:18 11/29/16 04:13 Intake & Output 11/27/16 11/28/16 11/29/16 11:59 11:59 11:59 Weight 80.7 kg General appearance: PRESENT: disheveled, severe distress, other - Chronically ill appearing with temporal wasting Head exam: PRESENT: atraumatic, normocephalic Eye exam: PRESENT: conjunctiva pink, EOMI, PERRLA. ABSENT: scleral icterus Ear exam: PRESENT: normal external ear exam Mouth exam: PRESENT: dry mucosa, tongue midline Neck exam: ABSENT: carotid bruit, JVD, lymphadenopathy, thyromegaly Respiratory exam: PRESENT: accessory muscle use, decreased breath sounds, retraction, symmetrical, tachypnea Cardiovascular exam: PRESENT: gallop, irregular rhythm. ABSENT: diastolic murmur, rubs, systolic murmur Pulses: PRESENT: normal dorsalis pedis pul Vascular exam: PRESENT: normal capillary refill GI/Abdominal exam: PRESENT: normal bowel sounds, soft. ABSENT: distended, guarding, mass, organolmegaly, rebound, tenderness Rectal exam: PRESENT: deferred Extremities exam: PRESENT: full ROM, other - Bilateral BKA. ABSENT: calf tenderness, clubbing, pedal edema Neurological exam: PRESENT: altered, oriented to person, CN II-XII grossly intact. ABSENT: motor sensory deficit Psychiatric exam: PRESENT: appropriate affect, normal mood. ABSENT: homicidal ideation, suicidal ideation Skin exam: PRESENT: dry, intact, warm. ABSENT: cyanosis, rash Results Impressions: Chest X-Ray 11/28/16 22:48 IMPRESSION: Density noted in the right lung base which could represent small effusion with associated atelectasis or infiltrate. Correlate clinically. Chronic parenchymal changes noted both bases. Abdomen/Pelvis CT 11/29/16 02:17 IMPRESSION: No acute findings. Assessment & Plan - Diagnosis (1) Severe sepsis Is this a current diagnosis for this admission?: YesPlan: Likely secondary to urinary tract infection complicated by adrenal insufficiency. CT does not suggest obstruction and culture follow-up CBC empiric antibiotics, IV fluid challenge and pressors as needed (2) UTI (urinary tract infection) Qualifiers: Urinary tract infection type: acute cystitis Hematuria presence: without hematuria Qualified Code(s): N30.00 - Acute cystitis without hematuria Is this a current diagnosis for this admission?: YesPlan: Empiric antibiotics, IV fluid challenge follow-up urine culture (3) Acute kidney injury Is this a current diagnosis for this admission?: YesPlan: Secondary to sepsis, IV fluid challenge avoiding nephrotoxic meds and doses reevaluation of chemistry (4) Acute on chronic respiratory failure with hypoxia Is this a current diagnosis for this admission?: YesPlan: BiPAP support, supplemental oxygen, albuterol and Atrovent - Time Time Spent: 50 to 70 Minutes - Inpatient Certification Medical Necessity: Need Close Monitoring Due to Risk of Patient Decompensation
[2016-11-29] MEDS ORDERED: CALCIUM GLUCONATE 1000 MG/10 ML INJ IV ONE ×3 (06:15→06:18)
[2016-11-29 06:17] LABS: ABSOLUTE BASOPHILS # (AUTO) 0.1 10^3/uL (0.0-0.2); ABSOLUTE LYMPHOCYTES (AUTO) 1.9 10^3/uL (0.5-4.7); ABSOLUTE MONOCYTES (AUTO) 1.3 10^3/uL (0.1-1.4); ABSOLUTE NEUT (AUTO) 15.4 10^3/uL (1.7-8.2); BASOPHILS % (AUTO) 0.4 % (0-2); EOSINOPHILS % (AUTO) 0.2 % (0-6); HEMATOCRIT 29.4 % (36.0-47.0); HGB HCT DIFFERENCE -3.3; LYMPHOCYTES % (AUTO) 10.1 % (13-45); MEAN CORPUSCULAR HEMOGLOBIN 26.2 pg (27.0-33.4); MEAN CORPUSCULAR HGB CONC 29.8 g/dL (32.0-36.0); MEAN CORPUSCULAR VOLUME 88 fl (80-97); RED BLOOD COUNT 3.33 10^6/uL (3.72-5.28); RED CELL DISTRIBUTION WIDTH 21.2 % (11.5-14.0); SEGMENTED NEUTROPHILS % (AUTO) 82.3 % (42-78); WHITE BLOOD COUNT 18.7 10^3/uL (4.0-10.5)
[2016-11-29] MEDS: HEPARIN SOD (PORCINE) 5,000 UNIT/ML 1 ML SYRINGE SUBCUT SCH ×3 (06:20→22:00)
[2016-11-29 06:22] LABS: PHOSPHORUS 5.8 mg/dL (2.5-4.5)
[2016-11-29 06:23] LABS: ALANINE AMINOTRANSFERASE 34 U/L (9-52); ALBUMIN 2.3 g/dL (3.5-5.0); ALKALINE PHOSPHATASE 84 U/L (38-126); ANION GAP 12 (5-19); ASPARTATE AMINO TRANSFERASE 35 U/L (14-36); BILIRUBIN,DIRECT 0.5 mg/dL (0.0-0.4); BILIRUBIN,TOTAL 0.5 mg/dL (0.2-1.3); BLOOD UREA NITROGEN 34 mg/dL (7-20); CARBON DIOXIDE 24 mmol/L (22-30); CHLORIDE 98 mmol/L (98-107); CREATINE KINASE 325 U/L (30-135); CREATININE RESULT 1.74 mg/dL (0.52-1.25); GLUCOSE 130 mg/dL (75-110); POTASSIUM 3.7 mmol/L (3.6-5.0); TOTAL PROTEIN 5.3 g/dL (6.3-8.2)
[2016-11-29 06:30] LABS: HEMOGLOBIN 8.7 g/dL (12.0-15.5)
[2016-11-29 06:34] LABS: CREATINE KINASE MB 1.09 ng/mL (<4.55)
[2016-11-29 06:37] LABS: CALCIUM 6.4 mg/dL (8.4-10.2)
[2016-11-29 06:38] LABS: MAGNESIUM 0.8 mg/dL (1.6-2.3)
[2016-11-29 06:42] LABS: TROPONIN I 0.42 ng/mL
[2016-11-29] MEDS: NORMAL SALINE 1000 ML 1,000 ML IV SCH ×2 (06:57→08:57)
--- NOTE | 2016-11-29 07:47 | EKG REPORT ---
SEVERITY:- ABNORMAL ECG - SINUS TACHYCARDIA LOW VOLTAGE IN FRONTAL LEADS NONSPECIFIC T ABNORMALITIES, LATERAL LEADS BORDERLINE PROLONGED QT INTERVAL : Confirmed by: Esau Avila MD 29-Nov-2016 07:47:01
--- NOTE | 2016-11-29 07:47 | EKG REPORT ---
SEVERITY:- ABNORMAL ECG - SINUS TACHYCARDIA INTERPOLATED VENTRICULAR PREMATURE COMPLEX LOW VOLTAGE IN FRONTAL LEADS NONSPECIFIC T ABNORMALITIES, LATERAL LEADS : Confirmed by: Esau Avila MD 29-Nov-2016 07:47:22
[2016-11-29] MEDS: IPRATROPIUM/ALBUTEROL 0.5-2.5 MG/3 ML AMPUL NEB SCH ×3 (07:51→19:45)
[2016-11-29] MEDS ORDERED: IPRATROPIUM/ALBUTEROL 0.5-2.5 MG/3 ML AMPUL NEB ONE (08:00)
[2016-11-29] MEDS ORDERED: MAGNESIUM SULFATE/D5W 1 GM/100 ML RTUPB IV ONE ×2 (08:51→19:21)
[2016-11-29] MEDS: GABAPENTIN 300 MG CAPSULE PO SCH ×2 (08:57→22:03)
[2016-11-29] MEDS ORDERED: MAGNESIUM SULFATE/D5W 100 ML IV SCH (09:00)
[2016-11-29] MEDS ORDERED: NORMAL SALINE 1000 ML 1,000 ML IV PRN (09:01)
--- NOTE | 2016-11-29 09:15 | PDOC PROGRESS REPORT ---
Subjective Progress Note for:: 11/29/16 Subjective:: Patient with respiratory requiring BiPAP. She is alert but will not respond appropriately/consistently to questions. Physical Exam Vital Signs: Temp Pulse Resp BP Pulse Ox 99.9 F 104 H 13 117/65 100 11/29/16 08:05 11/29/16 08:00 11/29/16 08:05 11/29/16 08:03 11/29/16 08:05 Intake & Output 11/28/16 11/29/16 11/30/16 06:59 06:59 06:59 Intake Total 4281 Output Total 50 Balance 4231 Weight 80.7 kg GENERAL: No acute distress, obese HEENT: Conjunctiva clear, nonicteric, moist mucous membranes, no JVD, midline trachea RESPIRATORY: Bilateral rhonchi CARDIAC: Regular rate and rhythm, no murmurs/gallops/rubs ABDOMEN: Soft, nondistended, nontender, positive bowel sounds, no rebound, no guarding EXTREMETIES: No edema, cyanosis, clubbing. Bilateral above-knee amputation NEUROLOGIC: Alert, disoriented, CN's grossly intact, no focal deficits SKIN: No rash, wounds Results Laboratory Results: 11/29/16 05:57 11/29/16 05:57 11/29/16 11/29/16 11/29/16 05:57 05:57 05:57 WBC 18.7 H RBC 3.33 L Hgb 8.7 L D Hct 29.4 L MCV 88 MCH 26.2 L MCHC 29.8 L RDW 21.2 H Plt Count 312 Seg Neutrophils % 82.3 H Lymphocytes % 10.1 L Monocytes % 7.0 Eosinophils % 0.2 Basophils % 0.4 Absolute Neutrophils 15.4 H Absolute Lymphocytes 1.9 Absolute Monocytes 1.3 Absolute Eosinophils 0.0 Absolute Basophils 0.1 Sodium 134.0 L Potassium 3.7 Chloride 98 Carbon Dioxide 24 Anion Gap 12 BUN 34 H Creatinine 1.74 H Est GFR ( Amer) 35 L Est GFR (Non-Af Amer) 29 L Glucose 130 H Calcium 6.4 L* Phosphorus 5.8 H Magnesium 0.8 L* Total Bilirubin 0.5 AST 35 ALT 34 Alkaline Phosphatase 84 Total Protein 5.3 L Albumin 2.3 L 11/29/16 11/29/16 05:57 05:57 Creatine Kinase 325 H CK-MB (CK-2) 1.09 Troponin I 0.420 Impressions: Chest X-Ray 11/28/16 22:48 IMPRESSION: Density noted in the right lung base which could represent small effusion with associated atelectasis or infiltrate. Correlate clinically. Chronic parenchymal changes noted both bases. Abdomen/Pelvis CT 11/29/16 02:17 IMPRESSION: No acute findings. Assessment & Plan - Diagnosis (1) Acute on chronic respiratory failure with hypoxia Is this a current diagnosis for this admission?: YesPlan: Continue BiPAP for respiratory support. Patient is DO NOT RESUSCITATE/DO NOT INTUBATE status. (2) Septic shock Is this a current diagnosis for this admission?: YesPlan: Continue IV hydrocortisone. Continue Levophed drip for now. Consult cardiology for assistance given patient's elevated troponin, acute CHF and impaired renal function. Decrease IV fluid to 75 mL's per hour given pulmonary edema. (3) UTI (urinary tract infection) Is this a current diagnosis for this admission?: YesPlan: IV aztreonam pending further culture. (4) Right lower lobe pneumonia Qualifiers: Pneumonia type: due to unspecified organism Qualified Code(s): J18.1 - Lobar pneumonia, unspecified organism Is this a current diagnosis for this admission?: YesPlan: Likely bacterial with high probability of gram-negative organism given recent hospitalization. Discontinue IV Rocephin secondary to penicillin allergy. Discontinue IV vancomycin for now secondary to impaired renal function. Start IV aztreonam and IV azithromycin. (5) Acute on chronic systolic CHF (congestive heart failure) Is this a current diagnosis for this admission?: YesPlan: Echocardiogram 11/15/2016 with ejection fraction 40-50%, grade 1/4 diastolic dysfunction,Moderate tricuspid regurgitation. Decrease IV fluids to maintenance rate of 75 mL/h. If respiratory status worsens we will initiate diuretic therapy however for now patient is hypotensive secondary to septic shock requiring pressors. Consult cardiology for management given this and elevated troponin given patient's fragile clinical status. (6) Acute kidney injury Is this a current diagnosis for this admission?: YesPlan: Gentle IV fluids. Monitor kidney function closely. Avoid nephrotoxic medications. (7) Adrenal insufficiency Is this a current diagnosis for this admission?: YesPlan: IV hydrocortisone while in septic shock. (8) Elevated troponin I level Is this a current diagnosis for this admission?: Yes (9) Hypomagnesemia Is this a current diagnosis for this admission?: YesPlan: Replace (10) Peripheral vascular disease Is this a current diagnosis for this admission?: Yes (11) Tobacco abuse Is this a current diagnosis for this admission?: YesPlan: Status post bilateral above-knee amputations. (12) DNR (do not resuscitate) Is this a current diagnosis for this admission?: Yes - Time Critical Time spent with patient: 35 or more minutes
[2016-11-29] MEDS: ASPIRIN 81 MG TABLET, ENT COATED PO SCH (09:39)
[2016-11-29] MEDS: DOCUSATE SODIUM 100 MG CAPSULE PO SCH ×2 (09:39→17:12)
[2016-11-29] MEDS ORDERED: INSULIN GLARGINE,HUM.REC.ANLOG 300 UNIT/3 ML INSULN.PEN SUBCUT SCH (10:00)
[2016-11-29] MEDS ORDERED: CEFTRIAXONE 1 GM/D5W RTU 50 ML IV SCH (10:00)
[2016-11-29] MEDS: AZITHROMYCIN 500 MG in DEXTROSE 5%-WATER 250 ML IV SCH (10:37)
[2016-11-29] MEDS: HYDROCORTISONE SOD SUCCINATE INJ/PF 100 MG/2 ML SDV IV SCH ×2 (10:39→17:23)
[2016-11-29] MEDS: DEXTROSE 5%-WATER 250 ML with VASOPRESSIN 100 UNIT IV PRN ×4 (11:28→20:06)
[2016-11-29] MEDS ORDERED: AZTREONAM 1 GM in DEXTROSE 5%-WATER 50 ML IV ONE (12:00)
[2016-11-29] MEDS ORDERED: AZTREONAM 1 GM in DEXTROSE 5%-WATER 100 ML IV ONE (12:00)
[2016-11-29] MEDS: MORPHINE SULFATE 10 MG/ML INJ IV PRN ×2 (12:29→20:05)
[2016-11-29 13:20] LABS: CREATINE KINASE MB 1.15 ng/mL (<4.55); TROPONIN I 0.217 ng/mL
[2016-11-29] MEDS ORDERED: FUROSEMIDE INJ/PF 20 MG/2 ML SDV IV ONE (15:00)
[2016-11-29 18:21] LABS: ANION GAP 12 (5-19); BLOOD UREA NITROGEN 36 mg/dL (7-20); CARBON DIOXIDE 20 mmol/L (22-30); CHLORIDE 97 mmol/L (98-107); CREATINE KINASE 279 U/L (30-135); CREATININE RESULT 1.45 mg/dL (0.52-1.25); GLUCOSE 319 mg/dL (75-110); MAGNESIUM 1.4 mg/dL (1.6-2.3); SODIUM 129.3 mmol/L (137-145)
[2016-11-29 18:37] LABS: CALCIUM 7.1 mg/dL (8.4-10.2); POTASSIUM 4.9 mmol/L (3.6-5.0)
[2016-11-29 18:43] LABS: CREATINE KINASE MB 1.08 ng/mL (<4.55); TROPONIN I 0.133 ng/mL
[2016-11-29] MEDS: MAGNESIUM SULFATE 1 GM/D5W 100 ML IV SCH ×2 (19:31→20:07)
--- NOTE | 2016-11-29 20:39 | CONSULTATION REPORT E ---
Consultation Report NAME: DANYELL LEY : 1945 AGE: 71Y DATE: 11/29/2016 605 A TO: NOREEN WALL M.D. FROM: DAVID OCAMPO M.D. Requesting Physician REASON FOR CONSULTATION: Septic shock and also a patient with a history of mild cardiomyopathy with congestive heart failure and urinary tract infection and pneumonia. The patient's blood pressure is 103 systolic on 10 mcg per minute of Levophed, hence the Cardiology consult. Unable to get history from patient. The patient is on BiPAP and is lethargic. HISTORY OF PRESENT ILLNESS: The patient is a 71-year-old female with an extensive past medical history of congestive heart failure, COPD who continues to smoke, paroxysmal atrial fibrillation, peripheral vascular disease, diabetes, and history of cardiac arrest recently in October. The patient was found to be unarousbale by her relative, Mr. Cameron Ley. EMS arrived and found the patient to have a blood sugar of 12, and she did receive IM Glucagon and dextrose. The patient has not been eating well, and hence she has not been very compliant with her medication. On arrival to the ER she was in respiratory distress with severe shortness of breath and also hypotensive, and the patient was placed on BiPAP, started on antibiotics and respiratory treatments, and the patient was also placed on Levophed which has brought her blood pressure up to 103. She also was noted to be in acute renal failure. Note, on 10/03/2016, her GFR was greater than 60, but subsequently her GFR has fallen down, and now she is in acute renal failure with a GFR of 24 mL per minute which is stage 4. She used to be stage 3 since after her September normal GFR. The patient does state she had no chest pain. She is short of breath. There are no symptoms of cough and unable to get any further history. Note that the patient in October of this year had cardiac arrest and had a few compressions and was thought to be in cardiogenic and septic shock and was transferred to [facility], the details of which are still not available as records have been requested. PAST MEDICAL HISTORY: 1. History of paroxysmal atrial fibrillation. 2. History of hypertension. 3. History of coronary artery disease. 4. History of congestive heart failure. 5. History of cardiomyopathy with LV ejection fraction by echocardiogram 11/15/2016 showing LV ejection fraction of 45% to 50%. She also has left ventricular enlargement and severe pulmonary hypertension. October 2016 echocardiogram showed a right ventricular systolic pressure of 73 to 78 mmHg. 6. She also has a history of diabetes mellitus type 2, insulin dependent. 7. There is no history of thyroid disease. 8. She has a history of COPD. The patient continues to smoke. 9. She has a history of pneumonia in the past with a history of several episodes of acute on chronic respiratory failure. The patient is a smoker. 10. She has a history of arthritis and GERD. 11. There is no history of TIA or CVA. As mentioned earlier, the patient's GFR was normal in September of 2016, subsequently went down to chronic kidney disease stage 3. At present, the patient is stage 4 showing the patient is in acute on chronic renal failure. She also this admission is in congestive heart failure and also has pneumonia and urinary tract infection. PAST SURGICAL HISTORY: Positive for: 1. Cardiac catheterization. 2. Cholecystectomy. 3. Orthopedic surgery. 4. She also had an interventional procedure for pseudocyst. 5. Bilateral BKA. SOCIAL HISTORY: The patient does smoke. There is no history of EtOH abuse. FAMILY HISTORY: Positive for coronary artery disease and diabetes mellitus. ADVANCED DIRECTIVES: The patient is a DNR. Her relative, Mr. Cameron Ley, is her surrogate healthcare [id number]. ALLERGIES: She is allergic to: 1. PENICILLIN. 2. And SULFA. REVIEW OF SYSTEMS: Not obtainable since the patient is not cooperative. The patient seems to be slightly lethargic and does not cooperate for review of systems. MEDICATIONS: Include: 1. Tylenol 650 mg p.o. x1 and 650 mg p.o. q.4 h. p.r.n. 2. Aspirin 81 mg p.o. daily. 3. Atorvastatin 20 mg p.o. at bedtime. 4. Aztreonam 1 gram IV x1 and IV q.8 h. 5. Cefepime 1 gram IV piggyback x1. 6. She did get calcium gluconate 1000 mg IV x3. 7. She also is on hypoglycemic precautions with dextrose 40% glucose gel 15 grams p.o. and 30 grams p.o. respectively p.r.n. hypoglycemia. 8. She is on dextrose 50% 100 grams IV x1, and also she is on hypoglycemic precautions with dextrose 50% 12.5 grams and 25 grams IV p.r.n. hypoglycemia. 9. Colace 100 mg p.o. b.i.d. 10. Neurontin 100 mg p.o. at bedtime. 11. Glucagon 1 mg IM p.r.n. 12. Mucinex 600 mg p.o. q.12 h. 13. Heparin 5000 units subcutaneously q.8 h. 14. She did get hydrocortisone 100 mg IV x1 and 50 mg IV q.8 h. for suspected adrenal insufficiency. 15. Levophed drip at 10 mcg per minute. 16. Accu-Cheks q.6 h. with sliding scale regular insulin coverage. 17. Ipratropium albuterol 3 mL nebulizer treatments q.6 h. 18. Levaquin 750 mg IV piggyback x1. 19. Lactobacillus 500 mg p.o. q.12 h. 20. She did get magnesium sulfate 1 gram IV piggyback q.1 h. and then morphine sulfate 2 mg IV q.4 h. p.r.n. 21. She is on vancomycin 1000 mg IV x1. PHYSICAL EXAMINATION: GENERAL: On examination the patient at present is on a BiPAP. She seems to be lethargic. The patient is obese. She is in moderate respiratory distress. There are no accessory muscles of respiration used. VITAL SIGNS: Her temperature is 99 degrees Fahrenheit. Her pulse is 103 beats per minute, sinus tachycardia. Blood pressure is 103/60 on 10 mcg per minute of Levophed. Respirations are 14 per minute. O2 saturations are 95% on a BiPAP with FIO2 of 40%. HEAD: Atraumatic/normocephalic. EYES: Pupils are equal, round, regular, reactive to light and accommodation. Extraocular movements are normal. There is no conjunctival pallor. There is no scleral icterus. EARS: Tympanic membranes are intact. External auditory canals are clear. NOSE: There is no deviated nasal septum. There is no inflammation of the nasal mucous membranes. MOUTH: Mucous membranes of the mouth are moist. Tongue is moist. There are no ulcers. There is no bleeding from the gums. THROAT: There is no redness of the oropharynx. There is no exudate. SKIN: There are no skin rashes. There is no petechia or ecchymosis. There are no skin lesions. NECK: Supple. There is mild JVD present. Carotids are equal. There is no bruit. There is no goiter. There is no lymphadenopathy. LUNGS: Show dry crackles in the right base and bibasilar rales of CHF. HEART: S1, S2 is heard. There is no S3 gallop. There is no S4 gallop. There is a murmur of tricuspid regurgitation and mitral regurgitation present. There is no gallop. There is no rub. ABDOMEN: Soft, obese, nontender. There is no hepatosplenomegaly. Bowel sounds are well heard. There are no tender areas or masses. EXTREMITIES: Femorals are deep. There is bilateral BKA There is no cyanosis or clubbing. CENTRAL NERVOUS SYSTEM: The patient is conscious, moves all 4 extremities. She is very lethargic. PSYCHIATRIC: The patient is lethargic. The patient will not cooperate for a full psychiatric exam. DIAGNOSTIC DATA: The patient's chest x-ray shows right lower lobe pneumonia and also mild CHF. Her abdomen and pelvis CT shows no acute findings. The patient's EKG shows sinus tachycardia, low voltage in frontal leads, nonspecific T-wave abnormalities lateral leads, but this may be due to artifact since there is baseline artifact present. The patient's 24-hour intake has been 4281 mL, output 50 mL. The patient's white count is 18,700, hemoglobin is 8.7, hematocrit is 29.4, platelet count is 312,000. The patient's sodium is 129.3, potassium 4.9, chloride 97, CO2 is 20, the patient's BUN is 36, creatinine 1.45, GFR is reduced at 43 which is chronic kidney disease stage 3. Yesterday the GFR was 35. Earlier on, the GFR was 29 which is stage 4. The lactic acid level was normal at 1.4 millimoles. The patient's calcium is 7.1. Magnesium 1.4, this has been replaced. The patient's CPK is 304, CPK-MB is negative, but initial troponin-I which was 0.098 subsequently went up to 0.420 and subsequently has trended down to 0.217 and 0.133. ABG showed a pH of 7.32, pCO2 is elevated at 55.1, pO2 is low at 70.8, O2 saturations are 92.7 on 40% FIO2 on BiPAP. IMPRESSION: 1. Septic shock. 2. Acute on chronic hypoxic respiratory failure. 3. Elevated troponin-I, most likely secondary to septic shock and UTI and pneumonia. No evidence of del-VF-fpvsczmar IA. 4. Urinary tract infection. 5. Acute renal failure which seems to be acute on chronic, seems to be slightly improved now, now at stage 3 from stage 4 on admission. 6. Right lower lobe pneumonia. 7. Mild CHF. 8. Cardiomyopathy. The patient's LV ejection fraction was 45% to 50% by echocardiogram 11/15/2016. 9. Coronary artery disease, question extent. 10. COPD. 11. Peripheral arterial disease. 12. Severe pulmonary hypertension. 13. Paroxysmal atrial fibrillation by history. 14. History of cardiac arrest. 15. Hyperlipidemia. 16. Diabetes mellitus type 2, insulin dependent. 17. Bilaterakl BKA. 18. DNR. RECOMMENDATIONS: Continue the patient on BiPAP. Continue oxygen. Continue respiratory treatment. Continue antibiotics. Would recommend starting the patient on vasopressin at 0.02 units per minute, increased to 0.03 units per minute with a maximum dose of 0.04 units per minute and wean off the patient's Levophed. Note that the patient's medications have been reviewed. I will try to get the patient's records from [facility] to see if the patient did have a cardiac catheterization after a cardiac arrest here in October of 2016. Note, medications have been reviewed and adjusted. I saw the patient at about 10 o'clock in the morning and spent 45 minutes of critical care time with the patient adjusting the patient's medications and seeing the response to the patient's vasopressin and to see the patient's Carlos-Synephrine being brought down which is being done. Note, this is a highly complex medical decision making requirement in this case. Discussed with the other caregiving providers. More than 75% of the time spent on direct patient care with me at the patient's bedside and seeing the response to the medications. Will follow with you. DICTATING PHYSICIAN: NOREEN WALL M.D. [id number] PHY#: [id number] ID: [id number] JOB#: [id number] ACCT: [id number] cc:NOREEN WALL M.D. > MTDD
[2016-11-29] MEDS ORDERED: VANCOMYCIN HCL 1,000 MG in DEXTROSE 5%-WATER 250 ML IV SCH (22:00)
[2016-11-29] MEDS: ATORVASTATIN CALCIUM 20 MG TABLET PO SCH (22:02)
[2016-11-29] MEDS: GUAIFENESIN 600 MG TABLET.SA PO SCH (22:03)
[2016-11-29] MEDS: LACTOBACILLUS ACIDOPHILUS 250 MG TAB PO SCH (22:03)
[2016-11-29] MEDS: AZTREONAM 0.5 GM in DEXTROSE 5%-WATER 50 ML IV SCH (22:03)
[2016-11-30] MEDS: INSULIN LISPRO 100 UNIT/ML 3 ML VIAL SUBCUT PRN ×5 (00:54→22:34)
[2016-11-30] MEDS: HYDROCORTISONE SOD SUCCINATE INJ/PF 100 MG/2 ML SDV IV SCH ×4 (01:38→21:36)
[2016-11-30] MEDS: IPRATROPIUM/ALBUTEROL 0.5-2.5 MG/3 ML AMPUL NEB SCH ×3 (01:51→14:12)
[2016-11-30 04:35] LABS: ABSOLUTE LYMPHOCYTES (AUTO) 1.1 10^3/uL (0.5-4.7); ABSOLUTE MONOCYTES (AUTO) 0.9 10^3/uL (0.1-1.4); ABSOLUTE NEUT (AUTO) 17.7 10^3/uL (1.7-8.2); BASOPHILS % (AUTO) 0.1 % (0-2); HEMATOCRIT 27.4 % (36.0-47.0); HEMOGLOBIN 8.1 g/dL (12.0-15.5); HGB HCT DIFFERENCE -3.1; LYMPHOCYTES % (AUTO) 5.7 % (13-45); MEAN CORPUSCULAR HEMOGLOBIN 26.4 pg (27.0-33.4); MEAN CORPUSCULAR HGB CONC 29.5 g/dL (32.0-36.0); MEAN CORPUSCULAR VOLUME 90 fl (80-97); MONOCYTES % (AUTO) 4.5 % (3-13); RED BLOOD COUNT 3.06 10^6/uL (3.72-5.28); RED CELL DISTRIBUTION WIDTH 20.5 % (11.5-14.0); SEGMENTED NEUTROPHILS % (AUTO) 89.7 % (42-78); WHITE BLOOD COUNT 19.7 10^3/uL (4.0-10.5)
[2016-11-30 04:59] LABS: ALANINE AMINOTRANSFERASE 32 U/L (9-52); ALBUMIN 2.4 g/dL (3.5-5.0); ALKALINE PHOSPHATASE 116 U/L (38-126); ANION GAP 11 (5-19); ASPARTATE AMINO TRANSFERASE 58 U/L (14-36); BILIRUBIN,DIRECT 0.5 mg/dL (0.0-0.4); BILIRUBIN,TOTAL 0.5 mg/dL (0.2-1.3); BLOOD UREA NITROGEN 38 mg/dL (7-20); CALCIUM 7.5 mg/dL (8.4-10.2); CARBON DIOXIDE 21 mmol/L (22-30); CHLORIDE 99 mmol/L (98-107); CREATININE RESULT 1.41 mg/dL (0.52-1.25); GLUCOSE 338 mg/dL (75-110); MAGNESIUM 1.8 mg/dL (1.6-2.3); POTASSIUM 4.7 mmol/L (3.6-5.0); SODIUM 130.6 mmol/L (137-145); TOTAL PROTEIN 5.3 g/dL (6.3-8.2)
[2016-11-30] MEDS: HEPARIN SOD (PORCINE) 5,000 UNIT/ML 1 ML SYRINGE SUBCUT SCH (05:55)
[2016-11-30] MEDS: AZTREONAM 0.5 GM in DEXTROSE 5%-WATER 50 ML IV SCH ×3 (05:57→21:36)
--- NOTE | 2016-11-30 07:38 | RADIOLOGY REPORT (SQ) ---
EXAM DESCRIPTION: CHEST SINGLE VIEW COMPLETED DATE/TIME: 11/30/2016 6:46 am REASON FOR STUDY: resp failure COMPARISON: Chest x-ray 11/28/2016. CT abdomen and pelvis 11/29/2016. EXAM PARAMETERS: NUMBER OF VIEWS: One view. TECHNIQUE: Single frontal radiographic view of the chest acquired. RADIATION DOSE: NA LIMITATIONS: None. FINDINGS: LUNGS AND PLEURA: There is blunting of the right costophrenic angle with interval increase in the airspace opacity at the right lung base. No pneumothorax. MEDIASTINUM AND HILAR STRUCTURES: No masses. Contour normal. HEART AND VASCULAR STRUCTURES: The heart is enlarged. No overt vascular congestion. BONES: No acute findings. HARDWARE: None in the chest. IMPRESSION: Cardiomegaly. Blunting of the right costophrenic angle with interval increase in the ai rspace opacity at the right lung base, may represent worsening consolidation and development of a ple ural effusion. TECHNICAL DOCUMENTATION: JOB ID: [id number]
[2016-11-30] MEDS ORDERED: LANSOPRAZOLE 15 MG TAB.RAP.DR PO ONE (09:00)
[2016-11-30] MEDS ORDERED: INSULIN GLARGINE,HUM.REC.ANLOG 300 UNIT/3 ML INSULN.PEN SUBCUT SCH (10:00)
[2016-11-30] MEDS: LACTOBACILLUS ACIDOPHILUS 250 MG TAB PO SCH ×2 (10:12→21:35)
[2016-11-30] MEDS: GABAPENTIN 300 MG CAPSULE PO SCH ×2 (10:14→21:35)
[2016-11-30] MEDS: MORPHINE SULFATE 10 MG/ML INJ IV PRN (10:14)
[2016-11-30] MEDS: GUAIFENESIN 600 MG TABLET.SA PO SCH ×2 (10:14→21:36)
[2016-11-30] MEDS: AZITHROMYCIN 500 MG in DEXTROSE 5%-WATER 250 ML IV SCH (10:16)
[2016-11-30 10:17] LABS: FOLATE > 20.00 ng/mL (>2.76)
[2016-11-30] MEDS: DOCUSATE SODIUM 100 MG CAPSULE PO SCH ×2 (10:19→17:26)
[2016-11-30] MEDS: ASPIRIN 81 MG TABLET, ENT COATED PO SCH (10:19)
--- NOTE | 2016-11-30 12:17 | PDOC PROGRESS REPORT ---
Subjective Progress Note for:: 11/30/16 Subjective:: Patient has been comfortable on nasal cannula oxygen overnight. Patient does have pleuritic chest pain since having chest compressions at recent hospitalization and [facility]. Patient denies fever, chills, headache, new focal weakness, abdominal pain, nausea, vomiting, diarrhea, constipation. Physical Exam Vital Signs: Temp Pulse Resp BP Pulse Ox 96.8 F L 88 14 102/61 99 11/30/16 10:30 11/30/16 10:00 11/30/16 10:30 11/30/16 10:19 11/30/16 10:30 Intake & Output 11/29/16 11/30/16 12/01/16 06:59 06:59 06:59 Intake Total 4281 2962 330 Output Total 50 850 75 Balance 4231 2112 255 Weight 80.7 kg 84.7 kg GENERAL: No acute distress, obese HEENT: Conjunctiva clear, nonicteric, moist mucous membranes, no JVD, midline trachea RESPIRATORY: Bilateral rhonchi CARDIAC: Regular rate and rhythm, no murmurs/gallops/rubs ABDOMEN: Soft, nondistended, nontender, positive bowel sounds, no rebound, no guarding EXTREMETIES: No edema, cyanosis, clubbing. Bilateral above-knee amputation NEUROLOGIC: Alert, disoriented, CN's grossly intact, no focal deficits SKIN: No rash, wounds Results Laboratory Results: 11/30/16 04:25 11/30/16 04:25 11/29/16 11/29/16 11/30/16 17:35 23:30 04:25 WBC 19.7 H RBC 3.06 L Hgb 8.1 L Hct 27.4 L MCV 90 MCH 26.4 L MCHC 29.5 L RDW 20.5 H Plt Count 261 Seg Neutrophils % 89.7 H Lymphocytes % 5.7 L Monocytes % 4.5 Eosinophils % 0.0 Basophils % 0.1 Absolute Neutrophils 17.7 H Absolute Lymphocytes 1.1 Absolute Monocytes 0.9 Absolute Eosinophils 0.0 Absolute Basophils 0.0 Retic Count (auto) Absolute Retic Sodium 129.3 L Potassium 4.9 D Chloride 97 L Carbon Dioxide 20 L Anion Gap 12 BUN 36 H Creatinine 1.45 H Est GFR ( Amer) 43 L Est GFR (Non-Af Amer) 36 L Glucose 319 H Calcium 7.1 L Magnesium 1.4 L 1.8 Iron TIBC % Saturation Ferritin Total Bilirubin AST ALT Alkaline Phosphatase Total Protein Albumin Vitamin B12 Folate 11/30/16 11/30/16 11/30/16 04:25 04:25 04:25 WBC RBC Hgb Hct MCV MCH MCHC RDW Plt Count Seg Neutrophils % Lymphocytes % Monocytes % Eosinophils % Basophils % Absolute Neutrophils Absolute Lymphocytes Absolute Monocytes Absolute Eosinophils Absolute Basophils Retic Count (auto) 3.52 H Absolute Retic 0.108 Sodium 130.6 L Potassium 4.7 Chloride 99 Carbon Dioxide 21 L Anion Gap 11 BUN 38 H Creatinine 1.41 H Est GFR ( Amer) 45 L Est GFR (Non-Af Amer) 37 L Glucose 338 H Calcium 7.5 L Magnesium 1.8 Iron 12.7 L TIBC 230 L % Saturation 6 Ferritin 118.00 Total Bilirubin 0.5 AST 58 H ALT 32 Alkaline Phosphatase 116 Total Protein 5.3 L Albumin 2.4 L Vitamin B12 996.0 H Folate > 20.00 11/29/16 11/29/16 11/29/16 05:57 05:57 12:30 Creatine Kinase 325 H 304 H CK-MB (CK-2) 1.09 Troponin I 0.420 11/29/16 11/29/16 11/29/16 12:30 17:35 18:00 Creatine Kinase 279 H CK-MB (CK-2) 1.15 1.08 Troponin I 0.217 0.133 Impressions: Abdomen/Pelvis CT 11/29/16 02:17 IMPRESSION: No acute findings. Chest X-Ray 11/30/16 06:00 IMPRESSION: Cardiomegaly. Blunting of the right costophrenic angle with interval increase in the airspace opacity at the right lung base, may represent worsening consolidation and development of a pleural effusion. Assessment & Plan - Diagnosis (1) Acute on chronic respiratory failure with hypoxia Is this a current diagnosis for this admission?: YesPlan: Now stable on nasal cannula oxygen. Patient is DO NOT RESUSCITATE/DO NOT INTUBATE status. (2) Septic shock Is this a current diagnosis for this admission?: YesPlan: Continue IV hydrocortisone. Dr. Mullen of cardiology changed patient to vasopressin. Patient is now afebrile. She has persistent leukocytosis however this may be related to corticosteroids. (3) UTI (urinary tract infection) Is this a current diagnosis for this admission?: YesPlan: IV aztreonam pending further culture. (4) Right lower lobe pneumonia Qualifiers: Pneumonia type: due to unspecified organism Qualified Code(s): J18.1 - Lobar pneumonia, unspecified organism Is this a current diagnosis for this admission?: YesPlan: Likely bacterial with high probability of gram-negative organism given recent hospitalization. Continue IV aztreonam and IV azithromycin. (5) Acute on chronic systolic CHF (congestive heart failure) Is this a current diagnosis for this admission?: Yes (6) Acute kidney injury Is this a current diagnosis for this admission?: YesPlan: Gentle IV fluids. Monitor kidney function closely. Avoid nephrotoxic medications. (7) Adrenal insufficiency Is this a current diagnosis for this admission?: YesPlan: IV hydrocortisone while in septic shock. (8) Elevated troponin I level Is this a current diagnosis for this admission?: Yes (9) Hypomagnesemia Is this a current diagnosis for this admission?: Yes (10) Peripheral vascular disease Is this a current diagnosis for this admission?: YesPlan: Status post bilateral above-knee amputation. (11) Tobacco abuse Is this a current diagnosis for this admission?: Yes (12) Diabetes Qualifiers: Diabetes mellitus type: type 2 Diabetes mellitus complication status: with circulatory complication Diabetes mellitus complication detail: with other circulatory complications Diabetes mellitus buttermaker insulin use: with buttermaker use Qualified Code(s): E11.59 - Type 2 diabetes mellitus with other circulatory complications Is this a current diagnosis for this admission?: YesPlan: Start Lantus 30 units subcu daily. Sliding scale insulin coverage. Hyperglycemia also secondary to high-dose steroids. (13) DNR (do not resuscitate) Is this a current diagnosis for this admission?: Yes (14) Anemia Is this a current diagnosis for this admission?: YesPlan: Patient has had precipitous drop in hemoglobin over the past couple days. Repeat CBC this afternoon and transfuse if myoglobin less than 8.0. Start iron supplementation based on labs. Check Hemoccult of stool. Hold heparin. - Time Time Spent with patient: 35 or more minutes
[2016-11-30 13:15] LABS: PROTHROMBIN TIME 23.6 SEC (11.4-15.4)
[2016-11-30 13:16] LABS: FIBRINOGEN 424 mg/dL (209-497); PARTIAL THROMBOPLASTIN TIME 45.8 SEC (23.5-35.8)
[2016-11-30 13:23] LABS: ABSOLUTE LYMPHOCYTES (AUTO) 0.9 10^3/uL (0.5-4.7); ABSOLUTE MONOCYTES (AUTO) 0.7 10^3/uL (0.1-1.4); ABSOLUTE NEUT (AUTO) 15.7 10^3/uL (1.7-8.2); BASOPHILS % (AUTO) 0.1 % (0-2); HEMATOCRIT 27.9 % (36.0-47.0); HEMOGLOBIN 8.2 g/dL (12.0-15.5); HGB HCT DIFFERENCE -3.3; LYMPHOCYTES % (AUTO) 5.4 % (13-45); MEAN CORPUSCULAR HEMOGLOBIN 26.2 pg (27.0-33.4); MEAN CORPUSCULAR HGB CONC 29.3 g/dL (32.0-36.0); MEAN CORPUSCULAR VOLUME 90 fl (80-97); MONOCYTES % (AUTO) 4.3 % (3-13); RED BLOOD COUNT 3.11 10^6/uL (3.72-5.28); SEGMENTED NEUTROPHILS % (AUTO) 90.2 % (42-78); WHITE BLOOD COUNT 17.4 10^3/uL (4.0-10.5)
[2016-11-30] MEDS ORDERED: FUROSEMIDE INJ/PF 20 MG/2 ML SDV IV ONE (13:30)
--- NOTE | 2016-11-30 13:49 | PROGRESS NOTE E ---
Progress Note NAME: DANYELL ABBASI : 1945 AGE: 71Y DATE: 11/30/2016 ROOM: 605 SUBJECTIVE: The patient is more awake and alert today. She does not appear to be short of breath. She does have a cough but is unable to bring up any sputum. The patient still has some orthopnea but no PND. There is no leg edema. There is no chest pain or discomfort. There is no arrhythmia seen on the monitor. There are no symptoms of TIA or CVA. PHYSICAL EXAMINATION: GENERAL: The patient is morbidly obese, in no acute distress. VITAL SIGNS: She is afebrile with a temperature of 96.8 degrees Fahrenheit. Pulse is 87 beats per minute, regular rhythm. Blood pressure is 102/61. Respirations are 14 per minute. O2 sats are 95% on an FIO2 of 2 L nasal cannula. HEENT: Head is atraumatic, normocephalic. Eyes - Pupils are equal, round, regular, reactive to light and accommodation. Extraocular movements are normal. There is no conjunctival pallor. There is no scleral icterus. ENT is negative. NECK: Supple. There is no JVD. Carotids are equal. There is no bruit. There is no goiter. There is no lymphadenopathy. Trachea is central. There are no accessory muscles of respiration in use. LUNGS: On examination, there are absent breath sounds in the right lung base but above that there are dry crackles. There is no evidence of congestive heart failure by exam. HEART: S1 and S2 is heard. There is no S3 gallop. There is no S4 gallop. There is a murmur of tricuspid regurgitation and mitral regurgitation present. There is no gallop. There is no rub. ABDOMEN: Soft, obese, nontender. There is no hepatosplenomegaly. Bowel sounds are well heard. There are no tender areas or masses. EXTREMITIES: Femorals are deep. There are no femoral bruits. There is bilateral [id number] amputations. There is no cyanosis or clubbing. CENTRAL NERVOUS SYSTEM: The patient is conscious, moves her upper extremities. Of note, she has bilateral BKAs. She moves her lower extremity stumps well. PSYCHIATRIC: The patient is slightly lethargic but more awake than yesterday. The patient does not appear to be agitated, confused or depressed. DIAGNOSTICS: The patient's 24-hour intake is 2962 mL and output is 850 mL. Chest x-ray shows right lower lobe pleural effusion with pneumonia. There is no evidence of congestive heart failure by chest x-ray. The patient's white count is 19,700, hemoglobin is 8.1, hematocrit is 27.4, platelet count is 261,000. The patient's sodium is 130.6, potassium 4.7, chloride 99, CO2 is 31, patient's BUN is 38, creatinine is 1.41, GFR is reduced at 45 mL, which is chronic kidney disease stage III, and glucose is uncontrolled at 338. Her calcium is 7.8 and magnesium is 1.8. The patient's iron is low at 12.7, percent saturation is 6, and her TIBC is 230. Her liver function tests show that the direct bilirubin is elevated at 0.5, patient's AST is elevated at 58, patient's ALT is 32, and the patient's alk phos is 116. The patient's folate is greater than 20. Her vitamin B12 is 996. The patient's albumin is 2.4, total protein is 5.3. IMPRESSION: 1. SEPTIC SHOCK. Note that the patient's blood pressure is stable. The patient is on vasopressors at 0.02 units per minute. She is off the Levophed. Continue antibiotics. Continue respiratory treatments. 2. ACUTE ON CHRONIC HYPOXIC RESPIRATORY FAILURE, MUCH BETTER. 3. ELEVATED TROPONIN I MOST LIKELY SECONDARY TO SEPTIC SHOCK, UTI AND PNEUMONIA. NO EVIDENCE OF [id number] ID. 4. URINARY TRACT INFECTION. Continue current antibiotics. 5. ACUTE RENAL FAILURE, SEEMS TO BE ACUTE ON CHRONIC, AT PRESENT IMPROVED, NOW THE PATIENT IS STAGE III CHRONIC KIDNEY DISEASE. 6. RIGHT LOWER LOBE PNEUMONIA. Continue antibiotics and respiratory treatments. 7. AT PRESENT NO EVIDENCE OF CONGESTIVE HEART FAILURE. 8. CARDIOMYOPATHY. The patient's LV ejection fraction was 45% to 50% by echocardiogram on 11/15/2016. 9. CORONARY ARTERY DISEASE, QUESTIONED EXTENT. 10. COPD, AT PRESENT AT BASELINE WITH NO EVIDENCE OF ACUTE EXACERBATION. 11. PERIPHERAL ARTERIAL DISEASE. 12. SEVERE PULMONARY HYPERTENSION. 13. PAROXYSMAL ATRIAL FIBRILLATION BY HISTORY, AT PRESENT IN SINUS RHYTHM WITH NO RECURRENCE OF ATRIAL FIBRILLATION. 14. HISTORY OF CARDIAC ARREST. 15. HYPERLIPIDEMIA. 16. DIABETES MELLITUS, TYPE 2, INSULIN DEPENDENT. 17. BILATERAL BKA. 18. DNR. 19. HYPOTENSION. The patient's blood pressure is stable on vasopressor drip. Patient is off other pressors. RECOMMENDATIONS: Continue the current nasal oxygen, continue antibiotics, continue her anti-COPD and respiratory treatments. Recommend continuing vasopressor for now. Continue her current medical therapy, including antibiotics and respiratory treatments. Will follow up with you. NOTE: Thirty minutes were spent on this patient, more than 50% of the time spent in direct patient care. This continues to involve highly complex medical decision making. Discussed the case with other caregiving providers on this case and formulated a plan of care. Will follow with you. DICTATING PHYSICIAN: NOREEN WALL M.D. [id number] PHY#: [id number] ID: [id number] JOB#: [id number] ACCT: [id number] cc: >
[2016-11-30] MEDS: DEXTROSE 5%-WATER 250 ML with VASOPRESSIN 100 UNIT IV PRN ×2 (17:24)
[2016-11-30] MEDS ORDERED: ALBUTEROL SULFATE 0.083% NEB 2.5 MG/3 ML AMPUL NEB PRN (17:32)
[2016-11-30] MEDS: ATORVASTATIN CALCIUM 20 MG TABLET PO SCH (21:36)
[2016-11-30] MEDS: AMITRIPTYLINE HCL 25 MG TABLET PO SCH (21:38)
[2016-11-30] MEDS: ACETAMINOPHEN 325 MG TABLET PO PRN (21:52)
[2016-12-01 05:04] LABS: ABSOLUTE LYMPHOCYTES (AUTO) 0.8 10^3/uL (0.5-4.7); ABSOLUTE MONOCYTES (AUTO) 0.6 10^3/uL (0.1-1.4); ABSOLUTE NEUT (AUTO) 12.5 10^3/uL (1.7-8.2); BASOPHILS % (AUTO) 0.1 % (0-2); HEMATOCRIT 27.1 % (36.0-47.0); HGB HCT DIFFERENCE -3.1; LYMPHOCYTES % (AUTO) 5.6 % (13-45); MEAN CORPUSCULAR HEMOGLOBIN 25.9 pg (27.0-33.4); MEAN CORPUSCULAR HGB CONC 29.4 g/dL (32.0-36.0); MEAN CORPUSCULAR VOLUME 88 fl (80-97); MONOCYTES % (AUTO) 4.5 % (3-13); RED BLOOD COUNT 3.08 10^6/uL (3.72-5.28); RED CELL DISTRIBUTION WIDTH 21.3 % (11.5-14.0); SEGMENTED NEUTROPHILS % (AUTO) 89.8 % (42-78); WHITE BLOOD COUNT 13.9 10^3/uL (4.0-10.5)
[2016-12-01 05:09] LABS: PROTHROMBIN TIME 17.9 SEC (11.4-15.4)
[2016-12-01 05:10] LABS: PARTIAL THROMBOPLASTIN TIME 42.2 SEC (23.5-35.8)
[2016-12-01] MEDS: AZTREONAM 0.5 GM in DEXTROSE 5%-WATER 50 ML IV SCH ×3 (05:10→21:30)
[2016-12-01 05:31] LABS: ANION GAP 10 (5-19); BLOOD UREA NITROGEN 44 mg/dL (7-20); CALCIUM 7.8 mg/dL (8.4-10.2); CARBON DIOXIDE 22 mmol/L (22-30); CHLORIDE 95 mmol/L (98-107); GLUCOSE 225 mg/dL (75-110); POTASSIUM 4.3 mmol/L (3.6-5.0); SODIUM 127.4 mmol/L (137-145)
[2016-12-01] MEDS: INSULIN LISPRO 100 UNIT/ML 3 ML VIAL SUBCUT PRN ×2 (06:30→18:19)
[2016-12-01] MEDS ORDERED: INSULIN GLARGINE,HUM.REC.ANLOG 300 UNIT/3 ML INSULN.PEN SUBCUT SCH (07:37)
[2016-12-01] MEDS ORDERED: ONDANSETRON HCL INJ/PF 4 MG/2 ML SDV IV PRN (07:50)
[2016-12-01] MEDS: DOCUSATE SODIUM 100 MG CAPSULE PO SCH ×2 (09:34→18:20)
[2016-12-01] MEDS: GABAPENTIN 300 MG CAPSULE PO SCH ×2 (09:35→21:30)
[2016-12-01] MEDS: LACTOBACILLUS ACIDOPHILUS 250 MG TAB PO SCH ×2 (09:35→21:30)
[2016-12-01] MEDS: FLUCONAZOLE 100 MG TABLET PO SCH (09:36)
[2016-12-01] MEDS: LANSOPRAZOLE 15 MG TAB.RAP.DR PO SCH (09:38)
[2016-12-01] MEDS: GUAIFENESIN 600 MG TABLET.SA PO SCH ×2 (09:38→21:30)
[2016-12-01] MEDS: FERROUS SULFATE 325 MG TABLET PO SCH (09:38)
[2016-12-01] MEDS: HYDROCORTISONE SOD SUCCINATE INJ/PF 100 MG/2 ML SDV IV SCH ×2 (09:39→21:30)
[2016-12-01] MEDS: OXYCODONE HCL IR 5 MG TABLET PO PRN (09:39)
[2016-12-01] MEDS: ASPIRIN 81 MG TABLET, ENT COATED PO SCH (09:42)
--- NOTE | 2016-12-01 12:08 | Physician Advisory Note ---
Physician Advisor ProgressNote .: Pursuant to the plan for [facility], I have reviewed the medical record for this patient. Physician Advisor Statement: Complex case! And nice documenting of RLL PNA possibly GNeg type, Ac/chr syst CHF, etc. Please consider documentin. Which infxn is likely cause of septic shock. 2. "acute hyponatremia, likely due to ____" Thanks! CK
[2016-12-01] MEDS: AZITHROMYCIN 500 MG in DEXTROSE 5%-WATER 250 ML IV SCH (12:22)
--- NOTE | 2016-12-01 12:24 | PROGRESS NOTE E ---
Progress Note NAME: DANYELL ABBASI : 1945 AGE: 71Y DATE: 12/01/2016 ROOM: 605 SUBJECTIVE: The patient is much more awake. She denies any chest pain or discomfort. She states the shortness of breath is much improved. She still has some orthopnea. She has a cough productive of white sputum. There is no PND. The patient has bilateral BKA. There is no arrhythmia seen on the monitor. Still awaiting records from [facility] in spite of repeated requests. PHYSICAL EXAMINATION: GENERAL: The patient is mildly obese, in no acute distress. VITAL SIGNS: She is afebrile with a temperature of 97.2 degrees Fahrenheit. Pulse is 86 beats per minute. Blood pressure 120/88. Note that the patient is off vasopressor and the patient is not on any pressors. Her respirations are 14 per minute. O2 sats are 97% on 2 liters nasal cannula. HEENT: Head is atraumatic, normocephalic. Eyes - Pupils are equal, round, regular, reactive to light and accommodation. Extraocular movements are normal. There is no conjunctival pallor. There is no scleral icterus. ENT is negative. NECK: Supple. There is no JVD. Carotids are equal. There is no bruit. There is no goiter. There is no lymphadenopathy. LUNGS: Show diminished air entry, prolonged excursion throughout. There is hyperresonance. There are decreased breath sounds and a few dry crackles in the right base. There is dullness in the lower most portion of the right lower lung base. There is no chest wall tenderness. HEART: S1 and S2 are heard. There is no S3 gallop. There is no S4 gallop. There is a systolic murmur left sternal border in the apex. There is no rub. ABDOMEN: Soft, mildly obese, nontender. There is no hepatosplenomegaly. Bowel sounds are well heard. EXTREMITIES: Femorals are diminished. There are no femoral bruits. There is bilateral BKA. There is no thigh edema. There is cyanosis or clubbing of the upper extremities. CENTRAL NERVOUS SYSTEM: The patient is conscious, awake, alert, oriented x3, with no focal deficits. PSYCHIATRIC: The patient's affect is dull and slow. I am not sure about the judgement and insight since the patient will not cooperate much for this, but the patient is not agitated. The patient's 24-hour intake is 1386 mL and output is 465 mL. DIAGNOSTICS: The patient's white count is 13,900, hemoglobin is 8, hematocrit is 27.1, platelet count is 217,000. Sodium is 127.4, potassium 4.3, chloride 95, CO2 is 22. The patient's BUN is 44, creatinine is 1.50, GFR is reduced at 42, which is chronic kidney disease stage III. Glucose is 225. Her calcium is 7.8. IMPRESSION: 1. SEPTIC SHOCK, RESOLVED. The patient is off all pressors, including vasopressors. Continue antibiotics. Continue fluids. 2. [id number] HYPOXEMIC RESPIRATORY FAILURE, MUCH IMPROVED. Continue respiratory treatments, antibiotics, and steroids. 3. ELEVATED TROPONIN I, MOST LIKELY SECONDARY TO SEPTIC SHOCK, URINARY TRACT INFECTION, AND PNEUMONIA. NO EVIDENCE OF [id number] MYOCARDIAL INFARCTION. Troponin I trending down. 4. ACUTE RENAL FAILURE, SEEMS TO BE [id number] KIDNEY DISEASE AT PRESENT NOW. THE PATIENT HAS STAGE III CHRONIC KIDNEY DISEASE. 6. RIGHT LOWER LOBE PNEUMONIA. Continue antibiotics. Seems to be improved. Continue respiratory treatments. 7. NO EVIDENCE OF CONGESTIVE HEART FAILURE. 8. CARDIOMYOPATHY WITH LEFT VENTRICULAR EJECTION FRACTION MILDLY REDUCED AT 45%-50% BY ECHOCARDIOGRAM OF 11/15/2016. 9. CORONARY ARTERY DISEASE, QUESTION EXTENT. 10. CHRONIC OBSTRUCTIVE PULMONARY DISEASE, AT PRESENT BASELINE WITH NO EVIDENCE OF ACUTE EXACERBATION. 11. PERIPHERAL ARTERIAL DISEASE. 12. SEVERE PULMONARY HYPERTENSION. 13. PAROXYSMAL ATRIAL FIBRILLATION BY HISTORY, AT PRESENT IN SINUS RHYTHM WITH NO RECURRENCE OF ATRIAL FIBRILLATION. 14. HISTORY OF CARDIAC ARREST. Details awaited. I have requested records from [facility]. 15. HYPERLIPIDEMIA. 16. DIABETES MELLITUS, TYPE 2, INSULIN DEPENDENT WITH CHRONIC KIDNEY DISEASE. 17. BILATERAL [id number]. 18. DO NOT RESUSCITATE. 19. HYPOTENSION, RESOLVED, SECONDARY TO URINARY TRACT INFECTION AND PNEUMONIA. 20. URINARY TRACT INFECTION. Continue antibiotics. 21. CHRONIC KIDNEY DISEASE, AT PRESENT STAGE III. Continue oxygen. Continue respiratory treatments. Continue antibiotics. Continue aspirin and atorvastatin. We will later start the patient on amlodipine. We will follow with you. Note, 25 minutes spent on the patient, more than 50% of the time spent in direct patient care, involved moderately complex medical decision-making. Medications reviewed and discussed the case with other attending physicians on the case and formulated a management plan. We will start the patient on amlodipine 2.5 mg p.o. q.12 h. We will follow with you. DICTATING PHYSICIAN: NOREEN WALL M.D. [id number] PHY#: [id number] ID: [id number] JOB#: [id number] ACCT: [id number] cc: >
--- NOTE | 2016-12-01 14:38 | PDOC PROGRESS REPORT ---
Subjective Progress Note for:: 12/01/16 Subjective:: Patient has no new complaints. Patient denies fever, chills, headache, new focal weakness, abdominal pain, nausea, vomiting, diarrhea, constipation. Physical Exam Vital Signs: Temp Pulse Resp BP Pulse Ox 97.2 F 83 9 L 108/81 100 12/01/16 12:00 12/01/16 12:00 12/01/16 12:00 12/01/16 12:00 12/01/16 12:00 Intake & Output 11/30/16 12/01/16 12/02/16 06:59 06:59 06:59 Intake Total 2962 1386 330 Output Total 850 465 65 Balance 2112 921 265 Weight 84.7 kg 86.3 kg GENERAL: No acute distress, obese HEENT: Conjunctiva clear, nonicteric, moist mucous membranes, no JVD, midline trachea RESPIRATORY: Right lung rhonchi CARDIAC: Regular rate and rhythm, no murmurs/gallops/rubs ABDOMEN: Soft, nondistended, nontender, positive bowel sounds, no rebound, no guarding EXTREMETIES: No edema, cyanosis, clubbing. Bilateral above-knee amputation NEUROLOGIC: Alert, disoriented, CN's grossly intact, no focal deficits SKIN: No rash, wounds Results Laboratory Results: 12/01/16 04:45 12/01/16 04:45 11/30/16 12/01/16 12/01/16 04:25 04:45 04:45 WBC 13.9 H RBC 3.08 L Hgb 8.0 L Hct 27.1 L MCV 88 MCH 25.9 L MCHC 29.4 L RDW 21.3 H Plt Count 217 Seg Neutrophils % 89.8 H Lymphocytes % 5.6 L Monocytes % 4.5 Eosinophils % 0.0 Basophils % 0.1 Absolute Neutrophils 12.5 H Absolute Lymphocytes 0.8 Absolute Monocytes 0.6 Absolute Eosinophils 0.0 Absolute Basophils 0.0 Sodium 127.4 L Potassium 4.3 Chloride 95 L Carbon Dioxide 22 Anion Gap 10 BUN 44 H Creatinine 1.50 H Est GFR ( Amer) 42 L Est GFR (Non-Af Amer) 34 L Glucose 225 H Calcium 7.8 L Transferrin 162 L 11/29/16 13:00 Sputum Gram Stain - Final 11/29/16 13:00 Sputum Sputum Culture - Final NORMAL ANDRES 11/29/16 11/29/16 11/29/16 05:57 05:57 12:30 Creatine Kinase 325 H 304 H CK-MB (CK-2) 1.09 Troponin I 0.420 11/29/16 11/29/16 11/29/16 12:30 17:35 18:00 Creatine Kinase 279 H CK-MB (CK-2) 1.15 1.08 Troponin I 0.217 0.133 Impressions: Abdomen/Pelvis CT 11/29/16 02:17 IMPRESSION: No acute findings. Chest X-Ray 11/30/16 06:00 IMPRESSION: Cardiomegaly. Blunting of the right costophrenic angle with interval increase in the airspace opacity at the right lung base, may represent worsening consolidation and development of a pleural effusion. Assessment & Plan - Diagnosis (1) Acute on chronic respiratory failure with hypoxia Is this a current diagnosis for this admission?: YesPlan: Now stable on nasal cannula oxygen. Patient is DO NOT RESUSCITATE/DO NOT INTUBATE status. (2) Septic shock Is this a current diagnosis for this admission?: YesPlan: Secondary to pneumonia. Continue IV hydrocortisone. Dr. Mullen of cardiology changed patient to vasopressin. Hopefully vasopressin can be weaned off today patient is now afebrile. (3) UTI (urinary tract infection) Is this a current diagnosis for this admission?: YesPlan: Fungal. Start Diflucan. (4) Right lower lobe pneumonia Qualifiers: Pneumonia type: due to unspecified organism Qualified Code(s): J18.1 - Lobar pneumonia, unspecified organism Is this a current diagnosis for this admission?: YesPlan: Likely bacterial with high probability of gram-negative organism given recent hospitalization. Continue IV aztreonam and IV azithromycin. (5) Acute on chronic systolic CHF (congestive heart failure) Is this a current diagnosis for this admission?: YesPlan: Echocardiogram 11/15/2016 with ejection fraction 40-50%, grade 1/4 diastolic dysfunction,Moderate tricuspid regurgitation. IV fluids discontinued. Fluid restriction. Hold off on further diuretics at this time. (6) Acute kidney injury Is this a current diagnosis for this admission?: Yes (7) Adrenal insufficiency Is this a current diagnosis for this admission?: YesPlan: IV hydrocortisone while in septic shock. (8) Elevated troponin I level Is this a current diagnosis for this admission?: Yes (9) Hypomagnesemia Is this a current diagnosis for this admission?: Yes (10) Peripheral vascular disease Is this a current diagnosis for this admission?: Yes (11) Tobacco abuse Is this a current diagnosis for this admission?: Yes (12) Diabetes Qualifiers: Diabetes mellitus type: type 2 Diabetes mellitus complication status: with circulatory complication Diabetes mellitus complication detail: with other circulatory complications Diabetes mellitus intermediate school teacher insulin use: with halfway use Qualified Code(s): E11.59 - Type 2 diabetes mellitus with other circulatory complications Is this a current diagnosis for this admission?: YesPlan: Increase Lantus to 40 units subcu daily. Sliding scale insulin coverage. Hyperglycemia also secondary to high-dose steroids. (13) Anemia Is this a current diagnosis for this admission?: YesPlan: Patient has had precipitous drop in hemoglobin over the past couple days. Repeat CBC this afternoon and transfuse if hemoglobin less than 8.0. Started iron supplementation based on labs. Check Hemoccult of stool. Holding heparin. (14) Hyponatremia Is this a current diagnosis for this admission?: YesPlan: Correct hyperglycemia. Hold off on further diuretic therapy. Fluid restriction 1500 mL daily. (15) DNR (do not resuscitate) Is this a current diagnosis for this admission?: Yes - Time Time Spent with patient: 35 or more minutes
[2016-12-01] MEDS: ATORVASTATIN CALCIUM 20 MG TABLET PO SCH (21:30)
[2016-12-01] MEDS: AMITRIPTYLINE HCL 25 MG TABLET PO SCH (21:30)
[2016-12-02] MEDS: INSULIN LISPRO 100 UNIT/ML 3 ML VIAL SUBCUT PRN ×3 (02:21→21:43)
[2016-12-02 05:21] LABS: ABSOLUTE BASOPHILS # (AUTO) 0.1 10^3/uL (0.0-0.2); ABSOLUTE MONOCYTES (AUTO) 0.2 10^3/uL (0.1-1.4); ABSOLUTE NEUT (AUTO) 7.1 10^3/uL (1.7-8.2); BASOPHILS % (AUTO) 0.7 % (0-2); HEMATOCRIT 27.2 % (36.0-47.0); HEMOGLOBIN 8.2 g/dL (12.0-15.5); HGB HCT DIFFERENCE -2.6; MEAN CORPUSCULAR HEMOGLOBIN 26.4 pg (27.0-33.4); MEAN CORPUSCULAR HGB CONC 30.1 g/dL (32.0-36.0); MEAN CORPUSCULAR VOLUME 88 fl (80-97); MONOCYTES % (AUTO) 2.5 % (3-13); RED CELL DISTRIBUTION WIDTH 20.5 % (11.5-14.0); SEGMENTED NEUTROPHILS % (AUTO) 84.8 % (42-78); WHITE BLOOD COUNT 8.4 10^3/uL (4.0-10.5)
[2016-12-02] MEDS: AZTREONAM 0.5 GM in DEXTROSE 5%-WATER 50 ML IV SCH (05:24)
[2016-12-02 05:35] LABS: ANION GAP 10 (5-19); BLOOD UREA NITROGEN 50 mg/dL (7-20); CARBON DIOXIDE 23 mmol/L (22-30); CHLORIDE 93 mmol/L (98-107); CREATININE RESULT 1.58 mg/dL (0.52-1.25); GLUCOSE 163 mg/dL (75-110); POTASSIUM 4.5 mmol/L (3.6-5.0); SODIUM 125.6 mmol/L (137-145)
--- NOTE | 2016-12-02 08:00 | PDOC PROGRESS REPORT ---
Subjective Progress Note for:: 12/02/16 Subjective:: Patient has no new complaints. Blood pressure stable off pressors for the past 24 hours. Patient denies fever, chills, headache, new focal weakness, abdominal pain, nausea, vomiting, diarrhea, constipation. Physical Exam Vital Signs: Temp Pulse Resp BP Pulse Ox 97.2 F 88 8 L 112/78 100 12/02/16 06:25 12/02/16 05:16 12/02/16 06:25 12/02/16 05:40 12/02/16 06:25 Intake & Output 12/01/16 12/02/16 12/03/16 06:59 06:59 06:59 Intake Total 1386 940 Output Total 465 422 Balance 921 518 Weight 86.3 kg 86.7 kg GENERAL: No acute distress, obese HEENT: Conjunctiva clear, nonicteric, moist mucous membranes, no JVD, midline trachea RESPIRATORY: Right lung rhonchi CARDIAC: Regular rate and rhythm, no murmurs/gallops/rubs ABDOMEN: Soft, nondistended, nontender, positive bowel sounds, no rebound, no guarding EXTREMETIES: No edema, cyanosis, clubbing. Bilateral above-knee amputation NEUROLOGIC: Alert, oriented, CN's grossly intact, no focal deficits SKIN: No rash, wounds Results Laboratory Results: 12/02/16 05:05 12/02/16 05:05 11/30/16 12/02/16 12/02/16 04:25 05:05 05:05 WBC 8.4 RBC 3.10 L Hgb 8.2 L Hct 27.2 L MCV 88 MCH 26.4 L MCHC 30.1 L RDW 20.5 H Plt Count 176 Seg Neutrophils % 84.8 H Lymphocytes % 12.0 L Monocytes % 2.5 L Eosinophils % 0.0 Basophils % 0.7 Absolute Neutrophils 7.1 Absolute Lymphocytes 1.0 Absolute Monocytes 0.2 Absolute Eosinophils 0.0 Absolute Basophils 0.1 Sodium 125.6 L Potassium 4.5 Chloride 93 L Carbon Dioxide 23 Anion Gap 10 BUN 50 H Creatinine 1.58 H Est GFR ( Amer) 39 L Est GFR (Non-Af Amer) 32 L Glucose 163 H Calcium 8.0 L Transferrin 162 L 11/29/16 13:00 Sputum Gram Stain - Final 11/29/16 13:00 Sputum Sputum Culture - Final NORMAL ANDRES 11/29/16 11/29/16 11/29/16 05:57 05:57 12:30 Creatine Kinase 325 H 304 H CK-MB (CK-2) 1.09 Troponin I 0.420 11/29/16 11/29/16 11/29/16 12:30 17:35 18:00 Creatine Kinase 279 H CK-MB (CK-2) 1.15 1.08 Troponin I 0.217 0.133 Impressions: Abdomen/Pelvis CT 11/29/16 02:17 IMPRESSION: No acute findings. Chest X-Ray 11/30/16 06:00 IMPRESSION: Cardiomegaly. Blunting of the right costophrenic angle with interval increase in the airspace opacity at the right lung base, may represent worsening consolidation and development of a pleural effusion. Assessment & Plan - Diagnosis (1) Acute on chronic respiratory failure with hypoxia Is this a current diagnosis for this admission?: YesPlan: Now stable on 2 L nasal cannula oxygen. Patient is DO NOT RESUSCITATE/DO NOT INTUBATE status. (2) Septic shock Is this a current diagnosis for this admission?: YesPlan: Secondary to pneumonia. Blood pressure now stable off pressors 24 hours. Discontinue IV hydrocortisone. Start oral hydrocortisone. (3) UTI (urinary tract infection) Is this a current diagnosis for this admission?: YesPlan: Fungal. Started Diflucan on 12/01/2016. (4) Right lower lobe pneumonia Qualifiers: Pneumonia type: due to unspecified organism Qualified Code(s): J18.1 - Lobar pneumonia, unspecified organism Is this a current diagnosis for this admission?: YesPlan: Likely bacterial with high probability of gram-negative organism given recent hospitalization. Discontinue IV aztreonam and IV azithromycin. Start Levaquin 750 mg p.o. daily. (5) Acute on chronic systolic CHF (congestive heart failure) Is this a current diagnosis for this admission?: YesPlan: Patient's weight is up 6 kg and in the +9 L fluid balance since admission. Echocardiogram 11/15/2016 with ejection fraction 40-50%, grade 1/4 diastolic dysfunction,Moderate tricuspid regurgitation. Resume Lasix 40 mg twice daily. Restart home dose of Coreg 3.125 mg twice daily. (6) Acute kidney injury Is this a current diagnosis for this admission?: YesPlan: Kidney function improved since admission. (7) Adrenal insufficiency Is this a current diagnosis for this admission?: YesPlan: Discontinue IV hydrocortisone. Start oral hydrocortisone 20 mg twice daily. (8) Elevated troponin I level Is this a current diagnosis for this admission?: Yes (9) Hypomagnesemia Is this a current diagnosis for this admission?: Yes (10) Peripheral vascular disease Is this a current diagnosis for this admission?: YesPlan: Status post bilateral above-knee amputation. (11) Tobacco abuse Is this a current diagnosis for this admission?: Yes (12) Diabetes Qualifiers: Diabetes mellitus type: type 2 Diabetes mellitus complication status: with circulatory complication Diabetes mellitus complication detail: with other circulatory complications Diabetes mellitus care home insulin use: with care home use Qualified Code(s): E11.59 - Type 2 diabetes mellitus with other circulatory complications Is this a current diagnosis for this admission?: YesPlan: Lantus 40 units subcu daily. Sliding scale insulin coverage. Hyperglycemia also secondary to high-dose steroids. (13) Anemia Is this a current diagnosis for this admission?: YesPlan: Patient has had precipitous drop in hemoglobin over the past couple days. Repeat CBC this afternoon and transfuse if hemoglobin less than 8.0. Started iron supplementation based on labs. Check Hemoccult of stool. Holding heparin. (14) Hyponatremia Is this a current diagnosis for this admission?: YesPlan: Correct hyperglycemia. CHF contributing. Fluid restriction [address] of chest done last month showed no mass. (15) DNR (do not resuscitate) Is this a current diagnosis for this admission?: Yes - Time Time Spent with patient: 35 or more minutes
[2016-12-02] MEDS: GABAPENTIN 300 MG CAPSULE PO SCH ×2 (08:18→21:42)
[2016-12-02] MEDS: LANSOPRAZOLE 15 MG TAB.RAP.DR PO SCH (08:18)
[2016-12-02] MEDS: FERROUS SULFATE 325 MG TABLET PO SCH (09:44)
[2016-12-02] MEDS: LEVOFLOXACIN 750 MG TABLET PO SCH (09:44)
[2016-12-02] MEDS: ASPIRIN 81 MG TABLET, ENT COATED PO SCH (09:44)
[2016-12-02] MEDS: FLUCONAZOLE 100 MG TABLET PO SCH (09:45)
[2016-12-02] MEDS: LACTOBACILLUS ACIDOPHILUS 250 MG TAB PO SCH ×2 (09:45→21:42)
[2016-12-02] MEDS: GUAIFENESIN 600 MG TABLET.SA PO SCH ×2 (09:45→21:42)
[2016-12-02] MEDS: CARVEDILOL 3.125 MG TABLET PO SCH ×2 (09:46→21:42)
[2016-12-02] MEDS: HYDROCORTISONE 10 MG TABLET PO SCH ×2 (09:46→18:55)
[2016-12-02] MEDS: FUROSEMIDE 40 MG TABLET PO SCH ×2 (09:48→21:42)
[2016-12-02] MEDS ORDERED: LEVOFLOXACIN 750 MG TABLET PO SCH (10:00)
[2016-12-02] MEDS: DOCUSATE SODIUM 100 MG CAPSULE PO SCH ×2 (10:07→17:23)
[2016-12-02] MEDS: OXYCODONE HCL IR 5 MG TABLET PO PRN (20:44)
--- NOTE | 2016-12-02 21:35 | PROGRESS NOTE E ---
Progress Note NAME: DANYELL ABBASI : 1945 AGE: 71Y DATE: 12/02/2016 ROOM: 407 SUBJECTIVE: The patient denies any chest pain or discomfort. There is no cough. There is no sputum production. There is no chest pain or discomfort. There is no arrhythmia seen on the monitor. There is no TIA or CVA symptoms. The patient continues to have some degree of orthopnea. There is no PND. There is no shortness of breath. PHYSICAL EXAMINATION: GENERAL: The patient is mildly obese, at present in no acute distress. VITAL SIGNS: She is afebrile with a temperature of 97.3 degrees Fahrenheit. Pulse is 81 beats per minute. Blood pressure 125/93. Respirations are 14 per minute. O2 sats are 100% on 2 L nasal cannula. HEENT: Head is atraumatic, normocephalic. Eyes: Pupils are equal, round, regular, reactive to light and accommodation. Extraocular movements are normal. There is no conjunctival pallor. There is no scleral icterus. ENT is negative. NECK: Supple. There is no JVD. Carotids are equal. There is no bruit. There is no goiter. There is no lymphadenopathy. LUNGS: Show diminished air entry, prolonged excursions throughout. There are a few rhonchi in the right lung. There is no wheezing. There are no rales of CHF. There are a few dry crackles in the right lower lobe. There is no chest wall tenderness. HEART: S1 and S2 are heard. There is no S3 gallop. There is no S4 gallop. There is a systolic murmur left sternal border and in the apex. There is no rub. ABDOMEN: Soft, mildly obese, nontender. There is no hepatosplenomegaly. Bowel sounds are well heard. EXTREMITIES: Femorals are diminished. There are no femoral bruits. There is bilateral BKA. There is no thigh edema. There is cyanosis or clubbing of the upper extremities. CENTRAL NERVOUS SYSTEM: The patient is conscious, awake, alert, oriented x3, with no focal deficits. PSYCHIATRIC: The patient appears to be slightly depressed but is not agitated. The patient's 24-hour intake is 940 mL and output is 472 mL. DIAGNOSTICS: The patient's white count is 8400, hemoglobin is 8.2, hematocrit is 27.2, platelet count is 176,000. The patient's sodium is 125.6, potassium 4.5, chloride is 93, the patient's CO2 is 23, the patient's BUN is 50, creatinine is 1.58, GFR is reduced at 39 mL, which is chronic kidney disease stage 3. Glucose is 163 and calcium is 8.0. IMPRESSION: 1. SEPTIC SHOCK, RESOLVED. The patient is off pressors. 2. [id number] HYPOXEMIC RESPIRATORY FAILURE MUCH IMPROVED. Continue respiratory treatments. 3. ELEVATED TROPONIN I, MOST LIKELY SECONDARY TO SEPTIC SHOCK/URINARY TRACT INFECTION AND PNEUMONIA, NO EVIDENCE OF [id number] IA. Troponin I has trended down. 4. ACUTE RENAL FAILURE, SEEMS TO BE [id number] KIDNEY DISEASE AT PRESENT CHRONIC KIDNEY DISEASE STAGE 3. 5. RIGHT LOWER LOBE PNEUMONIA. Continue antibiotics. Seems to be improved. 6. NO EVIDENCE OF CONGESTIVE HEART FAILURE. 7. CARDIOMYOPATHY WITH LEFT VENTRICULAR EJECTION FRACTION MILDLY REDUCED AT 45%-50% BY ECHOCARDIOGRAM. Note, records from [facility] reviewed. His EF at that time was 35%. He did not have any cardiac catheterization. 8. PERIPHERAL ARTERIAL DISEASE. 9. SEVERE PULMONARY HYPERTENSION. 10. PAROXYSMAL ATRIAL FIBRILLATION BY HISTORY, AT PRESENT IN SINUS RHYTHM WITH NO RECURRENCE OF ATRIAL FIBRILLATION. 11. HISTORY OF CARDIAC ARREST. As per details, the patient had ventricular tachycardia but the patient was being treated medically. 12. HYPERLIPIDEMIA. 13. DIABETES MELLITUS, TYPE 2, INSULIN DEPENDENT WITH CHRONIC KIDNEY DISEASE. 14. BILATERAL JNVON-DROP-RRRPSEETRFR. 15. DO NOT RESUSCITATE. 16. HYPOTENSION, RESOLVED, SECONDARY TO URINARY TRACT INFECTION AND PNEUMONIA AND SEPSIS. 17. URINARY TRACT INFECTION. Continue present antibiotics. 18. CHRONIC KIDNEY DISEASE, AT PRESENT STAGE 3. Continue oxygen. Continue respiratory treatments. Continue antibiotics. Continue aspirin and atorvastatin. Later will start the patient on amlodipine. At present will watch the blood pressure and see if we can start it tomorrow. Also would try to start the patient on an ARB and see if the renal function could withstand the starting of the ARB. All the above discussed with patient. Note, 30 minutes spent on the patient, more than 50% of the time spent in direct patient care. Medications reviewed and suggestions made as to changes. Also continues to have highly complex medical decision-making on this case. We will follow with you. Thanking you. DICTATING PHYSICIAN: NOREEN WALL M.D. [id number] PHY#: [id number] ID: [id number] JOB#: [id number] ACCT: [id number] cc: >
[2016-12-02] MEDS: ATORVASTATIN CALCIUM 20 MG TABLET PO SCH (21:42)
[2016-12-02] MEDS: AMITRIPTYLINE HCL 25 MG TABLET PO SCH (21:42)
[2016-12-02] MEDS: INSULIN GLARGINE,HUM.REC.ANLOG 300 UNIT/3 ML INSULN.PEN SUBCUT SCH (21:43)
--- NOTE | 2016-12-02 23:20 | Palliative Consultation Report ---
Consultation From:: CHERYLE CALLES Consult Reason: Palliative care - HPI Chief Complaint: Respiratory distress, AMS, weakness HPI: Palliative Care visit from 12:00- 12:20PM Appreciate palliative consult for this 71 year old patient who is known to me from previous admissions, including very recent admission. Mrs. Ley is awake today for my visit, but she is not as alert as she was before her last discharge. She is very weak and is trying to eat her lunch but doesnt have much strength to even feed herself. Her speech is difficult. she could not answer any of my questions about her condition or what happened to her at home. She just said she doesnt feel good. Patient is very weak, appears even more weak than during last admission. SHe is on nasal cannula oxygen at present and is not having noted signs of dyspnea. There has been question about her home life, regarding her lack of compliance with diet or with smoking cessation. It is unknown who provides care for her at home. She could not tell me how she was at home or why she got so sick again so soon. I did not discuss advance directives as she is already DNR as she said she wanted to be when we discussed her EOL care requests during her lst admission. Onset/Duration: Persistent Quality of Pain: No pain Associated Symptoms: Productive cough, Shortness of breath, Weakness Exacerbated by: Movement Past Medical History(Consults) - General Information Source: Patient, [facility] Records Home Medications: Albuterol Sulfate [Albuterol Sulfate 2.5mg/3 mL] 1 vial IH Q3HP PRN 11/29/16 Amitriptyline HCl [Elavil 25 mg Tablet] 25 mg PO QHS 11/29/16 Aspirin [Aspirin EC] 81 mg PO DAILY 11/29/16 Atorvastatin Calcium [Lipitor 20 mg Tablet] 20 mg PO QHS 11/29/16 Carvedilol [Coreg 3.125 mg Tablet] 3.125 mg PO Q12 11/29/16 Furosemide [Lasix] 40 mg PO Q12 11/29/16 Gabapentin [Neurontin 300 mg Capsule] 300 mg PO DAILY 11/29/16 Gabapentin [Neurontin 300 mg Capsule] 600 mg PO QHS 11/29/16 Hydrocortisone [Cortef 10 Mg Tablet] 15 mg PO [id number] 11/29/16 Insulin Aspart [Novolog Flexpen] 8 unit SQ MEALS 11/29/16 Insulin Glargine,Hum.rec.anlog [Lantus Solostar] 30 unit SQ QHS MDD 35 UNITS 04/07 Lisinopril [Prinivil 5 mg Tablet] 5 mg PO DAILY 11/29/16 Omeprazole 20 mg PO ACBRKFST 11/29/16 Oxycodone HCl [Oxy-Ir 5 mg Tablet] 5 mg PO Q12HP PRN 11/29/16 Petrolatum,White [Balmex] 1 applic TP BID 11/29/16 Tiotropium [place] [Spiriva Handihaler 18 mcg/dose (30 Dose)] 1 cap IH DAILY 04/07 Allergies/Adverse Reactions: Penicillins Allergy (Verified 11/14/16 23:07) Sulfa (Sulfonamide Antibiotics) Allergy (Verified 11/14/16 23:07) - Social History Lives with: Spouse/Significant other Family History: CAD, COPD, DM Parental Family History Reviewed: No Children Family History Reviewed: No Sibling(s) Family History Reviewed.: No Smoking Status: Current Every Day Smoker Cigarettes Packs Per Day: 0.5 Frequency of Alcohol Use: None - States she has not used alcohol since 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 Hx Recreational Drug Use: No Drugs: None Hx Prescription Drug Abuse: No - Past Medical History Cardiac Medical History: Reports: Hx Atrial Fibrillation, Hx Congestive Heart Failure, Hx Coronary Artery Disease, Hx Hypercholesterolemia, Hx Hypertension, Hx Peripheral Vascular Disease, Hx Heart Murmur Denies: Hx Heart Attack Pulmonary Medical History: Reports: Hx COPD - The patient is prescribed oxygen. She does not use it., Hx Pneumonia, Hx Respiratory Failure Endocrine Medical History: Reports: Hx Diabetes Mellitus Type 2 - Insulin- dependent Renal/ Medical History: Denies: Hx Peritoneal Dialysis GI Medical History: Reports: Hx Gastroesophageal Reflux Disease Musculoskeltal Medical History: Reports Hx Arthritis Psychiatric Medical History: Denies: Hx Depression Infectious Medical History: Reports: Hx C-Diff - Surgical History Past Surgical History: Reports: Hx Cardiac Catheterization, Hx Cholecystectomy, Hx Orthopedic Surgery - Bilateral AKA, Other - Some sort of intervention for pseudocyst. Review of systems ROS unobtainable: due to mental statu Ojective:Exam Vital Signs: Temp Pulse Resp BP Pulse Ox 98.5 F 85 16 120/74 97 12/02/16 20:00 12/02/16 20:00 12/02/16 20:00 12/02/16 20:00 12/02/16 20:00 Intake & Output 12/01/16 12/02/16 12/03/16 06:59 06:59 06:59 Intake Total 1386 940 220 Output Total 465 422 475 Balance 921 518 -255 Weight 86.3 kg 86.7 kg - General General Appearance: Lethargic In distress: None - Respiratory Respiratory Status: No respiratory distress Breath sounds: Decreased air movement, Productive cough - Cardiovascular Rhythm: Regular Pulses: Normal: Radial - Neurological Cognition: Inattentive Orientation: Oriented to person, Oriented to place - Psychological Associated symptoms: Flat affect, Other - Wesk and uninterested in conversation. Assistec with lunch but patient does not seem interested in eating. Objective-Diagnostic Laboratory: 12/02/16 05:05 12/02/16 05:05 12/02/16 12/02/16 05:05 05:05 WBC 8.4 RBC 3.10 L Hgb 8.2 L Hct 27.2 L MCV 88 MCH 26.4 L MCHC 30.1 L RDW 20.5 H Plt Count 176 Seg Neutrophils % 84.8 H Lymphocytes % 12.0 L Monocytes % 2.5 L Eosinophils % 0.0 Basophils % 0.7 Absolute Neutrophils 7.1 Absolute Lymphocytes 1.0 Absolute Monocytes 0.2 Absolute Eosinophils 0.0 Absolute Basophils 0.1 Sodium 125.6 L Potassium 4.5 Chloride 93 L Carbon Dioxide 23 Anion Gap 10 BUN 50 H Creatinine 1.58 H Est GFR ( Amer) 39 L Est GFR (Non-Af Amer) 32 L Glucose 163 H Calcium 8.0 L 11/29/16 11/29/16 11/29/16 05:57 05:57 12:30 Creatine Kinase 325 H 304 H CK-MB (CK-2) 1.09 Troponin I 0.420 11/29/16 11/29/16 11/29/16 12:30 17:35 18:00 Creatine Kinase 279 H CK-MB (CK-2) 1.15 1.08 Troponin I 0.217 0.133 Plan and Recommendation Plan and Recommendation: Unable to converse with patient as she was very weak and drowsy She would not answer questions about her condition and care at home. She did not answer questions about who cares for her at home. Appears very weak and tired, no respiratory distress but generalized weakness and inability to converse. There is nothing I can recommend to add to patients comfort as she denies pain. However, I do feel it is not in her best interest for her to return home, even with home health or hospice care. She needs more group home care and monitoring. She has frequent admissions, improves and then declines again after discharge. I did not ask patient about placement in SNF or [facility] but I would recommend this if at all possible. I do not know about her financial situation or payment source. Will follow as patient continues to improve. SHe is eligble for hospice however , I feel she will continue to be returned to hospital when she declines and family may not be able to care for her even with support of hospice or home health. - Time Spent with Patient Time spent with patient: 15 to 30 Minutes Time: 20 min with patient, 20 consultation nursing staff and chart review.
[2016-12-03 05:45] LABS: ANION GAP 8 (5-19); BLOOD UREA NITROGEN 48 mg/dL (7-20); CARBON DIOXIDE 23 mmol/L (22-30); CHLORIDE 96 mmol/L (98-107); CREATININE RESULT 1.35 mg/dL (0.52-1.25); GLUCOSE 134 mg/dL (75-110); MAGNESIUM 1.3 mg/dL (1.6-2.3); POTASSIUM 3.9 mmol/L (3.6-5.0); SODIUM 126.7 mmol/L (137-145)
[2016-12-03 05:53] LABS: CALCIUM 6.9 mg/dL (8.4-10.2)
[2016-12-03 05:55] LABS: ABSOLUTE LYMPHOCYTES (AUTO) 2.1 10^3/uL (0.5-4.7); ABSOLUTE MONOCYTES (AUTO) 0.7 10^3/uL (0.1-1.4); ABSOLUTE NEUT (AUTO) 5.6 10^3/uL (1.7-8.2); BASOPHILS % (AUTO) 0.1 % (0-2); EOSINOPHILS % (AUTO) 0.2 % (0-6); HEMATOCRIT 29.2 % (36.0-47.0); HGB HCT DIFFERENCE -2.2; LYMPHOCYTES % (AUTO) 24.8 % (13-45); MEAN CORPUSCULAR HEMOGLOBIN 26.6 pg (27.0-33.4); MEAN CORPUSCULAR HGB CONC 30.9 g/dL (32.0-36.0); MEAN CORPUSCULAR VOLUME 86 fl (80-97); MONOCYTES % (AUTO) 8.7 % (3-13); RED CELL DISTRIBUTION WIDTH 20.4 % (11.5-14.0); SEGMENTED NEUTROPHILS % (AUTO) 66.2 % (42-78); WHITE BLOOD COUNT 8.5 10^3/uL (4.0-10.5)
[2016-12-03] MEDS: LANSOPRAZOLE 15 MG TAB.RAP.DR PO SCH (08:11)
[2016-12-03] MEDS: GABAPENTIN 300 MG CAPSULE PO SCH ×2 (08:11→22:28)
[2016-12-03] MEDS: CARVEDILOL 3.125 MG TABLET PO SCH ×2 (10:31→22:28)
[2016-12-03] MEDS: GUAIFENESIN 600 MG TABLET.SA PO SCH ×2 (10:31→22:28)
[2016-12-03] MEDS: DOCUSATE SODIUM 100 MG CAPSULE PO SCH ×2 (10:31→17:30)
[2016-12-03] MEDS: ASPIRIN 81 MG TABLET, ENT COATED PO SCH (10:31)
[2016-12-03] MEDS: FERROUS SULFATE 325 MG TABLET PO SCH (10:31)
[2016-12-03] MEDS: FLUCONAZOLE 100 MG TABLET PO SCH (10:32)
[2016-12-03] MEDS: LACTOBACILLUS ACIDOPHILUS 250 MG TAB PO SCH ×2 (10:32→22:53)
[2016-12-03] MEDS: FUROSEMIDE 40 MG TABLET PO SCH ×2 (10:32→22:29)
[2016-12-03] MEDS: HYDROCORTISONE 10 MG TABLET PO SCH ×2 (11:21→17:29)
--- NOTE | 2016-12-03 14:41 | PDOC PROGRESS REPORT ---
Subjective Progress Note for:: 12/03/16 Subjective:: Patient has no new complaints. She is a little drowsy and does not provide much history. Patient denies fever, chills, headache, new focal weakness, abdominal pain, nausea, vomiting, diarrhea, constipation. Physical Exam Vital Signs: Temp Pulse Resp BP Pulse Ox 97.5 F 90 18 103/63 100 12/03/16 07:49 12/03/16 08:00 12/03/16 08:00 12/03/16 07:49 12/03/16 08:00 Intake & Output 12/02/16 12/03/16 12/04/16 06:59 06:59 06:59 Intake Total 940 670 Output Total 422 1375 Balance 518 -705 Weight 86.7 kg 85.9 kg GENERAL: No acute distress, obese HEENT: Conjunctiva clear, nonicteric, moist mucous membranes, no JVD, midline trachea RESPIRATORY: Right lung rhonchi CARDIAC: Regular rate and rhythm, no murmurs/gallops/rubs ABDOMEN: Soft, nondistended, nontender, positive bowel sounds, no rebound, no guarding EXTREMETIES: No edema, cyanosis, clubbing. Bilateral above-knee amputation NEUROLOGIC: Alert, oriented, CN's grossly intact, no focal deficits SKIN: No rash, wounds Results Laboratory Results: 12/03/16 05:05 12/03/16 05:05 12/03/16 12/03/16 05:05 05:05 WBC 8.5 RBC 3.40 L Hgb 9.0 L Hct 29.2 L MCV 86 MCH 26.6 L MCHC 30.9 L RDW 20.4 H Plt Count 155 Seg Neutrophils % 66.2 Lymphocytes % 24.8 Monocytes % 8.7 Eosinophils % 0.2 Basophils % 0.1 Absolute Neutrophils 5.6 Absolute Lymphocytes 2.1 Absolute Monocytes 0.7 Absolute Eosinophils 0.0 Absolute Basophils 0.0 Sodium 126.7 L Potassium 3.9 Chloride 96 L Carbon Dioxide 23 Anion Gap 8 BUN 48 H Creatinine 1.35 H Est GFR ( Amer) 47 L Est GFR (Non-Af Amer) 39 L Glucose 134 H Calcium 6.9 L* Magnesium 1.3 L 11/29/16 11/29/16 11/29/16 05:57 05:57 12:30 Creatine Kinase 325 H 304 H CK-MB (CK-2) 1.09 Troponin I 0.420 11/29/16 11/29/16 11/29/16 12:30 17:35 18:00 Creatine Kinase 279 H CK-MB (CK-2) 1.15 1.08 Troponin I 0.217 0.133 Impressions: Abdomen/Pelvis CT 11/29/16 02:17 IMPRESSION: No acute findings. Chest X-Ray 11/30/16 06:00 IMPRESSION: Cardiomegaly. Blunting of the right costophrenic angle with interval increase in the airspace opacity at the right lung base, may represent worsening consolidation and development of a pleural effusion. Assessment & Plan - Diagnosis (1) Acute on chronic respiratory failure with hypoxia Is this a current diagnosis for this admission?: YesPlan: Now stable on 2 L nasal cannula oxygen. Patient is DO NOT RESUSCITATE/DO NOT INTUBATE status. (2) Septic shock Is this a current diagnosis for this admission?: Yes (3) UTI (urinary tract infection) Is this a current diagnosis for this admission?: YesPlan: Fungal. Started Diflucan on 12/01/2016. (4) Right lower lobe pneumonia Qualifiers: Pneumonia type: due to unspecified organism Qualified Code(s): J18.1 - Lobar pneumonia, unspecified organism Is this a current diagnosis for this admission?: YesPlan: Likely bacterial with high probability of gram-negative organism given recent hospitalization. Continue Levaquin #2. (5) Acute on chronic systolic CHF (congestive heart failure) Is this a current diagnosis for this admission?: YesPlan: Echocardiogram 11/15/2016 with ejection fraction 40-50%, grade 1/4 diastolic dysfunction,Moderate tricuspid regurgitation. Continue Lasix 40 mg twice daily , Coreg 3.125 mg twice daily. (6) Acute kidney injury Is this a current diagnosis for this admission?: YesPlan: Kidney function improved since admission. (7) Adrenal insufficiency Is this a current diagnosis for this admission?: YesPlan: Continue oral hydrocortisone 20 mg twice daily. (8) Elevated troponin I level Is this a current diagnosis for this admission?: Yes (9) Hypomagnesemia Is this a current diagnosis for this admission?: Yes (10) Peripheral vascular disease Is this a current diagnosis for this admission?: YesPlan: Status post bilateral above-knee amputation. (11) Tobacco abuse Is this a current diagnosis for this admission?: Yes (12) Diabetes Qualifiers: Diabetes mellitus type: type 2 Diabetes mellitus complication status: with circulatory complication Diabetes mellitus complication detail: with other circulatory complications Diabetes mellitus assisted insulin use: with assisted use Qualified Code(s): E11.59 - Type 2 diabetes mellitus with other circulatory complications Is this a current diagnosis for this admission?: YesPlan: Lantus 40 units subcu daily. Sliding scale insulin coverage. (13) Anemia Is this a current diagnosis for this admission?: YesPlan: Patient has had precipitous drop in hemoglobin over the past couple days. Repeat CBC this afternoon and transfuse if hemoglobin less than 8.0. Started iron supplementation based on labs. Check Hemoccult of stool. Holding heparin. (14) Hyponatremia Is this a current diagnosis for this admission?: Yes (15) DNR (do not resuscitate) Is this a current diagnosis for this admission?: Yes - Time Time Spent with patient: 25-34 minutes Disposition: Palliative care consultation reviewed and they recommend 24/7 assistance cannot be achieved in the home with home health services. I would tend to agree with this assessment given the fact the patient has multiple comorbid conditions, frequent admissions, bilateral [id number] amputations and obesity. I would think she would benefit from a assisted facility and I will have case management work with her POA and see if they have considered this option.
--- NOTE | 2016-12-03 20:44 | PROGRESS NOTE E ---
Progress Note NAME: DANYELL ABBASI : 1945 AGE: 71Y DATE: 12/03/2016 ROOM: 407 SUBJECTIVE: The patient denies any anginal symptoms but she has chest wall pain which is reproducible by pressing on it. She still has some orthopnea and some mild shortness of breath. There is no wheezing. The patient has a cough productive of white sputum. There is no PND. The patient has some mild orthopnea. There is no thigh edema. There is no TIA or CVA symptom. The patient appears to be depressed. PHYSICAL EXAMINATION: GENERAL: The patient is mildly obese. VITAL SIGNS: She is afebrile with a temperature of 97.5 degrees Fahrenheit. Pulse is 86 beats per minute. Blood pressure 103/63. Respirations are 20 per minute. O2 sats are 100% on 2 L nasal cannula. HEENT: Head is atraumatic, normocephalic. Eyes: Pupils are equal, round, regular, reactive to light and accommodation. Extraocular movements are normal. There is no conjunctival pallor. There is no scleral icterus. ENT is negative. NECK: Supple. There is no JVD. Carotids are equal. There is no bruit. There is no goiter. There is no lymphadenopathy. LUNGS: Show diminished air entry, prolonged expirations throughout. There are a few rhonchi in the right lung. There is no wheezing. There are no rales of CHF. There are a few dry crackles. There are no rales of CHF. There is some mild sternal tenderness on pressing on the sternum. HEART: S1 and S2 are heard. There is no S3 gallop. There is no S4 gallop. There is a systolic murmur in the left sternal border and in the apex. There is no rub. ABDOMEN: Soft, nontender, obese. There is no hepatosplenomegaly. Bowel sounds are well heard. EXTREMITIES: Femorals are diminished. There is bilateral BKA. There are no femoral bruits. There is no thigh edema. There is no cyanosis or clubbing of the upper extremities. CENTRAL NERVOUS SYSTEM: The patient is conscious, awake, alert, oriented x3, with no focal deficits. PSYCHIATRIC: The patient appears to be slightly depressed but her judgment and insight seem to be intact. DIAGNOSTICS: The patient's white count is 8500, hemoglobin is 9, hematocrit is 29.2, platelet count is 155,000. The patient's sodium is 126.7, potassium 3.9, chloride is 96, the patient's CO2 is 23, the patient's BUN is 48, creatinine is 135, GFR is reduced at 47 mL, which is chronic kidney disease stage 3. Glucose is 134 and calcium is low at 6.9, magnesium is low at 1.3. IMPRESSION: 1. HYPOMAGNESEMIA. Would replace the patient's magnesium. 2. SEPTIC SHOCK, RESOLVED. 3. [id number] HYPOXEMIC RESPIRATORY FAILURE, MUCH IMPROVED. 4. ELEVATED TROPONIN I, MOST LIKELY SECONDARY TO SEPTIC SHOCK AND URINARY TRACT INFECTION AND PNEUMONIA. No evidence of tye-GE-mygruxuii RI. 5. ACUTE RENAL FAILURE, AT PRESENT CHRONIC KIDNEY DISEASE STAGE 3. 6. RIGHT LOWER LOBE PNEUMONIA. Continue antibiotics. Seems to be clearly improved. 7. THERE IS NO EVIDENCE OF CONGESTIVE HEART FAILURE. 8. CARDIOMYOPATHY WITH LEFT VENTRICULAR EJECTION FRACTION OF 45%-50% BY ECHOCARDIOGRAM, BUT THE LATEST ECHOCARDIOGRAM IN [facility], HER EF WAS 35%. She did not have any cardiac catheterization. 9. PERIPHERAL ARTERIAL DISEASE WITH BILATERAL BKA. 10. SEVERE PULMONARY HYPERTENSION. 11. PAROXYSMAL ATRIAL FIBRILLATION, AT PRESENT IN SINUS RHYTHM WITH NO RECURRENCE OF ATRIAL FIBRILLATION. 12. HISTORY OF CARDIAC ARREST. 13. HYPERLIPIDEMIA. 14. DIABETES MELLITUS, TYPE 2, INSULIN DEPENDENT WITH CHRONIC KIDNEY DISEASE. 15. BILATERAL [id number]. 16. DO NOT RESUSCITATE. 17. HYPOTENSION, RESOLVED. 18. URINARY TRACT INFECTION. Continue present antibiotics. 19. CHRONIC KIDNEY DISEASE, STAGE 3. RECOMMENDATIONS: Continue current treatment. Not much to offer from cardiology; hence, the cardiac status seems to be stable. Continue her current medications including Coreg and anti-COPD medication. The patient's blood pressure is not very high to start the patient on anti-CHF medications such as ARB or ADRIENNE inhibitor. Not much to offer from Cardiology, will sign off the case. Note: The case is moderately complex medical decision-making and discussed with the hospitalist taking care of the patient. Will sign of the case. Thanking you. DICTATING PHYSICIAN: NOREEN WALL M.D. [id number] PHY#: [id number] ID: [id number] JOB#: [id number] ACCT: [id number] cc: >
[2016-12-03] MEDS: AMITRIPTYLINE HCL 25 MG TABLET PO SCH (22:28)
[2016-12-03] MEDS: ATORVASTATIN CALCIUM 20 MG TABLET PO SCH (22:29)
[2016-12-03] MEDS: INSULIN GLARGINE,HUM.REC.ANLOG 300 UNIT/3 ML INSULN.PEN SUBCUT SCH (22:29)
[2016-12-03] MEDS: INSULIN LISPRO 100 UNIT/ML 3 ML VIAL SUBCUT PRN (22:29)
[2016-12-04 06:15] LABS: ABSOLUTE LYMPHOCYTES (AUTO) 1.6 10^3/uL (0.5-4.7); ABSOLUTE MONOCYTES (AUTO) 0.6 10^3/uL (0.1-1.4); ABSOLUTE NEUT (AUTO) 4.9 10^3/uL (1.7-8.2); BASOPHILS % (AUTO) 0.5 % (0-2); EOSINOPHILS % (AUTO) 0.2 % (0-6); HEMATOCRIT 30.2 % (36.0-47.0); HEMOGLOBIN 9.2 g/dL (12.0-15.5); HGB HCT DIFFERENCE -2.6; LYMPHOCYTES % (AUTO) 22.8 % (13-45); MEAN CORPUSCULAR HEMOGLOBIN 26.5 pg (27.0-33.4); MEAN CORPUSCULAR HGB CONC 30.3 g/dL (32.0-36.0); MEAN CORPUSCULAR VOLUME 88 fl (80-97); MONOCYTES % (AUTO) 7.8 % (3-13); RED BLOOD COUNT 3.46 10^6/uL (3.72-5.28); RED CELL DISTRIBUTION WIDTH 20.5 % (11.5-14.0); SEGMENTED NEUTROPHILS % (AUTO) 68.7 % (42-78); WHITE BLOOD COUNT 7.2 10^3/uL (4.0-10.5)
[2016-12-04 06:25] LABS: ANION GAP 8 (5-19); BLOOD UREA NITROGEN 52 mg/dL (7-20); CALCIUM 7.9 mg/dL (8.4-10.2); CARBON DIOXIDE 25 mmol/L (22-30); CHLORIDE 95 mmol/L (98-107); CREATININE RESULT 1.17 mg/dL (0.52-1.25); GLUCOSE 170 mg/dL (75-110); POTASSIUM 4.6 mmol/L (3.6-5.0); SODIUM 127.8 mmol/L (137-145)
[2016-12-04] MEDS: LANSOPRAZOLE 15 MG TAB.RAP.DR PO SCH (08:25)
[2016-12-04] MEDS: GABAPENTIN 300 MG CAPSULE PO SCH ×2 (08:25→22:18)
[2016-12-04] MEDS: FLUCONAZOLE 100 MG TABLET PO SCH (09:23)
[2016-12-04] MEDS: DOCUSATE SODIUM 100 MG CAPSULE PO SCH ×2 (09:24→17:20)
[2016-12-04] MEDS: HYDROCORTISONE 10 MG TABLET PO SCH ×2 (09:24→17:18)
[2016-12-04] MEDS: GUAIFENESIN 600 MG TABLET.SA PO SCH ×2 (09:24→22:18)
[2016-12-04] MEDS: LEVOFLOXACIN 750 MG TABLET PO SCH (09:24)
[2016-12-04] MEDS: FERROUS SULFATE 325 MG TABLET PO SCH (09:24)
[2016-12-04] MEDS: LACTOBACILLUS ACIDOPHILUS 250 MG TAB PO SCH ×2 (09:25→22:18)
[2016-12-04] MEDS: ASPIRIN 81 MG TABLET, ENT COATED PO SCH (09:25)
[2016-12-04] MEDS: FUROSEMIDE 40 MG TABLET PO SCH ×2 (09:25→22:18)
[2016-12-04] MEDS: CARVEDILOL 3.125 MG TABLET PO SCH ×2 (09:26→22:18)
--- NOTE | 2016-12-04 11:22 | PDOC PROGRESS REPORT ---
Subjective Progress Note for:: 12/04/16 Subjective:: Patient has no new complaints. She remains a little drowsy and does not provide much history. Patient denies fever, chills, headache, new focal weakness, abdominal pain, nausea, vomiting, diarrhea, constipation. Physical Exam Vital Signs: Temp Pulse Resp BP Pulse Ox 97.3 F 93 16 117/80 97 12/04/16 07:33 12/04/16 07:33 12/04/16 07:33 12/04/16 07:33 12/04/16 07:33 Intake & Output 12/03/16 12/04/16 12/05/16 06:59 06:59 06:59 Intake Total 670 1410 Output Total 1375 2800 Balance -705 -1390 Weight 85.9 kg 91.2 kg GENERAL: No acute distress, obese HEENT: Conjunctiva clear, nonicteric, moist mucous membranes, no JVD, midline trachea RESPIRATORY: Bilateral anterior rhonchi CARDIAC: Regular rate and rhythm, no murmurs/gallops/rubs ABDOMEN: Soft, nondistended, nontender, positive bowel sounds, no rebound, no guarding EXTREMETIES: No edema, cyanosis, clubbing. Bilateral above-knee amputation NEUROLOGIC: Alert, oriented, CN's grossly intact, no focal deficits SKIN: No rash, wounds Results Laboratory Results: 12/04/16 05:25 12/04/16 05:25 12/04/16 12/04/16 05:25 05:25 WBC 7.2 RBC 3.46 L Hgb 9.2 L Hct 30.2 L MCV 88 MCH 26.5 L MCHC 30.3 L RDW 20.5 H Plt Count 183 Seg Neutrophils % 68.7 Lymphocytes % 22.8 Monocytes % 7.8 Eosinophils % 0.2 Basophils % 0.5 Absolute Neutrophils 4.9 Absolute Lymphocytes 1.6 Absolute Monocytes 0.6 Absolute Eosinophils 0.0 Absolute Basophils 0.0 Sodium 127.8 L Potassium 4.6 Chloride 95 L Carbon Dioxide 25 Anion Gap 8 BUN 52 H Creatinine 1.17 Est GFR ( Amer) 55 L Est GFR (Non-Af Amer) 46 L Glucose 170 H Calcium 7.9 L 11/29/16 05:57 Blood Blood Culture - Final NO GROWTH IN 5 DAYS 07/11/17 07/11/17 07/11/17 05:57 05:57 12:30 Creatine Kinase 325 H 304 H CK-MB (CK-2) 1.09 Troponin I 0.420 11/29/16 11/29/16 11/29/16 12:30 17:35 18:00 Creatine Kinase 279 H CK-MB (CK-2) 1.15 1.08 Troponin I 0.217 0.133 Impressions: Abdomen/Pelvis CT 11/29/16 02:17 IMPRESSION: No acute findings. Chest X-Ray 11/30/16 06:00 IMPRESSION: Cardiomegaly. Blunting of the right costophrenic angle with interval increase in the airspace opacity at the right lung base, may represent worsening consolidation and development of a pleural effusion. Assessment & Plan - Diagnosis (1) Acute on chronic respiratory failure with hypoxia Is this a current diagnosis for this admission?: YesPlan: Now stable on 2 L nasal cannula oxygen. Patient is DO NOT RESUSCITATE/DO NOT INTUBATE status. (2) Acute on chronic systolic CHF (congestive heart failure) Is this a current diagnosis for this admission?: YesPlan: Echocardiogram 11/15/2016 with ejection fraction 40-50%, grade 1/4 diastolic dysfunction,Moderate tricuspid regurgitation. -1390 mL fluid balance in the past 24 hours. Continue Lasix 40 mg twice daily, Coreg 3.125 mg twice daily. Repeat chest x-ray in proBNP level secondary to shortness of breath and bilateral rhonchi. (3) Septic shock Is this a current diagnosis for this admission?: YesPlan: Secondary to pneumonia. Afebrile, normal white blood count, blood pressure stable. (4) Right lower lobe pneumonia Qualifiers: Pneumonia type: due to unspecified organism Qualified Code(s): J18.1 - Lobar pneumonia, unspecified organism Is this a current diagnosis for this admission?: Yes (5) UTI (urinary tract infection) Is this a current diagnosis for this admission?: YesPlan: Fungal. Started Diflucan on 12/01/2016. (6) Acute kidney injury Is this a current diagnosis for this admission?: YesPlan: Kidney function improved since admission. (7) Adrenal insufficiency Is this a current diagnosis for this admission?: YesPlan: Continue oral hydrocortisone 20 mg twice daily. (8) Elevated troponin I level Is this a current diagnosis for this admission?: Yes (9) Hypomagnesemia Is this a current diagnosis for this admission?: YesPlan: Replace. Repeat level in the morning. (10) Peripheral vascular disease Is this a current diagnosis for this admission?: YesPlan: Status post bilateral above-knee amputation. Given patient's physical deconditioning, morbid obesity, bilateral below the knee amputations, and multiple comorbid conditions I think she would be best served in a long-term facility that she is highly likely to be readmitted to the hospital if she returns home. (11) Tobacco abuse Is this a current diagnosis for this admission?: Yes (12) Diabetes Qualifiers: Diabetes mellitus type: type 2 Diabetes mellitus complication status: with circulatory complication Diabetes mellitus complication detail: with other circulatory complications Diabetes mellitus care home insulin use: with moth exterminator use Qualified Code(s): E11.59 - Type 2 diabetes mellitus with other circulatory complications Is this a current diagnosis for this admission?: YesPlan: Lantus 40 units subcu daily. Sliding scale insulin coverage. (13) Anemia Is this a current diagnosis for this admission?: YesPlan: Patient has had precipitous drop in hemoglobin over the past couple days. Repeat CBC this afternoon and transfuse if hemoglobin less than 8.0. Started iron supplementation based on labs. Check Hemoccult of stool. Holding heparin. (14) Hyponatremia Is this a current diagnosis for this admission?: YesPlan: Correct hyperglycemia. CHF contributing. Fluid restriction [address] of chest done last month showed no mass. (15) DNR (do not resuscitate) Is this a current diagnosis for this admission?: Yes - Time Time Spent with patient: 35 or more minutes
--- NOTE | 2016-12-04 12:07 | RADIOLOGY REPORT (SQ) ---
EXAM DESCRIPTION: CHEST SINGLE VIEW COMPLETED DATE/TIME: 12/04/2016 11:57 am REASON FOR STUDY: dyspnea COMPARISON: 11/30/2016. EXAM PARAMETERS: NUMBER OF VIEWS: One view. TECHNIQUE: Single frontal radiographic view of the chest acquired. RADIATION DOSE: NA LIMITATIONS: None. FINDINGS: LUNGS AND PLEURA: Right basilar atelectasis/ infiltrate unchanged. Right pleural effusion may have decreased slightly. Left lung clear. MEDIASTINUM AND HILAR STRUCTURES: No masses. Contour normal. HEART AND VASCULAR STRUCTURES: Cardiomegaly unchanged. BONES: No acute findings. HARDWARE: None in the chest. OTHER: No other significant finding. IMPRESSION: POSSIBLE SLIGHT DECREASE IN THE RIGHT PLEURAL EFFUSION. RIGHT BASILAR ATELECTASIS/ INFI LTRATE UNCHANGED. TECHNICAL DOCUMENTATION: JOB ID: [id number]
[2016-12-04] MEDS: INSULIN LISPRO 100 UNIT/ML 3 ML VIAL SUBCUT PRN ×2 (12:59→17:18)
[2016-12-04] MEDS: POLYETHYLENE GLYCOL 3350 POWDER 17 GM/1 PACKET PO SCH (13:00)
[2016-12-04] MEDS ORDERED: FUROSEMIDE INJ/PF 20 MG/2 ML SDV IV ONE (14:45)
[2016-12-04] MEDS: AMITRIPTYLINE HCL 25 MG TABLET PO SCH (22:18)
[2016-12-04] MEDS: INSULIN GLARGINE,HUM.REC.ANLOG 300 UNIT/3 ML INSULN.PEN SUBCUT SCH (22:18)
[2016-12-04] MEDS: ATORVASTATIN CALCIUM 20 MG TABLET PO SCH (22:18)
[2016-12-05 05:53] LABS: ABSOLUTE BASOPHILS # (AUTO) 0.1 10^3/uL (0.0-0.2); ABSOLUTE EOSINOPHILS # (AUTO) 0.1 10^3/uL (0.0-0.6); ABSOLUTE MONOCYTES (AUTO) 0.8 10^3/uL (0.1-1.4); ABSOLUTE NEUT (AUTO) 5.4 10^3/uL (1.7-8.2); BASOPHILS % (AUTO) 0.8 % (0-2); EOSINOPHILS % (AUTO) 0.6 % (0-6); HEMATOCRIT 27.9 % (36.0-47.0); HEMOGLOBIN 8.7 g/dL (12.0-15.5); HGB HCT DIFFERENCE -1.8; LYMPHOCYTES % (AUTO) 23.7 % (13-45); MEAN CORPUSCULAR HEMOGLOBIN 26.5 pg (27.0-33.4); MEAN CORPUSCULAR HGB CONC 31.2 g/dL (32.0-36.0); MEAN CORPUSCULAR VOLUME 85 fl (80-97); MONOCYTES % (AUTO) 9.9 % (3-13); RED BLOOD COUNT 3.28 10^6/uL (3.72-5.28); RED CELL DISTRIBUTION WIDTH 20.6 % (11.5-14.0); WHITE BLOOD COUNT 8.4 10^3/uL (4.0-10.5)
[2016-12-05 06:11] LABS: ANION GAP 7 (5-19); BLOOD UREA NITROGEN 49 mg/dL (7-20); CALCIUM 8.2 mg/dL (8.4-10.2); CARBON DIOXIDE 30 mmol/L (22-30); CHLORIDE 98 mmol/L (98-107); CREATININE RESULT 1.05 mg/dL (0.52-1.25); GLUCOSE 88 mg/dL (75-110); POTASSIUM 4.1 mmol/L (3.6-5.0); SODIUM 135.1 mmol/L (137-145)
[2016-12-05] MEDS: MAGNESIUM OXIDE 400 MG TABLET PO SCH ×2 (09:12→17:03)
[2016-12-05] MEDS: LANSOPRAZOLE 15 MG TAB.RAP.DR PO SCH (09:12)
[2016-12-05] MEDS: MAGNESIUM SULFATE/D5W 100 ML IV SCH ×2 (09:12→10:21)
[2016-12-05] MEDS: OXYCODONE HCL IR 5 MG TABLET PO PRN ×2 (09:13→17:58)
[2016-12-05] MEDS: ASPIRIN 81 MG TABLET, ENT COATED PO SCH (09:14)
[2016-12-05] MEDS: GABAPENTIN 300 MG CAPSULE PO SCH ×2 (09:14→22:15)
[2016-12-05] MEDS: LACTOBACILLUS ACIDOPHILUS 250 MG TAB PO SCH ×2 (09:14→22:15)
[2016-12-05] MEDS: FERROUS SULFATE 325 MG TABLET PO SCH (09:14)
[2016-12-05] MEDS: FLUCONAZOLE 100 MG TABLET PO SCH (09:15)
[2016-12-05] MEDS: GUAIFENESIN 600 MG TABLET.SA PO SCH ×2 (09:15→22:15)
[2016-12-05] MEDS: CARVEDILOL 3.125 MG TABLET PO SCH ×2 (09:16→22:15)
[2016-12-05] MEDS: DOCUSATE SODIUM 100 MG CAPSULE PO SCH ×2 (09:16→17:02)
[2016-12-05] MEDS: FUROSEMIDE 40 MG TABLET PO SCH ×2 (09:16→22:15)
[2016-12-05] MEDS: HYDROCORTISONE 10 MG TABLET PO SCH ×2 (10:49→17:02)
[2016-12-05] MEDS ORDERED: MAGNESIUM SULFATE 1 GM in D5W 100 ML IV ONE (12:15)
[2016-12-05] MEDS ORDERED: MAGNESIUM SULFATE/D5W 1 GM/100 ML RTUPB IV ONE (12:30)
[2016-12-05] MEDS: POLYETHYLENE GLYCOL 3350 POWDER 17 GM/1 PACKET PO SCH (12:45)
--- NOTE | 2016-12-05 14:37 | PDOC PROGRESS REPORT ---
Subjective Progress Note for:: 12/05/16 Subjective:: Patient is at her baseline level of dyspnea. Discussion with case management sounds like patient has home health services that come in a few days a week and some support from family. She certainly does not have the 12/12 support is required for her state of debility and multiple comorbid conditions. She is supposed at this time to going to a nursing facility however she has been readmitted to the hospital frequently and I am sure she will be readmitted to the hospital quickly after discharge in her current state of health. Physical Exam Vital Signs: Temp Pulse Resp BP Pulse Ox 97.5 F 89 12 113/70 100 12/05/16 11:18 12/05/16 11:18 12/05/16 11:18 12/05/16 11:18 12/05/16 11:18 Intake & Output 12/04/16 12/05/16 12/06/16 06:59 06:59 06:59 Intake Total 1410 1090 Output Total 2800 3500 Balance -1390 -2410 Weight 91.2 kg 88.1 kg GENERAL: No acute distress, obese HEENT: Conjunctiva clear, nonicteric, moist mucous membranes, no JVD, midline trachea RESPIRATORY: Bilateral anterior wheezes CARDIAC: Regular rate and rhythm, no murmurs/gallops/rubs ABDOMEN: Soft, nondistended, nontender, positive bowel sounds, no rebound, no guarding EXTREMETIES: No edema, cyanosis, clubbing. Bilateral above-knee amputation NEUROLOGIC: Alert, oriented, CN's grossly intact, no focal deficits SKIN: No rash, wounds Results Laboratory Results: 12/05/16 05:43 12/05/16 05:43 12/05/16 12/05/16 05:43 05:43 WBC 8.4 RBC 3.28 L Hgb 8.7 L Hct 27.9 L MCV 85 MCH 26.5 L MCHC 31.2 L RDW 20.6 H Plt Count 199 Seg Neutrophils % 65.0 Lymphocytes % 23.7 Monocytes % 9.9 Eosinophils % 0.6 Basophils % 0.8 Absolute Neutrophils 5.4 Absolute Lymphocytes 2.0 Absolute Monocytes 0.8 Absolute Eosinophils 0.1 Absolute Basophils 0.1 Sodium 135.1 L Potassium 4.1 Chloride 98 Carbon Dioxide 30 Anion Gap 7 BUN 49 H Creatinine 1.05 Est GFR ( Amer) > 60 Est GFR (Non-Af Amer) 52 L Glucose 88 Calcium 8.2 L Magnesium 1.0 L* 11/29/16 11/29/16 11/29/16 05:57 05:57 12:30 Creatine Kinase 325 H 304 H CK-MB (CK-2) 1.09 Troponin I 0.420 NT-Pro-B Natriuret Pep 11/29/16 11/29/16 11/29/16 12:30 17:35 18:00 Creatine Kinase 279 H CK-MB (CK-2) 1.15 1.08 Troponin I 0.217 0.133 NT-Pro-B Natriuret Pep 12/04/16 05:25 Creatine Kinase CK-MB (CK-2) Troponin I NT-Pro-B Natriuret Pep 48203 H Impressions: Abdomen/Pelvis CT 11/29/16 02:17 IMPRESSION: No acute findings. Chest X-Ray 12/04/16 11:15 IMPRESSION: POSSIBLE SLIGHT DECREASE IN THE RIGHT PLEURAL EFFUSION. RIGHT BASILAR ATELECTASIS/ INFILTRATE UNCHANGED. Assessment & Plan - Diagnosis (1) Acute on chronic respiratory failure with hypoxia Is this a current diagnosis for this admission?: YesPlan: Now stable on 2 L nasal cannula oxygen. Patient is DO NOT RESUSCITATE/DO NOT INTUBATE status. (2) Acute on chronic systolic CHF (congestive heart failure) Is this a current diagnosis for this admission?: YesPlan: Echocardiogram 11/15/2016 with ejection fraction 40-50%, grade 1/4 diastolic dysfunction,Moderate tricuspid regurgitation. Patient maintaining negative fluid balance over the past 48 hours. Continue Lasix 40 mg twice daily, Coreg 3.125 mg twice daily. (3) Septic shock Is this a current diagnosis for this admission?: YesPlan: Secondary to pneumonia. Afebrile, normal white blood count, blood pressure stable. (4) Right lower lobe pneumonia Qualifiers: Pneumonia type: due to unspecified organism Qualified Code(s): J18.1 - Lobar pneumonia, unspecified organism Is this a current diagnosis for this admission?: YesPlan: Likely bacterial with high probability of gram-negative organism given recent hospitalization. Continue Levaquin #3. (5) UTI (urinary tract infection) Is this a current diagnosis for this admission?: YesPlan: Fungal. Started Diflucan on 12/01/2016. (6) Acute kidney injury Is this a current diagnosis for this admission?: YesPlan: Kidney function significantly improved since admission. (7) Adrenal insufficiency Is this a current diagnosis for this admission?: YesPlan: Continue oral hydrocortisone 20 mg twice daily. (8) Elevated troponin I level Is this a current diagnosis for this admission?: Yes (9) Hypomagnesemia Is this a current diagnosis for this admission?: YesPlan: Replace. Repeat level in the morning. (10) Peripheral vascular disease Is this a current diagnosis for this admission?: YesPlan: Status post bilateral above-knee amputation. Given patient's physical deconditioning, morbid obesity, bilateral below the knee amputations, and multiple comorbid conditions I think she would be best served in a [facility] facility as she is highly likely to be readmitted to the hospital if she returns home. (11) Tobacco abuse Is this a current diagnosis for this admission?: Yes (12) Diabetes Qualifiers: Diabetes mellitus type: type 2 Diabetes mellitus complication status: with circulatory complication Diabetes mellitus complication detail: with other circulatory complications Diabetes mellitus assisted insulin use: with termite helper use Qualified Code(s): E11.59 - Type 2 diabetes mellitus with other circulatory complications Is this a current diagnosis for this admission?: YesPlan: Decrease Lantus to 30 units subcu nightly secondary to hypoglycemia. Sliding scale insulin coverage. (13) Anemia Is this a current diagnosis for this admission?: YesPlan: H&H low but stable. Started iron supplementation based on labs. Holding heparin. (14) Hyponatremia Is this a current diagnosis for this admission?: YesPlan: Corrected hyperglycemia. CHF contributing. Fluid restriction 1500 mL daily. Sodium improving. CT of chest done last month showed no mass. (15) COPD (chronic obstructive pulmonary disease) Qualifiers: COPD type: COPD with acute exacerbation Qualified Code(s): J44.1 - Chronic obstructive pulmonary disease with (acute) exacerbation Is this a current diagnosis for this admission?: YesPlan: Start Symbicort. As needed albuterol. (16) DNR (do not resuscitate) Is this a current diagnosis for this admission?: Yes - Time Time Spent with patient: 35 or more minutes
[2016-12-05] MEDS: INSULIN LISPRO 100 UNIT/ML 3 ML VIAL SUBCUT PRN (17:23)
[2016-12-05] MEDS: ATORVASTATIN CALCIUM 20 MG TABLET PO SCH (22:15)
[2016-12-05] MEDS: AMITRIPTYLINE HCL 25 MG TABLET PO SCH (22:15)
[2016-12-05] MEDS: BUDESONIDE/FORMOTEROL 80-4.5 MCG 60 PUFF/6.9 GM MDI IH SCH (22:15)
[2016-12-06] MEDS: INSULIN GLARGINE,HUM.REC.ANLOG 300 UNIT/3 ML INSULN.PEN SUBCUT SCH ×2 (02:07→23:47)
[2016-12-06 05:12] LABS: ABSOLUTE EOSINOPHILS # (AUTO) 0.1 10^3/uL (0.0-0.6); ABSOLUTE LYMPHOCYTES (AUTO) 1.3 10^3/uL (0.5-4.7); ABSOLUTE MONOCYTES (AUTO) 0.7 10^3/uL (0.1-1.4); BASOPHILS % (AUTO) 0.1 % (0-2); EOSINOPHILS % (AUTO) 0.5 % (0-6); HEMATOCRIT 28.2 % (36.0-47.0); HEMOGLOBIN 8.5 g/dL (12.0-15.5); HGB HCT DIFFERENCE -2.7; LYMPHOCYTES % (AUTO) 11.8 % (13-45); MEAN CORPUSCULAR HEMOGLOBIN 26.3 pg (27.0-33.4); MEAN CORPUSCULAR VOLUME 88 fl (80-97); MONOCYTES % (AUTO) 6.2 % (3-13); RED BLOOD COUNT 3.22 10^6/uL (3.72-5.28); RED CELL DISTRIBUTION WIDTH 20.9 % (11.5-14.0); SEGMENTED NEUTROPHILS % (AUTO) 81.4 % (42-78); WHITE BLOOD COUNT 11.1 10^3/uL (4.0-10.5)
[2016-12-06 05:26] LABS: ANION GAP 7 (5-19); BLOOD UREA NITROGEN 37 mg/dL (7-20); CARBON DIOXIDE 34 mmol/L (22-30); CHLORIDE 94 mmol/L (98-107); CREATININE RESULT 0.96 mg/dL (0.52-1.25); GLUCOSE 150 mg/dL (75-110); MAGNESIUM 1.5 mg/dL (1.6-2.3); POTASSIUM 4.9 mmol/L (3.6-5.0); SODIUM 134.6 mmol/L (137-145)
[2016-12-06] MEDS: LANSOPRAZOLE 15 MG TAB.RAP.DR PO SCH (08:57)
[2016-12-06] MEDS: GABAPENTIN 300 MG CAPSULE PO SCH ×2 (08:57→23:44)
[2016-12-06] MEDS: INSULIN LISPRO 100 UNIT/ML 3 ML VIAL SUBCUT PRN ×3 (08:57→23:47)
[2016-12-06] MEDS: ASPIRIN 81 MG TABLET, ENT COATED PO SCH (10:14)
[2016-12-06] MEDS: FUROSEMIDE 40 MG TABLET PO SCH ×3 (10:15→23:45)
[2016-12-06] MEDS: MAGNESIUM OXIDE 400 MG TABLET PO SCH ×2 (10:15→19:11)
[2016-12-06] MEDS: BUDESONIDE/FORMOTEROL 80-4.5 MCG 60 PUFF/6.9 GM MDI IH SCH ×2 (10:15→23:43)
[2016-12-06] MEDS: CARVEDILOL 3.125 MG TABLET PO SCH ×2 (10:16→23:45)
[2016-12-06] MEDS: DOCUSATE SODIUM 100 MG CAPSULE PO SCH ×2 (10:16→19:13)
[2016-12-06] MEDS: LEVOFLOXACIN 750 MG TABLET PO SCH (10:16)
[2016-12-06] MEDS: FERROUS SULFATE 325 MG TABLET PO SCH (10:16)
[2016-12-06] MEDS: FLUCONAZOLE 100 MG TABLET PO SCH (10:17)
[2016-12-06] MEDS: HYDROCORTISONE 10 MG TABLET PO SCH ×2 (10:18→19:12)
[2016-12-06] MEDS: LACTOBACILLUS ACIDOPHILUS 250 MG TAB PO SCH ×2 (10:18→23:44)
[2016-12-06] MEDS: GUAIFENESIN 600 MG TABLET.SA PO SCH ×2 (10:18→23:44)
[2016-12-06] MEDS: POLYETHYLENE GLYCOL 3350 POWDER 17 GM/1 PACKET PO SCH (13:20)
--- NOTE | 2016-12-06 17:05 | PDOC PROGRESS REPORT ---
Subjective Progress Note for:: 12/06/16 Subjective:: patient is somewhat lethargic at bedside. Patient cousin/POA present at bedside for interview. Patient denies fever, chills, shortness of breath, nausea, vomiting, diarrhea. Admits to chest pain with palpation of her chest Physical Exam Vital Signs: Temp Pulse Resp BP Pulse Ox 97.4 F 83 20 138/72 H 99 12/06/16 11:51 12/06/16 11:51 12/06/16 11:51 12/06/16 11:51 12/06/16 11:51 Intake & Output 12/05/16 12/06/16 12/07/16 06:59 06:59 06:59 Intake Total 3392 602 0463 Output Total 3500 1650 1000 Balance -2410 -700 330 Weight 88.1 kg 89.3 kg Exam: GENERAL: No acute distress, obese HEENT: Conjunctiva clear, nonicteric, moist mucous membranes, no JVD, midline trachea RESPIRATORY: Bilateral rales CARDIAC: Regular rate and rhythm, no murmurs/gallops/rubs ABDOMEN: Soft, nondistended, nontender, positive bowel sounds, no rebound, no guarding EXTREMETIES: No cyanosis. Significant digital clubbing. 4+ edema of right stump Bilateral above-knee amputation NEUROLOGIC: Alert, orientedx2, CN's grossly intact, no focal deficits SKIN: No rash, wounds Results Laboratory Results: 12/06/16 04:29 12/06/16 04:29 12/06/16 12/06/16 04:29 04:29 WBC 11.1 H RBC 3.22 L Hgb 8.5 L Hct 28.2 L MCV 88 MCH 26.3 L MCHC 30.0 L RDW 20.9 H Plt Count 223 Seg Neutrophils % 81.4 H Lymphocytes % 11.8 L Monocytes % 6.2 Eosinophils % 0.5 Basophils % 0.1 Absolute Neutrophils 9.0 H Absolute Lymphocytes 1.3 Absolute Monocytes 0.7 Absolute Eosinophils 0.1 Absolute Basophils 0.0 Sodium 134.6 L Potassium 4.9 Chloride 94 L Carbon Dioxide 34 H Anion Gap 7 BUN 37 H Creatinine 0.96 Est GFR ( Amer) > 60 Est GFR (Non-Af Amer) 58 L Glucose 150 H Calcium 8.0 L Magnesium 1.5 L 11/29/16 11/29/16 11/29/16 05:57 05:57 12:30 Creatine Kinase 325 H 304 H CK-MB (CK-2) 1.09 Troponin I 0.420 NT-Pro-B Natriuret Pep 11/29/16 11/29/16 11/29/16 12:30 17:35 18:00 Creatine Kinase 279 H CK-MB (CK-2) 1.15 1.08 Troponin I 0.217 0.133 NT-Pro-B Natriuret Pep 12/04/16 05:25 Creatine Kinase CK-MB (CK-2) Troponin I NT-Pro-B Natriuret Pep 37796 H Impressions: Abdomen/Pelvis CT 11/29/16 02:17 IMPRESSION: No acute findings. Chest X-Ray 12/04/16 11:15 IMPRESSION: POSSIBLE SLIGHT DECREASE IN THE RIGHT PLEURAL EFFUSION. RIGHT BASILAR ATELECTASIS/ INFILTRATE UNCHANGED. Assessment & Plan - Diagnosis (1) Septic shock Is this a current diagnosis for this admission?: YesPlan: resolved. Secondary to pneumonia which is now stable. (2) Severe sepsis Is this a current diagnosis for this admission?: YesPlan: Patient with RLL pna. Continue Levaquin day #08/29. (3) UTI (urinary tract infection) Qualifiers: Urinary tract infection type: acute cystitis Hematuria presence: without hematuria Qualified Code(s): N30.00 - Acute cystitis without hematuria Is this a current diagnosis for this admission?: YesPlan: Fungal UTI on Diflucan day #5. (4) Acute hypoxemic respiratory failure Is this a current diagnosis for this admission?: YesPlan: Continue oxygen Secondary to underlying pulmonary HTN (5) Acute kidney injury Is this a current diagnosis for this admission?: YesPlan: Improved since admission (6) Acute on chronic respiratory failure with hypoxia Is this a current diagnosis for this admission?: Yes (7) Acute on chronic systolic CHF (congestive heart failure) Is this a current diagnosis for this admission?: YesPlan: Hypervolemic Echocardiogram 11/15/2016 with ejection fraction 40-50%, grade 1/4 diastolic dysfunction,Moderate tricuspid regurgitation. Increase Lasix 40 mg TID, Coreg 3.125 mg twice daily. (8) Adrenal insufficiency Is this a current diagnosis for this admission?: YesPlan: Continue on Cortef 20mg po bid (9) COPD (chronic obstructive pulmonary disease) Qualifiers: COPD type: COPD with acute exacerbation Qualified Code(s): J44.1 - Chronic obstructive pulmonary disease with (acute) exacerbation Is this a current diagnosis for this admission?: YesPlan: Continue nebulized treatments On symbicort (10) Diabetes Qualifiers: Diabetes mellitus type: type 2 Diabetes mellitus complication status: with circulatory complication Diabetes mellitus complication detail: with other circulatory complications Diabetes mellitus halfway insulin use: with halfway use Qualified Code(s): E11.59 - Type 2 diabetes mellitus with other circulatory complications Is this a current diagnosis for this admission?: YesPlan: Well-controlled on Lantus and sliding scale insulin (11) GERD (gastroesophageal reflux disease) Qualifiers: Esophagitis presence: without esophagitis Qualified Code(s): K21.9 - Gastro-esophageal reflux disease without esophagitis (12) Medical non-compliance Is this a current diagnosis for this admission?: YesPlan: Continues to be medically noncompliant. Have consulted palliative care. At this time, due to patient's general medical noncompliance my recommendation is for bare minimum of rehabilitation with option to place patient permanently. Patient is clearly unable to care for herself at home and requires more than 1 caregiver in a 24-hour period. (13) Peripheral vascular disease Is this a current diagnosis for this admission?: Yes (14) Tobacco abuse Is this a current diagnosis for this admission?: Yes (15) DNR (do not resuscitate) Is this a current diagnosis for this admission?: Yes - Time Time Spent with patient: 25-34 minutes Medications reviewed and adjusted accordingly: Yes Anticipated discharge: Home with Homehealth Within: within 48 hours, within 72 hours - Inpatient Certification Based on my medical assessment, after consideration of the patient's comorbidities, presenting symptoms, or acuity I expect that the services needed warrant INPATIENT care.: Yes I certify that my determination is in accordance with my understanding of Medicare's requirements for reasonable and necessary INPATIENT services [42 CFR 412.3e].: Yes Medical Necessity: Other Post Hospital Care: D/C Director Of Capital Giving Documentation
[2016-12-06] MEDS ORDERED: PETROLATUM WHITE TP SCH (18:00)
[2016-12-06] MEDS ORDERED: LIDOCAINE 5% (700 MG) TRANSDERMAL ADH..PATCH TP ONE (18:00)
[2016-12-06] MEDS: PANTOT AC/MIN OIL/PET HY-PHL OINT 50 GM TOP SCH (19:11)
[2016-12-06] MEDS: AMITRIPTYLINE HCL 25 MG TABLET PO SCH (23:45)
[2016-12-06] MEDS: ENOXAPARIN SODIUM INJ 100 MG/1 ML DISP.SYRIN SUBCUT SCH (23:46)
[2016-12-06] MEDS: ATORVASTATIN CALCIUM 20 MG TABLET PO SCH (23:49)
--- NOTE | 2016-12-07 07:54 | XCELERA REPORT ---
[address] [address] Lower Extremity Venous Evaluation Name: DANYELL ABBASI Age: 71 yrs Gender: Female : 1945 Patient Status: Inpatient Patient Location: 4N\S\[facility]\S\A Study Date: 12/06/2016 04:35 PM Procedure: Color flow and duplex imaging bilaterally of the veins of the lower extremities as well as the Common Femoral veins. Reason For Study: asymmetric right BKA swelling Ordering Physician: LUNA FERREIRA Performed By: Eugene Rasheed Right Sided Venous Evaluation In this patient , Bilateral above the knee amputations, abnormal vessel filling , no compression or Colour flow in the mid Femoral vein noted. Left Sided Venous Evaluation In this patient , Bilateral above the knee amputations, abnormal vessel filling , no compression or Colour flow in the proximal Common Femoral vein noted. Critical Findings Discussed with Dr Sapp at about 1800 hours. Interpretation Summary Bilateral Femoral DVT present on ultrasound. : LUNA FERREIRA > Jeremy Alas
[2016-12-07] MEDS: INSULIN LISPRO 100 UNIT/ML 3 ML VIAL SUBCUT PRN ×3 (08:40→21:46)
[2016-12-07] MEDS: FLUCONAZOLE 100 MG TABLET PO SCH (09:33)
[2016-12-07] MEDS: ASPIRIN 81 MG TABLET, ENT COATED PO SCH (09:33)
[2016-12-07] MEDS: FERROUS SULFATE 325 MG TABLET PO SCH (09:34)
[2016-12-07] MEDS: CARVEDILOL 3.125 MG TABLET PO SCH ×2 (09:35→21:48)
[2016-12-07] MEDS: DOCUSATE SODIUM 100 MG CAPSULE PO SCH ×2 (09:35→18:34)
[2016-12-07] MEDS: GABAPENTIN 300 MG CAPSULE PO SCH ×2 (09:37→21:46)
[2016-12-07] MEDS: ENOXAPARIN SODIUM INJ 100 MG/1 ML DISP.SYRIN SUBCUT SCH ×2 (09:40→21:47)
[2016-12-07] MEDS: GUAIFENESIN 600 MG TABLET.SA PO SCH ×2 (10:00→21:49)
[2016-12-07 10:11] LABS: ABSOLUTE EOSINOPHILS # (AUTO) 0.1 10^3/uL (0.0-0.6); ABSOLUTE LYMPHOCYTES (AUTO) 1.8 10^3/uL (0.5-4.7); ABSOLUTE NEUT (AUTO) 7.6 10^3/uL (1.7-8.2); BASOPHILS % (AUTO) 0.1 % (0-2); EOSINOPHILS % (AUTO) 1.1 % (0-6); HEMATOCRIT 28.3 % (36.0-47.0); HEMOGLOBIN 8.7 g/dL (12.0-15.5); HGB HCT DIFFERENCE -2.2; LYMPHOCYTES % (AUTO) 16.9 % (13-45); MEAN CORPUSCULAR HEMOGLOBIN 26.6 pg (27.0-33.4); MEAN CORPUSCULAR HGB CONC 30.7 g/dL (32.0-36.0); MEAN CORPUSCULAR VOLUME 87 fl (80-97); MONOCYTES % (AUTO) 9.2 % (3-13); RED BLOOD COUNT 3.27 10^6/uL (3.72-5.28); RED CELL DISTRIBUTION WIDTH 21.4 % (11.5-14.0); SEGMENTED NEUTROPHILS % (AUTO) 72.7 % (42-78); WHITE BLOOD COUNT 10.5 10^3/uL (4.0-10.5)
[2016-12-07] MEDS: FUROSEMIDE 40 MG TABLET PO SCH ×3 (10:22→21:49)
[2016-12-07] MEDS: BUDESONIDE/FORMOTEROL 80-4.5 MCG 60 PUFF/6.9 GM MDI IH SCH ×2 (10:51→21:50)
[2016-12-07] MEDS: LANSOPRAZOLE 15 MG TAB.RAP.DR PO SCH (10:52)
[2016-12-07] MEDS: TIOTROPIUM BROMIDE DPI 5 CAP/KIT (18 MCG/CAP) IH SCH (10:53)
[2016-12-07] MEDS: LACTOBACILLUS ACIDOPHILUS 250 MG TAB PO SCH ×2 (10:56→21:48)
[2016-12-07] MEDS: HYDROCORTISONE 10 MG TABLET PO SCH ×2 (10:58→18:51)
[2016-12-07] MEDS: MAGNESIUM OXIDE 400 MG TABLET PO SCH ×2 (10:59→18:34)
[2016-12-07] MEDS: LIDOCAINE 5% (700 MG) TRANSDERMAL ADH..PATCH TP SCH (11:04)
[2016-12-07 11:22] LABS: ANION GAP 5 (5-19); BLOOD UREA NITROGEN 36 mg/dL (7-20); CALCIUM 8.5 mg/dL (8.4-10.2); CARBON DIOXIDE 37 mmol/L (22-30); CHLORIDE 95 mmol/L (98-107); CREATININE RESULT 0.94 mg/dL (0.52-1.25); GLUCOSE 158 mg/dL (75-110); POTASSIUM 4.6 mmol/L (3.6-5.0); SODIUM 137.3 mmol/L (137-145)
[2016-12-07 11:36] LABS: MAGNESIUM 1.2 mg/dL (1.6-2.3)
[2016-12-07] MEDS: POLYETHYLENE GLYCOL 3350 POWDER 17 GM/1 PACKET PO SCH (13:01)
[2016-12-07] MEDS: PANTOT AC/MIN OIL/PET HY-PHL OINT 50 GM TOP SCH (19:05)
--- NOTE | 2016-12-07 19:23 | PDOC PROGRESS REPORT ---
Subjective Progress Note for:: 12/07/16 Subjective:: Patient is somewhat lethargic at bedside. NUrse present at bedside for interview. Patient denies fever, chills, shortness of breath, nausea, vomiting, diarrhea. Admits to chest pain with palpation of her chest Physical Exam Vital Signs: Temp Pulse Resp BP Pulse Ox 98.6 F 94 20 132/71 H 95 12/07/16 16:21 12/07/16 16:21 12/07/16 16:21 12/07/16 16:21 12/07/16 16:21 Intake & Output 12/06/16 12/07/16 12/08/16 06:59 06:59 06:59 Intake Total 950 1660 550 Output Total 1650 1750 Balance -700 -90 550 Weight 89.3 kg 89.1 kg Exam: GENERAL: No acute distress, obese HEENT: Conjunctiva clear, nonicteric, moist mucous membranes, no JVD, midline trachea RESPIRATORY: bibasilar Bilateral rales, diminished left base CARDIAC: Regular rate and rhythm, no murmurs/gallops/rubs ABDOMEN: Soft, nondistended, nontender, positive bowel sounds, no rebound, no guarding EXTREMETIES: No cyanosis. Significant digital clubbing. 4+ edema of right stump Bilateral above-knee amputation NEUROLOGIC: Alert, orientedx2, CN's grossly intact, no focal deficits SKIN: No rash, wounds Results Laboratory Results: 12/07/16 09:38 12/07/16 09:38 12/07/16 12/07/16 12/07/16 05:15 05:15 09:38 WBC Cancelled 10.5 RBC Cancelled 3.27 L Hgb Cancelled 8.7 L Hct Cancelled 28.3 L MCV Cancelled 87 MCH Cancelled 26.6 L MCHC Cancelled 30.7 L RDW Cancelled 21.4 H Plt Count Cancelled 251 Seg Neutrophils % Cancelled 72.7 Lymphocytes % Cancelled 16.9 Monocytes % Cancelled 9.2 Eosinophils % Cancelled 1.1 Basophils % Cancelled 0.1 Absolute Neutrophils Cancelled 7.6 Absolute Lymphocytes Cancelled 1.8 Absolute Monocytes Cancelled 1.0 Absolute Eosinophils Cancelled 0.1 Absolute Basophils Cancelled 0.0 Sodium Cancelled Potassium Cancelled Chloride Cancelled Carbon Dioxide Cancelled Anion Gap Cancelled BUN Cancelled Creatinine Cancelled Est GFR ( Amer) Cancelled Est GFR (Non-Af Amer) Cancelled Glucose Cancelled Calcium Cancelled Magnesium Cancelled 12/07/16 09:38 WBC RBC Hgb Hct MCV MCH MCHC RDW Plt Count Seg Neutrophils % Lymphocytes % Monocytes % Eosinophils % Basophils % Absolute Neutrophils Absolute Lymphocytes Absolute Monocytes Absolute Eosinophils Absolute Basophils Sodium 137.3 Potassium 4.6 Chloride 95 L Carbon Dioxide 37 H Anion Gap 5 BUN 36 H Creatinine 0.94 Est GFR ( Amer) > 60 Est GFR (Non-Af Amer) 59 L Glucose 158 H Calcium 8.5 Magnesium 1.2 L* 11/29/16 11/29/16 11/29/16 05:57 05:57 12:30 Creatine Kinase 325 H 304 H CK-MB (CK-2) 1.09 Troponin I 0.420 NT-Pro-B Natriuret Pep 11/29/16 11/29/16 11/29/16 12:30 17:35 18:00 Creatine Kinase 279 H CK-MB (CK-2) 1.15 1.08 Troponin I 0.217 0.133 NT-Pro-B Natriuret Pep 12/04/16 05:25 Creatine Kinase CK-MB (CK-2) Troponin I NT-Pro-B Natriuret Pep 41279 H Impressions: Abdomen/Pelvis CT 11/29/16 02:17 IMPRESSION: No acute findings. Chest X-Ray 12/04/16 11:15 IMPRESSION: POSSIBLE SLIGHT DECREASE IN THE RIGHT PLEURAL EFFUSION. RIGHT BASILAR ATELECTASIS/ INFILTRATE UNCHANGED. Assessment & Plan - Diagnosis (1) Acute DVT (deep venous thrombosis) Qualifiers: DVT location: lower extremity Affected thrombotic vein of extremity: femoral Laterality: left Qualified Code(s): I82.412 - Acute embolism and thrombosis of left femoral vein Is this a current diagnosis for this admission?: YesPlan: Place patient on Lovenox. Plan to transition patient to Eliquis. Patient requests not being on Xarelto but have no objection to Eliquis. (2) Septic shock Is this a current diagnosis for this admission?: YesPlan: resolved. Secondary to pneumonia which is now stable. (3) Severe sepsis Is this a current diagnosis for this admission?: YesPlan: Patient with RLL pna. Continue Levaquin day #09/28. (4) UTI (urinary tract infection) Qualifiers: Urinary tract infection type: acute cystitis Hematuria presence: without hematuria Qualified Code(s): N30.00 - Acute cystitis without hematuria Is this a current diagnosis for this admission?: YesPlan: Fungal UTI on Diflucan day #10/29. (5) Acute hypoxemic respiratory failure Is this a current diagnosis for this admission?: YesPlan: Continue oxygen Secondary to underlying pulmonary HTN (6) Acute kidney injury Is this a current diagnosis for this admission?: YesPlan: Improved since admission (7) Acute on chronic respiratory failure with hypoxia Is this a current diagnosis for this admission?: Yes (8) Acute on chronic systolic CHF (congestive heart failure) Is this a current diagnosis for this admission?: Yes (9) Adrenal insufficiency Is this a current diagnosis for this admission?: YesPlan: Continue on Cortef 20mg po bid (10) COPD (chronic obstructive pulmonary disease) Qualifiers: COPD type: COPD with acute exacerbation Qualified Code(s): J44.1 - Chronic obstructive pulmonary disease with (acute) exacerbation Is this a current diagnosis for this admission?: Yes (11) Diabetes Qualifiers: Diabetes mellitus type: type 2 Diabetes mellitus complication status: with circulatory complication Diabetes mellitus complication detail: with other circulatory complications Diabetes mellitus group home insulin use: with tubing mill setter use Qualified Code(s): E11.59 - Type 2 diabetes mellitus with other circulatory complications Is this a current diagnosis for this admission?: Yes (12) GERD (gastroesophageal reflux disease) Qualifiers: Esophagitis presence: without esophagitis Qualified Code(s): K21.9 - Gastro-esophageal reflux disease without esophagitis (13) Medical non-compliance Is this a current diagnosis for this admission?: Yes (14) Peripheral vascular disease Is this a current diagnosis for this admission?: Yes (15) Tobacco abuse Is this a current diagnosis for this admission?: Yes (16) DNR (do not resuscitate) Is this a current diagnosis for this admission?: Yes - Time Time Spent with patient: 25-34 minutes Medications reviewed and adjusted accordingly: Yes Anticipated discharge: SNF, Acute Rehab Within: within 48 hours
[2016-12-07] MEDS: INSULIN GLARGINE,HUM.REC.ANLOG 300 UNIT/3 ML INSULN.PEN SUBCUT SCH (21:47)
[2016-12-07] MEDS: AMITRIPTYLINE HCL 25 MG TABLET PO SCH (21:48)
[2016-12-07] MEDS: OXYCODONE HCL IR 5 MG TABLET PO PRN (21:49)
[2016-12-07] MEDS: ATORVASTATIN CALCIUM 20 MG TABLET PO SCH (21:49)
[2016-12-07] MEDS: MAGNESIUM SULFATE/D5W 1 GM/100 ML RTUPB IV SCH ×2 (21:52→23:12)
[2016-12-08 02:28] LABS: APPEARANCE,URINE CLEAR; BILIRUBIN,URINE NEGATIVE (NEGATIVE); GLUCOSE, URINE 150 mg/dL (NEGATIVE); KETONES,URINE NEGATIVE (NEGATIVE); LEUKOCYTE ESTERASE,URINE NEGATIVE (NEGATIVE); NITRITE,URINE NEGATIVE (NEGATIVE); PROTEIN,URINE NEGATIVE (NEGATIVE); URINE SPECIFIC GRAVITY 1.008; UROBILINOGEN,URINE NEGATIVE mg/dL (<2.0)
[2016-12-08] MEDS: FUROSEMIDE 40 MG TABLET PO SCH ×3 (05:11→21:23)
[2016-12-08 06:34] LABS: ANION GAP 5 (5-19); BLOOD UREA NITROGEN 30 mg/dL (7-20); CALCIUM 8.2 mg/dL (8.4-10.2); CARBON DIOXIDE 38 mmol/L (22-30); CHLORIDE 94 mmol/L (98-107); CREATININE RESULT 0.89 mg/dL (0.52-1.25); GLUCOSE 233 mg/dL (75-110); MAGNESIUM 1.4 mg/dL (1.6-2.3); POTASSIUM 4.8 mmol/L (3.6-5.0); SODIUM 137.1 mmol/L (137-145)
[2016-12-08 06:39] LABS: ABSOLUTE EOSINOPHILS # (AUTO) 0.1 10^3/uL (0.0-0.6); ABSOLUTE LYMPHOCYTES (AUTO) 1.4 10^3/uL (0.5-4.7); ABSOLUTE MONOCYTES (AUTO) 0.8 10^3/uL (0.1-1.4); ABSOLUTE NEUT (AUTO) 7.3 10^3/uL (1.7-8.2); BASOPHILS % (AUTO) 0.1 % (0-2); EOSINOPHILS % (AUTO) 0.9 % (0-6); HEMATOCRIT 26.9 % (36.0-47.0); HEMOGLOBIN 8.2 g/dL (12.0-15.5); HGB HCT DIFFERENCE -2.3; LYMPHOCYTES % (AUTO) 14.4 % (13-45); MEAN CORPUSCULAR HEMOGLOBIN 26.5 pg (27.0-33.4); MEAN CORPUSCULAR HGB CONC 30.6 g/dL (32.0-36.0); MEAN CORPUSCULAR VOLUME 87 fl (80-97); MONOCYTES % (AUTO) 8.7 % (3-13); RED CELL DISTRIBUTION WIDTH 21.9 % (11.5-14.0); SEGMENTED NEUTROPHILS % (AUTO) 75.9 % (42-78); WHITE BLOOD COUNT 9.6 10^3/uL (4.0-10.5)
[2016-12-08] MEDS: INSULIN LISPRO 100 UNIT/ML 3 ML VIAL SUBCUT PRN ×4 (08:22→22:09)
[2016-12-08] MEDS: MAGNESIUM SULFATE/D5W 1 GM/100 ML RTUPB IV SCH ×3 (08:22→12:06)
[2016-12-08] MEDS: ENOXAPARIN SODIUM INJ 100 MG/1 ML DISP.SYRIN SUBCUT SCH ×2 (09:57→21:22)
[2016-12-08] MEDS: LACTOBACILLUS ACIDOPHILUS 250 MG TAB PO SCH ×2 (09:58→21:23)
[2016-12-08] MEDS: TIOTROPIUM BROMIDE DPI 5 CAP/KIT (18 MCG/CAP) IH SCH (09:59)
[2016-12-08] MEDS: HYDROCORTISONE 10 MG TABLET PO SCH ×2 (09:59→17:14)
[2016-12-08] MEDS: GUAIFENESIN 600 MG TABLET.SA PO SCH ×2 (10:00→21:24)
[2016-12-08] MEDS: LEVOFLOXACIN 750 MG TABLET PO SCH (10:00)
[2016-12-08] MEDS: DOCUSATE SODIUM 100 MG CAPSULE PO SCH ×2 (10:00→16:56)
[2016-12-08] MEDS: FERROUS SULFATE 325 MG TABLET PO SCH (10:00)
[2016-12-08] MEDS: CARVEDILOL 3.125 MG TABLET PO SCH ×2 (10:01→21:23)
[2016-12-08] MEDS: MAGNESIUM OXIDE 400 MG TABLET PO SCH ×3 (10:01→17:14)
[2016-12-08] MEDS: ASPIRIN 81 MG TABLET, ENT COATED PO SCH (10:01)
[2016-12-08] MEDS: PANTOT AC/MIN OIL/PET HY-PHL OINT 50 GM TOP SCH ×2 (10:02→17:14)
[2016-12-08] MEDS: LIDOCAINE 5% (700 MG) TRANSDERMAL ADH..PATCH TP SCH (10:02)
[2016-12-08] MEDS: BUDESONIDE/FORMOTEROL 80-4.5 MCG 60 PUFF/6.9 GM MDI IH SCH ×2 (10:10→21:21)
[2016-12-08] MEDS: POLYETHYLENE GLYCOL 3350 POWDER 17 GM/1 PACKET PO SCH (12:01)
--- NOTE | 2016-12-08 16:15 | PDOC PROGRESS REPORT ---
Subjective Progress Note for:: 12/08/16 Subjective:: Patient denies new complaints. Nurse present at bedside for interview. Patient denies fever, chills, shortness of breath, nausea, vomiting. Admits to chest pain with palpation of her chest Physical Exam Vital Signs: Temp Pulse Resp BP Pulse Ox 98.4 F 87 16 145/80 H 98 12/08/16 03:50 12/08/16 07:00 12/08/16 03:50 12/08/16 03:50 12/08/16 03:50 Intake & Output 12/07/16 12/08/16 12/09/16 06:59 06:59 06:59 Intake Total 1660 1590 Output Total 1750 1400 Balance -90 190 Weight 89.1 kg 87.2 kg Exam: GENERAL: No acute distress, obese HEENT: Conjunctiva clear, nonicteric, moist mucous membranes, no JVD, midline trachea RESPIRATORY: CTAB, diminished right and left base CARDIAC: Regular rate and rhythm, no murmurs/gallops/rubs ABDOMEN: Soft, nondistended, nontender, positive bowel sounds, no rebound, no guarding EXTREMETIES: No cyanosis. Significant digital clubbing. 3+ edema of right stump Bilateral above-knee amputation NEUROLOGIC: Alert, orientedx2, CN's grossly intact, no focal deficits SKIN: No rash, wounds Results Laboratory Results: 12/08/16 05:20 12/08/16 05:20 12/07/16 12/07/16 12/08/16 09:38 09:38 01:55 WBC 10.5 RBC 3.27 L Hgb 8.7 L Hct 28.3 L MCV 87 MCH 26.6 L MCHC 30.7 L RDW 21.4 H Plt Count 251 Seg Neutrophils % 72.7 Lymphocytes % 16.9 Monocytes % 9.2 Eosinophils % 1.1 Basophils % 0.1 Absolute Neutrophils 7.6 Absolute Lymphocytes 1.8 Absolute Monocytes 1.0 Absolute Eosinophils 0.1 Absolute Basophils 0.0 Sodium 137.3 Potassium 4.6 Chloride 95 L Carbon Dioxide 37 H Anion Gap 5 BUN 36 H Creatinine 0.94 Est GFR ( Amer) > 60 Est GFR (Non-Af Amer) 59 L Glucose 158 H Calcium 8.5 Magnesium 1.2 L* Urine Color STRAW Urine Appearance CLEAR Urine pH 5.0 Ur Specific [place] 1.008 Urine Protein NEGATIVE Urine Glucose (UA) 150 H Urine Ketones NEGATIVE Urine Blood SMALL H Urine Nitrite NEGATIVE Ur Leukocyte Esterase NEGATIVE Urine WBC (Auto) 1 Urine RBC (Auto) 3 12/08/16 12/08/16 05:20 05:20 WBC 9.6 RBC 3.10 L Hgb 8.2 L Hct 26.9 L MCV 87 MCH 26.5 L MCHC 30.6 L RDW 21.9 H Plt Count 258 Seg Neutrophils % 75.9 Lymphocytes % 14.4 Monocytes % 8.7 Eosinophils % 0.9 Basophils % 0.1 Absolute Neutrophils 7.3 Absolute Lymphocytes 1.4 Absolute Monocytes 0.8 Absolute Eosinophils 0.1 Absolute Basophils 0.0 Sodium 137.1 Potassium 4.8 Chloride 94 L Carbon Dioxide 38 H Anion Gap 5 BUN 30 H Creatinine 0.89 Est GFR ( Amer) > 60 Est GFR (Non-Af Amer) > 60 Glucose 233 H Calcium 8.2 L Magnesium 1.4 L Urine Color Urine Appearance Urine pH Ur Specific [place] Urine Protein Urine Glucose (UA) Urine Ketones Urine Blood Urine Nitrite Ur Leukocyte Esterase Urine WBC (Auto) Urine RBC (Auto) 11/29/16 11/29/16 11/29/16 05:57 05:57 12:30 Creatine Kinase 325 H 304 H CK-MB (CK-2) 1.09 Troponin I 0.420 NT-Pro-B Natriuret Pep 11/29/16 11/29/16 11/29/16 12:30 17:35 18:00 Creatine Kinase 279 H CK-MB (CK-2) 1.15 1.08 Troponin I 0.217 0.133 NT-Pro-B Natriuret Pep 12/04/16 05:25 Creatine Kinase CK-MB (CK-2) Troponin I NT-Pro-B Natriuret Pep 50260 H Impressions: Abdomen/Pelvis CT 11/29/16 02:17 IMPRESSION: No acute findings. Chest X-Ray 12/04/16 11:15 IMPRESSION: POSSIBLE SLIGHT DECREASE IN THE RIGHT PLEURAL EFFUSION. RIGHT BASILAR ATELECTASIS/ INFILTRATE UNCHANGED. Assessment & Plan - Diagnosis (1) Acute DVT (deep venous thrombosis) Qualifiers: DVT location: lower extremity Affected thrombotic vein of extremity: femoral Laterality: left Qualified Code(s): I82.412 - Acute embolism and thrombosis of left femoral vein Is this a current diagnosis for this admission?: YesPlan: Place patient on Lovenox. Patient requests not being on Xarelto. Patient expresses concern about being on oral anti-coagulants due to poor experience with Xarelto in the past. Continue patient on Lovenox and will refer to hematology as an outpatient. (2) Septic shock Is this a current diagnosis for this admission?: YesPlan: resolved. Secondary to pneumonia which is now stable. (3) Severe sepsis Is this a current diagnosis for this admission?: YesPlan: Patient with RLL pna. Continue Levaquin day #10/29. (4) UTI (urinary tract infection) Qualifiers: Urinary tract infection type: acute cystitis Hematuria presence: without hematuria Qualified Code(s): N30.00 - Acute cystitis without hematuria Is this a current diagnosis for this admission?: YesPlan: Fungal UTI on Diflucan day #11/28. (5) Acute hypoxemic respiratory failure Is this a current diagnosis for this admission?: YesPlan: Continue oxygen Secondary to underlying pulmonary HTN (6) Acute kidney injury Is this a current diagnosis for this admission?: YesPlan: Improved since admission (7) Acute on chronic respiratory failure with hypoxia Is this a current diagnosis for this admission?: Yes (8) Acute on chronic systolic CHF (congestive heart failure) Is this a current diagnosis for this admission?: YesPlan: Hypervolemic Echocardiogram 11/15/2016 with ejection fraction 40-50%, grade 1/4 diastolic dysfunction,Moderate tricuspid regurgitation. Lasix 40 mg TID, Coreg 3.125 mg twice daily. (9) Adrenal insufficiency Is this a current diagnosis for this admission?: YesPlan: Continue on Cortef 20mg po bid (10) COPD (chronic obstructive pulmonary disease) Qualifiers: COPD type: COPD with acute exacerbation Qualified Code(s): J44.1 - Chronic obstructive pulmonary disease with (acute) exacerbation Is this a current diagnosis for this admission?: YesPlan: Continue nebulized treatments On symbicort (11) Diabetes Qualifiers: Diabetes mellitus type: type 2 Diabetes mellitus complication status: with circulatory complication Diabetes mellitus complication detail: with other circulatory complications Diabetes mellitus fpc insulin use: with terminal computer operator use Qualified Code(s): E11.59 - Type 2 diabetes mellitus with other circulatory complications Is this a current diagnosis for this admission?: YesPlan: Well-controlled on Lantus and sliding scale insulin (12) GERD (gastroesophageal reflux disease) Qualifiers: Esophagitis presence: without esophagitis Qualified Code(s): K21.9 - Gastro-esophageal reflux disease without esophagitis (13) Medical non-compliance Is this a current diagnosis for this admission?: Yes (14) Peripheral vascular disease Is this a current diagnosis for this admission?: Yes (15) Tobacco abuse Is this a current diagnosis for this admission?: Yes (16) DNR (do not resuscitate) Is this a current diagnosis for this admission?: Yes - Time Time Spent with patient: 25-34 minutes Medications reviewed and adjusted accordingly: Yes Anticipated discharge: Acute Rehab Within: within 24 hours
[2016-12-08] MEDS: GABAPENTIN 300 MG CAPSULE PO SCH (21:24)
[2016-12-08] MEDS: ATORVASTATIN CALCIUM 20 MG TABLET PO SCH (21:25)
[2016-12-08] MEDS: AMITRIPTYLINE HCL 25 MG TABLET PO SCH (21:25)
[2016-12-08] MEDS: INSULIN GLARGINE,HUM.REC.ANLOG 300 UNIT/3 ML INSULN.PEN SUBCUT SCH (22:10)
[2016-12-09] MEDS: FUROSEMIDE 40 MG TABLET PO SCH (05:03)
[2016-12-09 05:18] LABS: HEMATOCRIT 27.6 % (36.0-47.0); HEMOGLOBIN 8.4 g/dL (12.0-15.5); HGB HCT DIFFERENCE -2.4; MEAN CORPUSCULAR HEMOGLOBIN 26.5 pg (27.0-33.4); MEAN CORPUSCULAR HGB CONC 30.6 g/dL (32.0-36.0); MEAN CORPUSCULAR VOLUME 87 fl (80-97); RED BLOOD COUNT 3.18 10^6/uL (3.72-5.28); WHITE BLOOD COUNT 9.7 10^3/uL (4.0-10.5)
[2016-12-09 05:38] LABS: BLOOD UREA NITROGEN 32 mg/dL (7-20); CALCIUM 8.6 mg/dL (8.4-10.2); CARBON DIOXIDE 39 mmol/L (22-30); CREATININE RESULT 0.82 mg/dL (0.52-1.25); GLUCOSE 183 mg/dL (75-110); MAGNESIUM 2.1 mg/dL (1.6-2.3)
[2016-12-09 05:52] LABS: CHLORIDE 94 mmol/L (98-107); POTASSIUM 5.7 mmol/L (3.6-5.0); SODIUM 136.8 mmol/L (137-145)
[2016-12-09 05:59] LABS: ANION GAP 4 (5-19)
[2016-12-09] MEDS: MAGNESIUM OXIDE 400 MG TABLET PO SCH ×3 (09:25→17:32)
[2016-12-09] MEDS: LANSOPRAZOLE 15 MG TAB.RAP.DR PO SCH (09:26)
[2016-12-09] MEDS: LACTOBACILLUS ACIDOPHILUS 250 MG TAB PO SCH ×2 (09:27→22:07)
[2016-12-09] MEDS: FERROUS SULFATE 325 MG TABLET PO SCH (09:27)
[2016-12-09] MEDS: GABAPENTIN 300 MG CAPSULE PO SCH ×2 (09:27→22:07)
[2016-12-09] MEDS: ASPIRIN 81 MG TABLET, ENT COATED PO SCH (09:27)
[2016-12-09] MEDS: GUAIFENESIN 600 MG TABLET.SA PO SCH ×2 (09:28→22:07)
[2016-12-09] MEDS: CARVEDILOL 3.125 MG TABLET PO SCH ×2 (09:28→22:07)
[2016-12-09] MEDS: INSULIN LISPRO 100 UNIT/ML 3 ML VIAL SUBCUT PRN ×3 (09:29→23:49)
[2016-12-09] MEDS: ENOXAPARIN SODIUM INJ 100 MG/1 ML DISP.SYRIN SUBCUT SCH (09:30)
[2016-12-09] MEDS: HYDROCORTISONE 10 MG TABLET PO SCH ×2 (09:32→17:33)
[2016-12-09] MEDS: TIOTROPIUM BROMIDE DPI 5 CAP/KIT (18 MCG/CAP) IH SCH (09:33)
[2016-12-09] MEDS: BUDESONIDE/FORMOTEROL 80-4.5 MCG 60 PUFF/6.9 GM MDI IH SCH ×2 (09:34→22:07)
[2016-12-09] MEDS: LIDOCAINE 5% (700 MG) TRANSDERMAL ADH..PATCH TP SCH (09:35)
[2016-12-09] MEDS: DOCUSATE SODIUM 100 MG CAPSULE PO SCH ×2 (09:39→17:34)
[2016-12-09] MEDS: PANTOT AC/MIN OIL/PET HY-PHL OINT 50 GM TOP SCH ×2 (09:39→17:34)
[2016-12-09] MEDS: ACETAMINOPHEN 325 MG TABLET PO PRN (10:04)
[2016-12-09] MEDS ORDERED: NORMAL SALINE 1000 ML 1,000 ML IV PRN (12:19)
[2016-12-09] MEDS: POLYETHYLENE GLYCOL 3350 POWDER 17 GM/1 PACKET PO SCH (13:01)
--- NOTE | 2016-12-09 16:31 | RADIOLOGY REPORT (SQ) ---
EXAM DESCRIPTION: PICC INSERTION COMPLETED DATE/TIME: 12/09/2016 4:05 pm REASON FOR STUDY: INABILITY TO GET AN IV COMPARISON: None. FLUOROSCOPY TIME: 10 seconds 2 images saved to PACS. TECHNIQUE: Fluoroscopic and ultrasound guided PICC placement. LIMITATIONS: None. PROCEDURE: After written consent and assessment were obtained, the patient was brought into the fluo roscopy room and place supine on the table. Ultrasound was used on the patient's right arm for PICC access. The right arm was prepped and draped in a sterile fashion along with the ultrasound probe. Th e entry site was anesthetized with 1% lidocaine. A 21 gauge 7 cm needle was advanced through the skin and into the basilic vein under live ultrasound guidance. An ultrasound image was saved to PACS con firming access site. A .018 guide wire was then inserted through the needle and into the venous syst em. The needle was the removed and an 11 blade scalpel was used to make a 1cm skin incision. A 5 fr peel-away sheath was advanced over the wire and into the venous system. A measurement was then made u sing the existing wire and live fluoroscopic guidance. The wire was then removed and the trimmed. The PICC was advanced through the peel-away sheath and into the venous system. The peel-away sheath was removed and the catheter was adhered to the patients arm with a stat lock. The catheter was then aspi rated and flushed and a sterile bandage was placed over the access site. A fluoroscopic spot image w as saved to PACS confirming the catheter tip within the superior vena cava. IMPRESSION: SUCCESSFUL PLACEMENT OF A 5 FR dual LUMEN 30 CM PICC IN THE basilic VEIN. COMMENT: Patient medication list reviewed: Yes. Quality ID [id number]: Final reports for procedures using fluoroscopy that document radiation exposure jair may, or exposure time and number of fluorographic images (if radiation exposure indices are not avail able) Quality ID #[id number]: The patient was prepped and draped using maximum sterile barrier technique including cap, mask, sterile gown, sterile gloves, a large sterile sheet, hand hygiene, and 2% Chlorhexidine fo r cutaneous antisepsis. When ultrasound is used, sterile ultrasound techniques are followed requiring sterile gel and sterile probes. TECHNICAL DOCUMENTATION: JOB ID: [id number] [employer]- All Rights Reserved
--- NOTE | 2016-12-09 16:32 | RADIOLOGY REPORT (SQ) ---
EXAM DESCRIPTION: U/S GUIDE FOR VASCULAR ACCESS COMPLETE DATE/TIME: 12/09/2016 4:05 pm REASON FOR STUDY: IV ACCESS FINDINGS: Please see combined report for performance of procedure and radiologic supervision and int erpretation. IMPRESSION: Please see combined report for performance of procedure and radiologic supervision and i nterpretation.
--- NOTE | 2016-12-09 16:32 | RADIOLOGY REPORT (SQ) ---
EXAM DESCRIPTION: FLUORO/CV PLACEMENT COMPLETE DATE/TIME: 12/09/2016 4:05 pm REASON FOR STUDY: IV ACCESS FINDINGS: Please see combined report for performance of procedure and radiologic supervision and int erpretation. IMPRESSION: Please see combined report for performance of procedure and radiologic supervision and i nterpretation.
--- NOTE | 2016-12-09 16:58 | PDOC PROGRESS REPORT ---
Subjective Progress Note for:: 12/09/16 Subjective:: Patient seen earlier today on morning rounds. Patient having diarrhea. Patient denies fever, chills, shortness of breath, nausea, vomiting. Admits to chest pain with palpation of her chest Physical Exam Vital Signs: Temp Pulse Resp BP Pulse Ox 98.7 F 105 H 18 148/85 H 91 L 12/09/16 11:40 12/09/16 14:00 12/09/16 11:40 12/09/16 11:40 12/09/16 11:40 Intake & Output 12/08/16 12/09/16 12/10/16 06:59 06:59 06:59 Intake Total 1590 1070 570 Output Total 1400 200 Balance 190 870 570 Weight 87.2 kg 80.1 kg Exam: GENERAL: No acute distress, obese HEENT: Conjunctiva clear, nonicteric, moist mucous membranes, no JVD, midline trachea RESPIRATORY: CTAB, diminished right base CARDIAC: Regular rate and rhythm, no murmurs/gallops/rubs ABDOMEN: Soft, nondistended, nontender, positive bowel sounds, no rebound, no guarding EXTREMETIES: No cyanosis. Significant digital clubbing. 3+ edema of right stump Bilateral above-knee amputation NEUROLOGIC: Alert, orientedx3, CN's grossly intact, no focal deficits SKIN: No rash, wounds Results Laboratory Results: 12/09/16 04:38 12/09/16 12/09/16 04:38 04:38 WBC 9.7 RBC 3.18 L Hgb 8.4 L Hct 27.6 L MCV 87 MCH 26.5 L MCHC 30.6 L RDW 22.0 H Plt Count 250 Sodium 136.8 L Potassium 5.7 H Chloride 94 L Carbon Dioxide 39 H Anion Gap 4 L BUN 32 H Creatinine 0.82 Est GFR ( Amer) > 60 Est GFR (Non-Af Amer) > 60 Glucose 183 H Calcium 8.6 Magnesium 2.1 11/29/16 11/29/16 11/29/16 05:57 05:57 12:30 Creatine Kinase 325 H 304 H CK-MB (CK-2) 1.09 Troponin I 0.420 NT-Pro-B Natriuret Pep 11/29/16 11/29/16 11/29/16 12:30 17:35 18:00 Creatine Kinase 279 H CK-MB (CK-2) 1.15 1.08 Troponin I 0.217 0.133 NT-Pro-B Natriuret Pep 12/04/16 05:25 Creatine Kinase CK-MB (CK-2) Troponin I NT-Pro-B Natriuret Pep 89337 H Impressions: Abdomen/Pelvis CT 11/29/16 02:17 IMPRESSION: No acute findings. Chest X-Ray 12/04/16 11:15 IMPRESSION: POSSIBLE SLIGHT DECREASE IN THE RIGHT PLEURAL EFFUSION. RIGHT BASILAR ATELECTASIS/ INFILTRATE UNCHANGED. Guidance Fluoroscopy 12/09/16 00:00 IMPRESSION: Please see combined report for performance of procedure and radiologic supervision and interpretation. Interventional Vascular Procedure 12/09/16 00:00 IMPRESSION: Please see combined report for performance of procedure and radiologic supervision and interpretation. PICC Line Insertion 12/09/16 00:00 IMPRESSION: SUCCESSFUL PLACEMENT OF A 5 FR dual LUMEN 30 CM PICC IN THE basilic VEIN. Assessment & Plan - Diagnosis (1) Acute DVT (deep venous thrombosis) Qualifiers: DVT location: lower extremity Affected thrombotic vein of extremity: femoral Laterality: left Qualified Code(s): I82.412 - Acute embolism and thrombosis of left femoral vein Is this a current diagnosis for this admission?: YesPlan: Patient unable to tolerate Lovenox secondary to occult blood positivity. CTA of the abdomen pending. It appears as though patient already has an IVC filter in place. (2) Septic shock Is this a current diagnosis for this admission?: YesPlan: resolved. Secondary to pneumonia which is now stable. (3) Severe sepsis Is this a current diagnosis for this admission?: YesPlan: Patient with RLL pna. Continue Levaquin day #11/28. (4) UTI (urinary tract infection) Qualifiers: Urinary tract infection type: acute cystitis Hematuria presence: without hematuria Qualified Code(s): N30.00 - Acute cystitis without hematuria Is this a current diagnosis for this admission?: YesPlan: Fungal UTI on Diflucan day #12/29. (5) Acute hypoxemic respiratory failure Is this a current diagnosis for this admission?: YesPlan: Continue oxygen Secondary to underlying pulmonary HTN (6) Acute kidney injury Is this a current diagnosis for this admission?: YesPlan: Improved since admission (7) Acute on chronic respiratory failure with hypoxia Is this a current diagnosis for this admission?: Yes (8) Acute on chronic systolic CHF (congestive heart failure) Is this a current diagnosis for this admission?: YesPlan: Overdiuresed Echocardiogram 11/15/2016 with ejection fraction 40-50%, grade 1/4 diastolic dysfunction,Moderate tricuspid regurgitation. Coreg 3.125 mg twice daily No melvin/arb 2/2 renal failure proclivity and ef>40 hold lasix (9) Adrenal insufficiency Is this a current diagnosis for this admission?: YesPlan: Continue on Cortef 20mg po bid (10) COPD (chronic obstructive pulmonary disease) Qualifiers: COPD type: COPD with acute exacerbation Qualified Code(s): J44.1 - Chronic obstructive pulmonary disease with (acute) exacerbation Is this a current diagnosis for this admission?: YesPlan: Continue nebulized treatments On symbicort (11) Diabetes Qualifiers: Diabetes mellitus type: type 2 Diabetes mellitus complication status: with circulatory complication Diabetes mellitus complication detail: with other circulatory complications Diabetes mellitus social security assessor insulin use: with social security assessor use Qualified Code(s): E11.59 - Type 2 diabetes mellitus with other circulatory complications Is this a current diagnosis for this admission?: YesPlan: Well-controlled on Lantus and sliding scale insulin (12) GERD (gastroesophageal reflux disease) Qualifiers: Esophagitis presence: without esophagitis Qualified Code(s): K21.9 - Gastro-esophageal reflux disease without esophagitis (13) Medical non-compliance Is this a current diagnosis for this admission?: Yes (14) Peripheral vascular disease Is this a current diagnosis for this admission?: Yes (15) Tobacco abuse Is this a current diagnosis for this admission?: Yes (16) DNR (do not resuscitate) Is this a current diagnosis for this admission?: Yes - Time Time Spent with patient: 25-34 minutes Medications reviewed and adjusted accordingly: Yes Anticipated discharge: Acute Rehab Within: - monday pending resolution of gi bleeding
[2016-12-09 17:10] LABS: ANION GAP 5 (5-19); BLOOD UREA NITROGEN 27 mg/dL (7-20); CARBON DIOXIDE 37 mmol/L (22-30); CHLORIDE 90 mmol/L (98-107); CREATININE RESULT 0.82 mg/dL (0.52-1.25); GLUCOSE 303 mg/dL (75-110); POTASSIUM 5.2 mmol/L (3.6-5.0); SODIUM 131.8 mmol/L (137-145)
[2016-12-09] MEDS ORDERED: LOPERAMIDE HCL 2 MG CAPSULE PO ONE (17:45)
[2016-12-09] MEDS ORDERED: INSULIN GLARGINE,HUM.REC.ANLOG 1,000 UNIT/10 ML UNIT SUBCUT ONE (22:02)
[2016-12-09] MEDS: ATORVASTATIN CALCIUM 20 MG TABLET PO SCH (22:07)
[2016-12-09] MEDS: AMITRIPTYLINE HCL 25 MG TABLET PO SCH (22:07)
[2016-12-09] MEDS: INSULIN GLARGINE,HUM.REC.ANLOG 300 UNIT/3 ML INSULN.PEN SUBCUT SCH (22:07)
[2016-12-09] MEDS: NORMAL SALINE 10 ML SDV (SCHEDULED) IV SCH (22:07)
[2016-12-10] MEDS: NORMAL SALINE 10 ML SDV (AFTER EACH USE) IV PRN ×2 (06:49→16:47)
[2016-12-10] MEDS: INSULIN LISPRO 100 UNIT/ML 3 ML VIAL SUBCUT PRN ×3 (08:00→22:18)
[2016-12-10] MEDS: GABAPENTIN 300 MG CAPSULE PO SCH ×2 (08:00→22:05)
[2016-12-10] MEDS: MAGNESIUM OXIDE 400 MG TABLET PO SCH ×3 (08:00→16:45)
[2016-12-10] MEDS: LANSOPRAZOLE 15 MG TAB.RAP.DR PO SCH (08:00)
[2016-12-10 09:40] LABS: ABSOLUTE EOSINOPHILS # (AUTO) 0.2 10^3/uL (0.0-0.6); ABSOLUTE LYMPHOCYTES (AUTO) 1.6 10^3/uL (0.5-4.7); ABSOLUTE NEUT (AUTO) 4.9 10^3/uL (1.7-8.2); BASOPHILS % (AUTO) 0.2 % (0-2); HEMATOCRIT 26.1 % (36.0-47.0); HEMOGLOBIN 8.1 g/dL (12.0-15.5); HGB HCT DIFFERENCE -1.8; LYMPHOCYTES % (AUTO) 21.3 % (13-45); MEAN CORPUSCULAR HEMOGLOBIN 27.6 pg (27.0-33.4); MEAN CORPUSCULAR HGB CONC 31.2 g/dL (32.0-36.0); MEAN CORPUSCULAR VOLUME 89 fl (80-97); MONOCYTES % (AUTO) 12.9 % (3-13); RED BLOOD COUNT 2.94 10^6/uL (3.72-5.28); RED CELL DISTRIBUTION WIDTH 21.7 % (11.5-14.0); SEGMENTED NEUTROPHILS % (AUTO) 63.6 % (42-78); WHITE BLOOD COUNT 7.7 10^3/uL (4.0-10.5)
[2016-12-10 10:03] LABS: BLOOD UREA NITROGEN 23 mg/dL (7-20); CALCIUM 8.2 mg/dL (8.4-10.2); CHLORIDE 96 mmol/L (98-107); CREATININE RESULT 0.81 mg/dL (0.52-1.25); GLUCOSE 128 mg/dL (75-110)
[2016-12-10 10:27] LABS: ANION GAP 4 (5-19); CARBON DIOXIDE 38 mmol/L (22-30); POTASSIUM 4.7 mmol/L (3.6-5.0); SODIUM 137.9 mmol/L (137-145)
[2016-12-10] MEDS: LACTOBACILLUS ACIDOPHILUS 250 MG TAB PO SCH ×2 (11:29→22:05)
[2016-12-10] MEDS: ASPIRIN 81 MG TABLET, ENT COATED PO SCH (11:30)
[2016-12-10] MEDS: CARVEDILOL 3.125 MG TABLET PO SCH ×2 (11:31→22:06)
[2016-12-10] MEDS: FERROUS SULFATE 325 MG TABLET PO SCH (11:31)
[2016-12-10] MEDS: GUAIFENESIN 600 MG TABLET.SA PO SCH ×2 (11:31→22:05)
[2016-12-10] MEDS: HYDROCORTISONE 10 MG TABLET PO SCH ×2 (11:33→22:05)
[2016-12-10] MEDS: LIDOCAINE 5% (700 MG) TRANSDERMAL ADH..PATCH TP SCH (11:33)
[2016-12-10] MEDS: NORMAL SALINE 10 ML SDV (SCHEDULED) IV SCH ×2 (11:34→22:05)
[2016-12-10] MEDS: TIOTROPIUM BROMIDE DPI 5 CAP/KIT (18 MCG/CAP) IH SCH (11:35)
[2016-12-10] MEDS: BUDESONIDE/FORMOTEROL 80-4.5 MCG 60 PUFF/6.9 GM MDI IH SCH ×2 (11:36→22:04)
[2016-12-10] MEDS: DOCUSATE SODIUM 100 MG CAPSULE PO SCH ×2 (11:37→16:53)
[2016-12-10] MEDS: POLYETHYLENE GLYCOL 3350 POWDER 17 GM/1 PACKET PO SCH (11:37)
[2016-12-10] MEDS: PANTOT AC/MIN OIL/PET HY-PHL OINT 50 GM TOP SCH ×2 (12:47→19:42)
--- NOTE | 2016-12-10 16:19 | PDOC PROGRESS REPORT ---
Subjective Progress Note for:: 12/10/16 Subjective:: Patient seen earlier today on morning rounds. Patient reports she is feeling better than yesterday. Patient no longer having diarrhea. Patient denies fever, chills, shortness of breath, nausea, vomiting. Admits to chest pain with palpation of her chest Physical Exam Vital Signs: Temp Pulse Resp BP Pulse Ox 98.6 F 82 17 145/74 H 100 12/10/16 04:29 12/10/16 04:29 12/10/16 04:29 12/10/16 04:29 12/10/16 04:29 Intake & Output 12/09/16 12/10/16 12/11/16 06:59 06:59 06:59 Intake Total 1070 983 Output Total 200 Balance 870 983 Weight 80.1 kg 80.1 kg Exam: GENERAL: No acute distress, obese HEENT: Conjunctiva clear, nonicteric, moist mucous membranes, no JVD, midline trachea RESPIRATORY: CTAB, diminished right base CARDIAC: Regular rate and rhythm, no murmurs/gallops/rubs ABDOMEN: Soft, nondistended, nontender, positive bowel sounds, no rebound, no guarding EXTREMETIES: No cyanosis. Significant digital clubbing.edema of right stump Bilateral above-knee amputation NEUROLOGIC: Alert, orientedx3, CN's grossly intact, no focal deficits Psych: normal mood and affect SKIN: No rash, wounds Results Laboratory Results: 12/09/16 04:38 12/09/16 16:35 12/09/16 16:35 Sodium 131.8 L Potassium 5.2 H Chloride 90 L Carbon Dioxide 37 H Anion Gap 5 BUN 27 H Creatinine 0.82 Est GFR ( Amer) > 60 Est GFR (Non-Af Amer) > 60 Glucose 303 H Calcium 8.0 L 11/29/16 11/29/16 11/29/16 05:57 05:57 12:30 Creatine Kinase 325 H 304 H CK-MB (CK-2) 1.09 Troponin I 0.420 NT-Pro-B Natriuret Pep 11/29/16 11/29/16 11/29/16 12:30 17:35 18:00 Creatine Kinase 279 H CK-MB (CK-2) 1.15 1.08 Troponin I 0.217 0.133 NT-Pro-B Natriuret Pep 12/04/16 05:25 Creatine Kinase CK-MB (CK-2) Troponin I NT-Pro-B Natriuret Pep 96518 H Impressions: Abdomen/Pelvis CT 11/29/16 02:17 IMPRESSION: No acute findings. Chest X-Ray 12/04/16 11:15 IMPRESSION: POSSIBLE SLIGHT DECREASE IN THE RIGHT PLEURAL EFFUSION. RIGHT BASILAR ATELECTASIS/ INFILTRATE UNCHANGED. Guidance Fluoroscopy 12/09/16 00:00 IMPRESSION: Please see combined report for performance of procedure and radiologic supervision and interpretation. Interventional Vascular Procedure 12/09/16 00:00 IMPRESSION: Please see combined report for performance of procedure and radiologic supervision and interpretation. PICC Line Insertion 12/09/16 00:00 IMPRESSION: SUCCESSFUL PLACEMENT OF A 5 FR dual LUMEN 30 CM PICC IN THE basilic VEIN. Assessment & Plan - Diagnosis (1) Acute DVT (deep venous thrombosis) Qualifiers: DVT location: lower extremity Affected thrombotic vein of extremity: femoral Laterality: left Qualified Code(s): I82.412 - Acute embolism and thrombosis of left femoral vein Is this a current diagnosis for this admission?: YesPlan: Patient unable to tolerate Lovenox secondary to occult blood positivity. CTA of the abdomen pending. It appears as though patient already has an IVC filter in place. (2) Septic shock Is this a current diagnosis for this admission?: YesPlan: resolved. Secondary to pneumonia which is now stable. (3) Severe sepsis Is this a current diagnosis for this admission?: YesPlan: Patient with RLL pna. Continue Levaquin day #8. (4) UTI (urinary tract infection) Qualifiers: Urinary tract infection type: acute cystitis Hematuria presence: without hematuria Qualified Code(s): N30.00 - Acute cystitis without hematuria Is this a current diagnosis for this admission?: YesPlan: Fungal UTI on Diflucan day #8. (5) Acute hypoxemic respiratory failure Is this a current diagnosis for this admission?: YesPlan: Continue oxygen Secondary to underlying pulmonary HTN (6) Acute kidney injury Is this a current diagnosis for this admission?: YesPlan: Improved since admission (7) Acute on chronic respiratory failure with hypoxia Is this a current diagnosis for this admission?: Yes (8) Acute on chronic systolic CHF (congestive heart failure) Is this a current diagnosis for this admission?: Yes (9) Adrenal insufficiency Is this a current diagnosis for this admission?: YesPlan: Decrease cortef to 15mg po qam and 10mg po qhs (10) COPD (chronic obstructive pulmonary disease) Qualifiers: COPD type: COPD with acute exacerbation Qualified Code(s): J44.1 - Chronic obstructive pulmonary disease with (acute) exacerbation Is this a current diagnosis for this admission?: Yes (11) Diabetes Qualifiers: Diabetes mellitus type: type 2 Diabetes mellitus complication status: with circulatory complication Diabetes mellitus complication detail: with other circulatory complications Diabetes mellitus prison insulin use: with prison use Qualified Code(s): E11.59 - Type 2 diabetes mellitus with other circulatory complications Is this a current diagnosis for this admission?: Yes (12) GERD (gastroesophageal reflux disease) Qualifiers: Esophagitis presence: without esophagitis Qualified Code(s): K21.9 - Gastro-esophageal reflux disease without esophagitis (13) Medical non-compliance Is this a current diagnosis for this admission?: Yes (14) Peripheral vascular disease Is this a current diagnosis for this admission?: Yes (15) Tobacco abuse Is this a current diagnosis for this admission?: Yes (16) DNR (do not resuscitate) Is this a current diagnosis for this admission?: Yes - Time Time Spent with patient: 25-34 minutes Medications reviewed and adjusted accordingly: Yes Anticipated discharge: Acute Rehab Within: when bed available
--- NOTE | 2016-12-10 17:06 | RADIOLOGY REPORT (SQ) ---
EXAM DESCRIPTION: CTA ABD AORTA AND EXTREMITY COMPLETED DATE/TIME: 12/09/2016 4:28 pm REASON FOR STUDY: dvt, assess IVC patency COMPARISON: CT abdomen 11/29/2016 TECHNIQUE: CT scan of the body and lower extremities performed with intravenous contrast using helic al scanning technique with dynamic intravenous contrast injection. Images reviewed with lung, soft ti ssue, and bone windows. Reconstructed coronal and sagittal MPR images reviewed. All images stored on PACS. Advanced 3D imaging as volume-rendering, MIPs, SSD performed? yes All CT scanners at this facility use dose modulation, iterative reconstruction, and/or weight based d osing when appropriate to reduce radiation dose to as low as reasonably achievable (ALARA). [facility]: Dose Right [facility]: CareDose [facility]: Dose Right [facility]: Teradose 4D [facility]: [employer] CONTRAST TYPE AND DOSE: contrast/concentration: Isovue 370.00 mg/ml; Total Contrast Delivered: 100.0 ml; Total Saline Delivered: 100.0 ml RENAL FUNCTION: BUN 32; creatinine 0.82 LIMITATIONS: None. FINDINGS: AORTA AND VESSELS: No aneurysm. No dissection. Calcified and noncalcified atherosclerotic plaque 2 include the origins of the visceral vessels, without evidence of significant stenosis. . LUNG BASES: Right lower lobe consolidation and small right-sided pleural effusion, incompletely evalu ated. LIVER: Normal size. No masses or dilated ducts. Re- demonstration of calcified granuloma. SPLEEN: Normal size. No focal lesions. PANCREAS: No masses. No significant calcifications. No adjacent inflammation or peripancreatic fluid collections. Pancreatic duct not dilated. ADRENAL GLANDS: Re- demonstration of right adrenal adenoma. RIGHT KIDNEY AND URETER: Re- demonstration of renal cysts and scarring. Unchanged in this short stud y interval. LEFT KIDNEY AND URETER: Re- demonstration of renal cysts. Unchanged in this short study interval. RETROPERITONEUM: No retroperitoneal adenopathy, hemorrhage or masses. An infrarenal IVC filter appea rs stable in position and appearance. BOWEL AND PERITONEAL CAVITY: No masses or inflammatory changes. No free fluid or peritoneal masses. Sigmoid diverticula without acute inflammatory change. APPENDIX: Normal. ABDOMINAL WALL: Ventral herniorrhaphy changes. Subcutaneous injection granulomata. No acute finding s. BONY STRUCTURES: No significant or acute findings. 3-D IMAGING: Confirms the above findings. OTHER: No other significant finding. LOWER EXTREMITIES: FEMORAL ARTERIES: No occlusions or significant stenoses. OTHER: Status post bilateral [id number] amputations. A previous left femoral vein catheter has b een removed. IMPRESSION: 1. No evidence of abdominal aortic aneurysm. Atherosclerotic plaque is seen without si gnificant stenosis. 2. Stable position and appearance of an IVC filter. Interval removal of a left femoral vein cathete r. Please note this study was ordered as an arteriogram, and is not optimized for evaluation of the venous structures in this patient with reported bilateral DVTs. 3. Short interval stability of chronic and incidental findings as detailed above. TECHNICAL DOCUMENTATION: JOB ID: [id number] Quality ID # [id number]: Final reports with documentation of one or more dose reduction techniques (e.g., Au tomated exposure control, adjustment of the mA and/or kV according to patient size, use of iterative reconstruction technique) 2010 [employer]- All Rights Reserved
[2016-12-10] MEDS: LEVOFLOXACIN 750 MG TABLET PO SCH (17:53)
[2016-12-10] MEDS: FLUCONAZOLE 100 MG TABLET PO SCH (17:53)
[2016-12-10] MEDS: INSULIN GLARGINE,HUM.REC.ANLOG 300 UNIT/3 ML INSULN.PEN SUBCUT SCH (22:04)
[2016-12-10] MEDS: AMITRIPTYLINE HCL 25 MG TABLET PO SCH (22:05)
[2016-12-10] MEDS: ATORVASTATIN CALCIUM 20 MG TABLET PO SCH (22:05)
[2016-12-11] MEDS: INSULIN LISPRO 100 UNIT/ML 3 ML VIAL SUBCUT PRN ×4 (07:04→23:49)
[2016-12-11] MEDS: HYDROCORTISONE 10 MG TABLET PO SCH ×2 (09:01→22:08)
[2016-12-11] MEDS: LACTOBACILLUS ACIDOPHILUS 250 MG TAB PO SCH ×2 (09:01→22:08)
[2016-12-11] MEDS: MAGNESIUM OXIDE 400 MG TABLET PO SCH ×3 (09:02→17:17)
[2016-12-11] MEDS: FERROUS SULFATE 325 MG TABLET PO SCH (09:02)
[2016-12-11] MEDS: FUROSEMIDE 20 MG TABLET PO SCH ×2 (09:02→17:16)
[2016-12-11] MEDS: ASPIRIN 81 MG TABLET, ENT COATED PO SCH (09:03)
[2016-12-11] MEDS: GABAPENTIN 300 MG CAPSULE PO SCH ×2 (09:03→22:08)
[2016-12-11] MEDS: GUAIFENESIN 600 MG TABLET.SA PO SCH ×2 (09:04→22:08)
[2016-12-11] MEDS: CARVEDILOL 3.125 MG TABLET PO SCH (09:04)
[2016-12-11] MEDS: LANSOPRAZOLE 15 MG TAB.RAP.DR PO SCH (09:04)
[2016-12-11] MEDS: TIOTROPIUM BROMIDE DPI 5 CAP/KIT (18 MCG/CAP) IH SCH (09:05)
[2016-12-11] MEDS: BUDESONIDE/FORMOTEROL 80-4.5 MCG 60 PUFF/6.9 GM MDI IH SCH ×2 (09:05→22:08)
[2016-12-11] MEDS: NORMAL SALINE 10 ML SDV (SCHEDULED) IV SCH ×2 (09:06→22:08)
[2016-12-11] MEDS: PANTOT AC/MIN OIL/PET HY-PHL OINT 50 GM TOP SCH ×2 (09:07→17:18)
[2016-12-11] MEDS: LIDOCAINE 5% (700 MG) TRANSDERMAL ADH..PATCH TP SCH (09:15)
[2016-12-11] MEDS: DOCUSATE SODIUM 100 MG CAPSULE PO SCH (09:15)
[2016-12-11] MEDS ORDERED: CHOLESTYRAMINE/ASPARTAME 4 GM PACKET PO ONE (11:05)
[2016-12-11] MEDS ORDERED: LOPERAMIDE HCL 2 MG CAPSULE PO PRN (11:06)
[2016-12-11] MEDS ORDERED: LOPERAMIDE HCL 2 MG CAPSULE PO ONE (11:30)
[2016-12-11] MEDS: POLYETHYLENE GLYCOL 3350 POWDER 17 GM/1 PACKET PO SCH (11:42)
--- NOTE | 2016-12-11 15:01 | PDOC PROGRESS REPORT ---
Subjective Progress Note for:: 12/11/16 Subjective:: Patient seen earlier today on morning rounds. Patient reports she is feeling better than yesterday. Patient reports diarrhea. Patient denies fever, chills, shortness of breath, nausea, vomiting. Admits to chest pain with palpation of her chest, but that this is tolerable. Physical Exam Vital Signs: Temp Pulse Resp BP Pulse Ox 97.9 F 94 16 125/72 91 L 12/11/16 11:55 12/11/16 11:55 12/11/16 11:55 12/11/16 11:55 12/11/16 11:55 Intake & Output 12/10/16 12/11/16 12/12/16 06:59 06:59 06:59 Intake Total 1978 1270 Balance 1978 1269 Weight 80.1 kg 80.1 kg Exam: GENERAL: No acute distress, obese HEENT: Conjunctiva clear, nonicteric, moist mucous membranes, no JVD, midline trachea RESPIRATORY: CTAB, diminished right base CARDIAC: Regular rate and rhythm, no murmurs/gallops/rubs ABDOMEN: Soft, nondistended, nontender, positive bowel sounds, no rebound, no guarding EXTREMETIES: No cyanosis. Significant digital clubbing.edema of right stump Bilateral above-knee amputation NEUROLOGIC: Alert, orientedx3, CN's grossly intact, no focal deficits Psych: normal mood and affect SKIN: No rash, wounds Results Laboratory Results: 12/10/16 09:15 11/29/16 11/29/16 11/29/16 05:57 05:57 12:30 Creatine Kinase 325 H 304 H CK-MB (CK-2) 1.09 Troponin I 0.420 NT-Pro-B Natriuret Pep 11/29/16 11/29/16 11/29/16 12:30 17:35 18:00 Creatine Kinase 279 H CK-MB (CK-2) 1.15 1.08 Troponin I 0.217 0.133 NT-Pro-B Natriuret Pep 12/04/16 05:25 Creatine Kinase CK-MB (CK-2) Troponin I NT-Pro-B Natriuret Pep 68246 H Impressions: Abdomen/Pelvis CT 11/29/16 02:17 IMPRESSION: No acute findings. Chest X-Ray 12/04/16 11:15 IMPRESSION: POSSIBLE SLIGHT DECREASE IN THE RIGHT PLEURAL EFFUSION. RIGHT BASILAR ATELECTASIS/ INFILTRATE UNCHANGED. Aorta w/Runoff CTA 12/09/16 00:00 IMPRESSION: 1. No evidence of abdominal aortic aneurysm. Atherosclerotic plaque is seen without significant stenosis. 2. Stable position and appearance of an IVC filter. Interval removal of a left femoral vein catheter. Please note this study was ordered as an arteriogram, and is not optimized for evaluation of the venous structures in this patient with reported bilateral DVTs. 3. Short interval stability of chronic and incidental findings as detailed above. Guidance Fluoroscopy 12/09/16 00:00 IMPRESSION: Please see combined report for performance of procedure and radiologic supervision and interpretation. Interventional Vascular Procedure 12/09/16 00:00 IMPRESSION: Please see combined report for performance of procedure and radiologic supervision and interpretation. PICC Line Insertion 12/09/16 00:00 IMPRESSION: SUCCESSFUL PLACEMENT OF A 5 FR dual LUMEN 30 CM PICC IN THE basilic VEIN. Assessment & Plan - Diagnosis (1) Acute DVT (deep venous thrombosis) Qualifiers: DVT location: lower extremity Affected thrombotic vein of extremity: femoral Laterality: left Qualified Code(s): I82.412 - Acute embolism and thrombosis of left femoral vein Is this a current diagnosis for this admission?: YesPlan: Patient unable to tolerate Lovenox secondary to occult blood positivity. Patient with IVC filter in place. (2) Septic shock Is this a current diagnosis for this admission?: YesPlan: resolved. Secondary to pneumonia which is now stable. (3) Severe sepsis Is this a current diagnosis for this admission?: YesPlan: Patient with RLL pna. Continue Levaquin day #01/29. Sputum culture pending (4) UTI (urinary tract infection) Qualifiers: Urinary tract infection type: acute cystitis Hematuria presence: without hematuria Qualified Code(s): N30.00 - Acute cystitis without hematuria Is this a current diagnosis for this admission?: YesPlan: Fungal UTI on Diflucan day #01/29. (5) Acute hypoxemic respiratory failure Is this a current diagnosis for this admission?: YesPlan: Continue oxygen Secondary to underlying pulmonary HTN (6) Acute kidney injury Is this a current diagnosis for this admission?: YesPlan: Improved since admission (7) Acute on chronic respiratory failure with hypoxia Is this a current diagnosis for this admission?: YesPlan: 2/2 pulm htn and worsened by underlying pna and chf exacerbation (8) Acute on chronic systolic CHF (congestive heart failure) Is this a current diagnosis for this admission?: YesPlan: Euvolemic Echocardiogram 11/15/2016 with ejection fraction 40-50%, grade 1/4 diastolic dysfunction,Moderate tricuspid regurgitation. Coreg 6.25 mg twice daily No melvin/arb 2/2 renal failure proclivity and ef>40, but will consider adding lasix 20mg po daily (9) Adrenal insufficiency Is this a current diagnosis for this admission?: YesPlan: cortef to 15mg po qam and 10mg po qhs (10) COPD (chronic obstructive pulmonary disease) Qualifiers: COPD type: COPD with acute exacerbation Qualified Code(s): J44.1 - Chronic obstructive pulmonary disease with (acute) exacerbation Is this a current diagnosis for this admission?: YesPlan: Continue nebulized treatments On symbicort (11) Diabetes Qualifiers: Diabetes mellitus type: type 2 Diabetes mellitus complication status: with circulatory complication Diabetes mellitus complication detail: with other circulatory complications Diabetes mellitus watermaster insulin use: with correction use Qualified Code(s): E11.59 - Type 2 diabetes mellitus with other circulatory complications Is this a current diagnosis for this admission?: YesPlan: Well-controlled on Lantus and sliding scale insulin Increase Lantus now that appetite improved (12) GERD (gastroesophageal reflux disease) Qualifiers: Esophagitis presence: without esophagitis Qualified Code(s): K21.9 - Gastro-esophageal reflux disease without esophagitis (13) Medical non-compliance Is this a current diagnosis for this admission?: Yes (14) Peripheral vascular disease Is this a current diagnosis for this admission?: Yes (15) Tobacco abuse Is this a current diagnosis for this admission?: Yes (16) DNR (do not resuscitate) Is this a current diagnosis for this admission?: Yes - Time Time Spent with patient: 25-34 minutes Medications reviewed and adjusted accordingly: Yes Anticipated discharge: Acute Rehab Within: within 24 hours
[2016-12-11 15:08] LABS: BLOOD UREA NITROGEN 23 mg/dL (7-20); CALCIUM 8.3 mg/dL (8.4-10.2); CARBON DIOXIDE 34 mmol/L (22-30); CHLORIDE 97 mmol/L (98-107); CREATININE RESULT 0.91 mg/dL (0.52-1.25); GLUCOSE 273 mg/dL (75-110); POTASSIUM 5.6 mmol/L (3.6-5.0)
[2016-12-11 15:22] LABS: SODIUM 136.5 mmol/L (137-145)
[2016-12-11 15:23] LABS: ANION GAP 6 (5-19)
[2016-12-11] MEDS: FLUCONAZOLE 100 MG TABLET PO SCH (17:16)
[2016-12-11] MEDS: LEVOFLOXACIN 750 MG TABLET PO SCH (17:16)
[2016-12-11] MEDS ORDERED: CARVEDILOL 3.125 MG TABLET PO SCH (22:00)
[2016-12-11] MEDS ORDERED: CARVEDILOL 6.25 MG TABLET PO SCH (22:00)
[2016-12-11] MEDS: AMITRIPTYLINE HCL 25 MG TABLET PO SCH (22:08)
[2016-12-11] MEDS: ATORVASTATIN CALCIUM 20 MG TABLET PO SCH (22:08)
[2016-12-11] MEDS: INSULIN GLARGINE,HUM.REC.ANLOG 300 UNIT/3 ML INSULN.PEN SUBCUT SCH (22:09)
[2016-12-12] MEDS: NORMAL SALINE 10 ML SDV (AFTER EACH USE) IV PRN (06:53)
[2016-12-12 07:37] LABS: ABSOLUTE EOSINOPHILS # (AUTO) 0.2 10^3/uL (0.0-0.6); ABSOLUTE LYMPHOCYTES (AUTO) 1.8 10^3/uL (0.5-4.7); ABSOLUTE NEUT (AUTO) 5.1 10^3/uL (1.7-8.2); BASOPHILS % (AUTO) 0.4 % (0-2); EOSINOPHILS % (AUTO) 1.9 % (0-6); HEMATOCRIT 26.7 % (36.0-47.0); HEMOGLOBIN 8.1 g/dL (12.0-15.5); HGB HCT DIFFERENCE -2.4; LYMPHOCYTES % (AUTO) 21.9 % (13-45); MEAN CORPUSCULAR HEMOGLOBIN 27.4 pg (27.0-33.4); MEAN CORPUSCULAR HGB CONC 30.4 g/dL (32.0-36.0); MEAN CORPUSCULAR VOLUME 90 fl (80-97); MONOCYTES % (AUTO) 12.4 % (3-13); RED BLOOD COUNT 2.97 10^6/uL (3.72-5.28); RED CELL DISTRIBUTION WIDTH 22.3 % (11.5-14.0); SEGMENTED NEUTROPHILS % (AUTO) 63.4 % (42-78); WHITE BLOOD COUNT 8.1 10^3/uL (4.0-10.5)
[2016-12-12 07:47] LABS: BLOOD UREA NITROGEN 25 mg/dL (7-20); CALCIUM 8.6 mg/dL (8.4-10.2); CARBON DIOXIDE 36 mmol/L (22-30); CHLORIDE 97 mmol/L (98-107); CREATININE RESULT 1.01 mg/dL (0.52-1.25); GLUCOSE 108 mg/dL (75-110); MAGNESIUM 1.8 mg/dL (1.6-2.3); POTASSIUM 5.8 mmol/L (3.6-5.0)
[2016-12-12 07:57] LABS: SODIUM 136.9 mmol/L (137-145)
[2016-12-12 08:02] LABS: ANION GAP 4 (5-19)
--- NOTE | 2016-12-12 08:09 | PDOC CONSULTATION ---
Consultation Consult Date: 12/12/16 Attending physician:: LUNA FERREIRA Consult reason:: Bleeding, anemia History of Present Illness Admission Date/PCP: 11/29/16 04:09 Patient complains of: bleeding, dvt, anemia History of Present Illness: 71-year-old female with multiple medical issues, with recently noted bilateral femoral DVT, also history of IVC filter placement, most recently was on Lovenox but unfortunately had bleeding, was occult blood positive, per nursing also had bleeding from the PICC line site as well as from the stump. Today I examined both those areas and there does not seem to be any active bleeding right now. Original coagulation studies indicated elevated INR. Platelet count is normal. Hemoglobin is 8.8. Past Medical History Cardiac Medical History: Reports: Atrial Fibrillation, Congestive Heart Failure , Coronary Artery Disease, Hyperlipidema, Hypertension, Peripheral Vascular Disease, Heart Murmur Denies: Myocardial Infarction Pulmonary Medical History: Reports: Chronic Obstructive Pulmonary Disease (COPD ) - The patient is prescribed oxygen. She does not use it., Pneumonia, Respiratory Failure Endocrine Medical History: Reports: Diabetes Mellitus Type 2 - Insulin-dependent GI Medical History: Reports: Gastroesophageal Reflux Disease Musculoskeltal Medical History: Reports: Arthritis Psychiatric Medical History: Denies: Depression Infectious Medical History: Reports: Clostridium Difficile Past Surgical History Past Surgical History: Reports: Cardiac Catheterization, Cholecystectomy, Orthopedic Surgery - Bilateral AKA, Other - Some sort of intervention for pseudocyst. Social History Lives with: Spouse/Significant other Smoking Status: Current Every Day Smoker Cigarettes Packs Per Day: 0.5 Frequency of Alcohol Use: None - States she has not used alcohol since 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 Hx Recreational Drug Use: No Drugs: None Hx Prescription Drug Abuse: No - Advance Directive Resuscitation Status: Do Not Resuscitate Family History Family History: CAD, COPD, DM Parental Family History Reviewed: Yes Children Family History Reviewed: Yes Sibling(s) Family History Reviewed.: Yes Medication/Allergy Home Medications: Albuterol Sulfate [Albuterol Sulfate 2.5mg/3 mL] 1 vial IH Q3HP PRN 11/29/16 Amitriptyline HCl [Elavil 25 mg Tablet] 25 mg PO QHS 11/29/16 Aspirin [Aspirin EC] 81 mg PO DAILY 11/29/16 Atorvastatin Calcium [Lipitor 20 mg Tablet] 20 mg PO QHS 11/29/16 Carvedilol [Coreg 3.125 mg Tablet] 3.125 mg PO Q12 11/29/16 Furosemide [Lasix] 40 mg PO Q12 11/29/16 Gabapentin [Neurontin 300 mg Capsule] 300 mg PO DAILY 11/29/16 Gabapentin [Neurontin 300 mg Capsule] 600 mg PO QHS 11/29/16 Hydrocortisone [Cortef 10 Mg Tablet] 15 mg PO [id number] 11/29/16 Insulin Aspart [Novolog Flexpen] 8 unit SQ MEALS 11/29/16 Insulin Glargine,Hum.rec.anlog [Lantus Solostar] 30 unit SQ QHS MDD 35 UNITS 04/07 Lisinopril [Prinivil 5 mg Tablet] 5 mg PO DAILY 11/29/16 Omeprazole 20 mg PO ACBRKFST 11/29/16 Oxycodone HCl [Oxy-Ir 5 mg Tablet] 5 mg PO Q12HP PRN 11/29/16 Petrolatum,White [Balmex] 1 applic TP BID 11/29/16 Tiotropium Ione [Spiriva Handihaler 18 mcg/dose (30 Dose)] 1 cap IH DAILY 04/07 Allergies/Adverse Reactions: Penicillins Allergy (Verified 11/14/16 23:07) Sulfa (Sulfonamide Antibiotics) Allergy (Verified 11/14/16 23:07) Review of Systems Constitutional: ABSENT: chills, fever(s), headache(s), weight gain, weight loss Eyes: ABSENT: visual disturbances Ears: ABSENT: hearing changes Cardiovascular: ABSENT: chest pain, dyspnea on exertion, edema, orthropnea, palpitations Respiratory: ABSENT: cough, hemoptysis Gastrointestinal: ABSENT: abdominal pain, constipation, diarrhea, hematemesis, hematochezia, nausea, vomiting Genitourinary: ABSENT: dysuria, hematuria Musculoskeletal: ABSENT: joint swelling Integumentary: ABSENT: rash, wounds Neurological: ABSENT: abnormal gait, abnormal speech, confusion, dizziness, focal weakness, syncope Psychiatric: ABSENT: anxiety, depression, homidical ideation, suicidal ideation Endocrine: ABSENT: cold intolerance, heat intolerance, polydipsia, polyuria Hematologic/Lymphatic: ABSENT: easy bleeding, easy bruising Physical Exam Vital Signs: Temp Pulse Resp BP Pulse Ox 98.6 F 91 20 120/70 99 12/12/16 04:00 12/12/16 04:00 12/12/16 04:00 12/12/16 04:00 12/12/16 04:00 Intake & Output 12/11/16 12/12/16 12/13/16 06:59 06:59 06:59 Intake Total 1270 1260 Balance 1270 1260 Weight 80.1 kg 88.2 kg General appearance: PRESENT: no acute distress, well-developed, well-nourished Head exam: PRESENT: atraumatic, normocephalic Eye exam: PRESENT: conjunctiva pink, EOMI, PERRLA. ABSENT: scleral icterus Ear exam: PRESENT: normal external ear exam Mouth exam: PRESENT: moist, tongue midline Neck exam: ABSENT: carotid bruit, JVD, lymphadenopathy, thyromegaly Respiratory exam: PRESENT: clear to auscultation jo-ann. ABSENT: rales, rhonchi, wheezes Cardiovascular exam: PRESENT: RRR. ABSENT: diastolic murmur, rubs, systolic murmur Pulses: PRESENT: normal dorsalis pedis pul Vascular exam: PRESENT: normal capillary refill GI/Abdominal exam: PRESENT: normal bowel sounds, soft. ABSENT: distended, guarding, mass, organolmegaly, rebound, tenderness Rectal exam: PRESENT: deferred Extremities exam: PRESENT: full ROM. ABSENT: calf tenderness, clubbing, pedal edema Neurological exam: PRESENT: alert, awake, oriented to person, oriented to place , oriented to time, oriented to situation, CN II-XII grossly intact. ABSENT: motor sensory deficit Psychiatric exam: PRESENT: appropriate affect, normal mood. ABSENT: homicidal ideation, suicidal ideation Skin exam: PRESENT: dry, intact, warm. ABSENT: cyanosis, rash Results Laboratory Results: 12/12/16 06:50 12/11/16 12/12/16 14:31 06:50 WBC 8.1 RBC 2.97 L Hgb 8.1 L Hct 26.7 L MCV 90 MCH 27.4 MCHC 30.4 L RDW 22.3 H Plt Count 224 Seg Neutrophils % 63.4 Lymphocytes % 21.9 Monocytes % 12.4 Eosinophils % 1.9 Basophils % 0.4 Absolute Neutrophils 5.1 Absolute Lymphocytes 1.8 Absolute Monocytes 1.0 Absolute Eosinophils 0.2 Absolute Basophils 0.0 Sodium 136.5 L Potassium 5.6 H Chloride 97 L Carbon Dioxide 34 H Anion Gap 6 BUN 23 H Creatinine 0.91 Est GFR ( Amer) > 60 Est GFR (Non-Af Amer) > 60 Glucose 273 H Calcium 8.3 L 11/29/16 11/29/16 11/29/16 05:57 05:57 12:30 Creatine Kinase 325 H 304 H CK-MB (CK-2) 1.09 Troponin I 0.420 NT-Pro-B Natriuret Pep 11/29/16 11/29/16 11/29/16 12:30 17:35 18:00 Creatine Kinase 279 H CK-MB (CK-2) 1.15 1.08 Troponin I 0.217 0.133 NT-Pro-B Natriuret Pep 12/04/16 05:25 Creatine Kinase CK-MB (CK-2) Troponin I NT-Pro-B Natriuret Pep 61847 H Impressions: Abdomen/Pelvis CT 11/29/16 02:17 IMPRESSION: No acute findings. Chest X-Ray 12/04/16 11:15 IMPRESSION: POSSIBLE SLIGHT DECREASE IN THE RIGHT PLEURAL EFFUSION. RIGHT BASILAR ATELECTASIS/ INFILTRATE UNCHANGED. Aorta w/Runoff CTA 12/09/16 00:00 IMPRESSION: 1. No evidence of abdominal aortic aneurysm. Atherosclerotic plaque is seen without significant stenosis. 2. Stable position and appearance of an IVC filter. Interval removal of a left femoral vein catheter. Please note this study was ordered as an arteriogram, and is not optimized for evaluation of the venous structures in this patient with reported bilateral DVTs. 3. Short interval stability of chronic and incidental findings as detailed above. Guidance Fluoroscopy 12/09/16 00:00 IMPRESSION: Please see combined report for performance of procedure and radiologic supervision and interpretation. Interventional Vascular Procedure 12/09/16 00:00 IMPRESSION: Please see combined report for performance of procedure and radiologic supervision and interpretation. PICC Line Insertion 12/09/16 00:00 IMPRESSION: SUCCESSFUL PLACEMENT OF A 5 FR dual LUMEN 30 CM PICC IN THE basilic VEIN. Assessment & Plan - Diagnosis (1) Hemorrhage, unspecified Is this a current diagnosis for this admission?: YesPlan: Unsure why patient is bleeding, today I will send repeat coagulation studies, it has been about 10 days since we have had him, repeat fibrinogen levels. It is possible she has low-grade DIC causing this. (2) Acute DVT (deep venous thrombosis) Qualifiers: DVT location: lower extremity Affected thrombotic vein of extremity: femoral Laterality: bilateral Qualified Code(s): I82.413 - Acute embolism and thrombosis of femoral vein, bilateral Is this a current diagnosis for this admission?: YesPlan: Patient with acute bilateral DVT, even though patient has IVC filter placed she ultimately will need anticoagulation. Lovenox would probably be the safest anticoagulant to use, but we need to make sure she does not leave before we restart. We will see with the coagulation studies show, and make recommendations based upon that. - Time Time Spent: Greater than 70 Minutes Critical Time spent with patient: 35 or more minutes - Inpatient Certification Based on my medical assessment, after consideration of the patient's comorbidities, presenting symptoms, or acuity I expect that the services needed warrant INPATIENT care.: Yes I certify that my determination is in accordance with my understanding of Medicare's requirements for reasonable and necessary INPATIENT services [42 CFR 412.3e].: Yes Medical Necessity: Risk of Complication if Not Cared For in Hospital
[2016-12-12] MEDS ORDERED: CARVEDILOL 6.25 MG TABLET PO SCH (10:00)
[2016-12-12] MEDS ORDERED: DOXYCYCLINE HYCLATE 100 MG TABLET PO SCH (10:00)
[2016-12-12] MEDS ORDERED: SODIUM POLYSTYRENE SULFONATE 15 GM/60 ML PO ONE (10:15)
[2016-12-12] MEDS: GABAPENTIN 300 MG CAPSULE PO SCH ×2 (10:48→21:12)
[2016-12-12] MEDS: FUROSEMIDE 20 MG TABLET PO SCH (10:48)
[2016-12-12] MEDS: GUAIFENESIN 600 MG TABLET.SA PO SCH ×2 (10:49→21:14)
[2016-12-12] MEDS: LACTOBACILLUS ACIDOPHILUS 250 MG TAB PO SCH ×2 (10:49→21:13)
[2016-12-12] MEDS: ASPIRIN 81 MG TABLET, ENT COATED PO SCH (10:49)
[2016-12-12] MEDS: MAGNESIUM OXIDE 400 MG TABLET PO SCH ×3 (10:49→17:13)
[2016-12-12] MEDS: CARVEDILOL 3.125 MG TABLET PO SCH ×2 (10:50→21:14)
[2016-12-12] MEDS: LANSOPRAZOLE 15 MG TAB.RAP.DR PO SCH (10:50)
[2016-12-12 10:59] LABS: PROTHROMBIN TIME 14.1 SEC (11.4-15.4)
[2016-12-12 11:00] LABS: FIBRINOGEN 481 mg/dL (209-497); PARTIAL THROMBOPLASTIN TIME 32.3 SEC (23.5-35.8)
[2016-12-12] MEDS: LINEZOLID 600 MG TABLET PO SCH ×2 (11:07→21:13)
[2016-12-12] MEDS: HYDROCORTISONE 10 MG TABLET PO SCH ×2 (11:08→21:13)
[2016-12-12] MEDS: LIDOCAINE 5% (700 MG) TRANSDERMAL ADH..PATCH TP SCH (11:08)
[2016-12-12] MEDS: BUDESONIDE/FORMOTEROL 80-4.5 MCG 60 PUFF/6.9 GM MDI IH SCH ×2 (11:09→21:11)
[2016-12-12] MEDS: PANTOT AC/MIN OIL/PET HY-PHL OINT 50 GM TOP SCH ×2 (11:10→17:13)
[2016-12-12] MEDS: NORMAL SALINE 10 ML SDV (SCHEDULED) IV SCH ×2 (11:10→21:12)
[2016-12-12] MEDS ORDERED: FERROUS SULFATE 325 MG TABLET PO SCH (12:00)
[2016-12-12] MEDS: POLYETHYLENE GLYCOL 3350 POWDER 17 GM/1 PACKET PO SCH (12:15)
--- NOTE | 2016-12-12 13:50 | PDOC PROGRESS REPORT ---
Subjective Progress Note for:: 12/12/16 Subjective:: Patient seen earlier today on morning rounds. Patient reports she is feeling better than yesterday. Patient reports diarrhea has improved but not resolved. Patient denies fever, chills, shortness of breath, nausea, vomiting. Admits to chest pain with palpation of her chest, but that this is tolerable. Physical Exam Vital Signs: Temp Pulse Resp BP Pulse Ox 98.2 F 97 19 127/68 H 92 12/12/16 12:31 12/12/16 12:31 12/12/16 12:31 12/12/16 12:31 12/12/16 12:31 Intake & Output 12/11/16 12/12/16 12/13/16 06:59 06:59 06:59 Intake Total 1270 1260 Balance 1270 1260 Weight 80.1 kg 88.2 kg Exam: GENERAL: No acute distress, obese HEENT: Conjunctiva clear, nonicteric, moist mucous membranes, no JVD, midline trachea RESPIRATORY: CTAB, diminished right base CARDIAC: Regular rate and rhythm, no murmurs/gallops/rubs ABDOMEN: Soft, nondistended, nontender, positive bowel sounds, no rebound, no guarding EXTREMETIES: No cyanosis. Significant digital clubbing; +edema of right stump > left stump; Bilateral above-knee amputation NEUROLOGIC: Alert, orientedx3, CN's grossly intact, no focal deficits Psych: normal mood and affect SKIN: No rash, wounds Results Laboratory Results: 12/12/16 06:50 12/12/16 06:50 12/11/16 12/12/16 12/12/16 14:31 06:50 06:50 WBC 8.1 RBC 2.97 L Hgb 8.1 L Hct 26.7 L MCV 90 MCH 27.4 MCHC 30.4 L RDW 22.3 H Plt Count 224 Seg Neutrophils % 63.4 Lymphocytes % 21.9 Monocytes % 12.4 Eosinophils % 1.9 Basophils % 0.4 Absolute Neutrophils 5.1 Absolute Lymphocytes 1.8 Absolute Monocytes 1.0 Absolute Eosinophils 0.2 Absolute Basophils 0.0 Sodium 136.5 L 136.9 L Potassium 5.6 H 5.8 H Chloride 97 L 97 L Carbon Dioxide 34 H 36 H Anion Gap 6 4 L BUN 23 H 25 H Creatinine 0.91 1.01 Est GFR ( Amer) > 60 > 60 Est GFR (Non-Af Amer) > 60 54 L Glucose 273 H 108 Calcium 8.3 L 8.6 Magnesium 1.8 12/10/16 10:26 Sputum Gram Stain - Final 12/10/16 10:26 Sputum Sputum Culture - Final Mrsa (Meth Resis Staph Aureus) Normal Joselin 11/29/16 11/29/16 11/29/16 05:57 05:57 12:30 Creatine Kinase 325 H 304 H CK-MB (CK-2) 1.09 Troponin I 0.420 NT-Pro-B Natriuret Pep 11/29/16 11/29/16 11/29/16 12:30 17:35 18:00 Creatine Kinase 279 H CK-MB (CK-2) 1.15 1.08 Troponin I 0.217 0.133 NT-Pro-B Natriuret Pep 12/04/16 05:25 Creatine Kinase CK-MB (CK-2) Troponin I NT-Pro-B Natriuret Pep [id number] H Impressions: Abdomen/Pelvis CT 11/29/16 02:17 IMPRESSION: No acute findings. Chest X-Ray 12/04/16 11:15 IMPRESSION: POSSIBLE SLIGHT DECREASE IN THE RIGHT PLEURAL EFFUSION. RIGHT BASILAR ATELECTASIS/ INFILTRATE UNCHANGED. Aorta w/Runoff CTA 12/09/16 00:00 IMPRESSION: 1. No evidence of abdominal aortic aneurysm. Atherosclerotic plaque is seen without significant stenosis. 2. Stable position and appearance of an IVC filter. Interval removal of a left femoral vein catheter. Please note this study was ordered as an arteriogram, and is not optimized for evaluation of the venous structures in this patient with reported bilateral DVTs. 3. Short interval stability of chronic and incidental findings as detailed above. Guidance Fluoroscopy 12/09/16 00:00 IMPRESSION: Please see combined report for performance of procedure and radiologic supervision and interpretation. Interventional Vascular Procedure 12/09/16 00:00 IMPRESSION: Please see combined report for performance of procedure and radiologic supervision and interpretation. PICC Line Insertion 12/09/16 00:00 IMPRESSION: SUCCESSFUL PLACEMENT OF A 5 FR dual LUMEN 30 CM PICC IN THE basilic VEIN. Assessment & Plan - Diagnosis (1) Hyperkalemia Is this a current diagnosis for this admission?: YesPlan: Give kayexalate and repeat BMP. (2) Acute DVT (deep venous thrombosis) Qualifiers: DVT location: lower extremity Affected thrombotic vein of extremity: femoral Laterality: bilateral Qualified Code(s): I82.413 - Acute embolism and thrombosis of femoral vein, bilateral Is this a current diagnosis for this admission?: YesPlan: Patient unable to tolerate Lovenox secondary to occult blood positivity. Patient with IVC filter in place. Advise against future anticoagulation therapy. (3) Septic shock Is this a current diagnosis for this admission?: YesPlan: resolved. Secondary to MRSA pneumonia. (4) Severe sepsis Is this a current diagnosis for this admission?: YesPlan: Patient with RLL pna. Patient completed 9 days of Levaquin, but patient is found on sputum culture to have MRSA. Start patient on Linezolid. Check CBC in am (5) UTI (urinary tract infection) Qualifiers: Urinary tract infection type: acute cystitis Hematuria presence: without hematuria Qualified Code(s): N30.00 - Acute cystitis without hematuria Is this a current diagnosis for this admission?: YesPlan: Fungal UTI on Diflucan day #02/28. (6) Acute hypoxemic respiratory failure Is this a current diagnosis for this admission?: YesPlan: Continue oxygen Secondary to underlying pulmonary HTN (7) Acute kidney injury Is this a current diagnosis for this admission?: YesPlan: Improved since admission (8) Acute on chronic respiratory failure with hypoxia Is this a current diagnosis for this admission?: YesPlan: 2/2 pulm htn and worsened by underlying pna and chf exacerbation (9) Acute on chronic systolic CHF (congestive heart failure) Is this a current diagnosis for this admission?: YesPlan: Euvolemic Echocardiogram 11/15/2016 with ejection fraction 40-50%, grade 1/4 diastolic dysfunction,Moderate tricuspid regurgitation. Coreg 3.125 mg twice daily No melvin/arb 2/2 renal failure proclivity and ef>40, and hyperkalemia lasix 20mg po daily (10) Adrenal insufficiency Is this a current diagnosis for this admission?: YesPlan: cortef to 15mg po qam and 10mg po qhs (11) COPD (chronic obstructive pulmonary disease) Qualifiers: COPD type: COPD with acute lower respiratory infection Qualified Code(s): J44.0 - Chronic obstructive pulmonary disease with acute lower respiratory infection Is this a current diagnosis for this admission?: YesPlan: Continue nebulized treatments On symbicort Patient with MRSA pneumonia On Zyvox day #1 (12) Diabetes Qualifiers: Diabetes mellitus type: type 2 Diabetes mellitus complication status: with circulatory complication Diabetes mellitus complication detail: with other circulatory complications 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 mellitus 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: YesPlan: Continues to be medically noncompliant. Have consulted palliative care. At this time, due to patient's general medical noncompliance my recommendation is for bare minimum of rehabilitation with option to place patient permanently. Patient is clearly unable to care for herself at home and requires more than 1 caregiver in a 24-hour period. (15) Peripheral vascular disease Is this a current diagnosis for this admission?: Yes (16) Tobacco abuse Is this a current diagnosis for this admission?: Yes (17) DNR (do not resuscitate) Is this a current diagnosis for this admission?: Yes - Time Time Spent with patient: 25-34 minutes Medications reviewed and adjusted accordingly: Yes Anticipated discharge: Acute Rehab Within: within 24 hours
[2016-12-12] MEDS: TIOTROPIUM BROMIDE DPI 5 CAP/KIT (18 MCG/CAP) IH SCH (16:03)
[2016-12-12] MEDS: FLUCONAZOLE 100 MG TABLET PO SCH (17:13)
[2016-12-12 18:02] LABS: BLOOD UREA NITROGEN 26 mg/dL (7-20); CALCIUM 8.7 mg/dL (8.4-10.2); CREATININE RESULT 0.95 mg/dL (0.52-1.25); GLUCOSE 95 mg/dL (75-110)
[2016-12-12 18:23] LABS: ANION GAP 5 (5-19); CARBON DIOXIDE 37 mmol/L (22-30); CHLORIDE 98 mmol/L (98-107); POTASSIUM 5.4 mmol/L (3.6-5.0)
[2016-12-12] MEDS: ATORVASTATIN CALCIUM 20 MG TABLET PO SCH (21:14)
[2016-12-12] MEDS: INSULIN GLARGINE,HUM.REC.ANLOG 300 UNIT/3 ML INSULN.PEN SUBCUT SCH (21:35)
[2016-12-12] MEDS: INSULIN LISPRO 100 UNIT/ML 3 ML VIAL SUBCUT PRN (21:36)
--- NOTE | 2016-12-13 07:29 | PDOC PROGRESS REPORT ---
Subjective Progress Note for:: 12/13/16 Subjective:: Reviewed labs, no acute events overnight Physical Exam Vital Signs: Temp Pulse Resp BP Pulse Ox 98.3 F 89 18 116/64 93 12/12/16 16:46 12/13/16 01:54 12/12/16 16:46 12/12/16 16:46 12/12/16 16:46 Intake & Output 12/12/16 12/13/16 12/14/16 06:59 06:59 06:59 Intake Total 1260 600 Balance 1260 600 Weight 88.2 kg 88.3 kg General appearance: PRESENT: no acute distress, well-developed, well-nourished Head exam: PRESENT: atraumatic, normocephalic Eye exam: PRESENT: conjunctiva pink, EOMI, PERRLA. ABSENT: scleral icterus Ear exam: PRESENT: normal external ear exam Mouth exam: PRESENT: moist, tongue midline Neck exam: ABSENT: carotid bruit, JVD, lymphadenopathy, thyromegaly Respiratory exam: PRESENT: clear to auscultation jo-ann. ABSENT: rales, rhonchi, wheezes Cardiovascular exam: PRESENT: RRR. ABSENT: diastolic murmur, rubs, systolic murmur Pulses: PRESENT: normal dorsalis pedis pul Vascular exam: PRESENT: normal capillary refill GI/Abdominal exam: PRESENT: normal bowel sounds, soft. ABSENT: distended, guarding, mass, organolmegaly, rebound, tenderness Rectal exam: PRESENT: deferred Extremities exam: PRESENT: full ROM. ABSENT: calf tenderness, clubbing, pedal edema Neurological exam: PRESENT: alert, awake, oriented to person, oriented to place , oriented to time, oriented to situation, CN II-XII grossly intact. ABSENT: motor sensory deficit Psychiatric exam: PRESENT: appropriate affect, normal mood. ABSENT: homicidal ideation, suicidal ideation Skin exam: PRESENT: dry, intact, warm. ABSENT: cyanosis, rash Results Laboratory Results: 12/12/16 06:50 12/12/16 17:21 12/12/16 12/12/16 12/12/16 06:50 06:50 17:21 WBC 8.1 RBC 2.97 L Hgb 8.1 L Hct 26.7 L MCV 90 MCH 27.4 MCHC 30.4 L RDW 22.3 H Plt Count 224 Seg Neutrophils % 63.4 Lymphocytes % 21.9 Monocytes % 12.4 Eosinophils % 1.9 Basophils % 0.4 Absolute Neutrophils 5.1 Absolute Lymphocytes 1.8 Absolute Monocytes 1.0 Absolute Eosinophils 0.2 Absolute Basophils 0.0 Sodium 136.9 L 140.0 Potassium 5.8 H 5.4 H Chloride 97 L 98 Carbon Dioxide 36 H 37 H Anion Gap 4 L 5 BUN 25 H 26 H Creatinine 1.01 0.95 Est GFR ( Amer) > 60 > 60 Est GFR (Non-Af Amer) 54 L 58 L Glucose 108 95 Calcium 8.6 8.7 Magnesium 1.8 12/10/16 10:26 Sputum Gram Stain - Final 12/10/16 10:26 Sputum Sputum Culture - Final Mrsa (Meth Resis Staph Aureus) Normal Joselin 11/29/16 11/29/16 11/29/16 05:57 05:57 12:30 Creatine Kinase 325 H 304 H CK-MB (CK-2) 1.09 Troponin I 0.420 NT-Pro-B Natriuret Pep 11/29/16 11/29/16 11/29/16 12:30 17:35 18:00 Creatine Kinase 279 H CK-MB (CK-2) 1.15 1.08 Troponin I 0.217 0.133 NT-Pro-B Natriuret Pep 12/04/16 05:25 Creatine Kinase CK-MB (CK-2) Troponin I NT-Pro-B Natriuret Pep [id number] H Impressions: Abdomen/Pelvis CT 11/29/16 02:17 IMPRESSION: No acute findings. Chest X-Ray 12/04/16 11:15 IMPRESSION: POSSIBLE SLIGHT DECREASE IN THE RIGHT PLEURAL EFFUSION. RIGHT BASILAR ATELECTASIS/ INFILTRATE UNCHANGED. Aorta w/Runoff CTA 12/09/16 00:00 IMPRESSION: 1. No evidence of abdominal aortic aneurysm. Atherosclerotic plaque is seen without significant stenosis. 2. Stable position and appearance of an IVC filter. Interval removal of a left femoral vein catheter. Please note this study was ordered as an arteriogram, and is not optimized for evaluation of the venous structures in this patient with reported bilateral DVTs. 3. Short interval stability of chronic and incidental findings as detailed above. Guidance Fluoroscopy 12/09/16 00:00 IMPRESSION: Please see combined report for performance of procedure and radiologic supervision and interpretation. Interventional Vascular Procedure 12/09/16 00:00 IMPRESSION: Please see combined report for performance of procedure and radiologic supervision and interpretation. PICC Line Insertion 12/09/16 00:00 IMPRESSION: SUCCESSFUL PLACEMENT OF A 5 FR dual LUMEN 30 CM PICC IN THE basilic VEIN. Assessment & Plan - Diagnosis (1) Hemorrhage, unspecified Is this a current diagnosis for this admission?: YesPlan: Unknown reason for bleed, agree w/ hospitalist team that anticoagulation would be difficult and risk would likely outweight benefits, coag studies indicate normal coag profile at present. (2) Acute DVT (deep venous thrombosis) Qualifiers: DVT location: lower extremity Affected thrombotic vein of extremity: femoral Laterality: bilateral Qualified Code(s): I82.413 - Acute embolism and thrombosis of femoral vein, bilateral Is this a current diagnosis for this admission?: YesPlan: Agree w/ fact that pt can't be anticoagulated safely at this time. Con't ASA alone. Will sign off, thanks for opportunity to assist in this pts care. - Time Time Spent with patient: 25-34 minutes Critical Time spent with patient: 25-34 minutes
[2016-12-13 08:22] LABS: ABSOLUTE EOSINOPHILS # (AUTO) 0.1 10^3/uL (0.0-0.6); ABSOLUTE LYMPHOCYTES (AUTO) 2.3 10^3/uL (0.5-4.7); ABSOLUTE MONOCYTES (AUTO) 0.8 10^3/uL (0.1-1.4); ABSOLUTE NEUT (AUTO) 4.8 10^3/uL (1.7-8.2); BASOPHILS % (AUTO) 0.6 % (0-2); EOSINOPHILS % (AUTO) 0.6 % (0-6); HEMATOCRIT 26.2 % (36.0-47.0); HEMOGLOBIN 8.1 g/dL (12.0-15.5); HGB HCT DIFFERENCE -1.9; LYMPHOCYTES % (AUTO) 29.3 % (13-45); MEAN CORPUSCULAR HEMOGLOBIN 27.4 pg (27.0-33.4); MEAN CORPUSCULAR HGB CONC 30.9 g/dL (32.0-36.0); MEAN CORPUSCULAR VOLUME 88 fl (80-97); MONOCYTES % (AUTO) 9.7 % (3-13); RED BLOOD COUNT 2.96 10^6/uL (3.72-5.28); SEGMENTED NEUTROPHILS % (AUTO) 59.8 % (42-78)
[2016-12-13] MEDS: LANSOPRAZOLE 15 MG TAB.RAP.DR PO SCH (08:33)
[2016-12-13] MEDS: HYDROCORTISONE 10 MG TABLET PO SCH (08:34)
[2016-12-13] MEDS: MAGNESIUM OXIDE 400 MG TABLET PO SCH ×3 (08:35→18:20)
[2016-12-13] MEDS: GABAPENTIN 300 MG CAPSULE PO SCH (08:35)
[2016-12-13 08:57] LABS: ANION GAP 6 (5-19); BLOOD UREA NITROGEN 30 mg/dL (7-20); CALCIUM 8.7 mg/dL (8.4-10.2); CARBON DIOXIDE 35 mmol/L (22-30); CHLORIDE 99 mmol/L (98-107); CREATININE RESULT 0.95 mg/dL (0.52-1.25); GLUCOSE 168 mg/dL (75-110); POTASSIUM 5.5 mmol/L (3.6-5.0); SODIUM 139.9 mmol/L (137-145)
[2016-12-13] MEDS ORDERED: FUROSEMIDE 20 MG TABLET PO SCH ×2 (10:00)
[2016-12-13] MEDS ORDERED: FUROSEMIDE 40 MG TABLET PO SCH (10:00)
--- NOTE | 2016-12-13 10:05 | PDOC TRANSFER SUMMARY ---
General - Admit/Disc Date/PCP Admission Date/Primary Care Provider: 11/29/16 04:09 Discharge Date: 12/13/16 - Discharge Diagnosis (1) Acute on chronic respiratory failure with hypoxia Is this a current diagnosis for this admission?: Yes (2) Acute DVT (deep venous thrombosis) Is this a current diagnosis for this admission?: Yes (3) Hemorrhage, unspecified Is this a current diagnosis for this admission?: Yes (4) Acute on chronic systolic CHF (congestive heart failure) Is this a current diagnosis for this admission?: Yes (5) Septic shock Is this a current diagnosis for this admission?: Yes (6) Right lower lobe pneumonia Is this a current diagnosis for this admission?: Yes (7) UTI (urinary tract infection) Is this a current diagnosis for this admission?: Yes (8) Acute kidney injury Is this a current diagnosis for this admission?: Yes (9) Adrenal insufficiency Is this a current diagnosis for this admission?: Yes (10) Elevated troponin I level Is this a current diagnosis for this admission?: Yes (11) Hypomagnesemia Is this a current diagnosis for this admission?: Yes (12) Peripheral vascular disease Is this a current diagnosis for this admission?: Yes (13) Tobacco abuse Is this a current diagnosis for this admission?: Yes (14) Diabetes Is this a current diagnosis for this admission?: Yes (15) Anemia Is this a current diagnosis for this admission?: Yes (16) Hyponatremia Is this a current diagnosis for this admission?: Yes (17) COPD (chronic obstructive pulmonary disease) Is this a current diagnosis for this admission?: Yes (18) History of MRSA infection Is this a current diagnosis for this admission?: Yes (19) Hyperkalemia Is this a current diagnosis for this admission?: Yes (20) DNR (do not resuscitate) Is this a current diagnosis for this admission?: Yes - Additional Information Resuscitation Status: Do Not Resuscitate Discharge Diet: Cardiac, Diabetic Discharge Activity: Activity As Tolerated Home Medications: Amitriptyline HCl [Elavil 25 mg Tablet] 25 mg PO QHS 11/29/16 Carvedilol [Coreg 3.125 mg Tablet] 3.125 mg PO Q12 11/29/16 Omeprazole 20 mg PO ACBRKFST 11/29/16 Tiotropium [place] [Spiriva Handihaler 18 mcg/dose (30 Dose)] 1 cap IH DAILY 04/07 Albuterol Sulfate [Ventolin 0.083% Neb 2.5 mg/3 mL Ampul] 2.5 mg NEB [id number] PRN vial.neb 12/13/16 Atorvastatin Calcium [Lipitor 20 mg Tablet] 20 mg PO QHS tablet 12/13/16 Budesonide/Formoterol Fumarate [Symbicort HFA 80-4.5 mcg Inhaler 6.9 gm] 2 puff IH Q12 inhaler 12/13/16 Ferrous Sulfate [Feosol 325 mg Tablet] 325 mg PO BIDPCBS tablet 12/13/16 Gabapentin [Neurontin 300 mg Capsule] 300 mg PO QAM capsule 12/13/16 Gabapentin [Neurontin 300 mg Capsule] 600 mg PO QHS capsule 12/13/16 Hydrocortisone [Cortef 10 mg Tablet] 10 mg PO QHS tablet 12/13/16 Hydrocortisone [Cortef 10 mg Tablet] 15 mg PO QAM tablet 12/13/16 Insulin Glargine,Hum.rec.anlog [Lantus Insulin 100 Unit/mL] 35 unit SUBCUT QHS insuln.pen 12/13/16 Linezolid [Zyvox 600 mg Tablet] 600 mg PO Q12 7 Days 12/13/16 Magnesium Oxide [Mag-Ox 400 mg Tablet] 800 mg PO MEALS tablet 12/13/16 Pantot AC/Min Oil/Pet Hy-Phl [Aquaphor W-Jaye Heal Oint 50 gm] 1 applic TOP BID tube 12/13/16 Polyethylene Glycol 3350 [Miralax Powder 17 gm/Packet] 17 gm PO NOON powd.pack 12/13/16 History of Present Illness Admission Date/PCP: 11/29/16 04:09 Patient complains of: Altered mental status and hypoglycemia History of Present Illness: 71-year-old female with multiple medical issues, with recently noted bilateral femoral DVT, also history of IVC filter placement, most recently was on Lovenox but unfortunately had bleeding, was occult blood positive, per nursing also had bleeding from the PICC line site as well as from the stump. Today I examined both those areas and there does not seem to be any active bleeding right now. Original coagulation studies indicated elevated INR. Platelet count is normal. Hemoglobin is 8.8. Hospital Course Hospital Course: Patient had a very complicated medical course. She was initially admitted for hypoglycemia and also found to have hypoxemic respiratory failure. Her respiratory failure was secondary to decompensated CHF and pneumonia. She is now stable on 2 L nasal cannula oxygen. With regard to her CHF, Echocardiogram 11/15/2016 with ejection fraction 40-50%, grade 1/4 diastolic dysfunction,Moderate tricuspid regurgitation. She has been on diuretics and is currently clinically stable on Lasix and Coreg. She is not on ADRIENNE inhibitor therapy secondary to hyperkalemia. With regard to her pneumonia, or sputum culture grew MRSA. She is completing course of oral Zyvox. She is clinically stable at time of discharge. Patient was found to have bilateral femoral DVT during this hospitalization. Attempt was made to anticoagulate her but she had acute gastrointestinal blood loss necessitating discontinuation of anticoagulation. She already has an IVC filter in place. Decision was made to abandon anticoagulation in conjunction with recommendations from hematology. Patient has hyperkalemia. She was on lisinopril prior to admission and this has been discontinued. Her Lasix was increased to 40 mg daily on day of discharge. She will need to have follow-up labs within 1 week. Patient has acute blood loss, Hemoccult positive, iron deficiency anemia. Hemoglobin is 8.1 at time of discharge. Iron supplement was increased to 325 mg twice daily. She will need follow-up labs within 1 week of discharge. Patient has pre-existing adrenal insufficiency. She had stress dose corticosteroids around time of acute illness and has now been weaned down to a maintenance dose of hydrocortisone. Patient was treated for polyuria while in the hospital. She has completed course of Diflucan. Patient has severe peripheral vascular disease and has had bilateral above-the- knee amputations. She has had difficulty caring for herself as a result of this and requires ongoing [facility] facility level of care. She will be discharged to [facility]. Patient has chest wall discomfort after recent hospitalization requiring CPR. This has also limited her mobility in conjunction with bilateral [id number] amputations. Patient was smoking up until this admission and has been counseled on smoking cessation. Physical Exam Vital Signs: Temp Pulse Resp BP Pulse Ox 97.6 F 92 19 140/82 H 100 12/13/16 08:11 12/13/16 08:11 12/13/16 08:11 12/13/16 08:11 12/13/16 08:11 Intake & Output 0712/13/16 12/14/16 06:59 06:59 06:59 Intake Total 1260 600 Balance 1260 600 Weight 88.2 kg 88.3 kg GENERAL: No acute distress, obese HEENT: Conjunctiva clear, nonicteric, moist mucous membranes, no JVD, midline trachea RESPIRATORY: Faint right lung wheezes CARDIAC: Regular rate and rhythm, no murmurs/gallops/rubs ABDOMEN: Soft, nondistended, nontender, positive bowel sounds, no rebound, no guarding EXTREMETIES: No edema, cyanosis, clubbing. Bilateral above-knee amputation NEUROLOGIC: Alert, oriented, CN's grossly intact, no focal deficits SKIN: No rash, wounds Results Laboratory Results: 12/13/16 08:05 12/13/16 08:05 12/12/16 12/13/16 12/13/16 17:21 08:05 08:05 WBC 8.0 RBC 2.96 L Hgb 8.1 L Hct 26.2 L MCV 88 MCH 27.4 MCHC 30.9 L RDW 22.0 H Plt Count 224 Seg Neutrophils % 59.8 Lymphocytes % 29.3 Monocytes % 9.7 Eosinophils % 0.6 Basophils % 0.6 Absolute Neutrophils 4.8 Absolute Lymphocytes 2.3 Absolute Monocytes 0.8 Absolute Eosinophils 0.1 Absolute Basophils 0.0 Sodium 140.0 139.9 Potassium 5.4 H 5.5 H Chloride 98 99 Carbon Dioxide 37 H 35 H Anion Gap 5 6 BUN 26 H 30 H Creatinine 0.95 0.95 Est GFR ( Amer) > 60 > 60 Est GFR (Non-Af Amer) 58 L 58 L Glucose 95 168 H Calcium 8.7 8.7 12/10/16 10:26 Sputum Gram Stain - Final 12/10/16 10:26 Sputum Sputum Culture - Final Mrsa (Meth Resis Staph Aureus) Normal Joselin 11/29/16 11/29/16 11/29/16 05:57 05:57 12:30 Creatine Kinase 325 H 304 H CK-MB (CK-2) 1.09 Troponin I 0.420 NT-Pro-B Natriuret Pep 11/29/16 11/29/16 11/29/16 12:30 17:35 18:00 Creatine Kinase 279 H CK-MB (CK-2) 1.15 1.08 Troponin I 0.217 0.133 NT-Pro-B Natriuret Pep 12/04/16 05:25 Creatine Kinase CK-MB (CK-2) Troponin I NT-Pro-B Natriuret Pep 68119 H Impressions: Abdomen/Pelvis CT 11/29/16 02:17 IMPRESSION: No acute findings. Chest X-Ray 12/04/16 11:15 IMPRESSION: POSSIBLE SLIGHT DECREASE IN THE RIGHT PLEURAL EFFUSION. RIGHT BASILAR ATELECTASIS/ INFILTRATE UNCHANGED. Aorta w/Runoff CTA 12/09/16 00:00 IMPRESSION: 1. No evidence of abdominal aortic aneurysm. Atherosclerotic plaque is seen without significant stenosis. 2. Stable position and appearance of an IVC filter. Interval removal of a left femoral vein catheter. Please note this study was ordered as an arteriogram, and is not optimized for evaluation of the venous structures in this patient with reported bilateral DVTs. 3. Short interval stability of chronic and incidental findings as detailed above. Guidance Fluoroscopy 12/09/16 00:00 IMPRESSION: Please see combined report for performance of procedure and radiologic supervision and interpretation. Interventional Vascular Procedure 12/09/16 00:00 IMPRESSION: Please see combined report for performance of procedure and radiologic supervision and interpretation. PICC Line Insertion 12/09/16 00:00 IMPRESSION: SUCCESSFUL PLACEMENT OF A 5 FR dual LUMEN 30 CM PICC IN THE basilic VEIN. Transfer Plan - Time Spent with Patient Time spent with patient: Greater than 30 Minutes Qualifiers PATEINT BEING DISCHARGED WITH ANY OF THE FOLLOWING DIAGNOSIS?: Heart Failure, VTE (PE or DVT) VTE patient discharged on overlapping Therapy?: No Reason(s) for not prescribing Overlap Therapy:: Contraindicated HF Pt being discharged on ACEI for LVEF less than 40%?: No HF Pt being discharged on ARBS for LVEF less than 40%?: No HF Pt discharged on evidence-based Beta Bella:: Yes
[2016-12-13] MEDS: INSULIN LISPRO 100 UNIT/ML 3 ML VIAL SUBCUT PRN ×3 (11:03→18:21)
[2016-12-13] MEDS: LINEZOLID 600 MG TABLET PO SCH (11:06)
[2016-12-13] MEDS: LACTOBACILLUS ACIDOPHILUS 250 MG TAB PO SCH (11:07)
[2016-12-13] MEDS: ASPIRIN 81 MG TABLET, ENT COATED PO SCH (11:07)
[2016-12-13] MEDS: CARVEDILOL 3.125 MG TABLET PO SCH (11:08)
[2016-12-13] MEDS: TIOTROPIUM BROMIDE DPI 5 CAP/KIT (18 MCG/CAP) IH SCH (11:09)
[2016-12-13] MEDS: LIDOCAINE 5% (700 MG) TRANSDERMAL ADH..PATCH TP SCH (11:10)
[2016-12-13] MEDS: BUDESONIDE/FORMOTEROL 80-4.5 MCG 60 PUFF/6.9 GM MDI IH SCH (11:11)
[2016-12-13] MEDS: NORMAL SALINE 10 ML SDV (SCHEDULED) IV SCH (11:12)
[2016-12-13] MEDS: NORMAL SALINE 10 ML SDV (AFTER EACH USE) IV PRN (11:12)
[2016-12-13] MEDS: PANTOT AC/MIN OIL/PET HY-PHL OINT 50 GM TOP SCH ×2 (11:38→18:24)
[2016-12-13] MEDS: POLYETHYLENE GLYCOL 3350 POWDER 17 GM/1 PACKET PO SCH (11:51)
[2016-12-13] MEDS ORDERED: FERROUS SULFATE 325 MG TABLET PO SCH (18:00)
[2016-12-13] MEDS: FLUCONAZOLE 100 MG TABLET PO SCH (18:21)
[2016-12-13 20:14] VITALS: BP 126/78
== END 2016-12-13 20:32 | DRG 871 ==
LOC: ER 22:35 → EH 11-29 04:09 → ICU 11-29 04:40 → 4N 12-02 16:18
PROVIDERS: ADMIT Internal Medicine; ATTEND Internal Medicine
PROC: 06HN33Z Insertion of Infusion Device into Left Femoral Vein, Percutaneous Approach (ICD-10-PCS; principal; 2016-11-29)
PROC: 02HV33Z Insertion of Infusion Device into Superior Vena Cava, Percutaneous Approach (ICD-10-PCS; 2016-12-09)
PROC: B518ZZA Fluoroscopy of Superior Vena Cava, Guidance (ICD-10-PCS; 2016-12-09)
PROC: B548ZZA Ultrasonography of Superior Vena Cava, Guidance (ICD-10-PCS; 2016-12-09)
DX: A41.9 Sepsis, unspecified organism (principal); R65.21 Severe sepsis with septic shock; J96.21 Acute and chronic respiratory failure with hypoxia; J18.9 Pneumonia, unspecified organism; I50.23 Acute on chronic systolic (congestive) heart failure; N30.00 Acute cystitis without hematuria; N17.9 Acute kidney failure, unspecified; I82.413 Acute embolism and thrombosis of femoral vein, bilateral; E27.40 Unspecified adrenocortical insufficiency; E87.1 Hypo-osmolality and hyponatremia; Z66 Do not resuscitate; N18.3 Chronic kidney disease, stage 3 (moderate); E11.649 Type 2 diabetes mellitus with hypoglycemia without coma; J44.9 Chronic obstructive pulmonary disease, unspecified; I73.9 Peripheral vascular disease, unspecified; I48.0 Paroxysmal atrial fibrillation; E11.22 Type 2 diabetes mellitus with diabetic chronic kidney disease; R77.8 Other specified abnormalities of plasma proteins; I07.1 Rheumatic tricuspid insufficiency; K21.9 Gastro-esophageal reflux disease without esophagitis; E87.5 Hyperkalemia; E83.42 Hypomagnesemia; D64.9 Anemia, unspecified; R58 Hemorrhage, not elsewhere classified; E66.01 Morbid (severe) obesity due to excess calories; F17.210 Nicotine dependence, cigarettes, uncomplicated; Z88.0 Allergy status to penicillin; Z88.2 Allergy status to sulfonamides; Z89.612 Acquired absence of left leg above knee; Z89.611 Acquired absence of right leg above knee; Z91.19 Patient's noncompliance with other medical treatment and regimen; Z79.82 Long term (current) use of aspirin; Z79.4 Long term (current) use of insulin; Z79.899 Other long term (current) drug therapy; Z79.51 Long term (current) use of inhaled steroids; Z68.34 Body mass index [BMI] 34.0-34.9, adult
CPT/HCPCS: 36415; 36569; 36600; 71010; 74176; 75635; 76937; 77001; 80048; 80053; 81001; 82272; 82550; 82553; 82607; 82728; 82746; 82803; 82962; 83036; 83540; 83550; 83605; 83690; 83735; 83880; 84100; 84466; 84484; 85025; 85027; 85045; 85384; 85610; 85730; 87040; 87070; 87077; 87086; 87186; 87205; 87493; 93005; 93010; 93971; 94640; 94660; 96365; 96366; 96375; 99291; C1751; G8978-GP; G8979-GP; G8987-GO; G8988-GO; J0456; J0610; J1642; J1644; J1650; J1720; J1815; J1940; J1956; J2270; J3370; J3475; J3490; J7030; J7060; J7620